=== PATIENT | female | born 1950 | race Caucasian/White ===

== ENCOUNTER 2021-11-30 11:19 | Outpatient (CLI) | payer MEDICARE, BC, SELFPAY ==
--- OUTSIDE RECORDS SUMMARY | 2021-11-30 11:22 | XMS_ITS | Encounter Summary ---
:1950 Author Organization [facility] Address [address] [place] [address] Care Team Providers Name Role Phone Unavailable Primary Care Provider Unavailable Reason for Visit Reason Comments Medication Problem ICD clarification Encounter Details Date Type Department Care Team Description 11/20/2021 Clinical Department of [place], Medication Communication Otorhinolaryngology in [place] ([place], [place] M.D. clarification) [address] [facility] [address] [place] [phone] [place] [phone] Social History Tobacco Use Types Packs/Day Years Used Date Smoking Tobacco: Never Smokeless Tobacco: Never Alcohol Habits Answer Date Recorded How often do you have a drink containing alcohol? Monthly or less 10/07/2021 How many drinks containing alcohol do you have on a 1 or 2 10/07/2021 typical day when you are drinking? How often do you have six or more drinks on one Never 10/07/2021 occasion? Comment: Not asked Social Isolation Answer Date Recorded In a typical week, how many times do you Twice a week 10/07/2021 talk on the phone with family, friends, or neighbors? How often do you get together with friends Three times a wee k 10/07/2021 or relatives? How often do you attend religion or protestant Never 10/07/2021 services? Do you belong to any clubs or organizations Yes 10/07/2021 such as religion groups, unions, fraternal or athletic groups, or school groups? How often do you attend meetings of the More than 4 times pe r year 10/07/2021 clubs or organizations you belong to? Are you now , , , 10/07/2021 , never or living with a partner? Physical Activity Answer Date Recorded On average, how many days per week do you engage in moderate to 7 days 10/07/2021 strenuous exercise (like walking fast, running, jogging, dancing, swimming, biking, or other activities that cause a light or heavy sweat)? On average, how many minutes do you engage in exercise at is 100 min 10/07/2021 level? Stress Answer Date Recorded Do you feel stress - tense, restless, nervous, or anxious, N ot at all 10/07/2021 or unable to sleep at night because your mind is troubled all the time - these days? Financial Resource Strain Answer Date Recorded How hard is it for you to pay for the very basics like Not v js hard 10/07/2021 food, housing, medical care, and heating? Intimate Partner Violence Answer Date Recorded Within the last year, have you been afraid of your partner o r No 10/07/2021 ex-partner? Within the last year, have you been humiliated or emotionall y No 10/07/2021 abused in other ways by your partner or ex-partner? Within the last year, have you been kicked, hit, slapped, or No 10/07/2021 otherwise physically hurt by your partner or ex-partner? Within the last year, have you been raped or forced to have any No 10/07/2021 kind of sexual activity by your partner or ex-partner? Food Insecurity Answer Date Recorded Within the past 12 months, you worried that your food would Never true 10/07/2021 run out before you got money to buy more. Within the past 12 months, the food you bought just didn't N ever true 10/07/2021 last and you didn't have money to get more. Transportation Needs Answer Date Recorded In the past 12 months, has lack of transportation kept you f rom No 10/07/2021 medical appointments or from getting medications? In the past 12 months, has lack of transportation kept you f rom No 10/07/2021 meetings, work, or getting things needed for daily living? Housing Stability Answer Date Recorded In the last 12 months, was there a time when you were not ab le No 10/07/2021 to pay the mortgage or rent on time? In the last 12 months, how many places have you lived? 1 10/07/2021 In the last 12 months, was there a time when you did not hav e a No 10/07/[address] sleep or slept in a [facility] (including now)? Education Answer Date Recorded What is the highest level of school Bachelor's degree (e.g., BA, AB, 10/07/2021 you have completed or the highest BS) degree you have received? Sex Assigned at Date Recorded Female 06/26/2021 11:13 AM CDT documented as of this encounter Miscellaneous Notes Telephone Encounter - Earline Mirza - 11/20/2021 8:33 AM CDT Images from the original note were not included. Fax came in on the prescription just sent. Please clarify. Thanks. documented in this encounter Plan of Treatment Upcoming Encounters Date Type Specialty Care Team Description 12/17/2021 Comprehensive Visit Neurology Jamal Oliva M.D. [address] [place] [phone] Makayla Neves M.S., CCC-CREW SUPERVISOR [address] [place] [phone] 12/17/2021 Appointment Radiology Jamal Olvia M .D. [address] [place] [phone] Makayla Neves M.S., CCC-CREW SUPERVISOR [address] [place] [phone] 12/17/2021 Clinical Support Neurology Jamal Oliva M.D. [address] [place] [phone] Makayla Neves M.S., CCC-CREW SUPERVISOR [address] [place] [address], [place] [phone] 12/17/2021 Appointment Radiology Jake Michel M.D. [address] [place] [phone] (Wo rk) 12/17/2021 Office Visit Otorhinolaryngology Tito Michel M.D. [address] [place] [phone] (Wo rk) 12/23/2021 Telemedicine Otorhinolaryngology Shira Soto, CCC-CREW SUPERVISOR [address] [place] [phone] (Wo rk) documented as of this encounter Visit Diagnoses Not on filedocumented in this encounter Additional Health Concerns Assessment Noted Time PHQ-9 Depression Total Score: 1 10/01/2016 3:24 PM CDT documented as of this encounter
--- OUTSIDE RECORDS SUMMARY | 2021-11-30 11:22 | XMS_ITS | Encounter Summary ---
:1950 Author Organization [facility] Address [address] [place] [address] Care Team Providers Name Role Phone Unavailable Primary Care Provider Unavailable Encounter Details Date Type Department Care Team Description 11/26/2021 Orders Only Department of Gerber Oswald, Otorhinolaryngology in [place], [place] [address] [facility] [address] [place] [phone] Social History Tobacco Use Types Packs/Day Years [...] or relatives? How often do you attend protestant or hoahaoism Never 10/07/2021 services? Do you belong to any clubs or organizations Yes 10/07/2021 such as protestant groups, unions, fraternal or athletic groups, or [...] minutes do you engage in exercise at th is 100 min 10/07/2021 level? Stress Answer [...] place to sleep or slept in a detention (including now)? Education Answer Date Recorded What is the highest level of school Bachelor's degree (e.g., BA, AB, 10/07/2021 you have completed or the highest BS) degree you have received? Sex Assigned at Date Recorded Female 06/26/2021 11:13 AM CDT documented as of this encounter Plan of Treatment Upcoming Encounters Date Type Specialty Care Team Description 12/17/2021 Comprehensive Visit Neurology Jamal Oliva M.D. [address] [place] [phone] Makayla Neves M.S., [facility]-[employer]UTIVE DIRECTOR [employer] [address] [place] [phone] 12/17/2021 Appointment Radiology Jamal Oliva M .D. [address] [place] [phone] Makayla Neves M.S., [facility]UTIVE DIRECTOR [employer] [address] [place] [phone] 12/17/2021 Clinical Support Neurology Jamal Oliva M.D. [address] [place] [phone] Makayla Neves M.S., [facility]UTIVE DIRECTOR [employer] [address] [place] [phone] 12/17/2021 Appointment Radiology Jake Michel M.D. [address] [place] [phone] (Wo rk) 12/17/2021 Office Visit Otorhinolaryngology Tito Michel M.D. [address] [place] [phone] (Wo rk) 12/23/2021 Telemedicine Otorhinolaryngology Shira Soto, [facility]IVE DIRECTOR [employer] [address] [place] [phone] (Wo rk) documented as of this encounter Visit Diagnoses Not on filedocumented in this encounter Additional Health Concerns Assessment Noted Time PHQ-9 Depression Total Score: 1 10/01/2016 3:24 PM CDT documented as of this encounter
--- OUTSIDE RECORDS SUMMARY | 2021-11-30 11:22 | XMS_ITS | Encounter Summary ---
:1950 Author Organization [facility] Address [address] [place] [address] Care Team Providers Name Role Phone Unavailable Primary Care Provider Unavailable Encounter Details Date Type Department Care Team Description 01/13/2017 Hospital Encounter HX NO MAPPING Social History Tobacco Use Types Packs/Day Years Used Date Smoking Tobacco: Never Assessed Alcohol Habits Answer Date Recorded How often [...] or relatives? How often do you attend yazdanism or mormonism Never 10/07/2021 services? Do you belong to any clubs or organizations Yes 10/07/2021 such as yazdanism groups, unions, fraternal or athletic groups, or [...] place to sleep or slept in a halfway (including now)? Sex Assigned at Date Recorded Female 06/26/2021 11:13 AM CDT documented as of this encounter Last Filed Vital Signs Vital Sign Reading Time Taken Comments Blood Pressure 136/72 01/13/2017 8:39 AM ASSEMBLY ROOM SUPERVISOR Pulse 71 01/13/2017 8:39 AM ASSEMBLY ROOM SUPERVISOR Temperature - - Respiratory Rate 16 01/13/2017 8:39 AM ASSEMBLY ROOM SUPERVISOR Oxygen Saturation - - Inhaled Oxygen Concentration - - Weight - - Height - - Body Mass Index - - documented in this encounter Medications at Time of Discharge Medication Sig Dispensed Refills Start Date End Date acetaminophen (TYLENOL) 325 Take 650 mg by 0 09/2013 mg tablet mouth. levothyroxine (SYNTHROID, Take 100 mcg by 0 11/12 LEVOTHROID) 100 mcg tablet mouth daily. melatonin 3 mg tablet Take 2 tablets by 0 016 mouth at bedtime. ondansetron (ZOFRAN) 4 mg as needed. 0 11/10/2016 tablet documented as of this encounter Plan of Treatment Upcoming Encounters Date Type Specialty Care Team Description 12/17/2021 Comprehensive Visit Neurology Jamal Oliva M.D. [address] [place] [phone] Makayla Neves M.S., [id number] ARMOR CREWMAN [address] [place] [phone] 12/17/2021 Appointment Radiology Jamal Oliva M .D. [address] [place] [phone] Makayla Neves M.S., [facility] ARMOR CREWMAN [address] [place] [phone] 12/17/2021 Clinical Support Neurology Jamal Oliva M.D. [address] [place] [phone] Makayla Neves M.S., [facility] ARMOR CREWMAN [address] [place] [phone] 12/17/2021 Appointment Radiology Jake Michel M.D. [address] [place] [phone] (Wo rk) 12/17/2021 Office Visit Otorhinolaryngology Tito Michel M.D. [address] [place] [phone] (Wo rk) 12/23/2021 Telemedicine Otorhinolaryngology Shira Soto [facility] ARMOR CREWMAN [address] [place] [phone] (Wo rk) documented as of this encounter Visit Diagnoses Not on filedocumented in this encounter Additional Health Concerns Assessment Noted Time PHQ-9 Depression Total Score: 1 10/01/2016 3:24 PM CDT documented as of this encounter
--- OUTSIDE RECORDS SUMMARY | 2021-11-30 11:22 | XMS_ITS | Encounter Summary ---
:1950 Author Organization [facility] Address [address] [place] [address] Care Team Providers Name Role Phone Unavailable Primary Care Provider Unavailable Reason for Visit Reason Comments Med Change Request Encounter Details Date Type Department Care Team Description 11/21/2021 Refill Department of Morgan Fleming, Med Change Request Otorhinolaryngology in [facility], [place] M.S.N. [address] [facility] [address] [place] [phone] [place], [place] [phone] Social History Tobacco Use Types Packs/Day Years [...] or relatives? How often do you attend taoist or latter-day Never 10/07/2021 services? Do you belong to any clubs or organizations Yes 10/07/2021 such as taoist groups, unions, fraternal or athletic groups, or [...] place to sleep or slept in a fpc (including now)? Education Answer Date Recorded What [...] Comprehensive Visit Neurology Jamal Oliva M.D. [address] [place] [phone] Makayla Neves M.S., [facility]MINISTER [address] [place] [phone] 12/17/2021 Appointment Radiology Jamal Oliva M .D. [address] [place] [phone] Makayla Neves M.S., [facility] [phone] 12/17/2021 Clinical Support Neurology Jamal Oliva M.D. [address] [place] [phone] Makayla Neves M.S., [facility] [phone] 12/17/2021 Appointment Radiology Jake Michel M.D. [address] [place] [phone] (Wo rk) 12/17/2021 Office Visit Otorhinolaryngology Tito Michel M.D. [address] [place] [phone] (Wo rk) 12/23/2021 Telemedicine Otorhinolaryngology Shira Soto, [facility] [address] [place] [phone] (Wo rk) documented as of this encounter Visit Diagnoses Not on filedocumented in this encounter Additional Health Concerns Assessment Noted Time PHQ-9 Depression Total Score: 1 10/01/2016 3:24 PM CDT documented as of this encounter
--- OUTSIDE RECORDS SUMMARY | 2021-11-30 11:22 | XMS_ITS | Encounter Summary ---
:1950 Author Organization [facility] Address [address] [place] [address] Care Team Providers Name Role Phone Unavailable Primary Care Provider Unavailable Reason for Referral Speech Pathology (Routine) - Authorized Specialty Diagnoses / Procedures Referred By Contact Refer red To Contact Diagnoses Paralysis Vocal Cord Unilateral Complete Jamal Oliva M.D. [facility] Procedures TECHNICAL INFORMATION SPECIALIST Voice evaluation 200 [place] [phone] Referral ID Status Reason Start Date Expiration Date Visits V isits Requested Authorized [id number] Authorized 10/09/2021 10/09/2022 99 99 Reason for Visit Appointment Request (Routine) - Closed Specialty Diagnoses / Procedures Referred By Contact Refer red To Contact Otorhinolaryngology Diagnoses Paralysis Vocal Cord Referral ID Status Reason Start Date Expiration Date Visits Requ ested Visits Authorized [id number] Closed 06/26/2021 06/26/2022 1 1 Encounter Details Date Type Department Care Team Description 10/09/2021 Office Visit Department of Jamal Oliva Voca l Cord Otorhinolaryngology kb Mcnally M.D. Unilateral Complete [place], [place] 200 [facility] (Primary Dx) 200 [place] [phone] Social History Tobacco Use Types Packs/Day Years [...] or relatives? How often do you attend anabaptism or zoroastrian Never 10/07/2021 services? Do you belong to any clubs or organizations Yes 10/07/2021 such as anabaptism groups, unions, fraternal or athletic groups, or [...] place to sleep or slept in a assisted (including now)? Education Answer Date Recorded What is the highest level of school Bachelor's degree (e.g., BA, AB, 10/07/2021 you have completed or the highest BS) degree you have received? Sex Assigned at Date Recorded Female 06/26/2021 11:13 AM CDT documented as of this encounter Progress Notes Salma Jones - 10/09/2021 9:00 AM CDT Referring provider: No ref. provider found .gshrefer CHIEF COMPLAINT Hoarseness HISTORY OF PRESENT ILLNESS Ms. Larry is a 71 y.o. year old female here for evaluation of hoarseness. She has a history of right true vocal fold immobility and underwent type [address] Oliva on November 10, 2016. This helped her greatly with her voice symptoms. Just in the past 6 months, she has started to notice increased hoarseness similar to what she experienced pre-operatively in 2017. Others are also starting to have difficulty hearing her. This has progressively worsened over time.She has increased dyspnea on exertion which she attributes to her history of asthma and organizing pneumonia, but otherwise no breathlessness or noisy breathing. She does also carry a diagnosis of esophageal dysmotility resulting in reflux. She was worked up forthis locally in [place] last fall with a swallow study and was found to also have a Zenker's diverticulum. I do not see the outside records for this today. She has mild dysphagia and has managed this with lifestyle changes including chewing slowly and thoroughly. Small pills are difficult to swallow. She is a pescetarian and tolerates soft foods the best. She does endorse occasional regurgitation,reflux, and choking. No previous hospitalizations for aspiration pneumonia for weight loss. She is taking Pepcid for the reflux, and does not find that this fully alleviating her heartburn symptoms. The voice changes are most concerning to her today as they are affecting socializing. Patient rates the voice today as 62 % of normal. Patient rates concern regarding voice as 5/7, where 7 equals extreme concern, and effort when speaking as 5/7, where 7 equals extreme effort. Patient has difficulty within 10-20 minutes of speaking. Total score on the Voice Handicap Index-10 (VHI-10) is 21/40. EAT-10 is 9. RSI is 27. The following portions of the patient's history were reviewed and updated as appropriate: allergies,current medications, family history, medical history, social history, surgical history, and problem list. Encounter review of systems was reviewed and pertinent responses are noted in the history. Social History Tobacco Use Smoking status: Never Smokeless tobacco: Never Vaping Use Vaping Use: never used PHYSICAL EXAMINATION Gen: Resting comfortably in no acute distress. Alert and oriented. No stridor or increased respiratory effort. Voice is slightly rough. Maximal phonation time is not limited by time. Ent: Oral cavity, oropharynx: Clear and free of masses or lesions. Neck: Supple without lymphadenopathy or thyromegaly. Cranial nerve 7 intact bilaterally. Skin: Scar present on left side of neck from previous cervical vertebral fusion. Flexible laryngoscopy: Verbal consent obtained and universal protocol followed. In order to evaluatethe chief complaint, a flexible laryngoscopy was performed as a separate identifiable procedure. Twopercent lidocaine with phenylephrine was instilled into the right and left nares. The flexible scopewas passed. The larynx was examined, specifically the supraglottis, true vocal folds, and subglottis. Vocal fold adduction and abduction were assessed. The true vocal folds, arytenoids, and interarytenoid spaces were closely visualized to confirm presence or absence of erythema, edema, or structural lesions. Videostroboscopy was also performed to evaluate the vibratory potential and closure patterns of the true vocal folds. Mucosal wave and amplitude were assessed for symmetry. Periodicity and glottic closure were evaluated. The scope was removed. Specific findings: True vocal folds were carefully examined. The right true vocal fold is immobile in a paramedian position with what seems to be adequate bulk. The left true vocal fold shows normal and full motion. Closure is nearly complete with the subtle glottal gap anteriorly at modal pitch. There is some chasing asymmetry seen with the right side leading the left. At higher frequency, the closure is complete with symmetric mucosal wave. 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 Larry has a history of right true vocal fold immobility s/p type [address] Oliva 11/10/2016 and is presenting today for new hoarseness after around 5 years of improved voice. We comparedher voice recordings from 3 months post-op in 2017 to today and she has good quality of sound intermi ttently. On scope exam today the closure is complete at slightly higher pitch. There is a subtle gapat modal and lower pitch. At this time, I would not recommend a revision thyroplasty and she is happy with this. I would recommend evaluation with our speech language pathology team and voice therapy. She also has a Zenker's diverticulum which was found on swallow study in [place] last fall duringwork-up of her esophageal dysmotility, though these records are not available in her chart today. I would like to see the swallow study and she will send that our way. We discussed possible surgery forthis and there is a risk for reflux especially with her history of esophageal dysmotility. She may need to see GI for their evaluation as well here. 20 minutes were spent with patient with greater than half of this in counseling and coordination of care not including the videostroboscopy. PATIENT EDUCATION Ready to learn, no apparent learning barriers were identified; learning preferences include listening. Explained diagnosis and treatment plan; patient expressed understanding of the content. Associated attestation - Jamal Oliva M.D. - 10/09/2021 10:45 AM CDT I saw the patient with the medical student. I was present for or re-performed the History of PresentIllness. I saw and evaluated the patient, participating in the fermin portions of the service and did medical decision making. I have reviewed the above documentation and agree or amended. documented in this encounter Plan of Treatment Upcoming Encounters Date Type Specialty Care Team Description 12/17/2021 Comprehensive Visit Neurology Jamal Oliva M.D. [address] [place] [phone] Makayla Neves M.S., [facility]-TECHNICAL INFORMATION SPECIALIST [address] [place] [phone] 12/17/2021 Appointment Radiology Jamal Oliva M .D. [address] [place] [phone] Makayla Neves M.S., [facility]-TECHNICAL INFORMATION SPECIALIST [address] [place] [phone] 12/17/2021 Clinical Support Neurology Jamal Oliva M.D. [address] [place] [phone] Makayla Neves M.S., [facility]-TECHNICAL INFORMATION SPECIALIST [address] [place] [phone] 12/17/2021 Appointment Radiology Jake Michel M.D. [address] [place] [phone] (Wo rk) 12/17/2021 Office Visit Otorhinolaryngology Tito Michel M.D. [address] [place] [phone] (Wo rk) 12/23/2021 Telemedicine Otorhinolaryngology Shira Soto, [facility]-TECHNICAL INFORMATION SPECIALIST [address] [place] [phone] (Wo rk) documented as of this encounter Visit Diagnoses Diagnosis Paralysis Vocal Cord Unilateral Complete - Primary documented in this encounter Additional Health Concerns Assessment Noted Time PHQ-9 Depression Total Score: 1 10/01/2016 3:24 PM CDT documented as of this encounter
--- OUTSIDE RECORDS SUMMARY | 2021-11-30 11:22 | XMS_ITS | Encounter Summary ---
:1950 Author Organization [facility] Address [address] [place] [address] Care Team Providers Name Role Phone Unavailable Primary Care Provider Unavailable Encounter Details Date Type Department Care Team Description 11/20/2021 Orders Only Department of Morgan Fleming, Otorhinolaryngology in [facility] [place], [place] M.S.N. [address] [facility] [address] [place] [address] [place], [place] [phone] Social History Tobacco Use Types Packs/Day Years [...] or relatives? How often do you attend rastafari or confucianism Never 10/07/2021 services? Do you belong to any clubs or organizations Yes 10/07/2021 such as rastafari groups, unions, fraternal or athletic groups, or [...] place to sleep or slept in a residential (including now)? Education Answer Date Recorded What [...] Comprehensive Visit Neurology Jamal Oliva M.D. [address] [place] [phone] Makayla Neves M.S., [facility]-HVAC INSTALLATION TECHNICIAN [address] [place] [phone] 12/17/2021 Appointment Radiology Jamal Oliva M .D. [address] [place] [phone] Makayla Neves M.S., [facility]-HVAC INSTALLATION TECHNICIAN [address] [place] [phone] 12/17/2021 Clinical Support Neurology Jamal Oliva M.D. [address] [place] [phone] Makayla Neves M.S., [facility]-HVAC INSTALLATION TECHNICIAN [address] [place] [phone] 12/17/2021 Appointment Radiology Jake Michel M.D. [address] [place] [phone] (Wo rk) 12/17/2021 Office Visit Otorhinolaryngology Tito Michel M.D. [address] [place] [phone] (Wo rk) 12/23/2021 Telemedicine Otorhinolaryngology Shira Soto, [facility]-HVAC INSTALLATION TECHNICIAN [address] [place] [phone] (Wo rk) documented as of this encounter Visit Diagnoses Not on filedocumented in this encounter Additional Health Concerns Assessment Noted Time PHQ-9 Depression Total Score: 1 10/01/2016 3:24 PM CDT documented as of this encounter
--- OUTSIDE RECORDS SUMMARY | 2021-11-30 11:22 | XMS_ITS | Encounter Summary ---
:1950 Author Organization [facility] Address [address] [place] [address] Care Team Providers Name Role Phone Unavailable Primary Care Provider Unavailable Encounter Details Date Type Department Care Team Description 11/27/2021 Orders Only Department of Otorhinolaryngology Azeb Bess, in [facility] L[facility] [address] [facility] [address] [place] [address] [place], [place] [phone] Social History Tobacco Use Types Packs/Day Years [...] or relatives? How often do you attend mosque or presybeterian Never 10/07/2021 services? Do you belong to any clubs or organizations Yes 10/07/2021 such as mosque groups, unions, fraternal or athletic groups, or [...] pay for the very basics like Not alex js hard 10/07/2021 food, housing, medical care, [...] place to sleep or slept in a care home (including now)? Education Answer Date Recorded What [...] Comprehensive Visit Neurology Jamal Oliva M.D. [address] [place] [phone] Makayla Neves M.S., [facility]-[address] [phone] 12/17/2021 Appointment Radiology Jamal Oliva M .D. [address] [place] [phone] Makayla Neves M.S., [facility]-[address] [phone] 12/17/2021 Clinical Support Neurology Jamal Oliva M.D. [address] [place] [phone] Makayla Neves M.S., [facility]-[address] [phone] 12/17/2021 Appointment Radiology Jake Michel M.D. [address] [place] [phone] (Janet garcia) 12/17/2021 Office Visit Otorhinolaryngology Tito Michel M.D. [address] [place] [phone] (Janet garcia) 12/23/2021 Telemedicine Otorhinolaryngology Shira Soto, [facility]-GEOPOLITICS TEACHER [address] [place] [phone] (Janet garcia) documented as of this encounter Visit Diagnoses Not on filedocumented in this encounter Additional Health Concerns Assessment Noted Time PHQ-9 Depression Total Score: 1 10/01/2016 3:24 PM CDT documented as of this encounter
--- OUTSIDE RECORDS SUMMARY | 2021-11-30 11:22 | XMS_ITS | Encounter Summary ---
:1950 Author Organization [facility] Address [address] [place] [address] Care Team Providers Name Role Phone Unavailable Primary Care Provider Unavailable Encounter Details Date Type Department Care Team Description 11/25/2021 Orders Only Department of Otorhinolaryngology Azeb Bess, in [facility] L[facility] [address] [facility] [address] [place] [address] [place], [place] [phone] Social History Tobacco Use Types Packs/Day Years [...] or relatives? How often do you attend taoism or scientology Never 10/07/2021 services? Do you belong to any clubs or organizations Yes 10/07/2021 such as taoism groups, unions, fraternal or athletic groups, or [...] Comprehensive Visit Neurology Jamal Oliva M.D. [address] [place] [phone] Makayla Neves M.S., [facility]-[address] [phone] 12/17/2021 Appointment Radiology Jamal Oliva M .D. [address] [place] [phone] Makayla Neves M.S., [facility]-[address] [phone] 12/17/2021 Clinical Support Neurology Jamal Oliva M.D. [address] [place] [phone] Makayla Neves M.S., [facility]-[address] [phone] 12/17/2021 Appointment Radiology Jake Michel M.D. [address] [place] [phone] (Janet garcia) 12/17/2021 Office Visit Otorhinolaryngology Tito Michel M.D. [address] [place] [phone] (Janet garcia) 12/23/2021 Telemedicine Otorhinolaryngology Shira Soto, [facility]-LASER TECHNICIAN [address] [place] [phone] (Janet garcia) documented as of this encounter Visit Diagnoses Not on filedocumented in this encounter Additional Health Concerns Assessment Noted Time PHQ-9 Depression Total Score: 1 10/01/2016 3:24 PM CDT documented as of this encounter
--- OUTSIDE RECORDS SUMMARY | 2021-11-30 11:22 | XMS_ITS | Encounter Summary ---
:1950 Author Organization [facility] Address [address] [place] [address] Care Team Providers Name Role Phone Unavailable Primary Care Provider Unavailable Encounter Details Date Type Department Care Team Description 02/14/2017 Telemedicine Department of Otorhinolaryngology Social History Tobacco Use Types Packs/Day Years [...] How often do you attend yazdanism or tenriism Never 10/07/2021 services? Do you belong to [...] place to sleep or slept in a intermediate (including now)? Sex Assigned at Date Recorded Female 06/26/2021 11:13 AM CDT documented as of this encounter Plan of Treatment Upcoming Encounters Date Type Specialty Care Team Description 12/17/2021 Comprehensive Visit Neurology Jamal Oliva M.D. [address] [place] [phone] Makayla Neves M.S., [facility]-REHAB DIRECTOR OCCUPATIONAL THERAPIST [address] [place] [phone] 12/17/2021 Appointment Radiology Jamal Oliva M .D. [address] [place] [phone] Makayla Neves M.S., [facility]-REHAB DIRECTOR OCCUPATIONAL THERAPIST [address] [place] [phone] 12/17/2021 Clinical Support Neurology Jamal Oliva M.D. [address] [place] [phone] Makayla Neves M.S., [facility]-REHAB DIRECTOR OCCUPATIONAL THERAPIST [address] [place] [phone] 12/17/2021 Appointment Radiology Jake Michel M.D. [address] [place] [phone] (Wo rk) 12/17/2021 Office Visit Otorhinolaryngology Tito Michel M.D. [address] [place] [phone] (Wo rk) 12/23/2021 Telemedicine Otorhinolaryngology Shira Soto, [facility]-REHAB DIRECTOR OCCUPATIONAL THERAPIST [address] [place] [phone] (Wo rk) documented as of this encounter Procedures Procedure Name Priority Date/Time Associated Comments Diagnosis OTORHINOLARYNGOLOGY IMAGE Routine 02/14/2017 10:55 Results for this EXAM AM TEST DESIGNER procedure are i n the results section. documented in this encounter Results OTORHINOLARYNGOLOGY IMAGE EXAM (02/14/2017 10:55 AM TEST DESIGNER) Specimen (Source) Anatomical Collection Method Collection Time Re ceived Time Location / / Volume Laterality 02/14/2017 10:51 AM TEST DESIGNER Narrative [facility] - 02/14/2017 10:59 AM TEST DESIGNER This order has been created and auto-finalized to support the import of images acquired without order. The clini karlie documentation to support these images can be found on the encounter willow t produced images. Provider Not In System IMG NON RAD IMAGING PROCEDUR ES Performing Organization Address City/State/ZIP Code Phon e Number [facility] NA documented in this encounter Visit Diagnoses Not on filedocumented in this encounter Additional Health Concerns Assessment Noted Time PHQ-9 Depression Total Score: 1 10/01/2016 3:24 PM CDT documented as of this encounter
--- OUTSIDE RECORDS SUMMARY | 2021-11-30 11:22 | XMS_ITS | Clinical Summary ---
:[address] [facility] Address [address] [place] [address] Care Team Providers Name Role Phone Unavailable Primary Care Provider Unavailable Source Comments Patient records contain information from all sites at [facility]. For routine questions regarding patient records, call [phone] during business hours, M-F 8:00 AM - 5:00 PM Central Time. Record requests for emergency care only can be directed to [phone] at any time.[facility] Allergies No known active allergies Medications Medication Sig Dispensed Refills Start Date End Date Status predniSONE 2 (two) times a 0 06/16/2021 Ac tive (DELTASONE) 10 mg day. tablet ondansetron (ZOFRAN) as needed. 0 11/10/2016 Active 4 mg tablet melatonin 3 mg Take 2 tablets 0 03/17/2015 Active tablet by mouth at bedtime. levothyroxine Take 100 mcg by 0 11/12/2016 Active (SYNTHROID, mouth daily. LEVOTHROID) 100 mcg tablet ibuprofen Take 800 mg by 0 10/03/2018 Acti ve (ADVIL,MOTRIN) 800 mouth 3 (three) mg tablet times a day. HYDROcodone-acetamin Take 1-2 0 10/03/2018 Active ophen (NORCO) 5-325 tablets by mg per tablet mouth as needed. glucosamine sulf Take by mouth 0 Active dipotassium daily. chloride-chondroitin 500-400 mg per capsule fluticasone daily. 0 06/11/2021 Active propionate (FLONASE) 50 mcg/actuation nasal spray fluticasone Inhale every 12 0 04/20/2017 A ctive propion-salmeteroL (twelve) hours. (AIRDUO RESPICLICK) 232-14 mcg/actuation inhaler diphenhydrAMINE Take 25 mg by 0 Active (BENADRYL) 25 mg mouth. capsule cyanocobalamin, Take 1,000 mcg 0 Active vitamin B-12, 1,000 by mouth. mcg tablet extended release cefdinir (OMNICEF) Take 300 mg by 0 06/11/2021 Active 300 mg capsule mouth. albuterol 90 Inhale 2 puffs. 0 A ctive mcg/actuation inhaler acetaminophen Take 650 mg by 0 04/13/2013 Active (TYLENOL) 325 mg mouth. tablet budesonide Mix 1 ampule in 120 mL 11 11/25/2021 Ac tive (Pulmicort) 0.5 mg/2 sinus mL nebulizer irrigation solution bottle and irrigate twice daily. budesonide Add 1 respule 360 mL 3 11/27/2021 Acti ve (PULMICORT) 0.5 mg/2 to 8 ounces mL nebulizer saline and solution irrigate each side of nose twice daily as directed. budesonide (RINOCORT Administer 2 0 Discontinued AQUA) 32 sprays into 2 mcg/actuation nasal nostril(s). spray budesonide Administer 2 mL 120 mL 11 11/17/2021 Di scontinued (Pulmicort) 0.5 mg/2 (0.5 mg total) 2 mL nebulizer into nostril(s) solution 2 (two) times a day. Mix 1 ampule in sinus irrigation bottle and irrigate twice daily. budesonide Mix 1 ampule in 120 mL 11 11/19/2021 Di scontinued (Pulmicort) 0.5 mg/2 sinus 2 mL nebulizer irrigation solution bottle and irrigate twice daily. budesonide Mix 1 ampule in 120 mL 11 11/20/2021 Di scontinued (Pulmicort) 0.5 mg/2 sinus 2 mL nebulizer irrigation solution bottle and irrigate twice daily. Active Problems Problem Noted Date Asthma NOS 04/14/2017 Pneumonia Bronchiolitis Obliterans Organizing 09/28/19 17 Encounters Date Type Specialty Care Team Description 11/27/2021 Orders Only Otorhinolaryngology Azeb Bess, L.P.N. 11/26/2021 Orders Only Otorhinolaryngology Gerber Oswald M.D. 11/25/2021 Orders Only Otorhinolaryngology Azeb Bess, Ewa.P.N. 11/21/2021 Refill Otorhinolaryngology Morgan Fleming Cha nge Marie Mcneil APRN, C.N.P., M.S.N. 11/20/2021 Orders Only Otorhinolaryngology Morgan Fleming APRN, C.N.P., M.S.N. 11/20/2021 Clinical Otorhinolaryngology Jake Michel Medicat ion Problem Communication Breanna Hyde (ICD clarifica tion) 11/19/2021 Orders Only Otorhinolaryngology Carli Guerrero, R.N. 11/17/2021 Clinical Support Otorhinolaryngology Charles, Para lysis Vocal Shira Ewa, Cord Unilateral CCC-ENTRY LEVEL SALES ASSOCIATE Complete 11/17/2021 Comprehensive Otorhinolaryngology Jake Michel Rhinos inusitis Chronic (Primary Dx); Visit Breanna Hyde Sinusitis; Asthma (HCC); Pneumonia Bronc hiolitis Obliterans Organizing (HCC); Drip Post Nasal 11/17/2021 Orders Only Otorhinolaryngology Kevin Ham (Primary Jaqui A, Dx) R.N. 11/12/2021 Telemedicine Otorhinolaryngology Jamal Oliva, Paraly sis Vocal M.DSydnie Cord Unilateral Charles Complete Shira Mcneil CCC-ENTRY LEVEL SALES ASSOCIATE 10/12/2021 Community Orders Daiana Whitley (Primary Dx) MMira 10/09/2021 Comprehensive Otorhinolaryngology Jamal Oliva, Sinus itis (Primary Dx); Visit M.DSydnie Paralysis Vocal Cord Unilateral Complete Shira Soto CCC-ENTRY LEVEL SALES ASSOCIATE 10/09/2021 Ancillary Procedure 10/09/2021 Office Visit Otorhinolaryngology Jamal Oliva, Paraly sis Vocal M.D. Cord Unilateral Complete (Prima ry Dx) 10/08/2021 Clinical Admitting/Central Communication Scheduling from Last 3 Months Immunizations Name Administration Dates Next Due PCV13 07/02/2016 PPSV23 07/08/2014 Tdap 04/10/2015, 02/04/2007 Social History Tobacco Use Types Packs/Day Years Used Date Smoking Tobacco: Never Smokeless Tobacco: Never Tobacco Cessation: Counseling Given: Not Answered Alcohol Habits Answer Date Recorded How often [...] or relatives? How often do you attend sikhism or taoist Never 10/07/2021 services? Do you belong to any clubs or organizations Yes 10/07/2021 such as sikhism groups, unions, fraternal or athletic groups, or [...] place to sleep or slept in a long-term (including now)? Education Answer Date Recorded What is the highest level of school Bachelor's degree (e.g., BA, AB, 10/07/2021 you have completed or the highest BS) degree you have received? Sex Assigned at Date Recorded Female 06/26/2021 11:13 AM CDT Last Filed Vital Signs Vital Sign Reading Time Taken Comments Blood Pressure 136/72 01/13/2017 8:39 AM ENGINEERING CLERK Pulse 71 01/13/2017 8:39 AM ENGINEERING CLERK Temperature - - Respiratory Rate 16 01/13/2017 8:39 AM ENGINEERING CLERK Oxygen Saturation - - Inhaled Oxygen Concentration - - Weight 61 kg (134 lb 7.7 oz) 04/14/2017 7:48 AM ENGINEERING CLERK Height 154 cm (5' 0.63) 04/14/2017 7:48 AM ENGINEERING CLERK Body Mass Index 25.72 04/14/2017 7:48 AM ENGINEERING CLERK Plan of Treatment Upcoming Encounters Date Type Specialty Care Team Description 12/17/2021 Comprehensive Visit Neurology Jamal Oliva M.D. [address] [place] [phone] Makayla Neves M.S., [facility] [address] [place] [phone] 12/17/2021 Appointment Radiology Jamal Oliva M .D. [address] [place] [phone] Makayla Neves M.S., [facility] [phone] 12/17/2021 Clinical Support Neurology Jamal Oliva M.D. [address] [place] [phone] Makayla Neves M.S., [facility] [phone] 12/17/2021 Appointment Radiology Jake Michel M.D. [address] [place] [phone] (Wo rk) 12/17/2021 Office Visit Otorhinolaryngology Tito Michel M.D. [address] [place] [phone] (Janet garcia) 12/23/2021 Telemedicine Otorhinolaryngology hSira Soto, [facility] [phone] (Janet garcia) Health Maintenance Due Date Last Done Comments CT Colonography 1950 Colonoscopy 1950 FIT 1950 Hepatitis C Screening 1950 Zoster Vaccines (2 of 3) 04/12/2011 02/15/2011 Mammogram 05/05/2017 05/05/2016 (Performed elsewhere), 10/05/2013 (Performed elsewhere), 01/05/2011 (Performed elsewhere) Thyroid Stimulating Hormone (TSH) 10/01/2017 10/01/2016 test for thyroid function Cologuard 11/02/2019 11/01/2016 Colorectal Cancer Screening 11/02/2019 Depression Screening (Annual 03/07/2021 PHQ-2) Fall Risk Screen (Annual) 03/07/2021 COVID-19 Vaccine (5 - Booster for 10/02/2021 08/07/2021, , Moderna series) 05/19/2020, Additional history exists Influenza Vaccine (#1) 2021 Fasting Glucose for Diabetes 01/14/2024 01/13/2021, 017, Screening 10/01/2016, Additional history exists DTaP,Tdap,and Td Vaccines (3 - Td 04/10/2025 04/10/2015, , or Tdap) 10/05/2005 Pneumococcal vaccine (65+ years) Completed 08/07/2021, , 06/18/2016, Additional history exists Medical Devices Implanted Type Area Dog License Officer Supervisor Device Shelf Model / Identifier Expiration Date Ser ial / Lot Trimed-Screw Volar Peg Thrded 14mm - Garza [id number] Hardware e.g. [employer] Implanted: Qty: 1 on 04/25/2009 pins/screws/r ods Description: Device Dog License Officer Supervisor - [employer] Device Status Text - [id number]. Conversions - Default Historical Implant Device Hardware e.g . pins/screws/rods Right: Leg Implanted: 06/24/2014 (Quantity not on file) Description: Body Location - LowExtrm R. LowExtrm R. LowExtrm R. Device Status Text - Hardware. Conversions - Default Historical Implant Device Hardware e.g . pins/screws/rods Neck Implanted: Qty: 5 on 10/01/2016 Description: Body Location - Neck Mid. C -6 and C-7. Device Status Text - Hardware. [facility] 4 .035 - Garza [id number] Hardware e.g. pins/screws/rods Thong Implanted: Qty: 1 on 11/30/2016 Description: Device Dog License Officer Supervisor - Stryk er Gordon.. Device Status Text - [id number]. Block Olga. Phonoform [facility] Rt - Garza [id number] [facility] Pros thesis Other/Legacy - See Implant Med[employer] Implanted: Qty: 1 on 11/10/2016 Description Description: Device Dog License Officer Supervisor - [employer] Body Location - Other. Right. Device Status Text - [facility] [place] [id number]. Procedures Procedure Name Priority Date/Time Associated Comments Diagnosis OTORHINOLARYNGOLOGY IMAGE Routine 10/09/2021 9:30 Results for this EXAM AM CDT procedure are i n the results section. from Last 3 Months Results Otorhinolaryngology Image Exam-Otorhinolaryngology Image Exam (10/09/2021 9:30 AM CDT) Specimen (Source) Anatomical Collection Method Collection Time Re ceived Time Location / / Volume Laterality 10/09/2021 9:27 AM CDT Narrative IIMS - 10/09/2021 10:02 AM CDT This order has been created and auto-finalized to support the import of images acquired without order. The clini karlie documentation to support these images can be found on the encounter willow t produced images. Provider Not In System IMG NON RAD IMAGING PROCEDUR ES Performing Organization Address City/State/ZIP Code Phon e Number IIMS IIMS NA from Last 3 Months Insurance Payer Benefit Plan Subscriber ID Effective Phone Address Typ e / Group Dates MEDICARE MEDICARE A [id number] 2015-Pres [address] [place] [address] BLUE CROSS BCBS [place]ON[place] [id number] 2016-Pres [phone] PO ANSELMO X Cost Share BLUE SHIELD BLUE COST ent [phone] [place] [address] (Home) [place], [place] [phone] (Work)
--- OUTSIDE RECORDS SUMMARY | 2021-11-30 11:22 | XMS_ITS | Encounter Summary ---
:1950 Author Organization [facility] Address [address] [place] [phone] Care Team Providers Name Role Phone Unavailable Primary Care Provider Unavailable Reason for Referral Outpatient (Routine) - Authorized Specialty Diagnoses / Procedures Referred By Contact Refer red To Contact Otorhinolaryngology Jake Michel M.D . [facility] [address] [place] [phone] Referral ID Status Reason Start Date Expiration Date Visits V isits Requested Authorized [id number] Authorized 11/17/2021 11/16/2024 1 1 MRI/CAT/PET Scan (Routine) - Authorized Specialty Diagnoses / Procedures Referred By Contact Refer red To Contact Radiology Diagnoses Rhinosinusitis Chronic Jake Michel M.D. [facility] Procedures CT Sinuses without IV Contrast [address] [place] [phone] Referral ID Status Reason Start Date Expiration Date Visits V isits Requested Authorized [id number] Authorized 11/17/2021 11/17/2022 1 1 Reason for Visit Outpatient (Routine) - Closed Specialty Diagnoses / Procedures Referred By Contact Refer red To Contact Otorhinolaryngology Diagnoses Sinusitis Jamal Oliva M.D. [facility] [address] [place] [phone] Referral ID Status Reason Start Date Expiration Date Visits Requ ested Visits Authorized [id number] Closed 10/09/2021 10/09/2022 1 1 Encounter Details Date Type Department Care Team Description 11/17/2021 Comprehensive Visit Department of [place], Rhinosi nusitis Chronic (Primary Dx); Otorhinolaryngology in Jake W, Sinus itis; [place], [place] MMira Asthma ([facility]); [address] Pneumonia Bronchiolitis Obli terans Organizing ([facility]); [place], [place] [phone] [address] Drip Post Nasal [phone] [place] [phone] Social History Tobacco Use Types Packs/Day Years [...] or relatives? How often do you attend islam or samaritan Never 10/07/2021 services? Do you belong to any clubs or organizations Yes 10/07/2021 such as islam groups, unions, fraternal or athletic groups, or [...] place to sleep or slept in a jail (including now)? Education Answer Date Recorded What is the highest level of school Bachelor's degree (e.g., BA, AB, 10/07/2021 you have completed or the highest BS) degree you have received? Sex Assigned at Date Recorded Female 06/26/2021 11:13 AM CDT documented as of this encounter Consult Notes Morgan Fleming APRN, C.N.P., M.S.N. - 11/17/2021 9:15 AM CDT SUBJECTIVE CHIEF COMPLAINT / REASON FOR VISIT Brittany Larry is a 71 y.o. female who presents for evaluation of CRS HISTORY OF PRESENT ILLNESS Brittany Larry presents for evaluation of sinusitis referred by Dr. Oliva. She has a history of right true vocal fold immobility and is currently undergoing voice therapy with Nena Soto. Of late, shehas been struggling a bit more with her voice and reported feeling as though her sinus symptoms wereplaying a significant role. She has also been seen locally for chronic rhinosinusitis having been onbudesonide irrigations. Today, she reports a previous history of endoscopic surgery in 2007 and 2012 having undergone a septoplasty and opening of her sinuses. She reports daily symptoms that include headaches, green to clear, thick, nasal drainage, bilateral nasal obstruction, right worse than left. She denies any pain or pr essure or using nasal sprays or rinses in her nose. 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 She does endorse a history of obstructive sleep apnea wearing nasal pillows although feels more constructed at night. She also has a history of asthma taking albuterol inhaler intermittently along withreflux. She does occasionally take Pepcid however has done dietary changes due to her dysmotility. She denies a history of seasonal allergies having been tested multiple times. She denies any aspirin sensitivity. History significant for dysphagia, Zenker's diverticulum, esophageal dysmotility resulting in reflux, and a right true vocal fold immobility. Reports a history of asthma, GERD taking Pepcid Social History Tobacco Use Smoking status: Never Smokeless tobacco: Never REVIEW OF SYSTEMS REVIEW OF SYSTEMS OBJECTIVE of PHYSICAL EXAM Constitutional: Appears alert and well Otoscopic: Hearing is grossly normal Right: External ear normal TM intact without effusion EAC without significant cerumen Left: External ear normal TM intact without effusion EAC without significant cerumen Nose: The external nose is without significant lesions or masses Oral Cavity/Oropharynx: Normal oral cavity Eyes: Pupils are equal, round, and reactive to light Cardiovascular: Upper extremities are well perfused Pulmonary/Chest: Respirations have grossly normal rate and effort Lymphadenopathy: No cervical lymphadenopathy Neurological: She is alert Skin: No facial rash noted Psychiatric: Affect appears appropriate PROCEDURE NOTE Procedure: Rigid nasal endoscopy Pre-procedure diagnosis/Indication for procedure: To evaluate areas not seen on anterior rhinoscopy Anesthesia: 0.5% phenylephrine & 2% lidocaine topical spray Description: A 30 degree 4mm rigid nasal endoscope was used to examine the left and right nasal cavities. The nasal valve areas were examined for abnormalities or collapse. The inferior and middle turbinates were evaluated. The middle and superior meati, and the sphenoethmoid recesses were examined and inspected for mucopurulence and polyps. Once the endoscope was withdrawn, the patient was noted to have tolerated the procedure well without complications and was returned to ambulatory status. Findings: Septum midline. Bilateral inferior turbinates are nonobstructive with view of middle meatus bilaterally. Middle turbinates are in good position. Able to view minimal maxillary antrostomies bilaterally.The left maxillary antrostomies noted to have thick, clear mucus. Unable to view into ethmoids bilaterally. Bilateral nasopharynx was noted to have thick, clear mucus as well. No evidence of infection or edema No pus/purulence/polyps bilaterally Sujey-Juancarlos Endoscopic Scoring System RIGHT LEFT POLYPS (0, 1, 2) 0 0 EDEMA (0, 1, 2) 0 0 DISCHARGE (0, 1, 2) 1 1 SCARRING (0, 1, 2) 0 0 CRUSTING (0, 1, 2) 0 0 TOTAL 1 1 Olfactory Cleft Score RIGHT LEFT POLYPS (0, 1, 2) 0 0 EDEMA (0, 1, 2) 0 0 DISCHARGE (0, 1, 2) 0 0 SCARRING (0, 1, 2) 0 0 CRUSTING (0, 1, 2) 0 0 TOTAL 0 0 ASSESSMENT / PLAN #1 Rhinosinusitis Chronic #2 Asthma (HCC) #3 Pneumonia Bronchiolitis Obliterans Organizing (HCC) #4 Drip Post Nasal It was a pleasure to meet Ms. Larry today. She has a longstanding history of chronic rhinosinusitis having been on budesonide irrigations. She is currently undergoing voice therapy due to dysphonia robson history of vocal fold immobility. As of late she feels as though her sinus symptoms have played a significant role in her dysphonia and has ongoing thick, clear postnasal drainage and rhinorrhea. On exam she was noted to have thick, clear drainage in her bilateral nasal cavities were prominentlyin her left maxillary sinus and nasopharynx. There is no evidence of infection or edema. There is evidence of a previous minimal surgery with bilateral maxillary antrostomies. We reviewed a head CT from June of 2021 that revealed disease and mucosal inflammation in all sinuses. We discussed starting twice daily budesonide irrigations again for the following month. We advised her to follow-up with us at that time after undergoing a sinus CT. At that time we will review the results and based on the findings if she has significant improvement in her mucosal thickening and symptoms we can medical therapy and twice daily budesonide irrigations. If she does have continued postnasal drainage and inflammation on her CT we could discuss revision sinus surgery in further detail. Allof her questions were answered she is agreeable to plan. I saw and evaluated the patient, participating in the fermin portions of the service. I reviewed the resident/PA/nurse practitioner's note. I agree with the examination, assessment and plan. Jake Michel MD [facility] Department of Otorhinolaryngology - Head & Neck Surgery documented in this encounter Plan of Treatment Upcoming Encounters Date Type Specialty Care Team Description 12/17/2021 Comprehensive Visit Neurology Jamal Oliva M.D. [address] [place] [phone] Makayla Neves M.S., CCC-CRUSHER OPERATOR [address] [place] [phone] 12/17/2021 Appointment Radiology Jamal Oliva M .D. [address] [place] [phone] Makayla Neves M.S., CCC-CRUSHER OPERATOR [address] [place] [phone] 12/17/2021 Clinical Support Neurology Jamal Oliva M.D. [address] [place] [phone] Makayla Neves M.S., [facility]CRUSHER OPERATOR [address] [place] [phone] 12/17/2021 Appointment Radiology Jake Michel M.D. [address] [place] [phone] (Wo rk) 12/17/2021 Office Visit Otorhinolaryngology Tito Michel M.D. [address] [place] [phone] (Wo rk) 12/23/2021 Telemedicine Otorhinolaryngology Shira Soto, [facility] [address] [place] [phone] (Wo rk) Scheduled Orders Name Type Priority Associated Diagnoses Order S chedule CT Sinuses without Imaging RAD - Routine (most Rhinosinusitis Chronic Expected: IV Contrast inpatients and all outpatients) (Approximate), Expires: 02/16/2023 Scheduled Referrals Name Type Priority Associated Order Schedule Diagnoses Otorhinolaryngology office Outpatient Routine E xpected: visit (clinic) Referral 12/17/2021 (Approximate), Expires: 02/16/2023 documented as of this encounter Visit Diagnoses Diagnosis Rhinosinusitis Chronic - Primary Sinusitis Asthma (HCC) Pneumonia Bronchiolitis Obliterans Organ izing (HCC) Drip Post Nasal documented in this encounter Additional Health Concerns Assessment Noted Time PHQ-9 Depression Total Score: 1 10/01/2016 3:24 PM CDT documented as of this encounter
--- OUTSIDE RECORDS SUMMARY | 2021-11-30 11:22 | XMS_ITS | Encounter Summary ---
:1950 Author Organization [facility] Address [address] [place] [address] Care Team Providers Name Role Phone Unavailable Primary Care Provider Unavailable Reason for Referral Outpatient (Routine) - Closed Specialty Diagnoses / Procedures Referred By Contact Refer red To Contact Diagnoses Paralysis Vocal Cord Unilateral Complete [facility] Procedures ENT Speech therapy [address] [place] [phone] Referral ID Status Reason Start Date Expiration Date Visits Requ ested Visits Authorized [id number] Closed 11/12/2021 11/12/2022 1 1 Reason for Visit Outpatient (Routine) - Closed Specialty Diagnoses / Procedures Referred By Contact Refer red To Contact Video Medicine Diagnoses Paralysis Vocal Cord Unilateral Complete Jamal Oliva M.D. [facility] [address] [place] [phone] Referral ID Status Reason Start Date Expiration Date Visits Requ ested Visits Authorized [id number] Closed 10/09/2021 10/09/2022 1 1 Encounter Details Date Type Department Care Team Description 11/12/2021 Telemedicine Department of Jamal Oliva M .D. [address] [place] [phone] Paralysis Vocal Otorhinolaryngology in Shira Soto CCC-NATURAL GAS ENGINEER [address] [place] [phone] [place], [place] Complete [address] [place] [phone] Social History Tobacco Use Types Packs/Day Years [...] or relatives? How often do you attend confucianism or mandaen Never 10/07/2021 services? Do you belong to any clubs or organizations Yes 10/07/2021 such as confucianism groups, unions, fraternal or athletic groups, or [...] place to sleep or slept in a custodial (including now)? Education Answer Date Recorded What is the highest level of school Bachelor's degree (e.g., BA, AB, 10/07/2021 you have completed or the highest BS) degree you have received? Sex Assigned at Date Recorded Female 06/26/2021 11:13 AM CDT documented as of this encounter Progress Notes Shira Soto, MARLI-NATURAL GAS ENGINEER - 11/12/2021 9:00 AM CDT Referring provider Plan of care: Patient will be seen for 3-5 sessions over 12 weeks with goals of improving phonatory quality for functional communication in activities of daily living. Chief complaint/purpose of visit: Voice therapy Impression/Report/Plan Ms. Larry returns today for ongoing skilled intervention. Goals of therapy are as follows: 1. Patient will demonstrate mastery of various voice therapy techniques as judged by the clinician. 2. Patient will improve phonatory quality to 80 percent of normal at the phrase level on 75% of trials as judged by the patient. 3. Patient will improve phonatory quality to 80 percent of normal at the sentence level on 75% of trials as judged by the patient. 4. Patient will improve phonatory quality to 80 percent of normal in conversation as judged by the patient. At this point in time, she is very busy with a variety of exercises including exercises for her kneeand her neck. We will simplify our voice therapy exercise regimen to include simply semi occluded vocal tract activities with straw phonation and water resistance. She does feel that her sinus symptomsare playing a significant role. She is scheduled to see Dr. Michel next week and we will await his thoughts. I will plan to see her after her appointment with Dr. Michel. PATIENT EDUCATION Ready to learn, no apparent learning barriers were identified; learning preferences include listening. Explained diagnosis and treatment plan; patient expressed understanding of the content. Referring provider documented in this encounter Plan of Treatment Upcoming Encounters Date Type Specialty Care Team Description 12/17/2021 Comprehensive Visit Neurology Jamal Oliva M.D. [address] [place] [phone] Makayla Neves M.S., CCC-NATURAL GAS ENGINEER [address] [place] [phone] 12/17/2021 Appointment Radiology Jamal Oliva M .D. [address] [place] [phone] Makayla Neves M.S., CCC-NATURAL GAS ENGINEER [address] [place] [phone] 12/17/2021 Clinical Support Neurology Jamal Oliva M.D. [address] [place] [phone] Makayla Neves M.S., CCC-NATURAL GAS ENGINEER [address] [place] [phone] 12/17/2021 Appointment Radiology Jake Michel M.D. [address] [place] [phone] (Wo rk) 12/17/2021 Office Visit Otorhinolaryngology Tito Michel M.D. [address] [place] [phone] (Wo rk) 12/23/2021 Telemedicine Otorhinolaryngology Shira Soto, CCC-NATURAL GAS ENGINEER [address] [place] [phone] (Wo rk) documented as of this encounter Visit Diagnoses Diagnosis Paralysis Vocal Cord Unilateral Complete documented in this encounter Additional Health Concerns Assessment Noted Time PHQ-9 Depression Total Score: 1 10/01/2016 3:24 PM CDT documented as of this encounter
--- OUTSIDE RECORDS SUMMARY | 2021-11-30 11:22 | XMS_ITS | Encounter Summary ---
:1950 Author Organization [facility] Address [address] [place] [address] Care Team Providers Name Role Phone Unavailable Primary Care Provider Unavailable Reason for Referral Speech Pathology (Routine) - Authorized Specialty Diagnoses / Procedures Referred By Contact Refer red To Contact Diagnoses Dysphagia Jamal Oliva M.D. [facility] Procedures FISHER POUND NET OR TRAP - Ongoing treatment 200 [place] [phone] Referral ID Status Reason Start Date Expiration Date Visits V isits Requested Authorized [id number] Authorized 11/17/2021 11/17/2022 99 99 utpatient (Routine) - Authorized Specialty Diagnoses / Procedures Referred By Contact Refer red To Contact Diagnoses Dysphagia Jamal Oliva M.D. [facility] Procedures FL Esophagram Single Contrast 200 [place], [place] [phone] Referral ID Status Reason Start Date Expiration Date Visits V isits Requested Authorized [id number] Authorized 11/17/2021 11/17/2022 1 1 utpatient (Routine) - Authorized Specialty Diagnoses / Procedures Referred By Contact Refer red To Contact Diagnoses Dysphagia Jamal Oliva M.D. [facility] Procedures FL Swallow Function with Video and Speech or OT 200 [place] [phone] Referral ID Status Reason Start Date Expiration Date Visits V isits Requested Authorized [id number] Authorized 11/17/2021 11/17/2022 1 1 peech Pathology (Routine) - Authorized Specialty Diagnoses / Procedures Referred By Contact Refer red To Contact Diagnoses Dysphagia Jamal Oliva M.D. [facility] Procedures FISHER POUND NET OR TRAP Dysphagia evaluate and treat [address] [place] [phone] Referral ID Status Reason Start Date Expiration Date Visits V isits Requested Authorized [id number] Authorized 11/17/2021 11/17/2022 99 99 Encounter Details Date Type Department Care Team Description 11/17/2021 Orders Only Department of Jitendra, Dysphagia ([facility] Otorhinolaryngology in Jaqui Lucas R.N. Dx) [place], [place] [address] [facility] [address] [place] [phone] Social History Tobacco Use Types Packs/Day Years [...] or relatives? How often do you attend holiness or catholic Never 10/07/2021 services? Do you belong to any clubs or organizations Yes 10/07/2021 such as holiness groups, unions, fraternal or athletic groups, or [...] place to sleep or slept in a senior living (including now)? Education Answer Date Recorded What [...] Comprehensive Visit Neurology Jamal Oliva M.D. [address] [place] [phone] Makayla Neves M.S., [facility]-FISHER POUND NET OR TRAP [address] [place] [phone] 12/17/2021 Appointment Radiology Jamal Oliva M .D. [address] [place] [phone] Makayla Neves M.S., CCC-FISHER POUND NET OR TRAP [address] [place] [phone] 12/17/2021 Clinical Support Neurology Jamal Oliva M.D. [address] [place] [phone] Makayla Neves M.S., [facility]-[address] [phone] 12/17/2021 Appointment Radiology Jake Michel M.D. [address] [place] [phone] (Wo rk) 12/17/2021 Office Visit Otorhinolaryngology Tito Michel M.D. [address] [place] [phone] (Wo rk) 12/23/2021 Telemedicine Otorhinolaryngology Shira Soto, CCC-FISHER POUND NET OR TRAP [address] [place] [phone] (Wo rk) Scheduled Orders Name Type Priority Associated Diagnoses Order S chedule FL Swallow Function Imaging RAD - Routine (most Dysphagia E xpected: with Video and inpatients and all 022 Speech or OT outpatients) (Approximate), Expires: 02/16/2023 FL Esophagram Single Imaging RAD - Routine (most Dysphagia Expected: Contrast inpatients and all 2 outpatients) (Approximate), Expires: 02/16/2023 documented as of this encounter Visit Diagnoses Diagnosis Dysphagia - Primary documented in this encounter Additional Health Concerns Assessment Noted Time PHQ-9 Depression Total Score: 1 10/01/2016 3:24 PM CDT documented as of this encounter
--- OUTSIDE RECORDS SUMMARY | 2021-11-30 11:22 | XMS_ITS | Encounter Summary ---
:1950 Author Organization [facility] Address [address] [place] [address] Care Team Providers Name Role Phone Unavailable Primary Care Provider Unavailable Encounter Details Date Type Department Care Team Description 10/08/2021 Clinical Communication Visit Review in [place], [place] [address] [place] [address] Social History Tobacco Use Types Packs/Day Years [...] How often do you attend anabaptism or denominational Never 10/07/2021 services? Do you belong to [...] place to sleep or slept in a fdc (including now)? Education Answer Date Recorded What [...] Comprehensive Visit Neurology Jamal Oliva M.D. [address] [place] [phone] Makayla Neves M.S., CCC-INDUSTRIAL PIPEFITTER JOURNEYMAN [address] [place] [phone] 12/17/2021 Appointment Radiology Jamal Oliva M .D. [address] [place] [phone] Makayla Neves M.S., CCC-INDUSTRIAL PIPEFITTER JOURNEYMAN [address] [place] [phone] 12/17/2021 Clinical Support Neurology Jamal Oliva M.D. [address] [place] [phone] Makayla Neves M.S., CCC-INDUSTRIAL PIPEFITTER JOURNEYMAN [address] [place] [phone] 12/17/2021 Appointment Radiology Jake Michel M.D. [address] [place] [phone] (Wo jose) 12/17/2021 Office Visit Otorhinolaryngology Tito Michel M.D. [address] [place] [phone] (Janet garcia) 12/23/2021 Telemedicine Otorhinolaryngology Shira Soto CCC-INDUSTRIAL PIPEFITTER JOURNEYMAN [address] [place] [phone] (Wo rk) documented as of this encounter Visit Diagnoses Not on filedocumented in this encounter Additional Health Concerns Assessment Noted Time PHQ-9 Depression Total Score: 1 10/01/2016 3:24 PM CDT documented as of this encounter
--- OUTSIDE RECORDS SUMMARY | 2021-11-30 11:22 | XMS_ITS | Encounter Summary ---
:1950 Author Organization [facility] Address [address] [place] [address] Care Team Providers Name Role Phone Unavailable Primary Care Provider Unavailable Encounter Details Date Type Department Care Team Description 06/24/2017 Orders Only Department of Rosa Moore, Encounter F or Examination Of Ears And Hearing Without Abnormal Findings; Otorhinolaryngology in M.D. Paralysis Vocal Cord [place], [place] [address] [facility] [address] [place] [phone] Social History Tobacco Use Types Packs/Day Years Used Date Smoking Tobacco: Never Alcohol Habits Answer Date Recorded [...] or relatives? How often do you attend latter day or mormonism Never 10/07/2021 services? Do you belong to any clubs or organizations Yes 10/07/2021 such as latter day groups, unions, fraternal or athletic groups, or [...] place to sleep or slept in a skilled nursing (including now)? Sex Assigned at Date Recorded Female 06/26/2021 11:13 AM CDT documented as of this encounter Plan of Treatment Upcoming Encounters Date Type Specialty Care Team Description 12/17/2021 Comprehensive Visit Neurology Jamal Oliva M.D. [address] [place] [phone] Makayla Neves M.S., CCC-VP BUSINESS DEVELOPMENT [address] [place] [phone] 12/17/2021 Appointment Radiology Jamal Oliva M .D. [address] [place] [phone] Makayla Neves M.S., CCC-VP BUSINESS DEVELOPMENT [address] [place] [phone] 12/17/2021 Clinical Support Neurology Jamal Oliva M.D. [address] [place] [phone] Makayla Neves M.S., CCC-VP BUSINESS DEVELOPMENT [address] [place] [phone] 12/17/2021 Appointment Radiology Jake Michel M.D. [address] [place] [phone] (Wo rk) 12/17/2021 Office Visit Otorhinolaryngology Tito Michel M.D. [address] [place] [phone] (Janet garcia) 12/23/2021 Telemedicine Otorhinolaryngology Shira Soto CCC-VP BUSINESS DEVELOPMENT [address] [place] [phone] (Wo rk) documented as of this encounter Visit Diagnoses Diagnosis Encounter For Examination Of Ears And He aring Without Abnormal Findings Paralysis Vocal Cord documented in this encounter Additional Health Concerns Assessment Noted Time PHQ-9 Depression Total Score: 1 10/01/2016 3:24 PM CDT documented as of this encounter
--- OUTSIDE RECORDS SUMMARY | 2021-11-30 11:22 | XMS_ITS | Clinical Summary ---
:1950 Author Organization [facility] [place] [address] Care Team Providers Name Role Phone Salma Whitley MD Primary Care Provider Allergies No known active allergies Medications Medication Sig Dispensed Refills Start End Status Date Date acetaminophen Take 2 tablets by 0 04/13/19 Active (TYLENOL) 325 mg mouth every 4 14 tablet hours if needed. Max acetaminophen dose: 4000mg in 24 hrs. melatonin 3 mg Take 2 tablets by 0 03/17/19 Active tablet mouth at bedtime. 16 cyanocobalamin Take 1,000 mcg by 0 Active 1,000 mcg tablet mouth once daily. LACTOBACILLUS Take by mouth 0 Ac tive ACIDOPHILUS once daily. (PROBIOTIC ORAL) levothyroxine Take 100 mcg by 0 03/06/20 Active (SYNTHROID) 100 mcg mouth once daily. 17 tablet ondansetron PRN 0 11/11/19 Active (ZOFRAN) 4 mg 17 tablet diphenhydrAMINE Take 25 mg by 0 Active (BENADRYL) 25 mg mouth at bedtime capsule if needed. albuterol (PROAIR Inhale by mouth 0 Active RESPICLICK) 90 every 4 hours. mcg/actuation INHALER albuterol HFA 90 Inhale 2 Puffs by 0 Active mcg/actuation mouth every 4 inhaler hours if needed. ibuprofen (ADVIL; Take 1 tablet by 40 tablet 1 10/04/19 Active MOTRIN) 800 mg mouth 3 times 19 tabletIndications: daily with meals. Hallux valgus, left HYDROcodone-acetami Take 1-2 tablets 30 tablet 0 10/04/19 Active nophen, 5-325 mg, by mouth every 4 19 (NORCO) per hours if needed tabletIndications: for Pain Max Hallux valgus, left acetaminophen dose: 4000 mg in 24 hrs. Surgical For home use. 1 unit 0 10/04/19 Active ShoeIndications: 19 Hallux valgus, left durable medical DonJoy Lateral J knee brace for patellar support, Right, Medium 0 08/22/19 Active equipment [id number] Length of Use: 99 months 21 (DME)Indications: Chronic pain of right knee, Patellar instability of right knee fluticasone (50 mcg once daily. 0 06/12/19 Active per actuation) 22 nasal solution (FLONASE) cyanocobalamin, Take by mouth. 0 Active vitamin B-12, 1,000 mcg/mL drop MAGNESIUM ORAL Take by mouth. 0 Active MELATONIN ORAL Take by mouth. 0 Active glucosamine-chondro Take by mouth. 0 Active itin 500-400 mg budesonide Inhale 0.5 mg 0 11/18/19 Activ e (PULMICORT into affected 22 RESPULES) 0.5 mg/2 nostril(s). mL neb suspension gabapentin Take 1 Capsule 30 Capsule 3 11/20/19 Act juliana (NEURONTIN) 300 mg (300 mg) by mouth 22 capsuleIndications: at bedtime. Cervical radiculopathy budesonide Inhale 2 Sprays 0 Dis continued (RHINOCORT AQUA) into both 022 (*P atient (32 mcg each nostrils once sta dulce no actuation) nasal daily. 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 05/02/2013 Cervical spine degeneration 04/13/2013 Cervical radicular pain 04/13/2013 DDD (degenerative disc disease), cervical 04/13/2013 Encounters Date Type Specialty Care Team Description 11/23/2021 Ancillary Procedure 11/23/2021 Travel 11/19/2021 Ancillary Procedure 11/19/2021 Office Visit Carlos Terrazas Musculoskelet al Jacob Carey MD (Follow up righ t knee, and neck pain) 11/19/2021 Travel 11/13/2021 Telephone Carlos Terrazas R faith (Knee MD Aurelio pain ) 09/15/2021 Ancillary Procedure 09/15/2021 Office Visit Isidro Frausto (Righ t hand) MD Eddie 09/15/2021 Travel from Last 3 Months Immunizations Name Administration Dates Next Due Pneumococcal conj 13-Valent (Prevnar 13) 06/18/2016 Social History Tobacco Use Types Packs/Day Years Used Date Never Smoker Smokeless Tobacco: Never Used Tobacco Cessation: Counseling Given: Yes Alcohol Use Standard Drinks/Week Comments Yes 0 (1 standard drink = 0.6 oz pure alcoho l) occas, wine Alcohol Habits Answer Date Recorded How often do you have a drink containing alcohol? Not asked How many drinks containing alcohol do you have on a typical Not asked day when you are drinking? How often do you have six or more drinks on one occasion? No t asked Comment: occas, wine 10/03/2018 Sex Assigned at Date Recorded Not on file COVID-19 Exposure Response Date Recorded In the last 10 days, have you been in contact with No / Unsu re 11/23/2021 10:16 AM CDT someone who was confirmed or suspected to have Coronavirus/COVID-19? Obstetrics History Last Filed Vital Signs Vital Sign Reading Time Taken Comments Blood Pressure 156/81 11/19/2021 8:35 AM CDT Pulse 63 11/19/2021 8:35 AM CDT Temperature 36.7 ??C (98 ??F) 11/19/2021 8:35 AM CDT Respiratory Rate 20 10/03/2018 9:25 AM CDT Oxygen Saturation 98% 11/19/2021 8:35 AM CDT Inhaled Oxygen Concentration - - Weight 51.7 kg (114 lb) 10/03/2018 6:16 AM CDT Height 154.9 cm (5' 0.98) 10/03/2018 6:16 AM CDT Body Mass Index 21.55 10/03/2018 6:16 AM CDT Plan of Treatment Upcoming Encounters Date Type Specialty Care Team Description 12/23/2021 Office Visit Carlos Terrazas MD [address] [phone] (Wo rk) 01/18/2022 Office Visit Carlos Terrazas MD [address] [phone] (Wo rk) Health Maintenance Due Date Last Done Comments Tdap 1961 Depression screening for age 12+ 1962 BMI (ht and wt on same day) for 1968 age 18+ Hepatitis C screening for age 0608/16/1968 18-79 Tetanus booster 1970 Colonoscopy through age 75 08/17/1995 Lipids for age 45-75 08/17/1995 Mammogram for age 45-75 08/17/1995 Zoster (shingles) series for age 0608/16/2000 50+ (1 of 2) DEXA/DXA scan for age 65+ 08/17/2015 Medicare Wellness for age 65+ 08/17/2015 Pneumococcal series for age 65+ (2 06/18/2017 06/18/2016 - PPSV23 or PCV20) Influenza for age 65+ 11/05/2021 COVID-19 vaccine series Completed 08/07/2021, 02/10/2021, 05/19/2020, Additional history exists Medical Devices Implanted Type [employer] Manager Device Shelf Model / Identifier Expiration Serial / Date Lot Screw 4.0x14mm Slf Drilling Vt - [id number] N/A: Dawson Spine [id number] / Implanted: Qty: 3 on 05/02/2013 at [facility] Spine / K-Wire 3.0mm Thong Non-Thrd - [id number] Left: Thong [id number] / Implanted: Qty: 1 on 10/03/2018 by Venkata Cameron DPM at [facility] Foot Orthopaedics / Explanted Type [employer] Manager Device Shelf Model / Identifier Expiration Date Ser ial / Lot K-Wire 2.5mm Dawson Non-Thrd - [id number] Left: Thong [id number] / Explanted: Qty: 2 on 10/03/2018 by Venkata Cameron DPM at [facility] [employer]opaedics / Procedures Procedure Name Priority Date/Time Associated Diagnosis Comme nts MR SPINE CERVICAL Routine 11/23/2021 11:01 AM Cervical Res ults for this WO CDT radiculopathy procedure are in S/P cervical spinal the resu lts fusion section. DDD (degenerative disc disease), cervical XR SPINE CERVICAL 3 Routine 11/19/2021 9:49 AM Cervical Re sults for this VIEWS CDT radiculopathy procedure are in S/P cervical spinal the resu lts fusion section. XR HAND 3 VIEWS Routine 09/15/2021 3:56 PM Pain of right hand Results for this RIGHT CDT procedure are i n the results section. from Last 3 Months Results MR SPINE CERVICAL WO (11/23/2021 11:01 AM CDT) Anatomical Region Laterality Modality Spine, CERVICAL SPINE Magnetic Resonance Specimen (Source) Anatomical Collection Method Collection Time Re ceived Time Location / / Volume Laterality 11/23/2021 12:15 PM CDT Impressions 11/23/2021 12:15 PM CDT 1. Normal alignment. No fractures. 2. Normal cord signal. 3. At C4-5, mild narrowing of spinal can al 4. At C5-6, disc degeneration. Broad-bas ed disc osteophyte complex. Mild to moderate narrowing of spinal canal. Moderate severe right and moderate left neural foraminal narrowing. Potential impingement of the C6 nerve roots, right greater than left. 5. At C7-T1, mild narrowing of the bilat eral neural foramina Dictated by Kalpesh Mustafa MD @ 11/23/2021 12: 15:45 PM (Electronically Signed) Narrative 11/23/2021 12:15 PM CDT For Patients: ??As a result of the Century Cures Act, medical imaging exams and procedure report s are released immediately into your [facility] record. ??You may view this report before your referring provider. ??If you have questions, please contact your health care provider. INDICATION: Right shoulder and arm pain. Tingling in the right hand. COMPARISON: 11/19/2021. TECHNIQUE: Sagittal T1, T2, and STIR sequences. Axi al T2/gradient sequences. FINDINGS: Normal vertebral body and facet alignmen t. No fractures. No vertebral body loss of height. No spondylolisthesis. No ligamentous injury. No suspicious osseous lesions. Normal cord signal. No intradural mass or lesion. Mature postop changes of anterior discec regina and fusion C6-7. C1-2: No spinal canal narrowing. C2-3: Mild disc degeneration. Posterior disc bulge. No spinal canal neural foraminal narrowing. C3-4: Disk degeneration posterior disc b ulging disc osteophyte complex. Effacement of the ventral thecal sac. No narrowing of spinal canal. No neural foraminal narrowing. C4-5: Disc degeneration posterior disc b ulge. Mild narrowing of spinal canal. No neural foraminal narrowing. C5-6: Disc degeneration and loss of loss of disc height. Broad-based disc osteophyte complex. Effacement of the ventral thecal sac. Mild to moderate narrowing of spinal canal. Moderate severe right and moderate left neural foraminal narrowing . Potential impingement of the C6 nerve roots, right greater left. C6-7: No spinal canal or neural foramina l narrowing. C7-T1: Disc degeneration. No narrowing o f spinal canal. Mild narrowing of the bilateral foramina. No spinal canal or neural foraminal narr owing in the visualized upper thoracic spine. Procedure Note Kalpesh Mustafa MD, PhD - 2 For Patients: As a result of the ntury Cures Act, medical imaging exams and procedure reports are released immediately into your electronic medical record. You may view this report before your referring provider. If you have questions, please contact [facility] health care provider. INDICATION: Right shoulder and arm pain. Tingling in the right hand. COMPARISON: 11/19/2021. TECHNIQUE: Sagittal T1, T2, and STIR sequences. Axi al T2/gradient sequences. FINDINGS: Normal vertebral body and facet alignmen t. No fractures. No vertebral body loss of height. No spondylolisthesis. No ligamentous injury. No suspicious osseous lesions. Normal cord signal. No intradural mass or lesion. Mature postop changes of anterior discec regina and fusion C6-7. C1-2: No spinal canal narrowing. C2-3: Mild disc degeneration. Posterior disc bulge. No spinal canal neural foraminal narrowing. C3-4: Disk degeneration posterior disc b ulging disc osteophyte complex. Effacement of the ventral thecal sac. No narrowing of spinal canal. No neural foraminal narrowing. C4-5: Disc degeneration posterior disc b ulge. Mild narrowing of spinal canal. No neural foraminal narrowing. C5-6: Disc degeneration and loss of loss of disc height. Broad-based disc osteophyte complex. Effacement of the ventral thecal sac. Mild to moderate narrowing of spinal canal. Moderate severe right and moderate left neural foraminal narrowing. Potential impingeme nt of the C6 nerve roots, right greater left. C6-7: No spinal canal or neural foramina l narrowing. C7-T1: Disc degeneration. No narrowing o f spinal canal. Mild narrowing of the bilateral foramina. No spinal canal or neural foraminal narr owing in the visualized upper thoracic spine. IMPRESSION: 1. Normal alignment. No fractures. 2. Normal cord signal. 3. At C4-5, mild narrowing of spinal can al 4. At C5-6, disc degeneration. Broad-bas ed disc osteophyte complex. Mild to moderate narrowing of spinal canal. Moderate severe right and moderate left neural foraminal narrowing. Potential impingement of the C6 nerve roots, right greater than left. 5. At C7-T1, mild narrowing of the bilat eral neural foramina Dictated by Kalpesh Mustafa MD @ 11/23/2021 12: 15:45 PM (Electronically Signed) Carlos Terrazas MD MR XR SPINE CERVICAL 3 VIEWS (11/19/2021 9:49 AM CDT) Anatomical Region Laterality Modality CERVICAL SPINE Computed Radiography Specimen (Source) Anatomical Collection Method Collection Time Re ceived Time Location / / Volume Laterality 11/19/2021 11:07 AM CDT Impressions 11/19/2021 11:07 AM CDT Moderate degenerative disc disease C5-6. Dictated by Maciej Lugo MD @ Nov 15 2 022 11:07AM (Electronically Signed) ?? Narrative 11/19/2021 11:07 AM CDT For Patients: ??As a result of the 21st Century Cures Act, medical imaging exams and procedure report s are released immediately into your [facility]. ??You may view this report before your referring provider. ??If you have questions, please contact your health care provider. INDICATION: Cervical radiculopathy TECHNIQUE: Cervical spine 3 view. COMPARISON: None FINDINGS: Bones: Alignment is normal. ??No fractur es or significant bone lesions. ?? Joints: Postop changes ACDF at C6-7. Dis c space narrowing and spurring at C5-6. Facet degeneration on the right at C5-6. Soft tissues: Unremarkable. Procedure Note Maciej Lugo MD - 11/19/2021For matting of this note might be different from the original. For Patients: As a result of the Cures Act, medical imaging exams and procedure reports are released immediately into your electronic medical record. You may view this report before your referring provider. If you have questions, please contact [facility] health care provider. INDICATION: Cervical radiculopathy TECHNIQUE: Cervical spine 3 view. COMPARISON: None FINDINGS: Bones: Alignment is normal. No fractures or significant bone lesions. Joints: Postop changes ACDF at C6-7. Dis c space narrowing and spurring at C5-6. Facet degeneration on the right at C5-6. Soft tissues: Unremarkable. IMPRESSION: Moderate degenerative disc disease C5-6. Dictated by Maciej Lugo MD @ Nov 15 2 022 11:07AM (Electronically Signed) Carlos Terrazas MD GENERAL IMAGING XR HAND 3 VIEWS RIGHT (09/15/2021 3:56 PM CDT) Anatomical Region Laterality Modality HANDS, HAND R Computed Radiography Specimen (Source) Anatomical Collection Method Collection Time Re ceived Time Location / / Volume Laterality 09/16/2021 6:57 AM CDT Narrative 09/16/2021 6:57 AM CDT For Patients: ??As a result of the Cures Act, medical imaging exams and procedure report s are released immediately into your [facility] medical record. ??You may view this report before your referring provider. ??If you have questions, please contact your health care provider. INDICATION: Right hand pain. TECHNIQUE: Three views right hand. 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 The MCP joints are relatively spared. No acute fracture or dislocation. Dictated by Radha High MD @ 09/16/2021 6:57: 39 AM (Electronically Signed) Procedure Note Pete High MD - 09/16/2021F ormatting of this note might be different from the original. For Patients: As a result of the ntury Cures Act, medical imaging exams and procedure reports are released immediately into your electronic medical record. You may view this report before your referring provider. If you have questions, please contact yo health care provider. INDICATION: Right hand pain. TECHNIQUE: Three views right hand. 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 The MCP joints are relatively spared. No acute fracture or dislocation. Dictated by Radha High MD @ 09/16/2021 6:57: 39 AM (Electronically Signed) Isidro rFausto MD GENERAL IMAGING from Last 3 Months Insurance Payer Benefit Plan / Subscriber ID Effective Dates Phone Addre ss Type Group MEDICARE PART A MEDICARE PART A [id number] 2015-Presen ATTN: CLAIMS - HB USE ONLY HB ONLY t [address] [place] [address] MEDICARE PART B MEDICARE PART B [id number] 2015-Presen ATTN: CLAIMS - HB USE ONLY HB ONLY t [address] [place] [address] BLUE CROSS BLUE CROSS [id number] 2016-[place] [address] [address] [address] [place], [place] ONLY [id number] BLUE CROSS MR BLUE CROSS [id number] 2016-Presen [address] [address] [address] [place], [place] ONLY [id number] Advance Directives Latest Code Status on File Code Status Date Activated Date Inactivated Comments Full Code 10/03/2018 5:45 AM 10/03/2018 6:35 AM Full Code 05/02/2013 11:57 AM 05/03/2013 1:29 PM Full Code 05/02/2013 11:51 AM 05/02/2013 11:57 AM Care Teams Paper Roll Machine Operator Relationship Specialty Start Date End Date Salma Whitley MD PCP - General Internal Medicine 04/30/131999 [place] [address]
--- OUTSIDE RECORDS SUMMARY | 2021-11-30 11:22 | XMS_ITS | Encounter Summary ---
:1950 Author Organization [facility] Address [address] [place] [address] Care Team Providers Name Role Phone Unavailable Primary Care Provider Unavailable Encounter Details Date Type Department Care Team Description 11/19/2021 Orders Only Department of Carli Guerrero Otorhinolaryngology in [place], [place] [address] [facility] [address] [place] [phone] Social History Tobacco Use Types Packs/Day Years [...] How often do you attend sikhism or buddhist Never 10/07/2021 services? Do you belong to [...] place to sleep or slept in a group home (including now)? Education Answer Date Recorded [...] 12/17/2021 Comprehensive Visit Neurology Jamal Oliva M.D. [address] [place] [phone] Makayla Neves M.S., [facility] [phone] 12/17/2021 Appointment Radiology Jamal Oliva M .D. [address] [place] [phone] Makayla Neves M.S., [facility] [phone] 12/17/2021 Clinical Support Neurology Jamal Oliva M.D. [address] [place] [phone] Makayla Neves M.S., [facility] [phone] 12/17/2021 Appointment Radiology Jake Michel M.D. [address] [place] [phone] (Janet garcia) 12/17/2021 Office Visit Otorhinolaryngology Tito Michel M.D. [address] [place] [phone] (Janet garcia) 12/23/2021 Telemedicine Otorhinolaryngology Shira Soto, [facility] [address] [place] [phone] (Wo rk) documented as of this encounter Visit Diagnoses Not on filedocumented in this encounter Additional Health Concerns Assessment Noted Time PHQ-9 Depression Total Score: 1 10/01/2016 3:24 PM CDT documented as of this encounter
--- OUTSIDE RECORDS SUMMARY | 2021-11-30 11:22 | XMS_ITS | Encounter Summary ---
:1950 Author Organization [facility] Address [address] [place] [address] Care Team Providers Name Role Phone Unavailable [...] How often do you attend sikhism or gnosticist Never 10/07/2021 services? Do you belong to [...] or slept in a fpc (including now)? Sex Assigned at Date Recorded Female 06/26/2021 11:13 AM CDT documented as of this encounter Medications at Time of Discharge [...] 12/17/2021 Comprehensive Visit Neurology Jamal Oliva M.D. [address] [place] [phone] Makayla Neves M.S., [facility] [phone] 12/17/2021 Appointment Radiology Jamal Oliva M .D. [address] [place] [phone] Makayla Neves M.S., [facility] [phone] 12/17/2021 Clinical Support Neurology Jamal Oliva M.D. [address] [place] [phone] Makayla Neves M.S., [facility] [phone] 12/17/2021 Appointment Radiology Jake Michel M.D. [address] [place] [phone] (Janet garcia) 12/17/2021 Office Visit Otorhinolaryngology Tito Michel M.D. [address] [place] [phone] (Janet garcia) 12/23/2021 Telemedicine Otorhinolaryngology Shira Soto, [facility] [address] [place] [phone] (Wo rk) documented as of this encounter Visit Diagnoses Not on filedocumented in this encounter Additional Health Concerns Assessment Noted Time PHQ-9 Depression Total Score: 1 10/01/2016 3:24 PM CDT documented as of this encounter
--- OUTSIDE RECORDS SUMMARY | 2021-11-30 11:22 | XMS_ITS | Encounter Summary ---
:1950 Author Organization [facility] Address [address] [place] [phone] Care Team Providers Name Role Phone Unavailable Primary Care Provider Unavailable Reason for Referral Outpatient (Routine) - Closed Specialty Diagnoses / Procedures Referred By Contact Refer red To Contact Video Medicine Diagnoses Paralysis Vocal Cord Unilateral Complete Jamal Oliva M.D. [facility] [address] [place] [phone] Referral ID Status Reason Start Date Expiration Date Visits Requ ested Visits Authorized [id number] Closed 10/09/2021 10/09/2022 1 1 utpatient (Routine) - Closed Specialty Diagnoses / Procedures Referred By Contact Refer red To Contact Otorhinolaryngology Diagnoses Sinusitis Jamal Oliva M.D. [facility] 200 [place] [phone] Referral ID Status Reason Start Date Expiration Date Visits Requ ested Visits Authorized [id number] Closed 10/09/2021 10/09/2022 1 1 Reason for Visit Speech Pathology (Routine) - Authorized Specialty Diagnoses / Procedures Referred By Contact Refer red To Contact Diagnoses Paralysis Vocal Cord Unilateral Complete Jamal Oliva M.D. [facility] Procedures [facility] Voice evaluation [address] [place] [phone] Referral ID Status Reason Start Date Expiration Date Visits V isits Requested Authorized [id number] Authorized 10/09/2021 10/09/2022 99 99 Encounter Details Date Type Department Care Team Description 10/09/2021 Comprehensive Visit Department of Jamal Oliva M.D. [address] [place] [phone] Sinusitis (Primary Dx); Otorhinolaryngology in [facility], Shira Mcneil [facility] [address] [place] [phone] Paralysis Vocal Cord Unilateral Complete [place], [place] [address] [place], [place] [phone] Social History Tobacco Use Types Packs/Day [...] or relatives? How often do you attend hoahaoism or mandaen Never 10/07/2021 services? Do you belong to any clubs or organizations Yes 10/07/2021 such as hoahaoism groups, unions, fraternal or athletic groups, or [...] place to sleep or slept in a prison (including now)? Education Answer Date Recorded What is the highest level of school Bachelor's degree (e.g., BA, AB, 10/07/2021 you have completed or the highest BS) degree you have received? Sex Assigned at Date Recorded Female 06/26/2021 11:13 AM CDT documented as of this encounter Consult Notes Shira Soto, [facility] - 10/09/2021 1:00 PM CDT CHIEF COMPLAINT/ PURPOSE OF VISIT No chief complaint on file. HISTORY OF PRESENT ILLNESS Brittany Larry is a pleasant 71 y.o. year old woman evaluated earlier today in Dr. Oliva clinic. Please refer to his excellent note for full details. She has history of right true vocal fold immobility in underwent type [address] Oliva on November 10, 2016. I have seen her in the past for voice therapy. Of late, she has been struggling a bit more with her voice. She notes variability. PHYSICAL EXAMINATION I. Phonation: Phonatory quality during connected speech is hoarse (+1,2). II. Patient Self-Assessment: Patient rates the voice today as60 percent of normal. The best voice gets is 80 percent of normal, and it will worsen to 50-60 percent of normal. Patient rates concern about voice as 5/7, andd effort when speaking as 5/7, both on a scale where 7 equals most extreme concernor extreme effort. Patient has difficulty within 10-20 minutes of speaking. Total score on the VoiceHandicap Index-10 (VHI-10) is 21/40. III. Diagnostic therapy: Introduced semi occluded vocal tract activities with straw phonation water resistance. She was stimulable for improved sound. 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 We worked on voice therapy techniques today. She was provided with a customized written home practice program. There was her also sent her over the patient portal. It was my pleasure to participate in her care. We will plan to follow-up via a video visit in approximately 3 to 4 weeks. PATIENT EDUCATION Ready to learn, no apparent learning barriers identified; learning preferences include listening. Diagnosis and treatment plan explained; opportunity to ask questions given; patient expressed understanding of content. DIAGNOSIS #1 Dysphonia documented in this encounter Plan of Treatment Upcoming Encounters Date Type Specialty Care Team Description 12/17/2021 Comprehensive Visit Neurology Jamal Oliva M.D. [address] [place] [phone] Makayla Neves M.S., CCC-[facility] [address] [place] [phone] 12/17/2021 Appointment Radiology Jamal Oliva M .D. [address] [place] [phone] Makayla Neves M.S., CCC-[facility] [address] [place] [phone] 12/17/2021 Clinical Support Neurology Jamal Oliva M.D. [address] [place] [phone] Makayla Neves M.S., CCC-[facility] [address] [place] [phone] 12/17/2021 Appointment Radiology Jake Michel M.D. [address] [place] [phone] (Janet garcia) 12/17/2021 Office Visit Otorhinolaryngology Tito Michel M.D. [address] [place] [phone] (Janet garcia) 12/23/2021 Telemedicine Otorhinolaryngology Shira Soto CCC-[facility] [address] [place] [phone] (Janet garcia) Scheduled Referrals Name Type Priority Associated Order Schedule Diagnoses Otorhinolaryngology - Outpatient Routine Sinusitis Expect ed: Rhinologic and sinus Referral 022 surgery consult (clinic) (Ap proximate), Expires: 01/09/[address] visit Outpatient Routine Paralysis Vocal Expe cted: Referral Cord Unilateral 11/05/2021, Complete Expires: 01/09/2023 documented as of this encounter Visit Diagnoses Diagnosis Sinusitis - Primary Paralysis Vocal Cord Unilateral Complete documented in this encounter Additional Health Concerns Assessment Noted Time PHQ-9 Depression Total Score: 1 10/01/2016 3:24 PM CDT documented as of this encounter
--- OUTSIDE RECORDS SUMMARY | 2021-11-30 11:22 | XMS_ITS | Encounter Summary ---
:[address] [facility] Address [address] [place] [address] Care Team Providers Name Role Phone Unavailable Primary Care Provider Unavailable Encounter Details Date Type Department Care Team Description 10/09/2021 Ancillary Procedure Department of Otorhinolaryngology Social History Tobacco Use [...] or relatives? How often do you attend anabaptist or buddhism Never 10/07/2021 services? Do you belong to any clubs or organizations Yes 10/07/2021 such as anabaptist groups, unions, fraternal or athletic groups, or [...] Comprehensive Visit Neurology Jamal Oliva M.D. [address] [place] [phone] Makayla Neves M.S., [facility]-INSTRUCTIONAL SERVICES SPECIALIST [address] [place] [phone] 12/17/2021 Appointment Radiology Jamal Oliva M .D. [address] [place] [phone] Makayla Neves M.S., CCC-INSTRUCTIONAL SERVICES SPECIALIST [address] [place] [phone] 12/17/2021 Clinical Support Neurology Jamal Oliva M.D. [address] [place] [phone] Makayla Neves M.S., CCC-INSTRUCTIONAL SERVICES SPECIALIST [address] [place] [phone] 12/17/2021 Appointment Radiology Jake Michel M.D. [address] [place] [phone] (Wo rk) 12/17/2021 Office Visit Otorhinolaryngology Tito Michel M.D. [address] [place] [phone] (Janet garcia) 12/23/2021 Telemedicine Otorhinolaryngology Shira Soto [facility]-INSTRUCTIONAL SERVICES SPECIALIST [address] [place] [phone] (Wo rk) documented as of this encounter Procedures Procedure Name Priority Date/Time Associated Comments Diagnosis OTORHINOLARYNGOLOGY IMAGE Routine 10/09/2021 9:30 Results for this EXAM AM CDT procedure are i n the results section. documented in this encounter Results Otorhinolaryngology Image Exam-Otorhinolaryngology Image Exam (10/09/2021 [...]
--- OUTSIDE RECORDS SUMMARY | 2021-11-30 11:22 | XMS_ITS | Encounter Summary ---
:1950 Author Organization [facility] Address [address] [place] [address] Care Team Providers Name Role Phone Unavailable Primary Care Provider Unavailable Encounter Details Date Type Department Care Team Description 10/03/2018 Hospital Encounter Department of Radiology James Cameron, Gracy Left in [facility] [address] [place] [phone] [place] [phone] (Wo rk) Social History Tobacco Use Types Packs/Day Years [...] or relatives? How often do you attend christianity or yarsanism Never 10/07/2021 services? Do you belong to any clubs or organizations Yes 10/07/2021 such as christianity groups, unions, fraternal or athletic groups, or [...] or slept in a [facility] (including now)? Sex Assigned at Date Recorded Female 06/26/2021 11:13 AM CDT documented as of this encounter Medications at Time of Discharge Medication Sig Dispensed Refills Start Date End Date acetaminophen (TYLENOL) 325 Take 650 mg by 0 /09/2013 mg tablet mouth. fluticasone Inhale every 12 0 04/20/2017 propion-salmeteroL (AIRDUO (twelve) hours. RESPICLICK) 232-14 mcg/actuation inhaler HYDROcodone-acetaminophen Take 1-2 tablets by 0 0 10/03/2018 (NORCO) 5-325 mg per tablet mouth as needed. ibuprofen (ADVIL,MOTRIN) Take 800 mg by mouth 0 0 10/03/2018 800 mg tablet 3 (three) times a day. levothyroxine (SYNTHROID, Take 100 mcg by 0 11/12 LEVOTHROID) 100 mcg tablet mouth daily. melatonin 3 mg tablet Take 2 tablets by 0 016 mouth at bedtime. ondansetron (ZOFRAN) 4 mg as needed. 0 11/10/2016 tablet documented as of this encounter Plan of Treatment Upcoming Encounters Date Type Specialty Care Team Description 12/17/2021 Comprehensive Visit Neurology Jamal Oliva M.D. [address] [place] [phone] Makayla Neves M.S., CCC-GASTROENTEROLOGIST [address] [place] [phone] 12/17/2021 Appointment Radiology Jamal Oliva M .D. [address] [place] [phone] Makayla Neves M.S., CCC-GASTROENTEROLOGIST [address] [place] [phone] 12/17/2021 Clinical Support Neurology Jamal Oliva M.D. [address] [place] [phone] Makayla Neves M.S., CCC-GASTROENTEROLOGIST [address] [place] [phone] 12/17/2021 Appointment Radiology Jake Michel M.D. [address] [place] [phone] (Wo rk) 12/17/2021 Office Visit Otorhinolaryngology Tito Michel M.D. [address] [place] [phone] (Wo rk) 12/23/2021 Telemedicine Otorhinolaryngology Shira Soto, [facility]-GASTROENTEROLOGIST [address] [place] [phone] (Wo rk) documented as of this encounter Visit Diagnoses Diagnosis Bunion Left documented in this encounter Additional Health Concerns Assessment Noted Time PHQ-9 Depression Total Score: 1 10/01/2016 3:24 PM CDT documented as of this encounter
--- OUTSIDE RECORDS SUMMARY | 2021-11-30 11:22 | XMS_ITS | Encounter Summary ---
:1950 Author Organization [facility] Address [address] [place] [address] Care Team Providers Name Role Phone Unavailable Primary Care Provider Unavailable Reason for Referral Outpatient (Routine) - Authorized Specialty Diagnoses / Procedures Referred By Contact Refer red To Contact Diagnoses Paralysis Vocal Cord Unilateral Complete [facility] Procedures ENT Speech therapy [address] [place], [place] [phone] Referral ID Status Reason Start Date Expiration Date Visits V isits Requested Authorized [id number] Authorized 11/17/2021 11/17/2022 1 1 Reason for Visit Outpatient (Routine) - Closed Specialty Diagnoses / Procedures Referred By Contact Refer red To Contact Diagnoses Paralysis Vocal Cord Unilateral Complete [facility] Procedures ENT Speech therapy [address] [place] [phone] Referral ID Status Reason Start Date Expiration Date Visits Requ ested Visits Authorized [id number] Closed 11/12/2021 11/12/2022 1 1 Encounter Details Date Type Department Care Team Description 11/17/2021 Clinical Support Department of Irvin Soto Vocal Otorhinolaryngology in [place] Unilateral [place], [place] CCC-PRINCIPAL SOFTWARE ENGINEER Complete [address] [facility] [address] [place] [address] [place], [place] [phone] Social History Tobacco Use Types Packs/Day Years [...] or relatives? How often do you attend voodoo or methodist Never 10/07/2021 services? Do you belong to any clubs or organizations Yes 10/07/2021 such as voodoo groups, unions, fraternal or athletic groups, or [...] of this encounter Progress Notes Shira Soto, [facility]-PRINCIPAL SOFTWARE ENGINEER - 11/17/2021 3:30 PM CDT Referring provider Plan of care: Patient [...] in conversation as judged by the patient. She met earlier today with Dr. Michel. Please refer to his excellent note for full details. She continues to struggle with the voice. We will plan on having her practice voice therapy exercises. She hasquestions regarding possible Zenker's repair. At this point in time, she does not have any regurgitation of undigested food. She is not limiting her textures. She takes pills with yogurt or a grape. I will review with Dr. Oliva on his return. We will continue with established home program. It was my pleasure to participate in her care. PATIENT EDUCATION Ready to learn, no apparent learning barriers were identified; learning preferences include listening. Explained diagnosis and treatment plan; patient expressed understanding of the content. Referring provider documented in this encounter Plan of Treatment Upcoming Encounters Date Type Specialty Care Team Description 12/17/2021 Comprehensive Visit Neurology Jamal Oliva M.D. [address] [place] [phone] Makayla Neves M.S., CCC-PRINCIPAL SOFTWARE ENGINEER [address] [place] [phone] 12/17/2021 Appointment Radiology Jamal Oliva M .D. [address] [place] [phone] Makayla Neves M.S., CCC-PRINCIPAL SOFTWARE ENGINEER [address] [place] [phone] 12/17/2021 Clinical Support Neurology Jamal Oliva M.D. [address] [place] [phone] Makayla Neves M.S., CCC-PRINCIPAL SOFTWARE ENGINEER [address] [place] [phone] 12/17/2021 Appointment Radiology Jake Michel M.D. [address] [place] [phone] (Wo rk) 12/17/2021 Office Visit Otorhinolaryngology Tito Michel M.D. [address] [place] [address] [phone] (Wo rk) 12/23/2021 Telemedicine Otorhinolaryngology Shira Soto, [facility]-PRINCIPAL SOFTWARE ENGINEER [address] [place] [phone] (Wo rk) documented as of this encounter Visit Diagnoses Diagnosis Paralysis Vocal Cord Unilateral Complete documented in this encounter Additional Health Concerns Assessment Noted Time PHQ-9 Depression Total Score: 1 10/01/2016 3:24 PM CDT documented as of this encounter
--- OUTSIDE RECORDS SUMMARY | 2021-11-30 11:22 | XMS_ITS | Encounter Summary ---
:1950 Author Organization [facility] Address [address] [place] [address] Care Team Providers Name Role Phone Unavailable Primary Care Provider Unavailable Reason for Referral Outpatient (Routine) - Authorized Specialty Diagnoses / Procedures Referred By Contact Refer red To Contact Neurology Diagnoses Polyneuropathy Salma Whitley M.D. [facility] [address] [place] [address] Referral ID Status Reason Start Date Expiration Date Visits V isits Requested Authorized [id number] Authorized 10/12/2021 10/12/2022 1 1 Encounter Details Date Type Department Care Team Description 10/12/2021 [facility]ma Whitley [facility] Bre[facility] Castillo (Primary Dx) [facility] [address] [place], [place] [address] [facility] [address] [place] [address] [phone] Social History Tobacco Use Types Packs/Day Years [...] How often do you attend yazdanism or church Never 10/07/2021 services? Do you belong to [...] Comprehensive Visit Neurology Jamal Oliva M.D. [address] [place] [phone] Makayla Neves M.S., [facility]-IT APPLICATION ARCHITECT [address] [place] [phone] 12/17/2021 Appointment Radiology Jamal Oliva M .D. [address] [place] [phone] Makayla Neves M.S., CCC-IT APPLICATION ARCHITECT [address] [place] [phone] 12/17/2021 Clinical Support Neurology Jamal Oliva M.D. [address] [place] [address] [phone] Makayla Neves M.S., CCC-IT APPLICATION ARCHITECT [address] [place] [phone] 12/17/2021 Appointment Radiology Jake Michel M.D. [address] [place] [phone] (Wo rk) 12/17/2021 Office Visit Otorhinolaryngology Tito Michel M.D. [address] [place] [phone] (Wo rk) 12/23/2021 Telemedicine Otorhinolaryngology Shira Soto, CCC-IT APPLICATION ARCHITECT [address] [place] [phone] (Wo rk) Scheduled Referrals Name Type Priority Associated Diagnoses Order S [facility] Neurology Referral Outpatient Referral Routine Polyneuropathy Expected: 10/12/2021 (Approximate), Expires: 01/12/2023 documented as of this encounter Visit Diagnoses Diagnosis Polyneuropathy - Primary documented in this encounter Additional Health Concerns Assessment Noted Time PHQ-9 Depression Total Score: 1 10/01/2016 3:24 PM CDT documented as of this encounter
--- OUTSIDE RECORDS SUMMARY | 2021-11-30 11:23 | XMS_ITS | Encounter Summary ---
:1950 Author Organization [facility] Address [address] [place] [address] Care Team Providers Name Role Phone Unavailable Primary Care Provider Unavailable Encounter Details Date Type Department Care Team Description 03/12/2014 Hospital Encounter HX RST PULM FLOOR Cris Salinas , PRACTICE GENETIC PHYSICIAN, C.N.P., D.N.P., M.S. [address] [place] [address] (Wo rk) Social History Tobacco Use Types [...] or relatives? How often do you attend sabianist or taoism Never 10/07/2021 services? Do you belong to any clubs or organizations Yes 10/07/2021 such as sabianist groups, unions, fraternal or athletic groups, or [...] to sleep or slept in a senior care (including now)? Sex Assigned at Date Recorded Female 06/26/2021 11:13 AM CDT documented as of this encounter Last Filed Vital Signs Vital Sign Reading Time Taken Comments Blood Pressure - - Pulse - - Temperature - - Respiratory Rate - - Oxygen Saturation - - Inhaled Oxygen Concentration - - Weight 58.6 kg (129 lb 3 oz) 03/12/2014 10:31 AM ROLLER ENGRAVER Height 154.4 cm (5' 0.79) 03/12/2014 10:31 AM ROLLER ENGRAVER Body Mass Index 24.58 03/12/2014 10:31 AM ROLLER ENGRAVER documented in this encounter Medications at Time of Discharge Medication Sig Dispensed Refills Start Date End Date acetaminophen (TYLENOL) 325 Take 650 mg by 0 09/2013 mg tablet mouth. documented as of this encounter Plan of Treatment Upcoming Encounters Date Type Specialty Care Team Description 12/17/2021 Comprehensive Visit Neurology Jamal Oliva M.D. [address] [place] [phone] Makayla Neves M.S., [facility]-BLEACH PACKER [address] [place] [phone] 12/17/2021 Appointment Radiology Jamal Oliva M .D. [address] [place] [phone] Makayla Neves M.S., CCC-BLEACH PACKER [address] [place] [phone] 12/17/2021 Clinical Support Neurology Jamal Oliva M.D. [address] [place] [phone] Makayla Neves M.S., CCC-BLEACH PACKER [address] [place] [phone] 12/17/2021 Appointment Radiology Jake Michel M.D. [address] [place] [phone] (Wo rk) 12/17/2021 Office Visit Otorhinolaryngology Tito Michel M.D. [address] [place] [phone] (Wo rk) 12/23/2021 Telemedicine Otorhinolaryngology Shira Soto CCC-BLEACH PACKER [address] [place] [phone] (Wo rk) documented as of this encounter Procedures Procedure Name Priority Date/Time Associated Comments Diagnosis CT CHEST WITHOUT IV Routine 03/12/2014 12:17 Resu lts for this CONTRAST WITH 3D PM ROLLER ENGRAVER procedure a re in DEPENDENT WORKSTATION the re sults section. PULMONARY FUNCTION Routine 03/12/2014 10:31 TESTS AM ROLLER ENGRAVER documented in this encounter Results CT Chest without IV Contrast with 3D Dependent Workstation (03/12/2014 12:17 PM ROLLER ENGRAVER) Anatomical Region Laterality Modality Abdomen, Pelvis Computed Tomography Specimen (Source) Anatomical Collection Method Collection Time Re ceived Time Location / / Volume Laterality 03/12/2014 12:17 PM ROLLER ENGRAVER Impressions 03/12/2014 12:22 PM ROLLER ENGRAVER 1. Patchy bilateral areas of groundglass attenuation and consolidation are likely infectious/inflammatory. Followup to resolution would be helpful as several of the groundglass opacities have a nodular configuration and are technically indete rminate. 2. Tiny indeterminate nodule right middl e lobe. FINDINGS: Patchy bilateral areas of groundglass at tenuation most marked in the lower lobes. The areas of groundglass attenuation more superiorly in the lungs have a more nodular configuration. Patchy areas of con solidation bilaterally, most marked in t he right middle lobe. There are air bronchograms within the areas of consolidation, but no definite bronchiectasis. Borderline enlarged pretracheal nodes ma y be reactive. 3 mm solid nodule right middle lobe ante riorly (series 3, image 195) is indeterminate. Calcified granuloma right upper lobe wit h calcified right hilar and mediastinal nodes. Probable simple cyst right kidney. Calci fied splenic granulomas. Calcified node LUQ. Postoperative changes cervical spine. GUIDELINES FOR FOLLOW-UP of solid nodule s detected incidentally at CT (newly- detected indeterminate nodule in persons 35 years of age or older).~ These apply to solitary pulmonary nodules or multiple pu lmonary nodules. If multiple nodules are present, then the size of the largest nodule determines follow-up. NODULE SIZE (mm)* ??LOW-RISK PATIENT@ 4 or less ?No further follow up >4-6 ?CT at 12 months; If u nchanged, no further follow-up >6-8 ?CT at 6-12 months; th en at 18-24 months, if no change >8 ? Consider immediate workup with PET, or biopsy or follow-up with CT imaging at 3, 9, and 24 months NODULE SIZE (mm)* ?? HIGH-RISK PATIENT+ 4 or less ?CT at 12 months; If uncha nged, no further follow-up >4-6 ?CT at 6-12 months; th en at 18-24 months, if no change >6-8 ?CT at 3-6 months; the n at 9-12 and 24 months, if no change >8 ? Consider immediate workup with PET, or biopsy or follow-up with CT imaging at 3, 6, 12, and 24 months *Average of length and width @Minimal or absent history of smoking an d of other known risk factors +History of smoking or of other known ri sk factors ~Nonsolid (ground-glass) or partly solid nodules may require longer follow-up to exclude indolent adenocarci noma Electronically signed by: ?? Casper Cooper M.D. ?? [id number] 12-Mar-2014 12:22 Narrative 03/12/2014 12:22 PM ROLLER ENGRAVER 12-Mar-2014 12:17:00 ??Exam: CT CHEST wo + 3D Depend WS Indications: Cough NOS;Dyspnea NOS ORIGINAL REPORT - 12-Mar-2014 12:22:00 EXAM: CT scan of the Chest without IV co ntrast including 3D maximum intensity projections/volume renderings on a non-independent workstation Procedure Note Isidro Cooper M.D. - 06/02/2017Form atting of this note might be different from the original. 12-Mar-2014 12:17:00 Exam: CT CHEST wo + 3D Depend WS Indications: Cough NOS;Dyspnea NOS ORIGINAL REPORT - 12-Mar-2014 12:22:00 EXAM: CT scan of the Chest without IV co ntrast including 3D maximum intensity projections/volume renderings on a non-independent workstation IMPRESSION: 1. Patchy bilateral areas of groundglass attenuation and consolidation are likely infectious/inflammatory. Followup to resolution would be helpful as several of the groundglass opacities have a nodular configuration and are technically indeterminate. 2. Tiny indeterminate nodule right middl e lobe. FINDINGS: Patchy bilateral areas of groundglass at tenuation most marked in the lower lobes. The areas of groundglass attenuation more superiorly in the lungs have a more nodular configuration. Patchy areas of consolidation bilaterally, most marked in the right mi ddle lobe. There are air bronchograms within the areas of consolidation, but no definite bronchiectasis. Borderline enlarged pretracheal nodes ma y be reactive. 3 mm solid nodule right middle lobe ante riorly (series 3, image 195) is indeterminate. Calcified granuloma right upper lobe wit h calcified right hilar and mediastinal nodes. Probable simple cyst right kidney. Calci fied splenic granulomas. Calcified node LUQ. Postoperative changes cervical spine. GUIDELINES FOR FOLLOW-UP of solid nodule s detected incidentally at CT (newly- detected indeterminate nodule in persons 35 years of age or older).~ These apply to solitary pulmonary nodules or multiple pulmonary nodules. If multiple nodules are present , then the size of the largest nodule determines follow-up. NODULE SIZE (mm)* LOW-RISK PATIENT@ 4 or less No further follow up >4-6 CT at 12 months; If unchanged, no f urther follow-up >6-8 CT at 6-12 months; then at 18-24 mo nths, if no change >8 Consider immediate workup with PET, o r biopsy or follow-up with CT imaging at 3, 9, and 24 months NODULE SIZE (mm)* HIGH-RISK PATIENT+ [address] at 12 months; If unchanged, no further follow-up >4-6 CT at 6-12 months; then at 18-24 mo nths, if no change >6-8 CT at 3-6 months; then at 9-12 and 24 months, if no change >8 Consider immediate workup with PET, o r biopsy or follow-up with CT imaging at 3, 6, 12, and 24 months *Average of length and width @Minimal or absent history of smoking an d of other known risk factors +History of smoking or of other known ri sk factors ~Nonsolid (ground-glass) or partly solid nodules may require longer follow-up to exclude indolent adenocarci noma Electronically signed by: Casper Cooper M.D. [id number] 12-Mar-2014 12 :22 Hieu Felix Jr., M.D. IMG CT PROCEDURES Pulmonary Function Tests (03/12/2014 10:31 AM ROLLER ENGRAVER) Specimen (Source) Anatomical Collection Method Collection Time Re ceived Time Location / / Volume Laterality 03/12/2014 10:31 AM ROLLER ENGRAVER Historical Provider PFT ORDERABLES Performing Organization Address City/State/ZIP Code Phon e Number [facility] - [address] [place], [place] [address] [facility] documented in this encounter Visit Diagnoses Not on filedocumented in this encounter
--- OUTSIDE RECORDS SUMMARY | 2021-11-30 11:23 | XMS_ITS | Encounter Summary ---
:1950 Author Organization [facility] Address [address] [place] [address] Care Team Providers Name Role Phone Unavailable Primary Care Provider Unavailable Encounter Details Date Type Department Care Team Description 10/05/2016 Telemedicine Department of Otorhinolaryngology Social History Tobacco [...] or relatives? How often do you attend restoration or islam Never 10/07/2021 services? Do you belong to any clubs or organizations Yes 10/07/2021 such as restoration groups, unions, fraternal or athletic groups, or [...] place to sleep or slept in a snf (including now)? Sex Assigned at Date Recorded Female 06/26/2021 11:13 AM CDT documented as of this encounter Plan of Treatment Upcoming Encounters Date Type Specialty Care Team Description 12/17/2021 Comprehensive Visit Neurology Jamal Oliva M.D. [address] [place] [phone] Makayla Neves M.S., CCC-GLAZE GRINDER [address] [place] [phone] 12/17/2021 Appointment Radiology Jamal Oliva M .D. [address] [place] [phone] Makayla Neves M.S., CCC-GLAZE GRINDER [address] [place] [phone] 12/17/2021 Clinical Support Neurology Jamal Oliva M.D. [address] [place] [phone] Makayla Neves M.S., CCC-GLAZE GRINDER [address] [place] [phone] 12/17/2021 Appointment Radiology Jake Michel M.D. [address] [place] [phone] (Wo rk) 12/17/2021 Office Visit Otorhinolaryngology Tito Michel M.D. [address] [place] [phone] (Wo rk) 12/23/2021 Telemedicine Otorhinolaryngology Shira Soto, [facility]-GLAZE GRINDER [address] [place] [phone] (Wo rk) documented as of this encounter Procedures Procedure Name Priority Date/Time Associated Comments Diagnosis OTORHINOLARYNGOLOGY IMAGE Routine 10/05/2016 8:50 Results for this EXAM AM CDT procedure are i n the results section. documented in this encounter Results OTORHINOLARYNGOLOGY IMAGE EXAM (10/05/2016 8:50 AM CDT) Specimen (Source) Anatomical Collection Method Collection Time Re ceived Time Location / / Volume Laterality 10/05/2016 8:48 AM CDT Narrative IIMS - 10/05/2016 8:51 AM CDT This order has been created and auto-finalized to support the import of images acquired without order. The clini karlie documentation to support these images can be found on the encounter willow t produced images. Provider Not In System IMG NON RAD IMAGING PROCEDUR ES Performing Organization Address City/State/ZIP Code Phon e Number IIOR IIOR NA documented in this encounter Visit Diagnoses Not on filedocumented in this encounter Additional Health Concerns Assessment Noted Time PHQ-9 Depression Total Score: 1 10/01/2016 3:24 PM CDT documented as of this encounter
--- OUTSIDE RECORDS SUMMARY | 2021-11-30 11:23 | XMS_ITS | Encounter Summary ---
:1950 Author Organization [facility] Address [address] [place] [address] Care Team Providers Name Role Phone Unavailable Primary Care Provider Unavailable Encounter Details Date Type Department Care Team Description 11/10/2016 Hospital Encounter HX NO MAPPING Social History [...] or relatives? How often do you attend episcopalian or taoism Never 10/07/2021 services? Do you belong to any clubs or organizations Yes 10/07/2021 such as episcopalian groups, unions, fraternal or athletic groups, or [...] mg by 0 09/2013 mg tablet mouth. melatonin 3 mg tablet Take 2 tablets by 0 016 mouth at bedtime. ondansetron (ZOFRAN) 4 mg as needed. 0 11/10/2016 tablet documented as of this encounter Plan of Treatment Upcoming Encounters Date Type Specialty Care Team Description 12/17/2021 Comprehensive Visit Neurology Jamal Oliva M.D. [address] [place] [phone] Makayla Neves M.S., [facility]-FLAME [facility]URNER [address] [place] [phone] 12/17/2021 Appointment Radiology Jamal Oliva M .D. [address] [place] [phone] Makayla Neves M.S., CCC-FLAME BURNER [address] [place] [phone] 12/17/2021 Clinical Support Neurology Jamal Oliva M.D. [address] [place] [phone] Makayla Neves M.S., [facility] [address] [place] [phone] 12/17/2021 Appointment Radiology Jake Michel M.D. [address] [place] [phone] (Janet garcia) 12/17/2021 Office Visit Otorhinolaryngology Tito Michel M.D. [address] [place] [phone] (Janet garcia) 12/23/2021 Telemedicine Otorhinolaryngology Shira Soto [facility] [address] [place] [address] [place] [phone] (Wo rk) documented as of this encounter Visit Diagnoses Not on filedocumented in this encounter Additional Health Concerns Assessment Noted Time PHQ-9 Depression Total Score: 1 10/01/2016 3:24 PM CDT documented as of this encounter
--- OUTSIDE RECORDS SUMMARY | 2021-11-30 11:23 | XMS_ITS | Encounter Summary ---
:1950 Author Organization [facility] Address [address] [place] [address] Care Team Providers Name Role Phone Unavailable Primary Care Provider Unavailable Encounter Details Date Type Department Care Team Description 09/09/2010 Hospital Encounter HX NO MAPPING Social History [...] or relatives? How often do you attend advent or mosque Never 10/07/2021 services? Do you belong to any clubs or organizations Yes 10/07/2021 such as advent groups, unions, fraternal or athletic groups, or [...] 12/17/2021 Comprehensive Visit Neurology Jamal Oliva M.D. [address] [place] [phone] Makayla Neves M.S., CCC-SERVICES COORDINATOR [address] [place] [phone] 12/17/2021 Appointment Radiology Jamal Oliva M .D. [address] [place] [phone] Makayla Neves M.S., CCC-SERVICES COORDINATOR [address] [place] [phone] 12/17/2021 Clinical Support Neurology Jamal Oliva M.D. [address] [place] [phone] Makayla Neves M.S., CCC-SERVICES COORDINATOR [address] [place] [phone] 12/17/2021 Appointment Radiology Jake Michel M.D. [address] [place] [phone] (Wo rk) 12/17/2021 Office Visit Otorhinolaryngology Tito Michel M.D. [address] [place] [phone] (Wo rk) 12/23/2021 Telemedicine Otorhinolaryngology Shira Soto [facility]-SERVICES COORDINATOR [address] [place] [phone] (Wo rk) documented as of this encounter Visit Diagnoses Not on filedocumented in this encounter
--- OUTSIDE RECORDS SUMMARY | 2021-11-30 11:23 | XMS_ITS | Encounter Summary ---
:1950 Author Organization [facility] Address [address] [place] [address] Care Team Providers Name Role Phone Unavailable Primary Care Provider Unavailable Encounter Details Date Type Department Care Team Description 10/11/2016 Telemedicine Department of Otorhinolaryngology Social History Tobacco [...] or relatives? How often do you attend tenriism or latter-day Never 10/07/2021 services? Do you belong to any clubs or organizations Yes 10/07/2021 such as tenriism groups, unions, fraternal or athletic groups, or [...] place to sleep or slept in a alf (including now)? Sex Assigned at Date Recorded Female 06/26/2021 11:13 AM CDT documented as of this encounter Plan of Treatment Upcoming Encounters Date Type Specialty Care Team Description 12/17/2021 Comprehensive Visit Neurology Jamal Oliva M.D. [address] [place] [phone] Makayla Neves M.S., [facility] [address] [place] [phone] 12/17/2021 Appointment Radiology Jamal Oliva M .D. [address] [place] [phone] Makayla Neves M.S., CCC-BENCH GRINDER [address] [place] [phone] 12/17/2021 Clinical Support Neurology Jamal Oliva M.D. [address] [place] [phone] Makayla Neves M.S., CCC-BENCH GRINDER [address] [place] [phone] 12/17/2021 Appointment Radiology Jake Michel M.D. [address] [place] [phone] (Wo rk) 12/17/2021 Office Visit Otorhinolaryngology Tito Michel M.D. [address] [place] [phone] (Wo rk) 12/23/2021 Telemedicine Otorhinolaryngology Shira Soto, [facility] [address] [place] [phone] (Wo rk) documented as of this encounter Procedures Procedure Name Priority Date/Time Associated Comments Diagnosis OTORHINOLARYNGOLOGY IMAGE Routine 10/11/2016 1:55 Results for this EXAM PM CDT procedure are i n the results section. documented in this encounter Results OTORHINOLARYNGOLOGY IMAGE EXAM (10/11/2016 1:55 PM CDT) Specimen (Source) Anatomical Collection Method Collection Time Re ceived Time Location / / Volume Laterality 10/11/2016 1:53 PM CDT Narrative IIMS - 10/11/2016 1:56 PM CDT This order has been created and auto-finalized to support the import of images acquired without order. The clini karlie documentation to support these images can be found on the encounter willow t produced images. Provider Not In System IMG NON RAD IMAGING PROCEDUR ES Performing Organization Address City/State/ZIP Code Phon e Number [id number] NA documented in this encounter Visit Diagnoses Not on filedocumented in this encounter Additional Health Concerns Assessment Noted Time PHQ-9 Depression Total Score: 1 10/01/2016 3:24 PM CDT documented as of this encounter
--- OUTSIDE RECORDS SUMMARY | 2021-11-30 11:23 | XMS_ITS | Encounter Summary ---
:1950 Author Organization [facility] Address [address] [place] [address] Care Team Providers Name Role Phone Unavailable [...] or relatives? How often do you attend gnosticist or temple Never 10/07/2021 services? Do you belong to any clubs or organizations Yes 10/07/2021 such as gnosticist groups, unions, fraternal or athletic groups, or [...] place to sleep or slept in a usp (including now)? Sex Assigned at Date Recorded Female 06/26/2021 11:13 AM CDT documented as of this encounter Last Filed Vital Signs Vital Sign Reading Time Taken Comments Blood Pressure 160/78 11/10/2016 6:14 AM CDT Pulse - - Temperature - - Respiratory Rate 16 11/10/2016 6:14 AM CDT Oxygen Saturation - - Inhaled Oxygen Concentration - - Weight 61.3 kg (135 lb 2.3 oz) 11/10/2016 6:14 AM CDT Height 153 cm (5' 0.24) 11/10/2016 6:14 AM CDT Body Mass Index 26.19 11/10/2016 6:14 AM CDT documented in this encounter Medications at Time [...] Comprehensive Visit Neurology Jamal Oliva M.D. 200 [place] [phone] Makayla Neves M.S., [facility]-SENIOR INTERACTION DESIGNER [address] [place] [phone] 12/17/2021 Appointment Radiology Jamal Oliva M .D. 200 [place] [phone] Makayla Neves M.S., [facility]-SENIOR INTERACTION DESIGNER [address] [place] [phone] 12/17/2021 Clinical Support Neurology Jamal Oliva M.D. [address] [place] [phone] Makayla Neves M.S., [facility]-SENIOR INTERACTION DESIGNER [address] [place] [phone] 12/17/2021 Appointment Radiology Jake Michel M.D. [address] [place] [phone] (Wo rk) 12/17/2021 Office Visit Otorhinolaryngology Tito Michel M.D. [address] [place] [phone] (Wo rk) 12/23/2021 Telemedicine Otorhinolaryngology Shira Soto, [facility]-SENIOR INTERACTION DESIGNER [address] [place] [phone] (Wo rk) documented as of this encounter Visit Diagnoses Not on filedocumented in this encounter Additional Health Concerns Assessment Noted Time PHQ-9 Depression Total Score: 1 10/01/2016 3:24 PM CDT documented as of this encounter
--- OUTSIDE RECORDS SUMMARY | 2021-11-30 11:23 | XMS_ITS | Encounter Summary ---
:1950 Author Organization [facility] Address [address] [place] [address] Care Team Providers Name Role Phone Unavailable Primary Care Provider Unavailable Encounter Details Date Type Department Care Team Description 12/28/2016 Hospital Encounter HX NO MAPPING Social History [...] or relatives? How often do you attend roman catholic or bahai Never 10/07/2021 services? Do you belong to any clubs or organizations Yes 10/07/2021 such as roman catholic groups, unions, fraternal or athletic groups, or [...] place to sleep or slept in a correction (including now)? Sex Assigned at Date Recorded [...] 12/17/2021 Comprehensive Visit Neurology Jamal Oliva M.D. [address] [place] [phone] Makayla Neves M.S., [facility]-[address] [phone] 12/17/2021 Appointment Radiology Jamal Oliva M .D. [address] [place] [phone] Makayla Neves M.S., [facility]-[address] [phone] 12/17/2021 Clinical Support Neurology Jamal Oliva M.D. [address] [place] [phone] Maakyla Neves M.S., [facility]-[address] [phone] 12/17/2021 Appointment Radiology Jake Michel M.D. [address] [place] [phone] (Janet garcia) 12/17/2021 Office Visit Otorhinolaryngology Tito Michel M.D. [address] [place] [phone] (Janet garcia) 12/23/2021 Telemedicine Otorhinolaryngology Shira Soto, [facility]-NITROGLYCERIN SEPARATOR OPERATOR [address] [place] [phone] (Wo rk) documented as of this encounter Visit Diagnoses Not on filedocumented in this encounter Additional Health Concerns Assessment Noted Time PHQ-9 Depression Total Score: 1 10/01/2016 3:24 PM CDT documented as of this encounter
--- OUTSIDE RECORDS SUMMARY | 2021-11-30 11:23 | XMS_ITS | Encounter Summary ---
:1950 Author Organization [facility] Address [address] [place] [address] Care Team Providers Name Role Phone Unavailable Primary Care Provider Unavailable Encounter Details Date Type Department Care Team Description 04/22/2009 Hospital Encounter HX NO MAPPING Social History [...] or relatives? How often do you attend scientology or islam Never 10/07/2021 services? Do you belong to any clubs or organizations Yes 10/07/2021 such as scientology groups, unions, fraternal or athletic groups, or [...] 12/17/2021 Comprehensive Visit Neurology Jamal Oliva M.D. [address] [place] [phone] Makayla Neves M.S., CCC-FEDERAL MEDIATOR [address] [place] [phone] 12/17/2021 Appointment Radiology Jamal Oliva M .D. [address] [place] [phone] Makayla Neves M.S., CCC-FEDERAL MEDIATOR [address] [place] [phone] 12/17/2021 Clinical Support Neurology Jamal Oliva M.D. [address] [place] [phone] Makayla Neves M.S., CCC-FEDERAL MEDIATOR [address] [place] [phone] 12/17/2021 Appointment Radiology Jake Michel M.D. [address] [place] [phone] (Wo rk) 12/17/2021 Office Visit Otorhinolaryngology Tito Michel M.D. [address] [place] [phone] (Wo rk) 12/23/2021 Telemedicine Otorhinolaryngology Shira Soto [facility]-FEDERAL MEDIATOR [address] [place] [phone] (Wo rk) documented as of this encounter Visit Diagnoses Not on filedocumented in this encounter
--- OUTSIDE RECORDS SUMMARY | 2021-11-30 11:23 | XMS_ITS | Encounter Summary ---
:1950 Author Organization [facility] Address [address] [place] [address] Care Team Providers Name Role Phone Unavailable Primary Care Provider Unavailable Encounter Details Date Type Department Care Team Description 05/22/2009 Hospital Encounter HX NO MAPPING Social History [...] How often do you attend taoism or hoahaoism Never 10/07/2021 services? Do you [...] slept in a senior living (including now)? Sex Assigned at Date Recorded Female 06/26/2021 11:13 AM CDT documented as of this encounter Plan of Treatment Upcoming Encounters Date Type Specialty Care Team Description 12/17/2021 Comprehensive Visit Neurology Jamal Oliva M.D. [address] [place] [phone] Makayla Neves M.S., CCC-PAPER MACHINE TENDER [address] [place] [phone] 12/17/2021 Appointment Radiology Jamal Oliva M .D. [address] [place] [phone] Makayla Neves M.S., CCC-PAPER MACHINE TENDER [address] [place] [phone] 12/17/2021 Clinical Support Neurology Jamal Oliva M.D. [address] [place] [phone] Makayla Neves M.S., CCC-PAPER MACHINE TENDER [address] [place] [phone] 12/17/2021 Appointment Radiology Jake Michel M.D. [address] [place] [phone] (Wo rk) 12/17/2021 Office Visit Otorhinolaryngology Tito Michel M.D. [address] [place] [phone] (Wo rk) 12/23/2021 Telemedicine Otorhinolaryngology Shira Soto [facility]-PAPER MACHINE TENDER [address] [place] [phone] (Wo rk) documented as of this encounter Visit Diagnoses Not on filedocumented in this encounter
--- OUTSIDE RECORDS SUMMARY | 2021-11-30 11:23 | XMS_ITS | Encounter Summary ---
:1950 Author Organization [facility] Address [address] [place] [address] Care Team Providers Name Role Phone Unavailable Primary Care Provider Unavailable Encounter Details Date Type Department Care Team Description 04/10/2009 Hospital Encounter HX NO MAPPING Social History [...] How often do you attend voodoo or uatsdin Never 10/07/2021 services? Do you belong to [...] place to sleep or slept in a [facility] (including now)? Sex Assigned at Date Recorded Female 06/26/2021 11:13 AM CDT documented as of this encounter Plan of Treatment Upcoming Encounters Date Type Specialty Care Team Description 12/17/2021 Comprehensive Visit Neurology Jamal Oliva M.D. [address] [place] [phone] Makayla Neves M.S., CCC-CARD TENDER [address] [place] [phone] 12/17/2021 Appointment Radiology Jamal Oliva M .D. [address] [place] [phone] Makayla Neves M.S., CCC-CARD TENDER [address] [place] [phone] 12/17/2021 Clinical Support Neurology Jamal Oliva M.D. [address] [place] [phone] Makayla Neves M.S., CCC-CARD TENDER [address] [place] [phone] 12/17/2021 Appointment Radiology Jake Michel M.D. [address] [place] [phone] (Wo rk) 12/17/2021 Office Visit Otorhinolaryngology Tito Michel M.D. [address] [place] [phone] (Wo rk) 12/23/2021 Telemedicine Otorhinolaryngology Shira Soto [facility]-CARD TENDER [address] [place] [phone] (Wo rk) documented as of this encounter Visit Diagnoses Not on filedocumented in this encounter
--- OUTSIDE RECORDS SUMMARY | 2021-11-30 11:23 | XMS_ITS | Encounter Summary ---
:1950 Author Organization [facility] Address [address] [place] [address] Care Team Providers Name Role Phone Unavailable Primary Care Provider Unavailable Encounter Details Date Type Department Care Team Description 04/25/2009 - 04/26/2009 Hospital Encounter HX RST LEILA HO 8B Social History Tobacco Use Types Packs/Day Years [...] or relatives? How often do you attend confucianist or sikh Never 10/07/2021 services? Do you belong to any clubs or organizations Yes 10/07/2021 such as confucianist groups, unions, fraternal or athletic groups, or [...] place to sleep or slept in a longterm (including now)? Sex Assigned at Date Recorded Female 06/26/2021 11:13 AM CDT documented as of this encounter Plan of Treatment Upcoming Encounters Date Type Specialty Care Team Description 12/17/2021 Comprehensive Visit Neurology Jamal Oliva M.D. [address] [place] [phone] Makayla Neves M.S., [facility]-FUN HOUSE ATTENDANT [address] [place] [phone] 12/17/2021 Appointment Radiology Jamal Oliva M .D. [address] [place] [phone] Makayla Neves M.S., CCC-FUN HOUSE ATTENDANT [address] [place] [phone] 12/17/2021 Clinical Support Neurology Jamal Oliva M.D. [address] [place] [phone] Makayla Neves M.S., [facility]-FUN HOUSE ATTENDANT [address] [place] [phone] 12/17/2021 Appointment Radiology Jake Michel M.D. [address] [place] [phone] (Wo rk) 12/17/2021 Office Visit Otorhinolaryngology Tito Michel M.D. [address] [place] [phone] (Wo rk) 12/23/2021 Telemedicine Otorhinolaryngology Shira Soto [facility]-FUN HOUSE ATTENDANT [address] [place] [phone] (Wo rk) documented as of this encounter Visit Diagnoses Not on filedocumented in this encounter
--- OUTSIDE RECORDS SUMMARY | 2021-11-30 11:23 | XMS_ITS | Encounter Summary ---
:1950 Author Organization [facility] Address [address] [place] [address] Care Team Providers Name Role Phone Unavailable Primary Care Provider Unavailable Encounter Details Date Type Department Care Team Description 04/25/2009 Hospital Encounter HX NO MAPPING Social History [...] or relatives? How often do you attend zoroastrian or denominational Never 10/07/2021 services? Do you belong to any clubs or organizations Yes 10/07/2021 such as zoroastrian groups, unions, fraternal or athletic groups, or [...] 12/17/2021 Comprehensive Visit Neurology Jamal Oliva M.D. [address] [place] [phone] Makayla Neves M.S., CCC-ENVIRONMENTAL ADVISER [address] [place] [phone] 12/17/2021 Appointment Radiology Jamal Oliva M .D. [address] [place] [phone] Makayla Neves M.S., CCC-ENVIRONMENTAL ADVISER [address] [place] [phone] 12/17/2021 Clinical Support Neurology Jamal Oliva M.D. [address] [place] [phone] Makayla Neves M.S., CCC-ENVIRONMENTAL ADVISER [address] [place] [phone] 12/17/2021 Appointment Radiology Jake Michel M.D. [address] [place] [phone] (Wo rk) 12/17/2021 Office Visit Otorhinolaryngology Tito Michel M.D. [address] [place] [phone] (Wo rk) 12/23/2021 Telemedicine Otorhinolaryngology Shira Soto [facility]-ENVIRONMENTAL ADVISER [address] [place] [phone] (Wo rk) documented as of this encounter Visit Diagnoses Not on filedocumented in this encounter
--- OUTSIDE RECORDS SUMMARY | 2021-11-30 11:23 | XMS_ITS | Encounter Summary ---
:1950 Author Organization [facility] Address [address] [place] [address] Care Team Providers Name Role Phone Unavailable Primary Care Provider Unavailable Encounter Details Date Type Department Care Team Description 06/24/2014 Hospital Encounter HX NO MAPPING Social History [...] or relatives? How often do you attend presybeterian or congregation Never 10/07/2021 services? Do you belong to any clubs or organizations Yes 10/07/2021 such as presybeterian groups, unions, fraternal or athletic groups, or [...] Sign Reading Time Taken Comments Blood Pressure 104/53 06/24/2014 11:46 AM CDT Pulse - - Temperature - - Respiratory Rate 16 06/24/2014 11:46 AM CDT Oxygen Saturation - - Inhaled Oxygen Concentration - - Weight 58.2 kg (128 lb 4.9 oz) 06/24/2014 7:09 AM CDT Height 152.5 cm (5' 0.04) 06/24/2014 7:09 AM CDT Body Mass Index 25.03 06/24/2014 7:09 AM CDT documented in this encounter Medications at Time of Discharge Medication Sig Dispensed Refills Start Date End Date acetaminophen (TYLENOL) 325 Take 650 mg by 0 09/2013 mg tablet mouth. documented as of this encounter Plan of Treatment Upcoming Encounters Date Type Specialty Care Team Description 12/17/2021 Comprehensive Visit Neurology Jamal Oliva M.D. [address] [place] [phone] Makayla Neves M.S., [facility] [address] [place] [phone] 12/17/2021 Appointment Radiology Jamal Oliva M .D. [address] [place] [phone] Makayla Neves M.S., [facility] [address] [place] [phone] 12/17/2021 Clinical Support Neurology Jamal Oliva M.D. [address] [place] [phone] Makayla Neves M.S., [facility] [address] [place] [phone] 12/17/2021 Appointment Radiology Jake Michel M.D. [address] [place] [phone] (Wo rk) 12/17/2021 Office Visit Otorhinolaryngology Tito Michel M.D. [address] [place] [phone] (Wo rk) 12/23/2021 Telemedicine Otorhinolaryngology Shira Soto, [facility] [address] [place] [phone] (Wo rk) documented as of this encounter Visit Diagnoses Not on filedocumented in this encounter
--- OUTSIDE RECORDS SUMMARY | 2021-11-30 11:23 | XMS_ITS | Encounter Summary ---
:[address] [facility] Address [address] [place] [address] Care Team Providers Name Role Phone Unavailable Primary Care Provider Unavailable Encounter Details Date Type Department Care Team Description 11/30/2016 Hospital Encounter HX RST PMR PT OT Evelyn Espana, [facility] [address] [place] [phone] Social History Tobacco Use Types Packs/Day Years [...] How often do you attend christianity or buddhism Never 10/07/2021 services? Do you [...] Comprehensive Visit Neurology Jamal Oliva M.D. [address] [place] [phone] Makayla Neves M.S., [facility] [address] [place] [phone] 12/17/2021 Appointment Radiology Jamal Oliva M .D. [address] [place] [phone] Makayla Neves M.S., [facility] [address] [place] [phone] 12/17/2021 Clinical Support Neurology Jamal Oliva M.D. [address] [place] [phone] Makayla Neves M.S., [facility] [address] [place] [phone] 12/17/2021 Appointment Radiology Jake Michel M.D. [address] [place] [phone] (Wo rk) 12/17/2021 Office Visit Otorhinolaryngology Tito Michel M.D. [address] [place] [phone] (Wo rk) 12/23/2021 Telemedicine Otorhinolaryngology Shira Soto [facility] [address] [place] [phone] (Janet rk) documented as of this encounter Visit Diagnoses Not on filedocumented in this encounter Additional Health Concerns Assessment Noted Time PHQ-9 Depression Total Score: 1 10/01/2016 3:24 PM CDT documented as of this encounter
--- OUTSIDE RECORDS SUMMARY | 2021-11-30 11:23 | XMS_ITS | Encounter Summary ---
:1950 Author Organization [facility] Address [address] [place] [address] Care Team Providers Name Role Phone Unavailable Primary Care Provider Unavailable Encounter Details Date Type Department Care Team Description 05/06/2009 Hospital Encounter HX NO MAPPING Social History [...] How often do you attend taoist or judaism Never 10/07/2021 services? Do you belong to [...] place to sleep or slept in a [place] [facility] [place] (including now)? Sex Assigned at Date Recorded Female 06/26/2021 11:13 AM CDT documented as of this encounter Plan of Treatment Upcoming Encounters Date Type Specialty Care Team Description 12/17/2021 Comprehensive Visit Neurology Jamal Oliva M.D. [address] [place] [phone] Makayla Neves M.S., CCC-SOCIAL MEDIA MARKETER [address] [place] [phone] 12/17/2021 Appointment Radiology Jamal Oliva M .D. [address] [place] [phone] Makayla Neves M.S., CCC-SOCIAL MEDIA MARKETER [address] [place] [phone] 12/17/2021 Clinical Support Neurology Jamal Oliva M.D. [address] [place] [phone] Makayla Neves M.S., CCC-SOCIAL MEDIA MARKETER [address] [place] [phone] 12/17/2021 Appointment Radiology Jake Michel M.D. [address] [place] [phone] (Wo rk) 12/17/2021 Office Visit Otorhinolaryngology Tito Michel M.D. [address] [place] [phone] (Wo rk) 12/23/2021 Telemedicine Otorhinolaryngology Shira Soto [facility]-SOCIAL MEDIA MARKETER [address] [place] [phone] (Wo rk) documented as of this encounter Visit Diagnoses Not on filedocumented in this encounter
--- OUTSIDE RECORDS SUMMARY | 2021-11-30 11:23 | XMS_ITS | Encounter Summary ---
:1950 Author Organization [facility] Address [address] [place] [address] Care Team Providers Name Role Phone Unavailable [...] or relatives? How often do you attend spiritism or holiness Never 10/07/2021 services? Do you belong to any clubs or organizations Yes 10/07/2021 such as spiritism groups, unions, fraternal or athletic groups, or [...] Comprehensive Visit Neurology Jamal Oliva M.D. [address] [place] [phone] Makayla Neves M.S., [facility]-MAKE UP EDITOR [address] [place] [phone] 12/17/2021 Appointment Radiology Jamal Oliva M .D. [address] [place] [phone] Makayla Neves M.S., CCC-MAKE UP EDITOR [address] [place] [phone] 12/17/2021 Clinical Support Neurology Jamal Oliva M.D. [address] [place] [phone] Makayla Neves M.S., [facility]-MAKE UP EDITOR [address] [place] [phone] 12/17/2021 Appointment Radiology Jake Michel M.D. [address] [place] [phone] (Janet garcia) 12/17/2021 Office Visit Otorhinolaryngology Tito Michel M.D. [address] [place] [phone] (Janet garcia) 12/23/2021 Telemedicine Otorhinolaryngology Shira Soto [facility]-MAKE UP EDITOR [address] [place] [address] [place] [phone] (Wo rk) documented as of this encounter Visit Diagnoses Not on filedocumented in this encounter Additional Health Concerns Assessment Noted Time PHQ-9 Depression Total Score: 1 10/01/2016 3:24 PM CDT documented as of this encounter
[2021-11-30 16:17] LABS: TSH With Reflex to FT4* 0.854 uIU/mL (0.270-4.200)
== END 2021-11-30 11:20 | disposition home or self-care (01) ==
LOC: NFLDREF 11:20
PROVIDERS: PCP Internal Medicine; Visit Provider Internal Medicine
DX: E03.9 Hypothyroidism, unspecified (principal)
CPT/HCPCS: 84443

== ENCOUNTER 2021-12-10 09:05 | Outpatient (CLI) | payer MEDICARE, BC, SELFPAY ==
--- OUTSIDE RECORDS SUMMARY | 2021-12-10 09:13 | XMS_ITS | Encounter Summary ---
:1950 Author Organization [facility] Address [address] [place] [address] Care Team Providers Name Role Phone Unavailable Primary Care Provider Unavailable Encounter Details Date Type Department Care Team Description 10/03/2018 Hospital Encounter Department of Radiology James Cameron, Gracy Left in [facility] [address] [place] [phone] [place] [phone] (Wo rk) Social History Tobacco Use Types [...] or relatives? How often do you attend orthodoxy or latter day Never 10/07/2021 services? Do you belong to any clubs or organizations Yes 10/07/2021 such as orthodoxy groups, unions, fraternal or athletic groups, or [...] Comprehensive Visit Neurology Jamal Oliva M.D. [address] [place] [phone] Makayla Neves M.S., CCC-COMPUTER CONSULTANT [address] [place] [phone] 12/17/2021 Appointment Radiology Jamal Oliva M .D. [address] [place] [phone] Makayla Neves M.S., CCC-COMPUTER CONSULTANT [address] [place] [phone] 12/17/2021 Clinical Support Neurology Jamal Oliva M.D. [address] [place] [phone] Makayla Neves M.S., CCC-COMPUTER CONSULTANT [address] [place] [phone] 12/17/2021 Appointment Radiology Jake Michel M.D. [address] [place] [phone] (Wo rk) 12/17/2021 Office Visit Otorhinolaryngology Tito Michel M.D. [address] [place] [phone] (Wo rk) 12/23/2021 Telemedicine Otorhinolaryngology Shira Soto, [facility]-COMPUTER CONSULTANT [address] [place] [phone] (Wo rk) documented as of this encounter Visit Diagnoses Diagnosis Bunion Left documented in this encounter Additional Health Concerns Assessment Noted Time PHQ-9 Depression Total Score: 1 10/01/2016 3:24 PM CDT documented as of this encounter
--- OUTSIDE RECORDS SUMMARY | 2021-12-10 09:13 | XMS_ITS | Clinical Summary ---
:1950 Author Organization [id number] [place] [address] Care Team Providers Name Role Phone Salma [...] (2 06/18/2017 06/18/2016 - PPSV23 or PCV20) COVID-19 vaccine series (5 - 10/02/2021 08/07/2021, 021, Booster for Moderna series) 05/19/2020, Addition al history exists Influenza for age 65+ 11/05/2021 Medical Devices Implanted Type Area Drainage Engineer Device Shelf Model / Identifier Expiration Serial / Date Lot Screw 4.0x14mm Slf Drilling Me - [id number] N/A: [place] [employer] [id number] / Implanted: Qty: 3 on 05/02/2013 at [facility] Spine / K-Wire 3.0mm [place] Non-Thrd - [id number] Left: [place] [id number] / Implanted: Qty: 1 on 10/03/2018 by Venkata Cameron DPM at [facility] Foot Orthopaedics / Explanted Type Area Drainage Engineer Device Shelf Model / Identifier Expiration Date Ser ial / Lot K-Wire 2.5mm [place] Non-Thrd - [id number] Left: [place] [id number] / Explanted: Qty: 2 on 10/03/2018 by Venkata Cameron DPM at [facility] Foot Orthopaedics / Procedures Procedure Name Priority [...] provider. If you have questions, please contact [facility] health care provider. INDICATION: Right shoulder and [...] provider. If you have questions, please contact [facility] health care provider. INDICATION: Cervical radiculopathy TECHNIQUE: [...] report s are released immediately into your [employer] medical record. ??You may view this report [...] 09/16/2021 6:57: 39 AM (Electronically Signed) Isidro Frausto MD GENERAL IMAGING from Last 3 Months Insurance Payer Benefit Plan / Subscriber ID Effective Dates Phone Addre ss Type Group MEDICARE PART A MEDICARE PART A [id number] 2015-Presen ATTN: CLAIMS - HB USE ONLY HB ONLY t [address] [place] [address] MEDICARE PART B MEDICARE PART B [id number] 2015-Presen ATTN: CLAIMS - HB USE ONLY HB ONLY t [address] [place] [address] BLUE CROSS BLUE CROSS [id number] 2016-[place]en [address] [address] [place] ONLY [id number] BLUE CROSS MR BLUE CROSS [id number] 2016-Presen [address] [address] [place] ONLY [id number] Advance Directives Latest Code Status on File Code Status Date Activated Date Inactivated Comments Full Code 10/03/2018 5:45 AM 10/03/2018 6:35 AM Full Code 05/02/2013 11:57 AM 05/03/2013 1:29 PM Full Code 05/02/2013 11:51 AM 05/02/2013 11:57 AM Care Teams Chemistry Faculty Member Relationship Specialty Start Date End Date Salma Whitley MD PCP - General Internal Medicine 04/30/131999 [place] [id number]
--- OUTSIDE RECORDS SUMMARY | 2021-12-10 09:13 | XMS_ITS | Encounter Summary ---
:1950 Author Organization [facility] Address [address] [place] [address] Care Team Providers Name Role Phone Unavailable Primary Care Provider Unavailable Reason for Referral Outpatient (Routine) - Authorized Specialty Diagnoses / Procedures Referred By Contact Refer red To Contact Otorhinolaryngology Jake Michel M.D . [facility] [address] [place] [phone] Referral ID Status Reason Start Date Expiration Date Visits V isits Requested Authorized [id number] Authorized 11/17/2021 11/16/2024 1 1 MRI/CAT/PET Scan (Routine) - Authorized Specialty Diagnoses / Procedures Referred By Contact Refer red To Contact Radiology Diagnoses Rhinosinusitis Chronic Jake Michel M.D. [facility] Procedures CT Sinuses without IV Contrast [address] [place] [phone] Referral ID Status Reason Start Date Expiration Date Visits V isits Requested Authorized [id number] Authorized 11/17/2021 11/17/2022 1 1 Reason for Visit Outpatient (Routine) - Closed Specialty Diagnoses / Procedures Referred By Contact Refer red To Contact Otorhinolaryngology Diagnoses Sinusitis Jamal Oliva M.D. [facility] [address] [place] [phone] Referral ID Status Reason Start Date Expiration Date Visits Requ ested Visits Authorized [id number] Closed 10/09/2021 10/09/2022 1 1 Encounter Details Date Type Department Care Team Description 11/17/2021 Comprehensive Visit Department of Choby, Rhinosi nusitis Chronic (Primary Dx); Otorhinolaryngology in Jake W, Sinus itis; [place], [place] [facility] Ast[facility] ([facility] [address] Pneumonia Bronchiolitis Obli terans Organizing ([facility]); [place], [place] [phone] [phone] SW Drip Post Nasal [phone] [place] [phone] Social History Tobacco Use Types [...] or relatives? How often do you attend catholic or baptist Never 10/07/2021 services? Do you belong to any clubs or organizations Yes 10/07/2021 such as catholic groups, unions, fraternal or athletic groups, [...] place to sleep or slept in a penitentiary (including now)? Education Answer Date Recorded What [...] assessment and plan. Jake Michel MD [facility] Department of Otorhinolaryngology - Head & Neck Surgery documented in this encounter Plan of Treatment Upcoming Encounters Date Type Specialty Care Team Description 12/17/2021 Comprehensive Visit Neurology Jamal Oliva M.D. [address] [place] [phone] Makayla Neves M.S., CCC-MANAGER MEDICAL AFFAIRS [address] [place] [phone] 12/17/2021 Appointment Radiology Jamal Oliva M .D. [address] [place] [phone] Makayla Neves M.S., CCC-MANAGER MEDICAL AFFAIRS [address] [place] [phone] 12/17/2021 Clinical Support Neurology Jamal Oliva M.D. [address] [place] [phone] Makayla Neves M.S., [facility]-MANAGER MEDICAL AFFAIRS [address] [place] [phone] 12/17/2021 Appointment Radiology Jake Michel M.D. [address] [place] [phone] (Wo rk) 12/17/2021 Office Visit Otorhinolaryngology Tito Michel M.D. [address] [place] [phone] (Wo rk) 12/23/2021 Telemedicine Otorhinolaryngology Shira Soto, [facility] [address] [place] [phone] (Wo rk) Scheduled Orders Name Type Priority [...]
--- OUTSIDE RECORDS SUMMARY | 2021-12-10 09:13 | XMS_ITS | Encounter Summary ---
:1950 Author Organization [facility] Address [address] [place] [address] Care Team Providers Name Role Phone Unavailable [...] or relatives? How often do you attend mormon or jehovah's witness Never 10/07/2021 services? Do you belong to any clubs or organizations Yes 10/07/2021 such as mormon groups, unions, fraternal or athletic groups, or [...] place to sleep or slept in a chcf (including now)? Sex Assigned at Date Recorded Female 06/26/2021 11:13 AM CDT documented as of this encounter Plan of Treatment Upcoming Encounters Date Type Specialty Care Team Description 12/17/2021 Comprehensive Visit Neurology Jamal Oliva M.D. [address] [place] [phone] Makayla Neves M.S., [facility]-COMBINED RAIL OPERATOR [address] [place] [phone] 12/17/2021 Appointment Radiology Jamal Oliva M .D. [address] [place] [phone] Makayla Neves M.S., CCC-COMBINED RAIL OPERATOR [address] [place] [phone] 12/17/2021 Clinical Support Neurology Jamal Oliva M.D. [address] [place] [phone] Makayla Neves M.S., CCC-COMBINED RAIL OPERATOR [address] [place] [phone] 12/17/2021 Appointment Radiology Jake Michel M.D. [address] [place] [phone] (Wo rk) 12/17/2021 Office Visit Otorhinolaryngology Tito Michel M.D. [address] [place] [phone] (Wo rk) 12/23/2021 Telemedicine Otorhinolaryngology Shira Soto, [facility]-COMBINED RAIL OPERATOR [address] [place] [phone] (Wo rk) documented as of this encounter Procedures Procedure Name Priority Date/Time Associated Comments Diagnosis OTORHINOLARYNGOLOGY IMAGE Routine 02/14/2017 10:55 Results for this EXAM AM PEN AND PENCIL REPAIRER procedure are i n the results section. documented in this encounter Results OTORHINOLARYNGOLOGY IMAGE EXAM (02/14/2017 10:55 AM PEN AND PENCIL REPAIRER) Specimen (Source) Anatomical Collection Method Collection Time Re ceived Time Location / / Volume Laterality 02/14/2017 10:51 AM PEN AND PENCIL REPAIRER Narrative [facility] - 02/14/2017 10:59 AM PEN AND PENCIL REPAIRER This order has been created and auto-finalized [...]
--- OUTSIDE RECORDS SUMMARY | 2021-12-10 09:13 | XMS_ITS | Clinical Summary ---
:1950 Author Organization [facility] Address [address] [place] [address] Care Team Providers Name Role Phone Unavailable Primary Care Provider Unavailable Source Comments Patient records contain information from all sites at [facility]. For routine questions regarding patient records, call [phone] during business hours, M-F 8:00 AM - 5:00 PM Central Time. Record requests for emergency care only can be directed to [phone] at any time.[facility] Allergies No known active allergies Medications Medication [...] Oswald M.D. 11/25/2021 Orders Only Otorhinolaryngology Azeb eBss, Ewa.P.N. 11/21/2021 Refill Otorhinolaryngology Morgan Fleming Cha nge Marie Mcneil APRN, C.N.P., M.S.N. 11/20/2021 Orders Only Otorhinolaryngology Morgan Fleming APRN, C.N.P., M.S.N. 11/20/2021 Clinical Otorhinolaryngology Jake Michel Medicat ion Problem Communication Breanna Hyde (ICD clarifica tion) 11/19/2021 Orders Only Otorhinolaryngology Carli Guerrero, R.N. 11/17/2021 Clinical Support Otorhinolaryngology Charles, Para lysis Vocal Shira Ewa, Cord Unilateral CCC-WAITANGI TRIBUNAL MEMBER Complete 11/17/2021 Comprehensive Otorhinolaryngology Jake Michel Rhinos inusitis Chronic (Primary Dx); Visit Breanna Hyde Sinusitis; Asthma (HCC); Pneumonia Bronc hiolitis Obliterans Organizing (HCC); Drip Post Nasal 11/17/2021 Orders Only Otorhinolaryngology Kevin Ham (Primary Jaqui A, Dx) R.N. 11/12/2021 Telemedicine Otorhinolaryngology Jamal Oliva, Paraly sis Vocal M.DSydnie Cord Unilateral Charles Complete Shira Mcneil CCC-WAITANGI TRIBUNAL MEMBER 10/12/2021 Community Orders Daiana Whitley (Primary Dx) MMira 10/09/2021 Comprehensive Otorhinolaryngology Jamal Oliva, Sinus itis (Primary Dx); Visit M.DSydnie Paralysis Vocal Cord Unilateral Complete Shira Soto CCC-WAITANGI TRIBUNAL MEMBER 10/09/2021 Ancillary Procedure 10/09/2021 Office Visit Otorhinolaryngology [...] or relatives? How often do you attend religious or yazidi Never 10/07/2021 services? Do you belong to any clubs or organizations Yes 10/07/2021 such as religious groups, unions, fraternal or athletic groups, or [...] or slept in a chcf (including now)? Education Answer Date Recorded What is the highest level of school Bachelor's degree (e.g., BA, AB, 10/07/2021 you have completed or the highest BS) degree you have received? Sex Assigned at Date Recorded Female 06/26/2021 11:13 AM CDT Last Filed Vital Signs Vital Sign Reading Time Taken Comments Blood Pressure 136/72 01/13/2017 8:39 AM BUS WASHER Pulse 71 01/13/2017 8:39 AM BUS WASHER Temperature - - Respiratory Rate 16 01/13/2017 8:39 AM BUS WASHER Oxygen Saturation - - Inhaled Oxygen Concentration - - Weight 61 kg (134 lb 7.7 oz) 04/14/2017 7:48 AM BUS WASHER Height 154 cm (5' 0.63) 04/14/2017 7:48 AM BUS WASHER Body Mass Index 25.72 04/14/2017 7:48 AM BUS WASHER Plan of Treatment Upcoming Encounters Date Type Specialty Care Team Description 12/17/2021 Comprehensive Visit Neurology Jamal Oliva M.D. [address] [place] [phone] Makayla Neves M.S., [facility] [address] [place] [phone] 12/17/2021 Appointment Radiology Jamal Oliva M .D. [address] [place] [phone] Makayla Neves M.S., [facility]-[address] [phone] 12/17/2021 Clinical Support Neurology Jamal Oliva M.D. [address] [place] [phone] Makayla Neves M.S., [facility]-[address] [phone] 12/17/2021 Appointment Radiology Jake Michel M.D. [address] [place] [phone] (Wo rk) 12/17/2021 Office Visit Otorhinolaryngology Tito Michel M.D. [address] [place] [phone] (Janet garcia) 12/23/2021 Telemedicine Otorhinolaryngology Shira Soto, [facility]-[address] [phone] (Janet garcia) Health Maintenance Due Date Last [...] history exists Medical Devices Implanted Type Area Redrawer Device Shelf Model / Identifier Expiration Date Ser ial / Lot Trimed-Screw Volar Peg Thrded 14mm - Garza [id number] Hardware e.g. [employer] Implanted: Qty: 1 on 04/25/2009 pins/screws/r ods Description: Device Redrawer - Trime d [employer].. Device Status Text - [id number]. Conversions - Default Historical Implant Device Hardware [...] and C-7. Device Status Text - Hardware. [facility] 4 .035 - Garza [id number] Hardware e.g. pins/screws/rods Thong Implanted: Qty: 1 on 11/30/2016 Description: Device Redrawer - Stryk er Gordon.. Device Status Text - [id number]. Block Olga. Phonoform [facility] Rt - Garza [id number] [facility] Pros thesis Other/Legacy - See Implant Medtronic Implanted: Qty: 1 on 11/10/2016 Description Description: Device Redrawer - [employer] Body Location - Other. Right. Device Status Text - [facility] [place] [place] [id number]. Procedures Procedure Name Priority Date/Time Associated Comments [...] e / Group Dates MEDICARE MEDICARE A [id number] 2015-Pres [address] [place] [address] BLUE CROSS BCBS [place] [id number] 2016-Pres [phone] PO ANSELMO X Cost Share BLUE SHIELD BLUE COST ent [phone] [place] [address] (Home) [place], [place] [phone] (Work)
--- OUTSIDE RECORDS SUMMARY | 2021-12-10 09:13 | XMS_ITS | Encounter Summary ---
:1950 Author Organization [facility] Address [address] [place] [address] Care Team Providers Name Role Phone Unavailable Primary Care Provider Unavailable Encounter Details Date Type Department Care Team Description 06/24/2017 Orders Only Department of Rosa Moore, Encounter F or Examination Of Ears And Hearing Without Abnormal Findings; Otorhinolaryngology in M.D. Paralysis Vocal Cord [place], [place] [address] [facility] [address] [place] [phone] Social History Tobacco Use Types Packs/Day Years [...] or relatives? How often do you attend adventism or religion Never 10/07/2021 services? Do you belong to any clubs or organizations Yes 10/07/2021 such as adventism groups, unions, fraternal or athletic groups, or [...] Visit Neurology Jamal Oliva M.D. [address] [place] [phone] Makayla Neves M.S., CCC-PHYTOPATHOLOGIST [address] [place] [phone] 12/17/2021 Appointment Radiology Jamal Oliva M .D. [address] [place] [phone] Makayla Neves M.S., CCC-PHYTOPATHOLOGIST [address] [place] [phone] 12/17/2021 Clinical Support Neurology Jamal Oliva M.D. [address] [place] [phone] Makayla Neves M.S., CCC-PHYTOPATHOLOGIST [address] [place] [phone] 12/17/2021 Appointment Radiology Jake Michel M.D. [address] [place] [phone] (Wo rk) 12/17/2021 Office Visit Otorhinolaryngology Tito Michel M.D. [address] [place] [phone] (Janet garcia) 12/23/2021 Telemedicine Otorhinolaryngology Shira Soto CCC-PHYTOPATHOLOGIST [address] [place] [phone] (Wo rk) documented as of this encounter Visit Diagnoses Diagnosis Encounter For Examination Of Ears And He aring Without Abnormal Findings Paralysis Vocal Cord documented in this encounter Additional Health Concerns Assessment Noted Time PHQ-9 Depression Total Score: 1 10/01/2016 3:24 PM CDT documented as of this encounter
--- OUTSIDE RECORDS SUMMARY | 2021-12-10 09:13 | XMS_ITS | Encounter Summary ---
:1950 Author Organization [facility] Address [address] [place] [address] Care Team Providers Name Role Phone Unavailable Primary Care Provider Unavailable Reason for Referral Speech Pathology (Routine) - Authorized Specialty Diagnoses / Procedures Referred By Contact Refer red To Contact Diagnoses Paralysis Vocal Cord Unilateral Complete Jamal Oliva M.D. [facility] Procedures NEWSPAPER JOURNALIST Voice evaluation 200 [place] [phone] Referral ID Status Reason Start Date Expiration Date Visits V isits Requested Authorized [id number] Authorized 10/09/2021 10/09/2022 99 99 Reason for Visit Appointment Request (Routine) - Closed Specialty Diagnoses / Procedures Referred By Contact Refer red To Contact Otorhinolaryngology Diagnoses Paralysis Vocal Cord Referral ID Status Reason Start Date Expiration Date Visits Requ ested Visits Authorized [id number] Closed 06/26/2021 06/26/2022 1 1 Encounter Details Date Type Department Care Team Description 10/09/2021 Office Visit Department of Jamal Oliva Voca l Cord Otorhinolaryngology kb Mcnally M.D. Unilateral Complete [place], [place] 200 [facility] (Primary Dx) 200 [place] [phone] Social History Tobacco Use Types Packs/Day Years [...] How often do you attend mosque or jewish Never 10/07/2021 services? Do you belong to [...] She was worked up forthis locally in [place] last fall with a swallow study and [...] which was found on swallow study in [place] last fall duringwork-up of her esophageal dysmotility, [...] Visit Neurology Jamal Oliva M.D. [address] [place] [phone] Makayla Neves M.S., [facility]-NEWSPAPER JOURNALIST [address] [place] [phone] 12/17/2021 Appointment Radiology Jamal Oliva M .D. [address] [place] [phone] Makayla Neves M.S., CCC-NEWSPAPER JOURNALIST [address] [place] [phone] 12/17/2021 Clinical Support Neurology Jamal Oliva M.D. [address] [place] [phone] Makayla Neves M.S., [facility]-NEWSPAPER JOURNALIST [address] [place] [phone] 12/17/2021 Appointment Radiology Jake Michel M.D. [address] [place] [phone] (Wo rk) 12/17/2021 Office Visit Otorhinolaryngology Tito Michel M.D. 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
--- OUTSIDE RECORDS SUMMARY | 2021-12-10 09:13 | XMS_ITS | Encounter Summary ---
:1950 Author Organization [facility] Address [address] [place] [address] Care Team Providers Name Role Phone Unavailable Primary Care Provider Unavailable Reason for Visit Reason Comments Medication Problem ICD clarification Encounter Details Date Type Department Care Team Description 11/20/2021 Clinical Department of Tianby, Medication Communication Otorhinolaryngology in [place] ([place], [place] M.D. clarification) [address] [facility] [address] [place] [phone] [place] [phone] Social History Tobacco Use Types Packs/Day Years [...] or relatives? How often do you attend judaism or rastafari Never 10/07/2021 services? Do you belong to any clubs or organizations Yes 10/07/2021 such as judaism groups, unions, fraternal or athletic groups, or [...] place to sleep or slept in a half-way (including now)? Education Answer Date Recorded What [...] Comprehensive Visit Neurology Jamal Oliva M.D. [address] [place] [phone] Makayla Neves M.S., CCC-BAR HOST/HOSTESS [address] [place] [phone] 12/17/2021 Appointment Radiology Jamal Oliva M .D. [address] [place] [phone] Makayla Neves M.S., CCC-BAR HOST/HOSTESS [address] [place] [phone] 12/17/2021 Clinical Support Neurology Jamal Oliva M.D. [address] [place] [phone] Makayla Neves M.S., CCC-BAR HOST/HOSTESS [address] [place] [address], [place] [phone] 12/17/2021 Appointment Radiology Jake Michel M.D. [address] [place] [phone] (Wo rk) 12/17/2021 Office Visit Otorhinolaryngology Tito Michel M.D. [address] [place] [phone] (Wo rk) 12/23/2021 Telemedicine Otorhinolaryngology Shira Soto, CCC-BAR HOST/HOSTESS [address] [place] [phone] (Wo rk) documented as of this encounter Visit Diagnoses Not on filedocumented in this encounter Additional Health Concerns Assessment Noted Time PHQ-9 Depression Total Score: 1 10/01/2016 3:24 PM CDT documented as of this encounter
--- OUTSIDE RECORDS SUMMARY | 2021-12-10 09:13 | XMS_ITS | Encounter Summary ---
:1950 Author Organization [facility] Address [address] [place] [address] Care Team Providers Name Role Phone Unavailable Primary Care Provider Unavailable Reason for Referral Outpatient (Routine) - Closed Specialty Diagnoses / Procedures Referred By Contact Refer red To Contact Video Medicine Diagnoses Paralysis Vocal Cord Unilateral Complete Jamal Oliva M.D. [facility] [address] [place] [phone] Referral ID Status Reason Start Date Expiration Date Visits Requ ested Visits Authorized [id number] Closed 10/09/2021 10/09/2022 1 1 utpatient (Routine) - Closed Specialty Diagnoses / Procedures Referred By Contact Refer red To Contact Otorhinolaryngology Diagnoses Sinusitis Jamal Oliva M.D. [facility] 200 [place] [phone] Referral ID Status Reason Start Date Expiration Date Visits Requ ested Visits Authorized [id number] Closed 10/09/2021 10/09/2022 1 1 Reason for Visit Speech Pathology (Routine) - Authorized Specialty Diagnoses / Procedures Referred By Contact Refer red To Contact Diagnoses Paralysis Vocal Cord Unilateral Complete Jamal Oliva M.D. [facility] Procedures GAS METER REPAIRER Voice evaluation [address] [place] [phone] Referral ID Status Reason Start Date Expiration Date Visits V isits Requested Authorized [id number] Authorized 10/09/2021 10/09/2022 99 99 Encounter Details Date Type Department Care Team Description 10/09/2021 Comprehensive Visit Department of Jamal Oliva M.D. [address] [place] [phone] Sinusitis (Primary Dx); Otorhinolaryngology in [facility], Shira [facility]il [facility]-GAS METER REPAIRER [address] [place] [phone] Paralysis Vocal Cord Unilateral Complete [place], [place] [address] [place], [place] [phone] Social History Tobacco Use Types Packs/Day [...] How often do you attend advent or confucianist Never 10/07/2021 services? Do you belong to [...] or slept in a mcc (including now)? Education Answer Date Recorded What is the highest level of school Bachelor's degree (e.g., BA, AB, 10/07/2021 you have completed or the highest BS) degree you have received? Sex Assigned at Date Recorded Female 06/26/2021 11:13 AM CDT documented as of this encounter Consult Notes Shira Soto, MARLI-GAS METER REPAIRER - 10/09/2021 1:00 PM CDT CHIEF COMPLAINT/ [...] Visit Neurology Jamal Oliva M.D. [address] [place] [phone] Makayla Neves M.S., CCC-GAS METER REPAIRER [address] [place] [phone] 12/17/2021 Appointment Radiology Jamal Oliva M .D. [address] [place] [phone] Makayla Neves M.S., CCC-GAS METER REPAIRER [address] [place] [phone] 12/17/2021 Clinical Support Neurology Jamal Oliva M.D. [address] [place] [phone] Makayla Neves M.S., CCC-GAS METER REPAIRER [address] [place] [phone] 12/17/2021 Appointment Radiology Jake Michel M.D. [address] [place] [phone] (Janet garcia) 12/17/2021 Office Visit Otorhinolaryngology Tito Michel M.D. [address] [place] [phone] (Janet garcia) 12/23/2021 Telemedicine Otorhinolaryngology Shira Soto CCC-GAS METER REPAIRER [address] [place] [phone] (Janet garcia) Scheduled Referrals Name Type Priority [...]
--- OUTSIDE RECORDS SUMMARY | 2021-12-10 09:13 | XMS_ITS | Encounter Summary ---
:1950 Author Organization [facility] Address [address] [place] [address] Care Team Providers Name Role Phone Unavailable Primary Care Provider Unavailable Encounter Details Date Type Department Care Team Description 11/26/2021 Orders Only Department of Gerber Oswald, Otorhinolaryngology in M.Sydnie [place], [place] [address] [facility] [address] [place] [phone] Social History Tobacco Use Types Packs/Day Years [...] or relatives? How often do you attend scientologist or cheondoism Never 10/07/2021 services? Do you belong to any clubs or organizations Yes 10/07/2021 such as scientologist groups, unions, fraternal or athletic groups, or [...] Visit Neurology Jamal Oliva M.D. [address] [place] [phone] Makayla Neves M.S., [facility]-TABLE TENDER [address] [place] [phone] 12/17/2021 Appointment Radiology Jamal Oliva M .D. [address] [place] [phone] Makayla Neves M.S., [facility]-TABLE TENDER [address] [place] [phone] 12/17/2021 Clinical Support Neurology Jamal Oliva M.D. [address] [place] [phone] Makayla Neves M.S., [facility]-TABLE TENDER [address] [place] [phone] 12/17/2021 Appointment Radiology Jake Michel M.D. [address] [place] [phone] (Wo rk) 12/17/2021 Office Visit Otorhinolaryngology Tito Michel M.D. [address] [place] [phone] (Wo rk) 12/23/2021 Telemedicine Otorhinolaryngology Shira Soto, [facility]-TABLE TENDER [address] [place] [phone] (Wo rk) documented as of this encounter Visit Diagnoses Not on filedocumented in this encounter Additional Health Concerns Assessment Noted Time PHQ-9 Depression Total Score: 1 10/01/2016 3:24 PM CDT documented as of this encounter
--- OUTSIDE RECORDS SUMMARY | 2021-12-10 09:13 | XMS_ITS | Encounter Summary ---
:1950 Author Organization [facility] Address [address] [place] [address] Care Team Providers Name Role Phone Unavailable Primary Care Provider Unavailable Reason for Referral Speech Pathology (Routine) - Authorized Specialty Diagnoses / Procedures Referred By Contact Refer red To Contact Diagnoses Dysphagia Jamal Oliva M.D. [facility] Procedures BAT CARRIER - Ongoing treatment 200 [place] [address] Referral ID Status Reason Start Date Expiration Date Visits V isits Requested Authorized [id number] Authorized 11/17/2021 11/17/2022 99 99 utpatient (Routine) - Authorized Specialty Diagnoses / Procedures Referred By Contact Refer red To Contact Diagnoses Dysphagia Jamal Oliva M.D. [facility] Procedures FL Esophagram Single Contrast 200 [place], [place] [phone] Referral ID Status Reason Start Date Expiration Date Visits V isits Requested Authorized [id number] Authorized 11/17/2021 11/17/2022 1 1 utpatient (Routine) - Authorized Specialty Diagnoses / Procedures Referred By Contact Refer red To Contact Diagnoses Dysphagia Jamal Oliva M.D. [facility] Procedures FL Swallow Function with Video and Speech or OT [address] [place] [address] Referral ID Status Reason Start Date Expiration Date Visits V isits Requested Authorized [id number] Authorized 11/17/2021 11/17/2022 1 1 peech Pathology (Routine) - Authorized Specialty Diagnoses / Procedures Referred By Contact Refer red To Contact Diagnoses Dysphagia Jamal Oliva M.D. [facility] Procedures BAT CARRIER Dysphagia evaluate and treat [address] [place] [phone] Referral ID Status Reason Start Date Expiration Date Visits V isits Requested Authorized [id number] Authorized 11/17/2021 11/17/2022 99 99 Encounter Details Date Type Department Care Team Description 11/17/2021 Orders Only Department of Jitendra, Dysphagia ([facility] Otorhinolaryngology in Jaqui Lucas R.N. Dx) [place], [place] [address] [facility] [address] [place] [phone] Social History Tobacco Use Types Packs/Day Years [...] How often do you attend anabaptism or latter day Never 10/07/2021 services? Do [...] Comprehensive Visit Neurology Jamal Oliva M.D. [address] [place] [phone] Makayla Neves M.S., [facility]-BAT CARRIER [address] [place] [phone] 12/17/2021 Appointment Radiology Jamal Oliva M .D. [address] [place] [phone] Makayla Neves M.S., CCC-BAT CARRIER [address] [place] [phone] 12/17/2021 Clinical Support Neurology Jamal Oliva M.D. [address] [place] [phone] Makayla Neves M.S., [facility]-[address] [phone] 12/17/2021 Appointment Radiology Jake Michel M.D. [address] [place] [phone] (Wo rk) 12/17/2021 Office Visit Otorhinolaryngology Tito Michel M.D. [address] [place] [phone] (Wo rk) 12/23/2021 Telemedicine Otorhinolaryngology Shira Soto, CCC-BAT CARRIER [address] [place] [phone] (Wo rk) Scheduled Orders Name Type Priority [...]
--- OUTSIDE RECORDS SUMMARY | 2021-12-10 09:13 | XMS_ITS | Encounter Summary ---
:1950 Author Organization [facility] Address [address] [place] [address] Care Team Providers Name Role Phone Unavailable Primary Care Provider Unavailable Encounter Details Date Type Department Care Team Description 10/08/2021 Clinical Communication Visit Review in [place], [place] [address] [place] [address] Social History Tobacco Use Types Packs/Day Years [...] How often do you attend yazdanism or episcopal Never 10/07/2021 services? Do you belong to [...] Comprehensive Visit Neurology Jamal Oliva M.D. [address] [place] [phone] Makayla Neves M.S., CCC-DIRECTOR OF EVENT MANAGEMENT [address] [place] [phone] 12/17/2021 Appointment Radiology Jamal Oliva M .D. [address] [place] [phone] Makayla Neves M.S., CCC-DIRECTOR OF EVENT MANAGEMENT [address] [place] [phone] 12/17/2021 Clinical Support Neurology Jamal Oliva M.D. [address] [place] [phone] Makayla Neves M.S., CCC-DIRECTOR OF EVENT MANAGEMENT [address] [place] [phone] 12/17/2021 Appointment Radiology Jake Michel M.D. [address] [place] [phone] (Wo jose) 12/17/2021 Office Visit Otorhinolaryngology Tito Michel M.D. [address] [place] [phone] (Janet garcia) 12/23/2021 Telemedicine Otorhinolaryngology Shira Soto CCC-DIRECTOR OF EVENT MANAGEMENT [address] [place] [phone] (Wo rk) documented as of this encounter Visit Diagnoses Not on filedocumented in this encounter Additional Health Concerns Assessment Noted Time PHQ-9 Depression Total Score: 1 10/01/2016 3:24 PM CDT documented as of this encounter
--- OUTSIDE RECORDS SUMMARY | 2021-12-10 09:13 | XMS_ITS | Encounter Summary ---
:1950 Author Organization [facility] Address [address] [place] [address] Care Team Providers Name Role Phone Unavailable Primary Care Provider Unavailable Reason for Visit Reason Comments Med Change Request Encounter Details Date Type Department Care Team Description 11/21/2021 Refill Department of Morgan Fleming, Med Change Request Otorhinol[facility]ology in [facility], [place] M.S.N. [address] [facility] [address] [place] [address] [place], [place] [phone] Social History Tobacco Use Types Packs/Day Years [...] or relatives? How often do you attend caodaism or mandaen Never 10/07/2021 services? Do you belong to any clubs or organizations Yes 10/07/2021 such as caodaism groups, unions, fraternal or athletic groups, or [...] slept in a senior care (including now)? Education Answer Date Recorded What [...] Comprehensive Visit Neurology Jamal Oliva M.D. [address] [place] [phone] Makayla Neves M.S., [facility]-PRINTED FORMS PROOFREADER [address] [place] [phone] 12/17/2021 Appointment Radiology Jamal Oliva M .D. [address] [place] [phone] Makayla Neves M.S., [facility]-[address] [phone] 12/17/2021 Clinical Support Neurology Jamal Oliva M.D. [address] [place] [phone] Makayla Neves M.S., [facility]-[address] [phone] 12/17/2021 Appointment Radiology Jake Michel M.D. [address] [place] [phone] (Wo rk) 12/17/2021 Office Visit Otorhinolaryngology Tito Michel M.D. [address] [place] [phone] (Wo rk) 12/23/2021 Telemedicine Otorhinolaryngology Shira Soto, [facility]-PRINTED FORMS PROOFREADER [address] [place] [phone] (Wo rk) documented as of this encounter Visit Diagnoses Not on filedocumented in this encounter Additional Health Concerns Assessment Noted Time PHQ-9 Depression Total Score: 1 10/01/2016 3:24 PM CDT documented as of this encounter
--- OUTSIDE RECORDS SUMMARY | 2021-12-10 09:13 | XMS_ITS | Encounter Summary ---
:1950 Author Organization [facility] Address [address] [place] [address] Care Team Providers Name Role Phone Unavailable Primary Care Provider Unavailable Encounter Details Date Type Department Care Team Description 11/20/2021 Orders Only Department of Morgan Fleming, Otorhinolaryngology in [facility] C.N.[place], [place] M.S.N. [address] [facility] [address] [place] [address] [place], [place] [phone] Social History Tobacco Use Types Packs/Day Years [...] or relatives? How often do you attend yarsanism or latter day Never 10/07/2021 services? Do you belong to any clubs or organizations Yes 10/07/2021 such as yarsanism groups, unions, fraternal or athletic groups, or [...] Comprehensive Visit Neurology Jamal Oliva M.D. [address] [place] [phone] Makayla Neves M.S., [facility]-SHEARING MACHINE FEEDER [address] [place] [phone] 12/17/2021 Appointment Radiology Jamal Oliva M .D. [address] [place] [phone] Makayla Neves M.S., [facility]-SHEARING MACHINE FEEDER [address] [place] [phone] 12/17/2021 Clinical Support Neurology Jamal Oliva M.D. [address] [place] [phone] Makayla Neves M.S., [facility]-SHEARING MACHINE FEEDER [address] [place] [phone] 12/17/2021 Appointment Radiology Jake Michel M.D. [address] [place] [phone] (Wo rk) 12/17/2021 Office Visit Otorhinolaryngology Tito Michel M.D. [address] [place] [phone] (Wo rk) 12/23/2021 Telemedicine Otorhinolaryngology Shira Soto, [facility]-SHEARING MACHINE FEEDER [address] [place] [address] (Wo rk) documented as of this encounter Visit Diagnoses Not on filedocumented in this encounter Additional Health Concerns Assessment Noted Time PHQ-9 Depression Total Score: 1 10/01/2016 3:24 PM CDT documented as of this encounter
--- OUTSIDE RECORDS SUMMARY | 2021-12-10 09:13 | XMS_ITS | Encounter Summary ---
:1950 Author Organization [facility] Address [address] [place] [address] Care Team Providers Name Role Phone Unavailable Primary Care Provider Unavailable Encounter Details Date Type Department Care Team Description 11/25/2021 Orders Only Department of Otorhinolaryngology Azeb Bess, in [facility] L.P.N. [address] [facility] [address] [place] [address] [place], [place] [phone] Social History Tobacco Use Types Packs/Day Years [...] How often do you attend gnosticist or shinto Never 10/07/2021 services? Do you belong to [...] slept in a skilled nursing (including now)? Education Answer Date Recorded What [...] Visit Neurology Jamal Oliva M.D. [address] [place] [phone] Makayla Neves M.S., [facility]-[address] [phone] 12/17/2021 Appointment Radiology Jamal Oliva M .D. [address] [place] [phone] Makayla Neves M.S., [facility]-[address] [phone] 12/17/2021 Clinical Support Neurology Jamal Oliva M.D. [address] [place] [phone] Makayla Neves M.S., [facility]-[address] [phone] 12/17/2021 Appointment Radiology Jake Michel M.D. [address] [place] [phone] (Janet garcia) 12/17/2021 Office Visit Otorhinolaryngology Tito Michel M.D. [address] [place] [phone] (Janet garcia) 12/23/2021 Telemedicine Otorhinolaryngology Shira Soto, [facility]-ELECTROSTATIC PAINT OPERATOR [address] [place] [phone] (Janet garcia) documented as of this encounter Visit Diagnoses Not on filedocumented in this encounter Additional Health Concerns Assessment Noted Time PHQ-9 Depression Total Score: 1 10/01/2016 3:24 PM CDT documented as of this encounter
--- OUTSIDE RECORDS SUMMARY | 2021-12-10 09:13 | XMS_ITS | Encounter Summary ---
:1950 Author Organization [facility] Address [address] [place] [address] Care Team Providers Name Role Phone Unavailable Primary Care Provider Unavailable Encounter Details Date Type Department Care Team Description 11/27/2021 Orders Only Department of Otorhinolaryngology Azeb Bess, in [facility] L.P.N. [address] [facility] [address] [place] [address] [place], [place] [phone] Social History Tobacco Use Types Packs/Day Years [...] How often do you attend catholic or adventist Never 10/07/2021 services? Do you belong to [...] Comprehensive Visit Neurology Jamal Oliva M.D. [address] [place] [phone] Makayla Neves M.S., [facility]-[address] [phone] 12/17/2021 Appointment Radiology Jamal Oliva M .D. [address] [place] [phone] Makayla Neves M.S., [facility]-[address] [phone] 12/17/2021 Clinical Support Neurology Jamal Oliva M.D. [address] [place] [phone] Makayla Neves M.S., [facility]-[address] [phone] 12/17/2021 Appointment Radiology Jake Michel M.D. [address] [place] [phone] (Janet garcia) 12/17/2021 Office Visit Otorhinolaryngology Tito Michel M.D. [address] [place] [phone] (Janet garcia) 12/23/2021 Telemedicine Otorhinolaryngology Shira Soto, [facility]-TRACK PRODUCTION ENGINEER [address] [place] [phone] (Janet garcia) documented as of this encounter Visit Diagnoses Not on filedocumented in this encounter Additional Health Concerns Assessment Noted Time PHQ-9 Depression Total Score: 1 10/01/2016 3:24 PM CDT documented as of this encounter
--- OUTSIDE RECORDS SUMMARY | 2021-12-10 09:13 | XMS_ITS | Encounter Summary ---
:1950 Author Organization [facility] Address [address] [place] [address] Care Team Providers Name Role Phone Unavailable Primary Care Provider Unavailable Reason for Referral Outpatient (Routine) - Authorized Specialty Diagnoses / Procedures Referred By Contact Refer red To Contact Neurology Diagnoses Polyneuropathy Salma Whitley M.D. [facility] [address] [place] [address] Referral ID Status Reason Start Date Expiration Date Visits V isits Requested Authorized [id number] Authorized 10/12/2021 10/12/2022 1 1 Encounter Details Date Type Department Care Team Description 10/12/2021 [facility] Breanna Castillo (Primary Dx) [facility] [address] [place], [place] [address] [facility] [address] [place] [address] [phone] Social History Tobacco Use Types Packs/Day Years [...] or relatives? How often do you attend baptist or nondenominational Never 10/07/2021 services? Do you belong to any clubs or organizations Yes 10/07/2021 such as baptist groups, unions, fraternal or athletic groups, or [...] or slept in a correction (including now)? Education Answer Date Recorded What [...] Comprehensive Visit Neurology Jamal Oliva M.D. [address] [place] [phone] Makayla Neves M.S., [facility]-CONTINUOUS IMPROVEMENT SPECIALIST [address] [place] [phone] 12/17/2021 Appointment Radiology Jamal Oliva M .D. [address] [place] [phone] Makayla Neves M.S., CCC-CONTINUOUS IMPROVEMENT SPECIALIST [address] [place] [phone] 12/17/2021 Clinical Support Neurology Jamal Oliva M.D. [address] [place] [address] [phone] Makayla Neves M.S., CCC-CONTINUOUS IMPROVEMENT SPECIALIST [address] [place] [phone] 12/17/2021 Appointment Radiology Jake Michel M.D. [address] [place] [phone] (Wo rk) 12/17/2021 Office Visit Otorhinolaryngology Tito Michel M.D. [address] [place] [phone] (Wo rk) 12/23/2021 Telemedicine Otorhinolaryngology Shira Soto, CCC-CONTINUOUS IMPROVEMENT SPECIALIST [address] [place] [phone] (Wo rk) Scheduled Referrals Name Type Priority Associated Diagnoses Order [facility] Neurology Referral Outpatient Referral Routine Polyneuropathy Expected: 10/12/2021 (Approximate), Expires: 01/12/2023 documented as of this encounter Visit Diagnoses Diagnosis Polyneuropathy - Primary documented in this encounter Additional Health Concerns Assessment Noted Time PHQ-9 Depression Total Score: 1 10/01/2016 3:24 PM CDT documented as of this encounter
--- OUTSIDE RECORDS SUMMARY | 2021-12-10 09:13 | XMS_ITS | Encounter Summary ---
:1950 Author Organization [facility] Address [address] [place] [address] Care Team Providers Name Role Phone Unavailable Primary Care Provider Unavailable Reason for Referral Outpatient (Routine) - Closed Specialty Diagnoses / Procedures Referred By Contact Refer red To Contact Diagnoses Paralysis Vocal Cord Unilateral Complete Rst Ent [facility] Procedures ENT Speech therapy [address] [place] [phone] Referral ID Status Reason Start Date Expiration Date Visits Requ ested Visits Authorized [id number] Closed 11/12/2021 11/12/2022 1 1 Reason for Visit Outpatient (Routine) - Closed Specialty Diagnoses / Procedures Referred By Contact Refer red To Contact Video Medicine Diagnoses Paralysis Vocal Cord Unilateral Complete Jamal Oliva M.D. [facility] [address] [place] [phone] Referral ID Status Reason Start Date Expiration Date Visits Requ ested Visits Authorized [id number] Closed 10/09/2021 10/09/2022 1 1 Encounter Details Date Type Department Care Team Description 11/12/2021 Telemedicine Department of Jamal Oliva M .D. [address] [place] [phone] Paralysis Vocal Otorhinolaryngology in Shira Soto CCC-LOUNGE CAR ATTENDANT [address] [place] [phone] [place], [place] Complete [address] [place] [phone] Social History Tobacco Use Types Packs/Day [...] or relatives? How often do you attend jainism or presybeterian Never 10/07/2021 services? Do you belong to any clubs or organizations Yes 10/07/2021 such as jainism groups, unions, fraternal or athletic groups, or [...] of this encounter Progress Notes Shira Soto, MARLI-LOUNGE CAR ATTENDANT - 11/12/2021 9:00 AM CDT Referring provider [...] Comprehensive Visit Neurology Jamal Oliva M.D. [address] [place] [phone] Makayla Neves M.S., CCC-LOUNGE CAR ATTENDANT [address] [place] [phone] 12/17/2021 Appointment Radiology Jamal Oliva M .D. [address] [place] [phone] Makayla Neves M.S., CCC-LOUNGE CAR ATTENDANT [address] [place] [phone] 12/17/2021 Clinical Support Neurology Jamal Oliva M.D. [address] [place] [phone] Makayla Neves M.S., CCC-LOUNGE CAR ATTENDANT [address] [place] [phone] 12/17/2021 Appointment Radiology Jake Michel M.D. [address] [place] [phone] (Wo rk) 12/17/2021 Office Visit Otorhinolaryngology Tito Michel M.D. [address] [place] [phone] (Wo rk) 12/23/2021 Telemedicine Otorhinolaryngology Shira Soto, CCC-LOUNGE CAR ATTENDANT [address] [place] [phone] (Wo rk) documented as of this encounter Visit Diagnoses Diagnosis Paralysis Vocal Cord Unilateral Complete documented in this encounter Additional Health Concerns Assessment Noted Time PHQ-9 Depression Total Score: 1 10/01/2016 3:24 PM CDT documented as of this encounter
--- OUTSIDE RECORDS SUMMARY | 2021-12-10 09:13 | XMS_ITS | Encounter Summary ---
:1950 Author Organization [facility] Address [address] [place] [address] Care Team Providers Name Role Phone Unavailable [...] How often do you attend hoahaoism or denominational Never 10/07/2021 services? Do you [...] or slept in a snf (including now)? Education Answer Date Recorded What [...] Comprehensive Visit Neurology Jamal Oliva M.D. [address] [place] [phone] Makayla Neves M.S., [facility]-DIRECTOR SHIP [address] [place] [phone] 12/17/2021 Appointment Radiology Jamal Oliva M .D. [address] [place] [phone] Makayla Neves M.S., CCC-DIRECTOR SHIP [address] [place] [phone] 12/17/2021 Clinical Support Neurology Jamal Oliva M.D. [address] [place] [phone] Makayla Neves M.S., CCC-DIRECTOR SHIP [address] [place] [phone] 12/17/2021 Appointment Radiology Jake Michel M.D. [address] [place] [phone] (Wo rk) 12/17/2021 Office Visit Otorhinolaryngology Tito Michel M.D. [address] [place] [phone] (Janet garcia) 12/23/2021 Telemedicine Otorhinolaryngology Shira Soto [facility]-DIRECTOR SHIP [address] [place] [phone] (Wo rk) documented as of this encounter [...]
--- OUTSIDE RECORDS SUMMARY | 2021-12-10 09:13 | XMS_ITS | Encounter Summary ---
:1950 Author Organization [facility] Address [address] [place] [address] Care Team Providers Name Role Phone Unavailable [...] or relatives? How often do you attend yazidi or jainism Never 10/07/2021 services? Do you belong to any clubs or organizations Yes 10/07/2021 such as yazidi groups, unions, fraternal or athletic groups, or [...] Comprehensive Visit Neurology Jamal Oliva M.D. [address] [place] [phone] Makayla Neves M.S., [facility]-[address] [phone] 12/17/2021 Appointment Radiology Jamal Oliva M .D. [address] [place] [phone] Makayla Neves M.S., [facility]-[address] [phone] 12/17/2021 Clinical Support Neurology Jamal Oliva M.D. [address] [place] [phone] Makayla Neves M.S., [facility]-[address] [phone] 12/17/2021 Appointment Radiology Jake Michel M.D. [address] [place] [phone] (Janet garcia) 12/17/2021 Office Visit Otorhinolaryngology Tito Michel M.D. [address] [place] [phone] (Janet garcia) 12/23/2021 Telemedicine Otorhinolaryngology Shira Soto, [facility]-SHOWROOM SALESPERSON [address] [place] [phone] (Wo rk) documented as of this encounter Visit Diagnoses Not on filedocumented in this encounter Additional Health Concerns Assessment Noted Time PHQ-9 Depression Total Score: 1 10/01/2016 3:24 PM CDT documented as of this encounter
--- OUTSIDE RECORDS SUMMARY | 2021-12-10 09:13 | XMS_ITS | Encounter Summary ---
:1950 Author Organization [facility] Address [address] [place] [address] Care Team Providers Name Role Phone Unavailable Primary Care Provider Unavailable Encounter Details Date Type Department Care Team Description 11/19/2021 Orders Only Department of Carli Guerrero Otorhinolaryngology in [place], R.N. [place], [place] [address] [facility] [[email or web address]] [address] [place] [phone] Social History Tobacco Use Types Packs/Day Years [...] or relatives? How often do you attend moravian or pentecostal Never 10/07/2021 services? Do you belong to any clubs or organizations Yes 10/07/2021 such as moravian groups, unions, fraternal or athletic groups, or [...] 12/17/2021 Comprehensive Visit Neurology Jamal Oliva M.D. [address] [place] [phone] Makayla Neves M.S., [facility]-[address] [phone] 12/17/2021 Appointment Radiology Jamal Oliva M .D. [address] [place] [phone] Makayla Neves M.S., [facility]-[address] [phone] 12/17/2021 Clinical Support Neurology Jamal Oliva M.D. [address] [place] [phone] Makayla Neves M.S., [facility]-[address] [phone] 12/17/2021 Appointment Radiology Jake Michel M.D. [address] [place] [phone] (Janet garcia) 12/17/2021 Office Visit Otorhinolaryngology Tito Michel M.D. [address] [place] [phone] (Janet garcia) 12/23/2021 Telemedicine Otorhinolaryngology Shira Soto, [facility]-MANAGER HOME [address] [place] [phone] (Wo rk) documented as of this encounter Visit Diagnoses Not on filedocumented in this encounter Additional Health Concerns Assessment Noted Time PHQ-9 Depression Total Score: 1 10/01/2016 3:24 PM CDT documented as of this encounter
--- OUTSIDE RECORDS SUMMARY | 2021-12-10 09:13 | XMS_ITS | Encounter Summary ---
:1950 Author Organization [facility] Address [address] [place] [address] Care Team Providers Name Role Phone Unavailable Primary Care Provider Unavailable Reason for Referral Outpatient (Routine) - Authorized Specialty Diagnoses / Procedures Referred By Contact Refer red To Contact Diagnoses Paralysis Vocal Cord Unilateral Complete [facility] Procedures ENT Speech therapy [address] [place], [place] [phone] Referral ID Status Reason Start Date Expiration Date Visits V isits Requested Authorized [id number] Authorized 11/17/2021 11/17/2022 1 1 Reason for Visit Outpatient (Routine) - Closed Specialty Diagnoses / Procedures Referred By Contact Refer red To Contact Diagnoses Paralysis Vocal Cord Unilateral Complete [facility] Procedures ENT Speech therapy [address] [place] [phone] Referral ID Status Reason Start Date Expiration Date Visits Requ ested Visits Authorized [id number] Closed 11/12/2021 11/12/2022 1 1 Encounter Details Date Type Department Care Team Description 11/17/2021 Clinical Support Department of Irvin Soto Vocal Otorhinolaryngology in [place] Unilateral [place], [place] CCC-BAIL ATTACHER Complete [address] [facility] [address] [place] [address] [place], [place] [phone] Social History Tobacco Use Types Packs/Day Years [...] or relatives? How often do you attend lutheran or worship Never 10/07/2021 services? Do you belong to any clubs or organizations Yes 10/07/2021 such as lutheran groups, unions, fraternal or athletic groups, or [...] of this encounter Progress Notes Shira Soto, [facility]-BAIL ATTACHER - 11/17/2021 3:30 PM CDT Referring provider [...] Visit Neurology Jamal Oliva M.D. [address] [place] [phone] Makayla Neves M.S., CCC-BAIL ATTACHER [address] [place] [phone] 12/17/2021 Appointment Radiology Jamal Oliva M .D. [address] [place] [phone] Makayla Neves M.S., CCC-BAIL ATTACHER [address] [place] [phone] 12/17/2021 Clinical Support Neurology Jamal Oliva M.D. [address] [place] [phone] Makayla Neves M.S., CCC-BAIL ATTACHER [address] [place] [phone] 12/17/2021 Appointment Radiology Jake Michel M.D. [address] [place] [phone] (Wo rk) 12/17/2021 Office Visit Otorhinolaryngology Tito Michel M.D. [address] [place] [address] [phone] (Wo rk) 12/23/2021 Telemedicine Otorhinolaryngology Shira Soto, [facility]-BAIL ATTACHER [address] [place] [phone] (Wo rk) documented as of this encounter Visit Diagnoses Diagnosis Paralysis Vocal Cord Unilateral Complete documented in this encounter Additional Health Concerns Assessment Noted Time PHQ-9 Depression Total Score: 1 10/01/2016 3:24 PM CDT documented as of this encounter
--- OUTSIDE RECORDS SUMMARY | 2021-12-10 09:14 | XMS_ITS | Encounter Summary ---
:1950 Author Organization [facility] Address [address] [place] [address] Care Team Providers Name Role Phone Unavailable [...] or relatives? How often do you attend muslim or rastafarian Never 10/07/2021 services? Do you belong to any clubs or organizations Yes 10/07/2021 such as muslim groups, unions, fraternal or athletic groups, or [...] or slept in a long-term (including now)? Sex Assigned at Date Recorded [...] Visit Neurology Jamal Oliva M.D. [address] [place] [phone] Makayla Neves M.S., [facility]-JUNK DEALER [address] [place] [phone] 12/17/2021 Appointment Radiology Jamal Oliva M .D. [address] [place] [phone] Makayla Neves M.S., CCC-JUNK DEALER [address] [place] [phone] 12/17/2021 Clinical Support Neurology Jamal Oliva M.D. [address] [place] [phone] Makayla Neves M.S., [facility]-JUNK DEALER [address] [place] [phone] 12/17/2021 Appointment Radiology Jake Michel M.D. [address] [place] [phone] (Janet garcia) 12/17/2021 Office Visit Otorhinolaryngology Tito Michel M.D. [address] [place] [phone] (Janet garcia) 12/23/2021 Telemedicine Otorhinolaryngology Shira Soto [facility]-JUNK DEALER [address] [place] [address] [place] [phone] (Wo rk) documented as of this encounter Visit Diagnoses Not on filedocumented in this encounter Additional Health Concerns Assessment Noted Time PHQ-9 Depression Total Score: 1 10/01/2016 3:24 PM CDT documented as of this encounter
--- OUTSIDE RECORDS SUMMARY | 2021-12-10 09:14 | XMS_ITS | Encounter Summary ---
:1950 Author Organization [facility] Address [address] [place] [address] Care Team Providers Name Role Phone Unavailable [...] How often do you attend adventism or pentecostal Never 10/07/2021 services? Do you [...] or slept in a assisted (including now)? Sex Assigned at Date Recorded Female 06/26/2021 11:13 AM CDT documented as of this encounter Plan of Treatment Upcoming Encounters Date Type Specialty Care Team Description 12/17/2021 Comprehensive Visit Neurology Jamal Oliva M.D. [address] [place] [phone] Makayla Neves M.S., [facility]-PAINT ROLLER ASSEMBLER [address] [place] [phone] 12/17/2021 Appointment Radiology Jamal Oliva M .D. [address] [place] [phone] Makayla Neves M.S., CCC-PAINT ROLLER ASSEMBLER [address] [place] [phone] 12/17/2021 Clinical Support Neurology Jamal Oliva M.D. [address] [place] [phone] Makayla Neves M.S., [facility]-PAINT ROLLER ASSEMBLER [address] [place] [phone] 12/17/2021 Appointment Radiology Jake Michel M.D. [address] [place] [phone] (Wo rk) 12/17/2021 Office Visit Otorhinolaryngology Tito Michel M.D. [address] [place] [phone] (Wo rk) 12/23/2021 Telemedicine Otorhinolaryngology Shira Soto [facility]-PAINT ROLLER ASSEMBLER [address] [place] [phone] (Wo rk) documented as of this encounter Visit Diagnoses Not on filedocumented in this encounter
--- OUTSIDE RECORDS SUMMARY | 2021-12-10 09:14 | XMS_ITS | Encounter Summary ---
:1950 Author Organization [facility] Address [address] [place] [address] Care Team Providers Name Role Phone Unavailable [...] or relatives? How often do you attend orthodox or jainism Never 10/07/2021 services? Do you belong to any clubs or organizations Yes 10/07/2021 such as orthodox groups, unions, fraternal or athletic groups, or [...] slept in a group home (including now)? Sex Assigned at Date Recorded [...] Visit Neurology Jamal Oliva M.D. [address] [place] [phone] Makayla Neves M.S., [facility]-TERMINOLOGIST [address] [place] [phone] 12/17/2021 Appointment Radiology Jamal Oliva M .D. [address] [place] [phone] Makayla Neves M.S., CCC-TERMINOLOGIST [address] [place] [phone] 12/17/2021 Clinical Support Neurology Jamal Oliva M.D. [address] [place] [phone] Makayla Neves M.S., [facility]-TERMINOLOGIST [address] [place] [phone] 12/17/2021 Appointment Radiology Jake Michel M.D. [address] [place] [phone] (Janet garcia) 12/17/2021 Office Visit Otorhinolaryngology Tito Michel M.D. [address] [place] [phone] (Janet garcia) 12/23/2021 Telemedicine Otorhinolaryngology Shira Soto [facility]-TERMINOLOGIST [address] [place] [address] [place] [phone] (Wo rk) documented as of this encounter Visit Diagnoses Not on filedocumented in this encounter Additional Health Concerns Assessment Noted Time PHQ-9 Depression Total Score: 1 10/01/2016 3:24 PM CDT documented as of this encounter
--- OUTSIDE RECORDS SUMMARY | 2021-12-10 09:14 | XMS_ITS | Encounter Summary ---
:1950 Author Organization [facility] Address [address] [place] [address] Care Team Providers Name Role Phone Unavailable [...] How often do you attend voodoo or moravian Never 10/07/2021 services? Do you belong to [...] or slept in a prison (including now)? Sex Assigned at Date Recorded Female 06/26/2021 11:13 AM CDT documented as of this encounter Plan of Treatment Upcoming Encounters Date Type Specialty Care Team Description 12/17/2021 Comprehensive Visit Neurology Jamal Oliva M.D. [address] [place] [phone] Makayla Neves M.S., CCC-CUSTOM HARVESTER [address] [place] [phone] 12/17/2021 Appointment Radiology Jamal Oliva M .D. [address] [place] [phone] Makayla Neves M.S., CCC-CUSTOM HARVESTER [address] [place] [phone] 12/17/2021 Clinical Support Neurology Jamal Oliva M.D. [address] [place] [phone] Makayla Neves M.S., CCC-CUSTOM HARVESTER [address] [place] [phone] 12/17/2021 Appointment Radiology Jake Michel M.D. [address] [place] [phone] (Wo rk) 12/17/2021 Office Visit Otorhinolaryngology Tito Michel M.D. [address] [place] [phone] (Wo rk) 12/23/2021 Telemedicine Otorhinolaryngology Shira Soto [facility]-CUSTOM HARVESTER [address] [place] [phone] (Wo rk) documented as of this encounter Visit Diagnoses Not on filedocumented in this encounter
--- OUTSIDE RECORDS SUMMARY | 2021-12-10 09:14 | XMS_ITS | Encounter Summary ---
:1950 Author Organization [facility] Address [address] [place] [address] Care Team Providers Name Role Phone Unavailable [...] How often do you attend confucianism or confucianism Never 10/07/2021 services? Do you [...] 12/17/2021 Comprehensive Visit Neurology Jamal Oliva M.D. [address] [place] [phone] Makayla Neves M.S., [facility]-SECONDARY SCHOOL TEACHER LIBRARIAN [address] [place] [phone] 12/17/2021 Appointment Radiology Jamal Oliva M .D. [address] [place] [phone] Makayla Neves M.S., CCC-SECONDARY SCHOOL TEACHER LIBRARIAN [address] [place] [phone] 12/17/2021 Clinical Support Neurology Jamal Oliva M.D. [address] [place] [phone] Makayla Neves M.S., CCC-SECONDARY SCHOOL TEACHER LIBRARIAN [address] [place] [phone] 12/17/2021 Appointment Radiology Jake Michel M.D. [address] [place] [phone] (Wo rk) 12/17/2021 Office Visit Otorhinolaryngology Tito Michel M.D. [address] [place] [phone] (Wo rk) 12/23/2021 Telemedicine Otorhinolaryngology Shira Soto, [facility]-SECONDARY SCHOOL TEACHER LIBRARIAN [address] [place] [phone] (Wo rk) documented as of this encounter [...] Organization Address City/State/ZIP Code Phon e Number IITN IITN NA documented in this encounter Visit Diagnoses Not on filedocumented in this encounter Additional Health Concerns Assessment Noted Time PHQ-9 Depression Total Score: 1 10/01/2016 3:24 PM CDT documented as of this encounter
--- OUTSIDE RECORDS SUMMARY | 2021-12-10 09:14 | XMS_ITS | Encounter Summary ---
:1950 Author Organization [facility] Address [address] [place] [address] Care Team Providers Name Role Phone Unavailable [...] How often do you attend mormon or alevism Never 10/07/2021 services? Do you belong to [...] Comprehensive Visit Neurology Jamal Oliva M.D. [address] [place] [phone] Makayla Neves M.S., CCC-RADIOISOTOPE TECHNICIAN [address] [place] [phone] 12/17/2021 Appointment Radiology Jamal Oliva M .D. [address] [place] [phone] Makayla Neves M.S., CCC-RADIOISOTOPE TECHNICIAN [address] [place] [phone] 12/17/2021 Clinical Support Neurology Jamal Oliva M.D. [address] [place] [phone] Makayla Neves M.S., CCC-RADIOISOTOPE TECHNICIAN [address] [place] [phone] 12/17/2021 Appointment Radiology Jake Michel M.D. [address] [place] [phone] (Wo rk) 12/17/2021 Office Visit Otorhinolaryngology Tito Michel M.D. [address] [place] [phone] (Wo rk) 12/23/2021 Telemedicine Otorhinolaryngology Shira Soto [facility]-RADIOISOTOPE TECHNICIAN [address] [place] [phone] (Wo rk) documented as of this encounter Visit Diagnoses Not on filedocumented in this encounter
--- OUTSIDE RECORDS SUMMARY | 2021-12-10 09:14 | XMS_ITS | Encounter Summary ---
:1950 Author Organization [facility] Address [address] [place] [address] Care Team Providers Name Role Phone Unavailable Primary Care Provider Unavailable Encounter Details Date Type Department Care Team Description 11/30/2016 Hospital Encounter HX RST PMR PT OT Evelyn Espana, [facility] O.T. [address] [place] [address] Social History Tobacco Use Types Packs/Day Years [...] or relatives? How often do you attend jew or sabianist Never 10/07/2021 services? Do you belong to any clubs or organizations Yes 10/07/2021 such as jew groups, unions, fraternal or athletic groups, or [...] or slept in a jail (including now)? Sex Assigned at Date Recorded [...] Visit Neurology Jamal Oliva M.D. [address] [place] [phone] Makayla Neves M.S., [facility]3]-WELDING PROCESS ENGINEER [address] [place] [phone] 12/17/2021 Appointment Radiology Jamal Oliva M .D. [address] [place] [phone] Makayla Neves M.S., [facility]3]-WELDING PROCESS ENGINEER [address] [place] [phone] 12/17/2021 Clinical Support Neurology Jamal Oliva M.D. [address] [place] [phone] Makayla Neves M.S., [facility]3]-WELDING PROCESS ENGINEER [address] [place] [phone] 12/17/2021 Appointment Radiology Jake Michel M.D. [address] [place] [phone] (Wo rk) 12/17/2021 Office Visit Otorhinolaryngology Tito Michel M.D. [address] [place] [phone] (Wo rk) 12/23/2021 Telemedicine Otorhinolaryngology Shira Soto [facility]3]-WELDING PROCESS ENGINEER [address] [place] [phone] (Janet rk) documented as of this encounter Visit Diagnoses Not on filedocumented in this encounter Additional Health Concerns Assessment Noted Time PHQ-9 Depression Total Score: 1 10/01/2016 3:24 PM CDT documented as of this encounter
--- OUTSIDE RECORDS SUMMARY | 2021-12-10 09:14 | XMS_ITS | Encounter Summary ---
:1950 Author Organization [facility] Address [address] [place] [address] Care Team Providers Name Role Phone Unavailable [...] or relatives? How often do you attend bahai or anabaptist Never 10/07/2021 services? Do you belong to any clubs or organizations Yes 10/07/2021 such as bahai groups, unions, fraternal or athletic groups, or [...] or slept in a residential (including now)? Sex Assigned at Date Recorded [...] Comprehensive Visit Neurology Jamal Oliva M.D. 200 [place] [phone] Makayla Neves M.S., [facility]-INSTRUCTIONAL SUPPORT TECHNICIAN [address] [place] [phone] 12/17/2021 Appointment Radiology Jamal Oliva M .D. 200 [place] [phone] Makayla Neves M.S., [facility]-INSTRUCTIONAL SUPPORT TECHNICIAN [address] [place] [phone] 12/17/2021 Clinical Support Neurology Jamal Oliva M.D. [address] [place] [phone] Makayla Neves M.S., [facility]-INSTRUCTIONAL SUPPORT TECHNICIAN [address] [place] [phone] 12/17/2021 Appointment Radiology Jake Michel M.D. [address] [place] [phone] (Wo rk) 12/17/2021 Office Visit Otorhinolaryngology Tito Michel M.D. [address] [place] [phone] (Wo rk) 12/23/2021 Telemedicine Otorhinolaryngology Shira Soto, [facility]-INSTRUCTIONAL SUPPORT TECHNICIAN [address] [place] [phone] (Wo rk) documented as of this encounter Visit Diagnoses Not on filedocumented in this encounter Additional Health Concerns Assessment Noted Time PHQ-9 Depression Total Score: 1 10/01/2016 3:24 PM CDT documented as of this encounter
--- OUTSIDE RECORDS SUMMARY | 2021-12-10 09:14 | XMS_ITS | Encounter Summary ---
:1950 Author Organization [facility] Address [address] [place] [address] Care Team Providers Name Role Phone Unavailable Primary Care Provider Unavailable Encounter Details Date Type Department Care Team Description 03/12/2014 Hospital Encounter HX RST PULM FLOOR Cris Salinas , PRACTICE COFFEE SAMPLER, C.N.P., D.N.P., M.S. [address] [place] [address] (Wo rk) Social History Tobacco Use Types [...] or relatives? How often do you attend mu-ism or episcopal Never 10/07/2021 services? Do you belong to any clubs or organizations Yes 10/07/2021 such as mu-ism groups, unions, fraternal or athletic groups, or [...] (129 lb 3 oz) 03/12/2014 10:31 AM HEALTH SERVICES INFORMATION SPECIALIST Height 154.4 cm (5' 0.79) 03/12/2014 10:31 AM HEALTH SERVICES INFORMATION SPECIALIST Body Mass Index 24.58 03/12/2014 10:31 AM HEALTH SERVICES INFORMATION SPECIALIST documented in this encounter Medications at Time of Discharge Medication Sig Dispensed Refills Start Date End Date acetaminophen (TYLENOL) 325 Take 650 mg by 0 09/2013 mg tablet mouth. documented as of this encounter Plan of Treatment Upcoming Encounters Date Type Specialty Care Team Description 12/17/2021 Comprehensive Visit Neurology Jamal Oliva M.D. [address] [place] [phone] Makayla Neves M.S., [facility]-FINANCIAL CENTER MANAGER [address] [place] [phone] 12/17/2021 Appointment Radiology Jamal Oliva M .D. [address] [place] [phone] Makayla Neves M.S., CCC-FINANCIAL CENTER MANAGER [address] [place] [phone] 12/17/2021 Clinical Support Neurology Jamal Oliva M.D. [address] [place] [phone] Makayla Neves M.S., CCC-FINANCIAL CENTER MANAGER [address] [place] [phone] 12/17/2021 Appointment Radiology Jake Michel M.D. [address] [place] [phone] (Wo rk) 12/17/2021 Office Visit Otorhinolaryngology Tito Michel M.D. [address] [place] [phone] (Wo rk) 12/23/2021 Telemedicine Otorhinolaryngology Shira Soto CCC-FINANCIAL CENTER MANAGER [address] [place] [phone] (Wo rk) documented as of this encounter Procedures Procedure Name Priority Date/Time Associated Comments Diagnosis CT CHEST WITHOUT IV Routine 03/12/2014 12:17 Resu lts for this CONTRAST WITH 3D PM HEALTH SERVICES INFORMATION SPECIALIST procedure a re in DEPENDENT WORKSTATION the re sults section. PULMONARY FUNCTION Routine 03/12/2014 10:31 TESTS AM HEALTH SERVICES INFORMATION SPECIALIST documented in this encounter Results CT Chest without IV Contrast with 3D Dependent Workstation (03/12/2014 12:17 PM HEALTH SERVICES INFORMATION SPECIALIST) Anatomical Region Laterality Modality Abdomen, Pelvis Computed Tomography Specimen (Source) Anatomical Collection Method Collection Time Re ceived Time Location / / Volume Laterality 03/12/2014 12:17 PM HEALTH SERVICES INFORMATION SPECIALIST Impressions 03/12/2014 12:22 PM HEALTH SERVICES INFORMATION SPECIALIST 1. Patchy bilateral areas of groundglass attenuation [...] [id number] 12-Mar-2014 12:22 Narrative 03/12/2014 12:22 PM HEALTH SERVICES INFORMATION SPECIALIST 12-Mar-2014 12:17:00 ??Exam: CT CHEST wo + [...] PROCEDURES Pulmonary Function Tests (03/12/2014 10:31 AM HEALTH SERVICES INFORMATION SPECIALIST) Specimen (Source) Anatomical Collection Method Collection Time Re ceived Time Location / / Volume Laterality 03/12/2014 10:31 AM HEALTH SERVICES INFORMATION SPECIALIST Historical Provider PFT ORDERABLES Performing Organization Address City/State/ZIP Code Phon e Number [facility] - [address] [place], [place] [address] [facility] documented in this encounter Visit Diagnoses Not on filedocumented in this encounter
--- OUTSIDE RECORDS SUMMARY | 2021-12-10 09:14 | XMS_ITS | Encounter Summary ---
:1950 Author Organization [facility] Address [address] [place] [address] Care Team Providers Name Role Phone Unavailable [...] or relatives? How often do you attend samaritan or episcopalian Never 10/07/2021 services? Do you belong to any clubs or organizations Yes 10/07/2021 such as samaritan groups, unions, fraternal or athletic groups, or [...] 12/17/2021 Comprehensive Visit Neurology Jamal Oliva M.D. [address] [place] [phone] Makayla Neves M.S., CCC-CONCRETE INSPECTOR [address] [place] [phone] 12/17/2021 Appointment Radiology Jamal Oliva M .D. [address] [place] [phone] Makayla Neves M.S., CCC-CONCRETE INSPECTOR [address] [place] [phone] 12/17/2021 Clinical Support Neurology Jamal Oliva M.D. [address] [place] [phone] Makayla Neves M.S., CCC-CONCRETE INSPECTOR [address] [place] [phone] 12/17/2021 Appointment Radiology Jake Michel M.D. [address] [place] [phone] (Wo rk) 12/17/2021 Office Visit Otorhinolaryngology Tito Michel M.D. [address] [place] [phone] (Wo rk) 12/23/2021 Telemedicine Otorhinolaryngology Shira Soto [facility]-CONCRETE INSPECTOR [address] [place] [phone] (Wo rk) documented as of this encounter Visit Diagnoses Not on filedocumented in this encounter
--- OUTSIDE RECORDS SUMMARY | 2021-12-10 09:14 | XMS_ITS | Encounter Summary ---
:1950 Author Organization [facility] Address [address] [place] [address] Care Team Providers Name Role Phone Unavailable [...] How often do you attend jainism or anabaptist Never 10/07/2021 services? Do you [...] or slept in a half-way (including now)? Sex Assigned at Date Recorded Female 06/26/2021 11:13 AM CDT documented as of this encounter Plan of Treatment Upcoming Encounters Date Type Specialty Care Team Description 12/17/2021 Comprehensive Visit Neurology Jamal Oliva M.D. [address] [place] [phone] Makayla Neves M.S., CCC-VP CARE MANAGEMENT [address] [place] [phone] 12/17/2021 Appointment Radiology Jamal Oliva M .D. [address] [place] [phone] Makayla Neves M.S., CCC-VP CARE MANAGEMENT [address] [place] [phone] 12/17/2021 Clinical Support Neurology Jamal Oliva M.D. [address] [place] [phone] Makayla Neves M.S., CCC-VP CARE MANAGEMENT [address] [place] [phone] 12/17/2021 Appointment Radiology Jake Michel M.D. [address] [place] [phone] (Wo rk) 12/17/2021 Office Visit Otorhinolaryngology Tito Michel M.D. [address] [place] [phone] (Wo rk) 12/23/2021 Telemedicine Otorhinolaryngology Shira Soto [facility]-VP CARE MANAGEMENT [address] [place] [phone] (Wo rk) documented as of this encounter Visit Diagnoses Not on filedocumented in this encounter
--- OUTSIDE RECORDS SUMMARY | 2021-12-10 09:14 | XMS_ITS | Encounter Summary ---
:1950 Author Organization [facility] Address [address] [place] [address] Care Team Providers Name Role Phone Unavailable [...] How often do you attend islam or moravian Never 10/07/2021 services? Do you [...] or slept in a fdc (including now)? Sex Assigned at Date Recorded Female 06/26/2021 11:13 AM CDT documented as of this encounter Plan of Treatment Upcoming Encounters Date Type Specialty Care Team Description 12/17/2021 Comprehensive Visit Neurology Jamal Oliva M.D. [address] [place] [phone] Makayla Neves M.S., CCC-MENTALLY IMPAIRED TEACHER [address] [place] [phone] 12/17/2021 Appointment Radiology Jamal Oliva M .D. [address] [place] [phone] Makayla Neves M.S., CCC-MENTALLY IMPAIRED TEACHER [address] [place] [phone] 12/17/2021 Clinical Support Neurology Jamal Oliva M.D. [address] [place] [phone] Makayla Neves M.S., CCC-MENTALLY IMPAIRED TEACHER [address] [place] [phone] 12/17/2021 Appointment Radiology Jake Michel M.D. [address] [place] [phone] (Wo rk) 12/17/2021 Office Visit Otorhinolaryngology Tito Michel M.D. [address] [place] [phone] (Wo rk) 12/23/2021 Telemedicine Otorhinolaryngology Shira Soto, [facility]-MENTALLY IMPAIRED TEACHER [address] [place] [phone] (Wo rk) documented as of this encounter [...] Organization Address City/State/ZIP Code Phon e Number [id number] [id number] NA documented in this encounter Visit Diagnoses Not on filedocumented in this encounter Additional Health Concerns Assessment Noted Time PHQ-9 Depression Total Score: 1 10/01/2016 3:24 PM CDT documented as of this encounter
--- OUTSIDE RECORDS SUMMARY | 2021-12-10 09:14 | XMS_ITS | Encounter Summary ---
:1950 Author Organization [facility] Address [address] [place] [address] Care Team Providers Name Role Phone Unavailable [...] How often do you attend yarsanism or hoahaoism Never 10/07/2021 services? Do you [...] Comprehensive Visit Neurology Jamal Oliva M.D. [address] [place] [phone] Makayla Neves M.S., [facility] [address] [place] [phone] 12/17/2021 Appointment Radiology Jamal Oliva M .D. [address] [place] [phone] Makayla Neves M.S., [facility] [address] [place] [phone] 12/17/2021 Clinical Support Neurology Jamal Oliva M.D. [address] [place] [phone] Makayla Neves M.S., [facility] [address] [place] [phone] 12/17/2021 Appointment Radiology Jake Michel M.D. [address] [place] [phone] (Wo rk) 12/17/2021 Office Visit Otorhinolaryngology Tito Michel M.D. [address] [place] [phone] (Wo rk) 12/23/2021 Telemedicine Otorhinolaryngology Shira Soto, [facility]-HAND SPINNER [address] [place] [phone] (Wo rk) documented as of this encounter Visit Diagnoses Not on filedocumented in this encounter
--- OUTSIDE RECORDS SUMMARY | 2021-12-10 09:14 | XMS_ITS | Encounter Summary ---
:1950 Author Organization [facility] Address [address] [place] [address] Care Team Providers Name Role Phone Unavailable [...] Comments Blood Pressure 136/72 01/13/2017 8:39 AM FUNDING COORDINATOR Pulse 71 01/13/2017 8:39 AM FUNDING COORDINATOR Temperature - - Respiratory Rate 16 01/13/2017 8:39 AM FUNDING COORDINATOR Oxygen Saturation - - Inhaled Oxygen Concentration [...] Visit Neurology Jamal Oliva M.D. [address] [place] [phone] Makayla Neves M.S., [facility]-AUTOMOBILE MECHANIC RADIATOR [address] [place] [phone] 12/17/2021 Appointment Radiology Jamal Oliva M .D. [address] [place] [phone] Makayla Neves M.S., [facility]-AUTOMOBILE MECHANIC RADIATOR [address] [place] [phone] 12/17/2021 Clinical Support Neurology Jamal Oliva M.D. [address] [place] [phone] Makayla Neves M.S., [facility]-AUTOMOBILE MECHANIC RADIATOR [address] [place] [phone] 12/17/2021 Appointment Radiology Jake Michel M.D. [address] [place] [phone] (Wo rk) 12/17/2021 Office Visit Otorhinolaryngology Tito Michel M.D. [address] [place] [phone] (Wo rk) 12/23/2021 Telemedicine Otorhinolaryngology Shira Soto [facility]-AUTOMOBILE MECHANIC RADIATOR [address] [place] [phone] (Wo rk) documented as of this encounter Visit Diagnoses Not on filedocumented in this encounter Additional Health Concerns Assessment Noted Time PHQ-9 Depression Total Score: 1 10/01/2016 3:24 PM CDT documented as of this encounter
--- OUTSIDE RECORDS SUMMARY | 2021-12-10 09:14 | XMS_ITS | Encounter Summary ---
:1950 Author Organization [facility] Address [address] [place] [address] Care Team Providers Name Role Phone Unavailable [...] How often do you attend judaism or methodist Never 10/07/2021 services? Do you [...] slept in a care home (including now)? Sex Assigned at Date Recorded Female 06/26/2021 11:13 AM CDT documented as of this encounter Plan of Treatment Upcoming Encounters Date Type Specialty Care Team Description 12/17/2021 Comprehensive Visit Neurology Jamal Oliva M.D. [address] [place] [phone] Makayla Neves M.S., CCC-FIBRE CEMENT MOULDER [address] [place] [phone] 12/17/2021 Appointment Radiology Jamal Oliva M .D. [address] [place] [phone] Makayla Neves M.S., CCC-FIBRE CEMENT MOULDER [address] [place] [phone] 12/17/2021 Clinical Support Neurology Jamal Oliva M.D. [address] [place] [phone] Makayla Neves M.S., CCC-FIBRE CEMENT MOULDER [address] [place] [phone] 12/17/2021 Appointment Radiology Jake Michel M.D. [address] [place] [phone] (Wo rk) 12/17/2021 Office Visit Otorhinolaryngology Tito Michel M.D. [address] [place] [phone] (Wo rk) 12/23/2021 Telemedicine Otorhinolaryngology Shira Soto [facility]-FIBRE CEMENT MOULDER [address] [place] [phone] (Wo rk) documented as of this encounter Visit Diagnoses Not on filedocumented in this encounter
--- OUTSIDE RECORDS SUMMARY | 2021-12-10 09:14 | XMS_ITS | Encounter Summary ---
:1950 Author Organization [facility] Address [address] [place] [address] Care Team Providers Name Role Phone Unavailable [...] or relatives? How often do you attend jain or restorationism Never 10/07/2021 services? Do you belong to any clubs or organizations Yes 10/07/2021 such as jain groups, unions, fraternal or athletic groups, or [...] Comprehensive Visit Neurology Jamal Oliva M.D. [address] [place] [phone] Makayla Neves M.S., [facility]-[address] [phone] 12/17/2021 Appointment Radiology Jamal Oliva M .D. [address] [place] [phone] Makayla Neves M.S., [facility]-[address] [phone] 12/17/2021 Clinical Support Neurology Jamal Oliva M.D. [address] [place] [phone] Makayla Neves M.S., [facility]-[address] [phone] 12/17/2021 Appointment Radiology Jake Michel M.D. [address] [place] [phone] (Janet garcia) 12/17/2021 Office Visit Otorhinolaryngology Tito Michel M.D. [address] [place] [phone] (Janet garcia) 12/23/2021 Telemedicine Otorhinolaryngology Shira Soto, [facility]-SALES REPRESENTATIVE [employer] [address] [place] [phone] (Wo rk) documented as of this encounter Visit Diagnoses Not on filedocumented in this encounter Additional Health Concerns Assessment Noted Time PHQ-9 Depression Total Score: 1 10/01/2016 3:24 PM CDT documented as of this encounter
--- OUTSIDE RECORDS SUMMARY | 2021-12-10 09:14 | XMS_ITS | Encounter Summary ---
:1950 Author Organization [facility] Address [address] [place] [address] Care Team Providers Name Role Phone Unavailable [...] or relatives? How often do you attend methodist or jew Never 10/07/2021 services? Do you belong to any clubs or organizations Yes 10/07/2021 such as methodist groups, unions, fraternal or athletic groups, or [...] 12/17/2021 Comprehensive Visit Neurology Jamal Oliva M.D. [address] [place] [phone] Makayla Neves M.S., CCC-NATURALIZATION EXAMINER [address] [place] [phone] 12/17/2021 Appointment Radiology Jamal Oliva M .D. [address] [place] [phone] Makayla Neves M.S., CCC-NATURALIZATION EXAMINER [address] [place] [phone] 12/17/2021 Clinical Support Neurology Jamal Oliva M.D. [address] [place] [phone] Makayla Neves M.S., CCC-NATURALIZATION EXAMINER [address] [place] [phone] 12/17/2021 Appointment Radiology Jake Michel M.D. [address] [place] [phone] (Wo rk) 12/17/2021 Office Visit Otorhinolaryngology Tito Michel M.D. [address] [place] [phone] (Wo rk) 12/23/2021 Telemedicine Otorhinolaryngology Shira Soto [facility]-NATURALIZATION EXAMINER [address] [place] [phone] (Wo rk) documented as of this encounter Visit Diagnoses Not on filedocumented in this encounter
--- NOTE | 2021-12-10 09:15 | CRLHL7_ITS ---
For Patients: As a result of the Century Cures Act, medical imaging exams and procedure reports are released immediately into your electronic medical record. You may view this report before your referring provider. If you have questions, please contact your health care provider. BILATERAL SCREENING MAMMOGRAM WITH COMPUTER-AIDED DETECTION AND TOMOSYNTHESIS CLINICAL HISTORY: Screening mammogram. TECHNIQUE: CC and MLO views were obtained. These mammographic images have been obtained using full-field digital technique. These mammographic images were interpreted with the benefit of computer-aided detection. Breast Tomosynthesis was used in this interpretation. COMPARISON FILM: 05/15/2021, 10/14/2020. BREAST COMPOSITION: There are scattered areas of fibroglandular density FINDINGS: There is a possible 1.2 cm mass in the RIGHT breast at the 10 o`clock position 6 cm from the nipple. Negative findings of the LEFT breast. IMPRESSION: Possible RIGHT breast mass. ASSESSMENT: BI-RADS Category 0: Incomplete: Need Additional Imaging Evaluation and/or Prior Mammograms for Comparison RECOMMENDATION: Recommend CC and MLO spot compression view and a 90-degree lateral view. Additionally, ultrasound may be needed during the diagnostic evaluation. The [facility] will contact the patient for follow-up. A lay language report of this examination will be provided to the patient. Rosa Mendoza M.D. Diagnostic/Breast Radiologist [email or web address] BREN/[email or web address] [email or web address]/Dictated by: Rosa Mendoza MD @ 12/10/2021 11:36:00 AM (Electronically Signed)
== END 2021-12-10 09:06 | disposition home or self-care (01) ==
PROVIDERS: PCP Internal Medicine; Visit Provider Internal Medicine
DX: Z12.31 Encounter for screening mammogram for malignant neoplasm of breast (principal); N63.10 Unspecified lump in the right breast, unspecified quadrant
CPT/HCPCS: 77063; 77067

== ENCOUNTER 2021-12-18 08:24 | Outpatient (CLI) | payer MEDICARE, BC, SELFPAY ==
--- OUTSIDE RECORDS SUMMARY | 2021-12-18 08:29 | XMS_ITS | Encounter Summary ---
:1950 Author Organization [facility] Address [address] [place] [address] Care Team Providers Name Role Phone Unavailable Primary Care Provider Unavailable Reason for Visit Speech Pathology (Routine) - Authorized Specialty Diagnoses / Procedures Referred By Contact Refer red To Contact Diagnoses Dysphagia Jamal Oliva M.D. [facility] Procedures PERSONAL FINANCIAL COUNSELOR Dysphagia evaluate and treat [address] [place] [phone] Referral ID Status Reason Start Date Expiration Date Visits V isits Requested Authorized [id number] Authorized 11/17/2021 11/17/2022 99 99 Encounter Details Date Type Department Care Team Description 12/17/2021 Comprehensive Visit Department of Neurology Jamal Garay M.D. [address] [place] [phone] Dysphagia in [facility] Callie Paredes M.S., CCC-PERSONAL FINANCIAL COUNSELOR [address] [place] [address] [phone] [address] [place] [phone] Social History Tobacco Use Types Packs/Day [...] or relatives? How often do you attend jehovah's witness or muslim Never 10/07/2021 services? Do you belong to any clubs or organizations Yes 10/07/2021 such as jehovah's witness groups, unions, fraternal or athletic groups, or [...] or slept in a intermediate (including now)? Education Answer Date Recorded What is the highest level of school Bachelor's degree (e.g., BA, AB, 10/07/2021 you have completed or the highest BS) degree you have received? Sex Assigned at Date Recorded Female 06/26/2021 11:13 AM CDT documented as of this encounter Consult Notes Callie Castellano M.S., [facility]-PERSONAL FINANCIAL COUNSELOR - 12/17/2021 7:30 AM CDT Images from the original note were not included. Speech Pathology Dysphagia Videofluoroscopic Swallow Study (VFSS) Outpatient Session Type: Evaluation Length of session: 90 minutes SUBJECTIVE Referred By: Jamal Oliva M.D. Reason for Consult: Dysphagia History: Ms. Brittany Larry is a very pleasant 71-year-old woman referred for dysphagia consult and videofluoroscopy. 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 Please see the EMR for full details. Ms. Larry reports that she was told following outside esophagram that she may have a small Zenker's diverticulum. She reports feeling pills stick in her throat which can sometimes make her feel like she is choking. She also sometimes feels food stick in her throat. She avoids raw carrots for this reason. She uses plenty of liquid washes and finds that carbonated beverages are most helpful for washingpills down. She denies coughing during meals and difficulty chewing. She has been hospitalized 2 times due to her organizing pneumonia and it looks like her last pneumonia was in July of 2017. She endorses changes to her voice for which she undergoes voice therapy here. She takes [id number] medication as needed for reflux/heartburn symptoms. She denies any unintentional weight loss. Referral to Speech Pathology included an order for a clinical swallow evaluation and videofluoroscopic swallow study, allowing for comprehensive evaluation of the oral and pharyngeal stages of the swallow. Pain Patient does not report pain during this appointment. OBJECTIVE Oral Motor Dentition: Adequate Facial Symmetry: (0) Within Normal Limits Labial Structure and Function Labial Structure and Function: Within Normal Limits (WNL) Lingual Structure and Function Lingual Structure and Function: Within Normal Limits (WNL) Laryngeal Function Laryngeal Function: Within Normal Limits (WNL) Motor Speech Voice: Impaired Reduced Loudness: (-1) Mild Hoarseness: (1) Mild Articulation: Within Normal Limits (WNL) Rate and Prosody: Within Normal Limits (WNL) Vowel Prolongation: Within Normal Limits (WNL) Intelligibility: Intelligible Flowsheet Row Most Recent Value Description of Procedure Previous MBS/VFSS No [previous esophagram] Planes Tested Lateral, AP Type Assessment MBS IMP Statement of Consent Yes, Discussed goals, risks, alternatives, and the necessity of other members of the procedureal team participating in the procedure with the patient., The patient understands and wishes to proceed Consistencies Assessed (MBS) Consistencies Assessed Yes Level 0 Thin Lip Closure 0: No labial escape Tongue Control 0: Cohesive bolus between tongue to palatal seal Bolus Transport/Lingual Motion 0: Brisk tongue motion Oral Residue 1: Trace residue lining oral structures Onset of Pharyngeal Swallow 0: Bolus head at posterior angle of ramus (first hyoid excursion) Soft Palate Elevation 0: No bolus between soft palate (SP)/pharyngeal wall (PW) Laryngeal Elevation 0: Complete superior movement of thyroid cartilage with complete approximation of arytenoids to epiglottic petiole Anterior Hyoid Excursion 0: Complete anterior movement Epiglottic Movement 0: Complete inversion Laryngeal Vestibular Closure 0: Complete, no air/contrast in laryngeal vestibule Pharyngeal Stripping Wave 0: Present - complete Pharyngeal Contraction AP View only 0: Complete Pharyngoesophageal Segment Opening 1: Partial distension/partial duration, partial obstruction of flow Tongue Base Retraction 0: No contrast between TB and posterior pharyngeal wall (PW) Pharyngeal Residue 1: Trace residue within or on pharyngeal structures Esophageal Clearance 0: Complete clearance, esophageal coating Penetration/Aspiration Scale 1: Material does not enter airway Penetration No Aspiration No Level 4 Puree Lip Closure 0: No labial escape Bolus Transport/Lingual Motion 0: Brisk tongue motion Oral Residue 1: Trace residue lining oral structures Onset of Pharyngeal Swallow 0: Bolus head at posterior angle of ramus (first hyoid excursion) Soft Palate Elevation 0: No bolus between soft palate (SP)/pharyngeal wall (PW) Laryngeal Elevation 0: Complete superior movement of thyroid cartilage with complete approximation of arytenoids to epiglottic petiole Anterior Hyoid Excursion 0: Complete anterior movement Epiglottic Movement 0: Complete inversion Laryngeal Vestibular Closure 0: Complete, no air/contrast in laryngeal vestibule Pharyngeal Stripping Wave 0: Present - complete Pharyngoesophageal Segment Opening 1: Partial distension/partial duration, partial obstruction of flow Tongue Base Retraction 0: No contrast between TB and posterior pharyngeal wall (PW) Pharyngeal Residue 1: Trace residue within or on pharyngeal structures Penetration/Aspiration Scale 1: Material does not enter airway Penetration No Aspiration No Level 7 Regular Lip Closure 0: No labial escape Bolus Prep/Mastication 0: Timely and efficient chewing and mashing Bolus Transport/Lingual Motion 1: Delayed initiation of tongue motion Oral Residue 1: Trace residue lining oral structures Onset of Pharyngeal Swallow 0: Bolus head at posterior angle of ramus (first hyoid excursion) Soft Palate Elevation 0: No bolus between soft palate (SP)/pharyngeal wall (PW) Laryngeal Elevation 0: Complete superior movement of thyroid cartilage with complete approximation of arytenoids to epiglottic petiole Anterior Hyoid Excursion 0: Complete anterior movement Epiglottic Movement 0: Complete inversion Laryngeal Vestibular Closure 0: Complete, no air/contrast in laryngeal vestibule Pharyngeal Stripping Wave 0: Present - complete Pharyngoesophageal Segment Opening 1: Partial distension/partial duration, partial obstruction of flow Tongue Base Retraction 0: No contrast between TB and posterior pharyngeal wall (PW) Pharyngeal Residue 1: Trace residue within or on pharyngeal structures Penetration/Aspiration Scale 1: Material does not enter airway Penetration No Aspiration No MBSImP Scores Oral Impairment Score 1 Pharyngeal Impairment Score 1 Esophageal Impairment Score 0 Assessment Clinical swallowing evaluation and videofluoroscopic swallow study (VFSS) were completed during today's visit. Please refer to Objective section for details of the CSE. During the videofluoroscopic swallow study, lateral and AP views were recorded as the patient swallowed thin liquid barium, mildly-thick liquid barium (AP view only), applesauce mixed with barium, and cookie tagged with barium. Oral control of all consistencies was good. The pharyngeal swallow response was timely. Range of tongue base retraction, hyolaryngeal excursion, and epiglottic inversion were within normal limits and offered adequate airway protection. There was no evidence of laryngeal penetration or aspiration with any test consistencies during today's evaluation. Each bolus efficiently cleared the pharynx with a single swallow. AP view revealed a symmetric bolus column through the level of the cervical esophagus. The cricopharyngeal segment was minimally prominent, but nonobstructive for today's test consistencies. Overall, the patient is demonstrating an oropharyngeal swallow that is within normal limits. No Zenker's diverticulum was appreciated today. Her cricopharyngeus is minimally prominent which could account for her symptom of pills sticking though no sticking was seen with any consistencies on today's dulce t. The images of today's swallow study were reviewed in detail with the patient. She was encouraged to contact primary physician should symptoms of dysphagia worsen. Select images and clips from today's study are available in QREADS. Contact Monitoring: Clinician was wearing the following PPE for the duration of today's session(s): surgical mask Functional Oral Intake Scale: Level 7 - Total oral diet with no restrictions Diagnosis: Within Normal Limits (WNL) Plan DYSPHAGIA RECOMMENDATIONS: Continue oral intake of regular textures and thin liquids at the patient's discretion. Follow general precautions: Sit fully upright for all oral intake, take small bites and sips 1 at a time, chew thoroughly, and alternate bites food with sips of liquid as needed. If there is ongoing difficulty swallowing pills, try taking them with a thicker liquid (e.g., fruit nectars, smoothies, etc.) or in a spoonful of puree texture food (e.g., applesauce, pudding, yogurt, etc.). Follow-up with speech pathology should oropharyngeal dysphagia symptoms worsen or as deemed appropriate by the referring provider. Disclaimer: This project estimator was done using voice recognition software. Although this information has been reviewed, there may still be occasional errors. documented in this encounter Plan of Treatment Upcoming Encounters Date Type Specialty Care Team Description 12/23/2021 Telemedicine Otorhinolaryngology Latoya Soto, CCC-PERSONAL FINANCIAL COUNSELOR [address] [place], [place] [phone] (Wo rk) documented as of this encounter Visit Diagnoses Diagnosis Dysphagia documented in this encounter Additional Health Concerns Assessment Noted Time PHQ-9 Depression Total Score: 1 10/01/2016 3:24 PM CDT documented as of this encounter
--- OUTSIDE RECORDS SUMMARY | 2021-12-18 08:29 | XMS_ITS | Encounter Summary ---
:1950 Author Organization [facility] Address [address] [place] [address] Care Team Providers Name Role Phone Unavailable Primary Care Provider Unavailable Encounter Details Date Type Department Care Team Description 12/17/2021 Ancillary Procedure Department of Arrived Otorhinolaryngology Social History Tobacco Use Types Packs/Day [...] or relatives? How often do you attend temple or congregation Never 10/07/2021 services? Do you belong to any clubs or organizations Yes 10/07/2021 such as temple groups, unions, fraternal or athletic groups, or [...] Team Description 12/23/2021 Telemedicine Otorhinolaryngology Latoya Soto, CCC-FINANCIAL SALES ASSISTANT [address] [place], [place] [phone] (Wo rk) documented as of this encounter Procedures Procedure Name Priority Date/Time Associated Comments Diagnosis OTORHINOLARYNGOLOGY IMAGE Routine 12/17/2021 12:33 Results for this EXAM PM CDT procedure are i n the results section. documented in this encounter Results NOSE AND AIRWAY-Otorhinolaryngology Image Exam (12/17/2021 12:33 PM CDT) Specimen (Source) Anatomical Collection Method Collection Time Re ceived Time Location / / Volume Laterality 12/17/2021 1:12 PM CDT Narrative [facility] - 12/17/2021 12:33 PM CDT This order has been created [...]
--- OUTSIDE RECORDS SUMMARY | 2021-12-18 08:29 | XMS_ITS | Encounter Summary ---
:1950 Author Organization [facility] Address [address] [place] [phone] Care Team Providers Name Role Phone Unavailable Primary Care Provider Unavailable Reason for Referral Speech Pathology (Routine) - Authorized Specialty Diagnoses / Procedures Referred By Contact Refer red To Contact Diagnoses Dysphagia Jamal Oliva M.D. [facility] Procedures PROTOTYPE ENGINEER - Ongoing treatment 200 [place], [place] [phone] Referral ID Status Reason Start Date Expiration Date Visits V isits Requested Authorized [id number] Authorized 11/17/2021 11/17/2022 99 99 utpatient (Routine) - Closed Specialty Diagnoses / Procedures Referred By Contact Refer red To Contact Diagnoses Dysphagia Jamal Oliva M.D. [facility] Procedures FL Swallow Function with Video and Speech or OT 200 [place], [place] [phone] Referral ID Status Reason Start Date Expiration Date Visits Requ ested Visits Authorized [id number] Closed 11/17/2021 11/17/2022 1 1 peech Pathology (Routine) - Authorized Specialty Diagnoses / Procedures Referred By Contact Refer red To Contact Diagnoses Dysphagia Jamal Oliva M.D. [facility] Procedures PROTOTYPE ENGINEER Dysphagia evaluate and treat 200 [place], [place] [phone] Referral ID Status Reason Start Date Expiration Date Visits V isits Requested Authorized [id number] Authorized 11/17/2021 11/17/2022 99 99 Encounter Details Date Type Department Care Team Description 11/17/2021 Orders Only Department of Jitendra, Dysphagia ([facility] Otorhinolaryngology in Jaqui Lucas R.N. Dx) [place], [place] [address] [facility] [address] [place] [phone] Social History Tobacco Use Types Packs/Day Years [...] How often do you attend catholic or yarsanism Never 10/07/2021 services? Do you [...] Team Description 12/23/2021 Telemedicine Otorhinolaryngology Latoya Soto, CCC-PROTOTYPE ENGINEER [address] [place], [place] [phone] (Wo rk) documented as of this encounter Results FL Swallow Function with Video and Speech or OT (12/17/2021 8:46 AM CDT) Anatomical Region Laterality Modality Gastro Intestinal, Abdominal RST LOS, Abdominal ARZ N/A Digital Radiography LOS, Abdominal FLA LOS Specimen (Source) Anatomical Collection Method Collection Time Re ceived Time Location / / Volume Laterality 12/17/2021 9:03 AM CDT Impressions 12/17/2021 9:06 AM CDT 1. Normal video swallow study. Please see speech pathology report for additional details and recommendations. 2. Small-volume spontaneous gastroesopha geal reflux. Otherwise, normal esophagram. Narrative 12/17/2021 9:06 AM CDT EXAM: ??FL SWALLOW FUNCTION WITH VIDEO AND SPEECH OR OT FOR RST, FL ESOPHAGRAM DOUBLE CONTRAST COMPARISON: ??Outside esophagram 021 FINDINGS: ?? Video swallow study: A video swallow angela dy was performed in conjunction with speech pathology using thin liquid, mildly thick liquid, apples auce, and cookie consistencies. No penetration or aspiration with any tested consistency. No evidence of Zenker's diverticulum. Carotid artery calcification. Postoperative change cervical spine. Esophagram: The esophagus is normal in c aliber. Esophageal peristalsis is intact. No hiatal hernia. Small-volume spontaneous gastroesophagea l reflux into the distal esophagus. A 13-mm barium tablet passed through the esophagus and into th e stomach. Procedure Note Wilber Lovett M.D. - 12/17/2021Forma tting of this note might be different from the original. EXAM: FL SWALLOW FUNCTION WITH VIDEO AND SPEECH OR OT FOR RST, FL ESOPHAGRAM DOUBLE CONTRAST COMPARISON: Outside esophagram FINDINGS: Video swallow study: A video swallow angela dy was performed in conjunction with speech pathology using thin liquid, mildly thick liquid, apples auce, and cookie consistencies. No penetration or aspiration with any tested consistency. No evidence of Zenker's diverticulum. Carotid artery calcification. Postoperative change cervical spine. Esophagram: The esophagus is normal in c aliber. Esophageal peristalsis is intact. No hiatal hernia. Small-volume spontaneous gastroesophagea l reflux into the distal esophagus. A 13-mm barium tablet passed through the esophagus and into th e stomach. IMPRESSION: 1. Normal video swallow study. Please se e speech pathology report for additional details and recommendations. 2. Small-volume spontaneous gastroesopha geal reflux. Otherwise, normal esophagram. Jamal Oliva M.D. [facility] FLUOROSCOPY PROCEDURES documented in this encounter Visit Diagnoses Diagnosis Dysphagia - Primary Dysphagia documented in this encounter Additional Health Concerns Assessment Noted Time PHQ-9 Depression Total Score: 1 10/01/2016 3:24 PM CDT documented as of this encounter
--- OUTSIDE RECORDS SUMMARY | 2021-12-18 08:29 | XMS_ITS | Encounter Summary ---
:1950 Author Organization [facility] Address [address] [place] [address] Care Team Providers Name Role Phone Unavailable Primary Care Provider Unavailable Reason for Visit Outpatient (Routine) - Closed Specialty Diagnoses / Procedures Referred By Contact Refer red To Contact Otorhinolaryngology Jake Michel M.D . [facility] [address] [place] [phone] Referral ID Status Reason Start Date Expiration Date Visits Requ ested Visits Authorized [id number] Closed 11/17/2021 11/16/2024 1 1 Encounter Details Date Type Department Care Team Description 12/17/2021 Office Visit Department of Jake Michel Asthma ([facility]) (Primary Dx); Otorhinolaryngology kb Hyde M.D. Rhinosinusitis Chronic [place], [place] [address] [facility] [address] [place] [phone] Social History Tobacco Use Types Packs/Day Years [...] How often do you attend orthodoxy or muslim Never 10/07/2021 services? Do you [...] documented as of this encounter Progress Notes Miles Slaughter H - 12/17/2021 11:15 AM CDT Images from the original note were not included. History of Present Illness: Ms. Larry is a 72 year old woman with a history of chronic rhinosinusitis s/p endoscopic sinus surgery in 2007 and 2012. She was last seen for initial consultation on 11/17/2021. Recommendations at that time were to start BID budesonide irrigation again for the next month and then to follow-up with us after undergoing a sinus CT. She has had improvement in her symptoms since her last visit. She inquired about cheaper alternatives to budesonide, which is not well covered by her insurance. ? ROS: Patient has no active stridor. Other pertinent ROS are positive as per the HPI PHYSICAL EXAM: General: Patient doing well overall and is in no apparent distress. Psych: Pleasant affect, and answers questions appropriately. Eyes: Pupils equal, round, reactive. Extraoccular movements intact without gaze restrictions or nystagmus. No epiphora. Ears: External auditory canals are normal. Tympanic membranes are clear. No middle ear effusion is seen. All middle ear landmarks are normal. Nose: Anterior rhinoscopy revealed midline septum. More posterior areas of the nasal cavity could not be completely examined. Oral Cavity/Oropharynx: Without lesions or masses to visual exam. Lungs: Non-labored, and without evidence of stridor. Extremities: Without gross evidence of clubbing, cyanosis, or edema. Neuro: Intact facial movements. IMAGING Sinus CT (12/17/2021) COMPARISON: Head CT 06/11/21 FINDINGS: Left maxillary sinus demonstrates frothy fluid attenuation in the posterolateral aspect, mild mucosal thickening, and polyps vs retention cysts. Right maxillary sinus mild mucosal thickening and polyp vs retention cyst. Moderate left and mild right sphenoid mucosal thickening with suggestion of mild associated frothy fluid. Significant left frontal sinus opacification. 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 Opacification and mucosal thickening involving multiple bilateral ethmoid air cells. Postop changes. IMPRESSION: Paranasal sinus inflammatory changes, as described. CT Head (06/11/2021): Assessment: #Chronic rhinosinusitis Plan: It was a pleasure to see Ms. Larry in clinic today. She has been doing well since her last visit in November and has reported some improvement in her symptoms. Despite her CT scan showing ongoing disease, her symptoms are much improved and she wishes to continue medical therapy. We discussed that we will switch to a capsular version of budesonide, which is cheaper than the form that she is currentlyon. Imaging shows some improvement in her chronic rhinosinusitis since June, though she does still have notable disease in her sinuses. The patient is not interested in surgery at this time. Miles Slaughter, MS4 Dr. Michel Service I saw and evaluated the patient, participating in the fermin portions of the service. I reviewed the resident/PA/nurse practitioner's note. I agree with the examination, assessment and plan. Jake Michel MD [facility] Department of Otorhinolaryngology - Head & Neck Surgery documented in this encounter Plan of Treatment Upcoming Encounters Date Type Specialty Care Team Description 12/23/2021 Telemedicine Otorhinolaryngology Latoya Soto, [facility] [address] [place], [place] [phone] (Wo rk) documented as of this encounter Visit Diagnoses Diagnosis Asthma (HCC) - Primary Rhinosinusitis Chronic documented in this encounter Additional Health Concerns Assessment Noted Time PHQ-9 Depression Total Score: 1 10/01/2016 3:24 PM CDT documented as of this encounter
--- OUTSIDE RECORDS SUMMARY | 2021-12-18 08:29 | XMS_ITS | Encounter Summary ---
:1950 Author Organization [facility] Address [address] [place] [address] Care Team Providers Name Role Phone Unavailable Primary Care Provider Unavailable Reason for Referral Outpatient (Routine) - Closed Specialty Diagnoses / Procedures Referred By Contact Refer red To Contact Diagnoses Dysphagia Jamal Oliva M.D. [facility] Procedures [place] Swallow Function with Video and Speech or OT [address] [place] [phone] Referral ID Status Reason Start Date Expiration Date Visits Requ ested Visits Authorized [id number] Closed 11/17/2021 11/17/2022 1 1 Reason for Visit Outpatient (Routine) - Closed Specialty Diagnoses / Procedures Referred By Contact Refer red To Contact Diagnoses Dysphagia Jamal Oliva M.D. [facility] Procedures [place] Esophagram Double Contrast FL Esophagram Single Contrast [address] [place] [phone] Referral ID Status Reason Start Date Expiration Date Visits Requ ested Visits Authorized [id number] Closed 11/17/2021 11/17/2022 1 1 Encounter Details Date Type Department Care Team Description 12/17/2021 Hospital Encounter Department of Radiology, Jamal Garay M.D. [address] [place] [phone] Dysphagia [facility], in Callie Castellano M.S., CCC-RESIDENTIAL COORDINATOR 200 [place] [phone] [place], [place] 200 [place], [place] [phone] Social History Tobacco Use Types Packs/Day [...] How often do you attend catholic or anglican Never 10/07/2021 services? Do you belong to [...] Refills Start Date End Date acetaminophen (TYLENOL) Take 650 mg by mouth. 0 0 04/13/2013 325 mg tablet albuterol 90 mcg/actuation Inhale 2 puffs. 0 inhaler budesonide (Pulmicort) 0.5 Mix 1 ampule in sinus 120 mL 11 11/25/2021 mg/2 mL nebulizer solution irrigation bottle and irrigate twice daily. budesonide (PULMICORT) 0.5 Add 1 respule to 8 360 mL 3 0 11/27/2021 mg/2 mL nebulizer solution ounces saline and irrigate each side of nose twice daily as directed. cefdinir (OMNICEF) 300 mg Take 300 mg by mouth. 0 06/11/2021 capsule cyanocobalamin, vitamin Take 1,000 mcg by 0 B-12, 1,000 mcg tablet mouth. extended release diphenhydrAMINE (BENADRYL) Take 25 mg by mouth. 0 25 mg capsule fluticasone Inhale every 12 0 04/20/2017 propion-salmeteroL (AIRDUO (twelve) hours. RESPICLICK) 232-14 mcg/actuation inhaler fluticasone propionate daily. 0 06/11/2021 (FLONASE) 50 mcg/actuation nasal spray glucosamine sulf Take by mouth daily. 0 dipotassium chloride-chondroitin 500-400 mg per capsule HYDROcodone-acetaminophen Take 1-2 tablets by 0 0 10/03/2018 (NORCO) 5-325 mg per mouth as needed. tablet ibuprofen (ADVIL,MOTRIN) Take 800 mg by mouth 0 0 10/03/2018 800 mg tablet 3 (three) times a day. levothyroxine (SYNTHROID, Take 100 mcg by mouth 0 11/12/2016 LEVOTHROID) 100 mcg tablet daily. melatonin 3 mg tablet Take 2 tablets by 0 016 mouth at bedtime. ondansetron (ZOFRAN) 4 mg as needed. 0 11/10/2016 tablet predniSONE (DELTASONE) 10 2 (two) times a day. 0 06/16/2021 mg tablet documented as of this encounter Miscellaneous Notes Result Encounter Note - Makayla Recio M.D. - 12/17/2021 2:44 PM CDT Patient sent message regarding these results. documented in this encounter Plan of Treatment Upcoming Encounters Date Type Specialty Care Team Description 12/23/2021 Telemedicine Otorhinolaryngology Charles Latoya Mcneil, CCC-RESIDENTIAL COORDINATOR [address] [place] [phone] (Wo rk) documented as of this encounter Procedures Procedure Name Priority Date/Time Associated Comments Diagnosis FL ESOPHAGRAM RAD - Routine 12/17/2021 8:46 Dysphagia Results fo r this DOUBLE CONTRAST (most inpatients AM CDT procedur e are in and all the results outpatients) section. FL SWALLOW RAD - Routine 12/17/2021 8:46 Dysphagia Results for this FUNCTION WITH (most inpatients AM CDT procedure are in VIDEO AND SPEECH and all the results OR OT FOR RST outpatients) section. documented in this encounter Results FL Esophagram Double Contrast (12/17/2021 8:46 AM CDT) Anatomical Region Laterality Modality Gastro Intestinal, Abdominal RST LOS, Abdominal ARZ Digital Radiography LOS, Abdominal FLA LOS Specimen [...] FL ESOPHAGRAM DOUBLE CONTRAST COMPARISON: Outside esophagram 1 FINDINGS: Video swallow study: A video swallow [...] esophagram. Jamal Oliva M.D. [facility] FLUOROSCOPY PROCEDURES [place] Swallow Function with Video and Speech [...] FL ESOPHAGRAM DOUBLE CONTRAST COMPARISON: Outside esophagram 1 FINDINGS: Video swallow study: A video swallow [...] gastroesopha geal reflux. Otherwise, normal esophagram. Jamal LUDWIG FLUOROSCOPY PROCEDURES documented in this encounter Visit Diagnoses Diagnosis Dysphagia documented in this encounter Administered Medications Inactive Administered Medications - up to 3 most recent administrations Medication Order MAR Action Action Date Dose Rate Site barium 40 % (w/v) suspension Given 12/17/2021 8:47 AM CDT 20 mL Code/trauma/sedation medication, Starting on Racquel 12/17/21 at 0847 barium 60 % (w/v) suspension (LIQUID Given 12/17/2021 8:47 AM CD T 175 mL E-Z-PAQUE) Code/trauma/sedation medication, Starting on Racquel 12/17/21 at 0847 barium 700 mg tablet (E-Z-DISK) Given 12/17/2021 8:50 AM CDT 700 mg oral, Code/trauma/sedation medication, Starting on Racquel 12/17/21 at 0850 barium 81 % (w/w) oral powder for suspension Given 8:47 AM CDT 50 mL (VARIBAR THIN LIQUID) oral, Code/trauma/sedation medication, Starting on Racquel 12/17/21 at 0847 barium 98 % oral powder for suspension Given 12/17/2021 8:47 AM CDT 135 mL (E-Z-HD) Code/trauma/sedation medication, Starting on Racquel 12/17/21 at 0847 sodium bicarbonate-citric acid-simethicone Given 12/17 8:47 AM CDT 1 packet effervescent packet (E-Z -GAS) oral, Code/trauma/sedation medication, Starting on Racquel 12/17/21 at 0847 documented in this encounter Additional Health Concerns Assessment Noted Time PHQ-9 Depression Total Score: 1 10/01/2016 3:24 PM CDT documented as of this encounter
--- OUTSIDE RECORDS SUMMARY | 2021-12-18 08:29 | XMS_ITS | Encounter Summary ---
:1950 Author Organization [facility] Address [address] [place] [address] Care Team Providers Name Role Phone Unavailable Primary Care Provider Unavailable Encounter Details Date Type Department Care Team Description 11/19/2021 Orders Only Department of Carli Guerrero Otorhinolaryngology in K, R.N. [place], [place] [address] [facility] [address] [place] [phone] Social History Tobacco Use Types Packs/Day Years [...] often do you attend jehovah's witness or yarsani Never 10/07/2021 services? Do you belong to [...] Team Description 12/23/2021 Telemedicine Otorhinolaryngology Latoya Soto, [facility]-SELF PAY SPECIALIST [address] [place], [place] [phone] (Wo rk) documented as of this encounter Visit Diagnoses Not on filedocumented in this encounter Additional Health Concerns Assessment Noted Time PHQ-9 Depression Total Score: 1 10/01/2016 3:24 PM CDT documented as of this encounter
--- OUTSIDE RECORDS SUMMARY | 2021-12-18 08:29 | XMS_ITS | Encounter Summary ---
:1950 Author Organization [facility] Address [address] [place] [address] Care Team Providers Name Role Phone Unavailable Primary Care Provider Unavailable Reason for Referral Outpatient (Routine) - Authorized Specialty Diagnoses / Procedures Referred By Contact Refer red To Contact Diagnoses Paralysis Vocal Cord Unilateral Complete [address] [facility] Procedures ENT Speech therapy [address] [place], [place] [phone] Referral ID Status Reason Start Date Expiration Date Visits V isits Requested Authorized [id number] Authorized 11/17/2021 11/17/2022 1 1 Reason for Visit Outpatient (Routine) - Closed Specialty Diagnoses / Procedures Referred By Contact Refer red To Contact Diagnoses Paralysis Vocal Cord Unilateral Complete [address] [facility] Procedures ENT Speech therapy [address] [place] [phone] Referral ID Status Reason Start Date Expiration Date Visits Requ ested Visits Authorized [id number] Closed 11/12/2021 11/12/2022 1 1 Encounter Details Date Type Department Care Team Description 11/17/2021 Clinical Support Department of Irvin Soto Vocal Otorhinolaryngology in [place] Unilateral [place], [place] CCC-PALLET ASSEMBLER Complete [address] [facility] [address] [place] [address] [place], [place] [phone] Social History Tobacco Use Types Packs/Day Years [...] or relatives? How often do you attend mandaeism or samaritan Never 10/07/2021 services? Do you belong to any clubs or organizations Yes 10/07/2021 such as mandaeism groups, unions, fraternal or athletic groups, or [...] of this encounter Progress Notes Shira Soto, [facility]-PALLET ASSEMBLER - 11/17/2021 3:30 PM CDT Referring provider [...] Care Team Description 12/23/2021 Telemedicine Otorhinolaryngology Latoya Soto CCC-PALLET ASSEMBLER [address] [place] [phone] (Wo rk) documented as of this encounter Visit Diagnoses Diagnosis Paralysis Vocal Cord Unilateral Complete documented in this encounter Additional Health Concerns Assessment Noted Time PHQ-9 Depression Total Score: 1 10/01/2016 3:24 PM CDT documented as of this encounter
--- OUTSIDE RECORDS SUMMARY | 2021-12-18 08:29 | XMS_ITS | Encounter Summary ---
:1950 Author Organization [facility] Address [address] [place] [address] Care Team Providers Name Role Phone Unavailable Primary Care Provider Unavailable Encounter Details Date Type Department Care Team Description 11/26/2021 Orders Only Department of Gerber Oswald, Otorhinolaryngology in [place], [place] [address] [facility] [address] [place] [phone] Social History Tobacco Use Types Packs/Day Years [...] or relatives? How often do you attend evangelical or orthodox Never 10/07/2021 services? Do you belong to any clubs or organizations Yes 10/07/2021 such as evangelical groups, unions, fraternal or athletic groups, or [...] or slept in a halfway (including now)? Education Answer Date Recorded What is the highest level of school Bachelor's degree (e.g., BA, AB, 10/07/2021 you have completed or the highest BS) degree you have received? Sex Assigned at Date Recorded Female 06/26/2021 11:13 AM CDT documented as of this encounter Plan of Treatment Upcoming Encounters Date Type Specialty Care Team Description 12/23/2021 Telemedicine Otorhinolaryngology Latoya Soto, CCC-HUNTER TRAPPER [address] [place], [place] [phone] (Wo rk) documented as of this encounter Visit Diagnoses Not on filedocumented in this encounter Additional Health Concerns Assessment Noted Time PHQ-9 Depression Total Score: 1 10/01/2016 3:24 PM CDT documented as of this encounter
--- OUTSIDE RECORDS SUMMARY | 2021-12-18 08:29 | XMS_ITS | Clinical Summary ---
:1950 Author Organization [facility] [place] [address] Care Team Providers Name Role Phone Salma [...] Encounters Date Type Specialty Care Team Description 12/11/2021 Telephone Salma Whitley Questions (Prior to next MD Anna appointment) 11/23/2021 Ancillary Procedure 11/23/2021 Travel 11/19/2021 Ancillary Procedure 11/19/2021 Office Visit Carlos Terrazas Musculoskelet al Jacob Carey MD (Follow up righ t knee, and neck pain) 11/19/2021 Travel 11/13/2021 Telephone Carlos Terrazas (Knee MD Aurelio pain ) from Last 3 Months Immunizations Name Administration [...] 12/23/2021 Office Visit Carlos Terrazas MD [address] [place], [place] [address] (Wo rk) 01/18/2022 Office Visit Carlos Terrazas MD [address] [place], [place] [address] (Wo rk) Health Maintenance Due [...] 65+ 11/05/2021 Medical Devices Implanted Type Area Public Transit Trolley Driver Device Shelf Model / Identifier Expiration Serial / Date Lot Screw 4.0x14mm Slf Drilling Va - [id number] N/A: Thong Spine [id number] / Implanted: Qty: 3 on 05/02/2013 at [facility] Spine / K-Wire 3.0mm Bowie Non-Thrd - [id number] Left: Thong [id number] / Implanted: Qty: 1 on 10/03/2018 by Venkata Cameron DPM at [facility] [employer] / Explanted Type Area Public Transit Trolley Driver Device Shelf Model / Identifier Expiration Date Ser ial / Lot K-Wire 2.5mm Thong Non-Thrd - [id number] Left: Bowie [id number] / Explanted: Qty: 2 on 10/03/2018 by Venkata Cameron DPM at [facility] [employer]opa[employer] / Procedures Procedure Name Priority [...] cervical spinal the resu lts fusion section. from Last 3 Months Results MR [...] report s are released immediately into your [facility] medical record. ??You may view this report [...] provider. If you have questions, please contact [facility] care provider. INDICATION: Right shoulder and arm [...] are [facility]. ??You may view [...] provider. If you have questions, please contact [facility] care provider. INDICATION: Cervical radiculopathy TECHNIQUE: Cervical spine 3 view. COMPARISON: None FINDINGS: Bones: Alignment is normal. No fractures or significant bone lesions. Joints: Postop changes ACDF at C6-7. Dis c space narrowing and spurring at C5-6. Facet degeneration on the right at C5-6. Soft tissues: Unremarkable. IMPRESSION: Moderate degenerative disc disease C5-6. Dictated by Maciej Lugo MD @ Sep 15 2 022 11:07AM (Electronically Signed) Carlos Terrazas MD GENERAL IMAGING from Last 3 Months Insurance Payer Benefit Plan / Subscriber ID Effective Dates Phone Addre ss Type Group MEDICARE PART A MEDICARE PART A [id number] 2015-Presen ATTN: CLAIMS - HB USE ONLY HB ONLY t [address] [place] [address] MEDICARE PART B MEDICARE PART B [id number] 2015-Presen ATTN: CLAIMS - HB USE ONLY HB ONLY t [address] [place] [address] BLUE CROSS BLUE CROSS [id number] 2016-Presen [address] [address] [place] [address] [place], [place] ONLY [id number] BLUE CROSS MR BLUE CROSS [id number] 2016-Presen [address] [address] [place] BL[place] t [facility] [id number] Advance Directives Latest Code Status on File Code Status Date Activated Date Inactivated Comments Full Code 10/03/2018 5:45 AM 10/03/2018 6:35 AM Full Code 05/02/2013 11:57 AM 05/03/2013 1:29 PM Full Code 05/02/2013 11:51 AM 05/02/2013 11:57 AM Care Teams Metal Leaf Layer Relationship Specialty Start Date End Date Salma Whitley MD PCP - General Internal Medicine 04/30/131999 [place] [address]
--- OUTSIDE RECORDS SUMMARY | 2021-12-18 08:29 | XMS_ITS | Encounter Summary ---
:1950 Author Organization [facility] Address [address] [place] [address] Care Team Providers Name Role Phone Unavailable Primary Care Provider Unavailable Reason for Visit Reason Comments Medication Problem ICD clarification Encounter Details Date Type Department Care Team Description 11/20/2021 Clinical Department of Tianby, Medication Communication Otorhinolaryngology in [place] ([place], [place] M.D. clarification) [address] [facility] [address] [place] [phone] [place] [address] Social History Tobacco Use Types Packs/Day Years [...] or relatives? How often do you attend hinduism or adventism Never 10/07/2021 services? Do you belong to any clubs or organizations Yes 10/07/2021 such as hinduism groups, unions, fraternal or athletic groups, or [...] Team Description 12/23/2021 Telemedicine Otorhinolaryngology Latoya Soto, [facility]-MACHINE SHORTHAND REPORTER [address] [place], [place] [phone] (Wo rk) documented as of this encounter Visit Diagnoses Not on filedocumented in this encounter Additional Health Concerns Assessment Noted Time PHQ-9 Depression Total Score: 1 10/01/2016 3:24 PM CDT documented as of this encounter
--- OUTSIDE RECORDS SUMMARY | 2021-12-18 08:29 | XMS_ITS | Encounter Summary ---
:1950 Author Organization [facility] Address [address] [place] [address] Care Team Providers Name Role Phone Unavailable Primary Care Provider Unavailable Encounter Details Date Type Department Care Team Description 11/25/2021 Orders Only Department of Otorhinolaryngology Azeb Bess, in [facility] [address] [facility] [address] [place] [phone] [place], [place] [phone] Social History Tobacco Use Types Packs/Day Years [...] How often do you attend zoroastrian or taoist Never 10/07/2021 services? Do you [...] Team Description 12/23/2021 Telemedicine Otorhinolaryngology Latoya Soto, CCC-ASSEMBLER [employer] [address] [place], [place] [phone] (Wo rk) documented as of this encounter Visit Diagnoses Not on filedocumented in this encounter Additional Health Concerns Assessment Noted Time PHQ-9 Depression Total Score: 1 10/01/2016 3:24 PM CDT documented as of this encounter
--- OUTSIDE RECORDS SUMMARY | 2021-12-18 08:29 | XMS_ITS | Encounter Summary ---
:1950 Author Organization [facility] Address [address] [place] [address] Care Team Providers Name Role Phone Unavailable Primary Care Provider Unavailable Encounter Details Date Type Department Care Team Description 11/20/2021 Orders Only Department of Morgan Fleming, Otorhinolaryngology in [facility] C[place], [place] M.S.N. [address] [facility] [address] [place] [address] [place], [place] [phone] Social History Tobacco Use Types Packs/Day Years [...] or relatives? How often do you attend yarsani or mormon Never 10/07/2021 services? Do you belong to any clubs or organizations Yes 10/07/2021 such as yarsani groups, unions, fraternal or athletic groups, or [...] Team Description 12/23/2021 Telemedicine Otorhinolaryngology Latoya Soto, CCC-PACKAGING MACHINE OPERATOR [address] [place], [place] [phone] (Wo rk) documented as of this encounter Visit Diagnoses Not on filedocumented in this encounter Additional Health Concerns Assessment Noted Time PHQ-9 Depression Total Score: 1 10/01/2016 3:24 PM CDT documented as of this encounter
--- OUTSIDE RECORDS SUMMARY | 2021-12-18 08:29 | XMS_ITS | Encounter Summary ---
:1950 Author Organization [facility] Address [address] [place] [address] Care Team Providers Name Role Phone Unavailable Primary Care Provider Unavailable Encounter Details Date Type Department Care Team Description 11/27/2021 Orders Only Department of Otorhinolaryngology Azeb Bess, in [facility] [address] [facility] [address] [place] [address] [place], [place] [phone] Social History Tobacco Use Types Packs/Day Years [...] How often do you attend orthodoxy or christian Never 10/07/2021 services? Do you belong to [...] Team Description 12/23/2021 Telemedicine Otorhinolaryngology Latoya Soto, CCC-CRISIS INTERVENTION COUNSELOR [address] [place], [place] [phone] (Wo rk) documented as of this encounter Visit Diagnoses Not on filedocumented in this encounter Additional Health Concerns Assessment Noted Time PHQ-9 Depression Total Score: 1 10/01/2016 3:24 PM CDT documented as of this encounter
--- OUTSIDE RECORDS SUMMARY | 2021-12-18 08:29 | XMS_ITS | Clinical Summary ---
:1950 Author Organization [facility] Address [address] [place] [address] Care Team Providers Name Role Phone Unavailable Primary Care Provider Unavailable Source Comments Patient records contain information from all sites at [facility]. For routine questions regarding patient records, call [phone] during business hours, M-F 8:00 AM - 5:00 PM Central Time. Record requests for emergency care only can be directed to [phone] at any time.[facility] Allergies No known active allergies Medications Medication Sig Dispensed Refills Start End Date Status Date predniSONE 2 (two) times a 0 Act juliana (DELTASONE) 10 mg day. 2 tablet ondansetron (ZOFRAN) as needed. 0 Active 4 mg tablet 7 melatonin 3 mg Take 2 tablets 0 Active tablet by mouth at 6 bedtime. levothyroxine Take 100 mcg by 0 Active (SYNTHROID, mouth daily. 7 LEVOTHROID) 100 mcg tablet ibuprofen Take 800 mg by 0 Activ e (ADVIL,MOTRIN) 800 mouth 3 (three) 9 mg tablet times a day. HYDROcodone-acetamin Take 1-2 0 Active ophen (NORCO) 5-325 tablets by 9 mg per tablet mouth as needed. glucosamine sulf Take by mouth 0 Active dipotassium daily. chloride-chondroitin 500-400 mg per capsule fluticasone daily. 0 Active propionate (FLONASE) 2 50 mcg/actuation nasal spray fluticasone Inhale every 12 0 Ac tive propion-salmeteroL (twelve) hours. 8 (AIRDUO RESPICLICK) 232-14 mcg/actuation inhaler diphenhydrAMINE Take 25 mg by 0 Active (BENADRYL) 25 mg mouth. capsule cyanocobalamin, Take 1,000 mcg 0 Active vitamin B-12, 1,000 by mouth. mcg tablet extended release cefdinir (OMNICEF) Take 300 mg by 0 Active 300 mg capsule mouth. 2 albuterol 90 Inhale 2 puffs. 0 A ctive mcg/actuation inhaler acetaminophen Take 650 mg by 0 A ctive (TYLENOL) 325 mg mouth. 4 tablet budesonide Mix 1 ampule in 120 mL 11 Act juliana (Pulmicort) 0.5 mg/2 sinus 2 mL nebulizer irrigation solution bottle and irrigate twice daily. budesonide Add 1 respule 360 mL 3 Activ e (PULMICORT) 0.5 mg/2 to 8 ounces 2 mL nebulizer saline and solution irrigate each side of nose twice daily as directed. budesonide 0.6 mg Empty the 180 capsule 4 Active capsule for nasal contents of 1 2 rinse capsule in 8 oz of saline using a clean sinus rinse bottle. Irrigate each nostril two times daily.Do not swallow capsules budesonide (RINOCORT Administer 2 0 Discontinued AQUA) 32 sprays into 22 mcg/actuation nasal nostril(s). spray budesonide Administer 2 mL 120 mL 11/21/19 Dis continued (Pulmicort) 0.5 mg/2 (0.5 mg total) 2 22 mL nebulizer into nostril(s) solution 2 (two) times a day. Mix 1 ampule in sinus irrigation bottle and irrigate twice daily. budesonide Mix 1 ampule in 120 mL 11 11/21/19 Dis continued (Pulmicort) 0.5 mg/2 sinus 2 22 mL nebulizer irrigation solution bottle and irrigate twice daily. budesonide Mix 1 ampule in 120 mL 11 11/28/19 Dis continued (Pulmicort) 0.5 mg/2 sinus 2 22 mL nebulizer irrigation solution bottle and irrigate twice daily. 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 11/26/2021 Orders Only Otorhinolaryngology Gerber Oswald M.D. 11/25/2021 Orders Only Otorhinolaryngology Azeb Bess, L.P.N. 11/21/2021 Refill Otorhinolaryngology Morgan Fleming Shereen daniel Mcneil APRN, C.N.P., M.S.N. 11/20/2021 Orders Only Otorhinolaryngology Morgan Fleming APRN, C.N.P., M.S.N. 11/20/2021 Clinical Otorhinolaryngology Jake Michel Medicat ion Problem Communication Breanna Hyde (ICD clarifica tion) 11/19/2021 Orders Only Otorhinolaryngology Carli Guerrero K, R.N. 11/17/2021 Clinical Support Otorhinolaryngology Pittelko, Para lysis Vocal Shira L, Cord Unilateral CCC-COLLECTOR OF PORT Complete 11/17/2021 Comprehensive Otorhinolaryngology TianGeorge cohenret Rhinos inusitis Chronic (Primary Dx); Visit Breanna Hyde Sinusitis; Asthma (HCC); Pneumonia Bronc hiolitis Obliterans Organizing (HCC); Drip Post Nasal 11/17/2021 Orders Only Otorhinolaryngology Kevin Ham a (Primary Jaqui A, Dx) R.N. 11/12/2021 Telemedicine Otorhinolaryngology Jamal Oliva, Paraly sis Vocal M.D. Cord Unilateral Pittelko, Complete Shira Mcneil CCC-COLLECTOR OF PORT 10/12/2021 Community Orders Daiana Whitley thy Salma Castillo, (Primary Dx) MSydnieDSydnie 10/09/2021 Comprehensive Otorhinolaryngology Jamal Oliva, Sinus itis (Primary Dx); Visit M.D. Paralysis Vocal Cord Unilateral Complete Paramjittelko, Shira Mcneil CCC-COLLECTOR OF PORT 10/09/2021 Ancillary Procedure 10/09/2021 Office Visit Otorhinolaryngology [...] How often do you attend presybeterian or episcopalian Never 10/07/2021 services? Do you [...] a [place] [facility] (including now)? Education Answer Date Recorded What is the highest level of school Bachelor's degree (e.g., BA, AB, 10/07/2021 you have completed or the highest BS) degree you have received? Sex Assigned at Date Recorded Female 06/26/2021 11:13 AM CDT Last Filed Vital Signs Vital Sign Reading Time Taken Comments Blood Pressure 136/72 01/13/2017 8:39 AM ORNAMENTAL RAIL INSTALLER Pulse 71 01/13/2017 8:39 AM ORNAMENTAL RAIL INSTALLER Temperature - - Respiratory Rate 16 01/13/2017 8:39 AM ORNAMENTAL RAIL INSTALLER Oxygen Saturation - - Inhaled Oxygen Concentration - - Weight 61 kg (134 lb 7.7 oz) 04/14/2017 7:48 AM ORNAMENTAL RAIL INSTALLER Height 154 cm (5' 0.63) 04/14/2017 7:48 AM ORNAMENTAL RAIL INSTALLER Body Mass Index 25.72 04/14/2017 7:48 AM ORNAMENTAL RAIL INSTALLER Plan of Treatment Upcoming Encounters Date Type Specialty Care Team Description 12/23/2021 Telemedicine Otorhinolaryngology Latoya Soto, [facility]-COLLECTOR OF PORT [address] [place], [place] [phone] (Wo rk) Health Maintenance Due Date Last [...] history exists Medical Devices Implanted Type Area Public Policy Mediator Device Shelf Model / Identifier Expiration Date Ser ial / Lot Trimed-Screw Volar Peg Thrded 14mm - Garza [id number] Hardware e.g. [employer] Implanted: Qty: 1 on 04/25/2009 pins/screws/r ods Description: Device Public Policy Mediator - Tr[employer] d [employer].. Device Status Text - [id number]. Conversions - Default Historical Implant Device Hardware [...] and C-7. Device Status Text - Hardware. Kwire Ss 4 .035 - Garza [id number] Hardware e.g. pins/screws/rods [place] Implanted: Qty: 1 on 11/30/2016 Description: Device Public Policy Mediator - Stryk er Gordon.. Device Status Text - [id number]. Block Olga. Phonoform [facility] Rt - Garza [id number] Misc Pros thesis Other/Legacy - See Implant Medtronic Implanted: Qty: 1 on 11/10/2016 Description Description: Device Public Policy Mediator - [employer]. Body Location - Other. Right. Device Status Text - [facility] [id number]. Procedures Procedure Name Priority Date/Time Associated Comments Diagnosis OTORHINOLARYNGOLOGY Routine 12/17/2021 Results for IMAGE EXAM 12:33 PM CDT this procedure are in the results section. CT SINUSES WITHOUT IV RAD - Routine 12/17/2021 Rhinosinusitis Res ults for CONTRAST (most 10:14 AM CDT Chronic this inpatients and procedure are all in the outpatients) results section. FL ESOPHAGRAM DOUBLE RAD - Routine 12/17/2021 Dysphagia Result s for CONTRAST (most 8:46 AM CDT this inpatients and procedure are all in the outpatients) results section. FL SWALLOW FUNCTION WITH RAD - Routine 12/17/2021 Dysphagia Re sults for VIDEO AND SPEECH OR OT (most 8:46 AM CDT this FOR RST inpatients and procedure are all in the outpatients) results section. OTORHINOLARYNGOLOGY Routine 10/09/2021 Results for IMAGE EXAM 9:30 AM CDT this procedure are in the results section. from Last 3 Months Results NOSE AND AIRWAY-Otorhinolaryngology Image Exam (12/17/2021 12:33 PM CDT)Only the most recent of2 resultswithin the time period is included. Specimen (Source) Anatomical Collection Method Collection Time [...] Code Phon e Number IIMS IIMS NA CT Sinuses without IV Contrast (12/17/2021 10:14 AM CDT) Anatomical Region Laterality Modality Head, Neuroradiology RST LOS, N/A Computed T omography, Computed Neuroradiology ARZ LOS, Neuroradiology T omography FLA LOS Specimen (Source) Anatomical Collection Method Collection Time Re ceived Time Location / / Volume Laterality 12/17/2021 10:18 AM CDT Impressions 12/17/2021 10:26 AM CDT Paranasal sinus inflammatory changes, as described. Narrative 12/17/2021 10:26 AM CDT EXAM: CT SINUSES WITHOUT IV CONTRAST COMPARISON: Head CT ?? 06/11/21 FINDINGS: Left maxillary sinus demonstra dulce frothy fluid attenuation in the posterolateral aspect, mild mucosal thickening, and polyps vs r etention cysts. Right maxillary sinus mild mucosal thickening and polyp vs retention cyst. Moderate left and mild right sphenoid mucosal thickening with suggestion of mild associated froth y fluid. Significant left frontal sinus opacification. 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 O pacification and mucosal thickening involving multiple bilateral ethmoid air cells. Postop gong ges. Procedure Note Kalpesh Monsalve M.D., M.B.A. - 12/17/2021 EXAM: CT SINUSES WITHOUT IV CONTRAST COMPARISON: Head CT 06/11/21 FINDINGS: Left maxillary sinus demonstra dulce frothy fluid attenuation in the posterolateral aspect, mild mucosal thickening, and polyps vs r etention cysts. Right maxillary sinus mild mucosal thickening and polyp vs retention cyst. Moderate left and mild right sphenoid mucosal thickening with suggestion of mild associated froth y fluid. Significant left frontal sinus opacification. 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 O pacification and mucosal thickening involving multiple bilateral ethmoid air cells. Postop gong ges. IMPRESSION: Paranasal sinus inflammatory changes, as described. Jake Michel M.D. IMG CT PROCEDURES FL Esophagram Double Contrast (12/17/2021 8:46 AM [...] reflux. Otherwise, normal esophagram. Jamal Oliva M.D. IMG FLUOROSCOPY PROCEDURES from Last 3 Months Insurance Payer Benefit Plan Subscriber ID Effective Phone Address Typ e / Group Dates MEDICARE MEDICARE A [id number] 2015-Pres [address] [place] [address] BLUE CROSS BCBS [place] [id number] 2016-Pres [phone] PO ANSELMO X Cost Share BLUE SHIELD BLUE COST ent [phone] [place] [address] [phone] (Work)
--- OUTSIDE RECORDS SUMMARY | 2021-12-18 08:29 | XMS_ITS | Encounter Summary ---
:1950 Author Organization [facility] Address [address] [place] [address] Care Team Providers Name Role Phone Unavailable Primary Care Provider Unavailable Reason for Visit Reason Comments Med Change Request Encounter Details Date Type Department Care Team Description 11/21/2021 Refill Department of Morgan Fleming, Med Change Request Otorhinolaryngology in [facility], C.N.P.[place], [place] M.S.N. [address] [facility] [address] [place] [phone] [place], [place] [phone] Social History Tobacco Use Types Packs/Day Years [...] How often do you attend yarsanism or samaritan Never 10/07/2021 services? Do you [...] Team Description 12/23/2021 Telemedicine Otorhinolaryngology Latoya Soto, CCC-LINER ASSEMBLER [address] [place] [phone] (Wo rk) documented as of this encounter Visit Diagnoses Not on filedocumented in this encounter Additional Health Concerns Assessment Noted Time PHQ-9 Depression Total Score: 1 10/01/2016 3:24 PM CDT documented as of this encounter
--- OUTSIDE RECORDS SUMMARY | 2021-12-18 08:29 | XMS_ITS | Encounter Summary ---
:1950 Author Organization [facility] Address [address] [place] [address] Care Team Providers Name Role Phone Unavailable Primary Care Provider Unavailable Reason for Referral MRI/CAT/PET Scan (Routine) - Closed Specialty Diagnoses / Procedures Referred By Contact Refer red To Contact Radiology Diagnoses Rhinosinusitis Chronic Jake Michel M.D. [facility] Procedures CT Sinuses without IV Contrast [address] [place] [address] Referral ID Status Reason Start Date Expiration Date Visits Requ ested Visits Authorized [id number] Closed 11/17/2021 11/17/2022 1 1 Reason for Visit MRI/CAT/PET Scan (Routine) - Closed Specialty Diagnoses / Procedures Referred By Contact Refer red To Contact Radiology Diagnoses Rhinosinusitis Chronic Jake Michel M.D. [facility] Procedures CT Sinuses without IV Contrast [address] [place] [address] Referral ID Status Reason Start Date Expiration Date Visits Requ ested Visits Authorized [id number] Closed 11/17/2021 11/17/2022 1 1 Encounter Details Date Type Department Care Team Description 12/17/2021 Hospital Encounter Department of Jake Michelosi nusitis Chronic Radiology, Vipin Hyde M.D. [facility], in [address] [facility] [phone] [place] [address] [place], [place] (Work) [phone] Social History Tobacco Use Types Packs/Day Years [...] or relatives? How often do you attend buddhist or uatsdin Never 10/07/2021 services? Do you belong to any clubs or organizations Yes 10/07/2021 such as buddhist groups, unions, fraternal or athletic groups, or [...] Date acetaminophen (TYLENOL) Take 650 mg by 0 04/13/19 14 325 mg tablet mouth. albuterol 90 Inhale 2 puffs. 0 mcg/actuation inhaler budesonide (Pulmicort) Mix 1 ampule in 120 mL 11 11/26/19 22 0.5 mg/2 mL nebulizer sinus irrigation solution bottle and irrigate twice daily. budesonide (PULMICORT) Add 1 respule to 8 360 mL 3 11/27 0.5 mg/2 mL nebulizer ounces saline and solution irrigate each side of nose twice daily as directed. budesonide 0.6 mg capsule Empty the contents 180 capsule 4 1 for nasal rinse of 1 capsule in 8 oz of saline using a clean sinus rinse bottle. Irrigate each nostril two times daily.Do not swallow capsules cefdinir (OMNICEF) 300 mg Take 300 mg by 0 2021 capsule mouth. cyanocobalamin, vitamin Take 1,000 mcg by 0 B-12, 1,000 mcg tablet mouth. extended release diphenhydrAMINE Take 25 mg by mouth. 0 (BENADRYL) 25 mg capsule fluticasone Inhale every 12 0 04/20/2017 propion-salmeteroL (twelve) hours. (AIRDUO RESPICLICK) 232-14 mcg/actuation inhaler fluticasone propionate daily. [...] mcg by 0 11/12 LEVOTHROID) 100 mcg mouth daily. tablet melatonin 3 mg tablet Take 2 tablets by 0 016 mouth at bedtime. ondansetron (ZOFRAN) 4 mg as needed. 0 11/10/2016 tablet predniSONE (DELTASONE) 10 2 (two) times a day. 0 06/16/2021 mg tablet documented as of this encounter Plan of Treatment Upcoming Encounters Date Type Specialty Care Team Description 12/23/2021 Telemedicine Otorhinolaryngology Latoya Soto, CCC-HANDLE MAKER [address] [place], [place] [phone] (Wo rk) documented as of this encounter Procedures Procedure Name Priority Date/Time Associated Diagnosis Comme nts CT SINUSES RAD - Routine 12/17/2021 10:14 Rhinosinusitis Results for WITHOUT IV (most inpatients AM CDT Chronic this proced ure CONTRAST and all are in the outpatients) results section. documented in this encounter Results CT Sinuses without IV Contrast (12/17/2021 10:14 [...] Paranasal sinus inflammatory changes, as described. Jake LUDWIG CT PROCEDURES documented in this encounter Visit Diagnoses Diagnosis Rhinosinusitis Chronic documented in this encounter Additional Health Concerns Assessment Noted Time PHQ-9 Depression Total Score: 1 10/01/2016 3:24 PM CDT documented as of this encounter
--- OUTSIDE RECORDS SUMMARY | 2021-12-18 08:30 | XMS_ITS | Encounter Summary ---
:1950 Author Organization [facility] Address [address] [place] [address] Care Team Providers Name Role Phone Unavailable [...] or relatives? How often do you attend buddhism or shinto Never 10/07/2021 services? Do you belong to any clubs or organizations Yes 10/07/2021 such as buddhism groups, unions, fraternal or athletic groups, or [...] Team Description 12/23/2021 Telemedicine Otorhinolaryngology Latoya Soto, [facility] CONSULTANT [address] [place], [place] [phone] (Wo rk) documented as of this encounter Visit Diagnoses Not on filedocumented in this encounter
--- OUTSIDE RECORDS SUMMARY | 2021-12-18 08:30 | XMS_ITS | Encounter Summary ---
:1950 Author Organization [facility] Address [address] [place] [address] Care Team Providers Name Role Phone Unavailable [...] Team Description 12/23/2021 Telemedicine Otorhinolaryngology Latoya Soto, CCC-WIRE PREPARATION WORKER [address] [place] [phone] (Wo rk) documented as of this encounter Visit Diagnoses Not on filedocumented in this encounter Additional Health Concerns Assessment Noted Time PHQ-9 Depression Total Score: 1 10/01/2016 3:24 PM CDT documented as of this encounter
--- OUTSIDE RECORDS SUMMARY | 2021-12-18 08:30 | XMS_ITS | Encounter Summary ---
:1950 Author Organization [facility] Address [address] [place] [address] Care Team Providers Name Role Phone Unavailable [...] or relatives? How often do you attend episcopal or faith Never 10/07/2021 services? Do you belong to any clubs or organizations Yes 10/07/2021 such as episcopal groups, unions, fraternal or athletic groups, or [...] place to sleep or slept in a fci (including now)? Sex Assigned at Date Recorded Female 06/26/2021 11:13 AM CDT documented as of this encounter Plan of Treatment Upcoming Encounters Date Type Specialty Care Team Description 12/23/2021 Telemedicine Otorhinolaryngology Latoya Soto, CCC-ASSEMBLER MUSICAL INSTRUMENTS [address] [place], [place] [phone] (Wo rk) documented as of this encounter Visit Diagnoses Not on filedocumented in this encounter
--- OUTSIDE RECORDS SUMMARY | 2021-12-18 08:30 | XMS_ITS | Encounter Summary ---
:1950 Author Organization [facility] Address [address] [place] [address] Care Team Providers Name Role Phone Unavailable Primary Care Provider Unavailable Encounter Details Date Type Department Care Team Description 10/08/2021 Clinical Communication Visit Review in [place], [place] [address] [place] [address] Social History Tobacco Use Types Packs/Day Years [...] or relatives? How often do you attend congregation or jew Never 10/07/2021 services? Do you belong to any clubs or organizations Yes 10/07/2021 such as congregation groups, unions, fraternal or athletic groups, or [...] or slept in a longterm (including now)? Education Answer Date Recorded What is the highest level of school Bachelor's degree (e.g., BA, AB, 10/07/2021 you have completed or the highest BS) degree you have received? Sex Assigned at Date Recorded Female 06/26/2021 11:13 AM CDT documented as of this encounter Plan of Treatment Upcoming Encounters Date Type Specialty Care Team Description 12/23/2021 Telemedicine Otorhinolaryngology Latoya Soto, CCC-WINDING RACK OPERATOR [address] [place], [place] [phone] (Wo rk) documented as of this encounter Visit Diagnoses Not on filedocumented in this encounter Additional Health Concerns Assessment Noted Time PHQ-9 Depression Total Score: 1 10/01/2016 3:24 PM CDT documented as of this encounter
--- OUTSIDE RECORDS SUMMARY | 2021-12-18 08:30 | XMS_ITS | Encounter Summary ---
:1950 Author Organization [facility] Address [address] [place] [address] Care Team Providers Name Role Phone Unavailable Primary Care Provider Unavailable Encounter Details Date Type Department Care Team Description 11/30/2016 Hospital Encounter HX RST PMR PT OT Evelyn Espana, [facility] [address] [place] [address] Social History Tobacco Use Types Packs/Day Years [...] How often do you attend mormon or anabaptist Never 10/07/2021 services? Do you [...] or slept in a detention (including now)? Sex Assigned at Date Recorded [...] Team Description 12/23/2021 Telemedicine Otorhinolaryngology Latoya Soto, [facility]ANIC [address] [place], [place] [phone] (Wo rk) documented as of this encounter Visit Diagnoses Not on filedocumented in this encounter Additional Health Concerns Assessment Noted Time PHQ-9 Depression Total Score: 1 10/01/2016 3:24 PM CDT documented as of this encounter
--- OUTSIDE RECORDS SUMMARY | 2021-12-18 08:30 | XMS_ITS | Encounter Summary ---
:1950 Author Organization [facility] Address [address] [place] [address] Care Team Providers Name Role Phone Unavailable [...] or relatives? How often do you attend sabianism or taoist Never 10/07/2021 services? Do you belong to any clubs or organizations Yes 10/07/2021 such as sabianism groups, unions, fraternal or athletic groups, or [...] Team Description 12/23/2021 Telemedicine Otorhinolaryngology Latoya Soto, CCC-INTERNET PROGRAMMER [address] [place], [place] [phone] (Wo rk) documented as [...]
--- OUTSIDE RECORDS SUMMARY | 2021-12-18 08:30 | XMS_ITS | Encounter Summary ---
:1950 Author Organization [facility] Address [address] [place] [address] Care Team Providers Name Role Phone Unavailable [...] or relatives? How often do you attend anglican or christianity Never 10/07/2021 services? Do you belong to any clubs or organizations Yes 10/07/2021 such as anglican groups, unions, fraternal or athletic groups, or [...] Team Description 12/23/2021 Telemedicine Otorhinolaryngology Latoya Soto, [facility] [address] [place], [place] [phone] (Wo rk) documented as of this encounter Visit Diagnoses Not on filedocumented in this encounter
--- OUTSIDE RECORDS SUMMARY | 2021-12-18 08:30 | XMS_ITS | Encounter Summary ---
:1950 Author Organization [facility] Address [address] [place] [address] Care Team Providers Name Role Phone Unavailable Primary Care Provider Unavailable Reason for Referral Outpatient (Routine) - Closed Specialty Diagnoses / Procedures Referred By Contact Refer red To Contact Diagnoses Paralysis Vocal Cord Unilateral Complete [facility] Procedures ENT Speech therapy [address] [place] [phone] Referral ID Status Reason Start Date Expiration Date Visits Requ ested Visits Authorized [id number] Closed 11/12/2021 11/12/2022 1 1 Reason for Visit Outpatient (Routine) - Closed Specialty Diagnoses / Procedures Referred By Contact Refer red To Contact Video Medicine Diagnoses Paralysis Vocal Cord Unilateral Complete Jamal Oliva M.D. [facility] [address] [place] [phone] Referral ID Status Reason Start Date Expiration Date Visits Requ ested Visits Authorized [id number] Closed 10/09/2021 10/09/2022 1 1 Encounter Details Date Type Department Care Team Description 11/12/2021 Telemedicine Department of Jamal Oliva M .D. [address] [place] [phone] Paralysis Vocal Otorhinolaryngology in Shira Soto CCC-AIRCRAFT STRUCTURAL DESIGN ENGINEER [address] [place] [phone] [place], [place] Complete [address] [place] [phone] Social History Tobacco Use Types Packs/Day [...] How often do you attend episcopal or church Never 10/07/2021 services? Do you [...] of this encounter Progress Notes Shira Soto, MARLI-AIRCRAFT STRUCTURAL DESIGN ENGINEER - 11/12/2021 9:00 AM CDT Referring [...] Team Description 12/23/2021 Telemedicine Otorhinolaryngology Latoya Soto CCC-AIRCRAFT STRUCTURAL DESIGN ENGINEER [address] [place] [phone] (Wo rk) documented as of this encounter Visit Diagnoses Diagnosis Paralysis Vocal Cord Unilateral Complete documented in this encounter Additional Health Concerns Assessment Noted Time PHQ-9 Depression Total Score: 1 10/01/2016 3:24 PM CDT documented as of this encounter
--- OUTSIDE RECORDS SUMMARY | 2021-12-18 08:30 | XMS_ITS | Encounter Summary ---
:1950 Author Organization [facility] Address [address] [place] [address] Care Team Providers Name Role Phone Unavailable [...] often do you attend latter day or sabianist Never 10/07/2021 services? Do you [...] Team Description 12/23/2021 Telemedicine Otorhinolaryngology Latoya Soto, CCC-EDUCATION TECHNICIAN [address] [place], [place] [phone] (Wo rk) documented as [...]
--- OUTSIDE RECORDS SUMMARY | 2021-12-18 08:30 | XMS_ITS | Encounter Summary ---
:1950 Author Organization [facility] Address [address] [place] [address] Care Team Providers Name Role Phone Unavailable Primary Care Provider Unavailable Reason for Referral Outpatient (Routine) - Closed Specialty Diagnoses / Procedures Referred By Contact Refer red To Contact Otorhinolaryngology Jake Michel M.D . [facility] [address] [place] [phone] Referral ID Status Reason Start Date Expiration Date Visits Requ ested Visits Authorized [id number] Closed 11/17/2021 11/16/2024 1 1 MRI/CAT/PET Scan (Routine) - Closed Specialty Diagnoses / Procedures Referred By Contact Refer red To Contact Radiology Diagnoses Rhinosinusitis Chronic Jake Michel M.D. [facility] Procedures CT Sinuses without IV Contrast [address] [place] [phone] Referral ID Status Reason Start Date Expiration Date Visits Requ ested Visits Authorized [id number] Closed 11/17/2021 11/17/2022 1 1 Reason for Visit Outpatient (Routine) - Closed Specialty Diagnoses / Procedures Referred By Contact Refer red To Contact Otorhinolaryngology Diagnoses Sinusitis Jamal Oliva M.D. [facility] [address] [place] [phone] Referral ID Status Reason Start Date Expiration Date Visits Requ ested Visits Authorized [id number] Closed 10/09/2021 10/09/2022 1 1 Encounter Details Date Type Department Care Team Description 11/17/2021 Comprehensive Visit Department of Choby, Rhinosi nusitis Chronic (Primary Dx); Otorhinolaryngology in Jake W, Sinus itis; [place], [place] MMira Asthma ([facility]); [address] Pneumonia Bronchiolitis Obli terans Organizing ([facility]); [place], [place] [phone] [address] Drip Post Nasal [phone] [place] [phone] Social History Tobacco Use Types [...] How often do you attend restoration or holiness Never 10/07/2021 services? Do you [...] examination, assessment and plan. Jake Michel MD [facility] Department of Otorhinolaryngology - Head & Neck Surgery documented in this encounter Plan of Treatment Upcoming Encounters Date Type Specialty Care Team Description 12/23/2021 Telemedicine Otorhinolaryngology Latoya Soto, [facility]-IMPORT DISPATCHER [address] [place], [place] [phone] (Wo rk) Scheduled Referrals Name Type Priority Associated Order Schedule Diagnoses Otorhinolaryngology office Outpatient Routine E xpected: visit (clinic) Referral 12/17/2021 (Approximate), Expires: 02/16/2023 documented as of this encounter Results CT Sinuses without IV Contrast (12/17/2021 10:14 AM CDT) Anatomical Region Laterality Modality Head, Neuroradiology RST LOS, N/A Computed T omography, Computed Neuroradiology ARZ LOS, Neuroradiology T omography [facility] Specimen (Source) Anatomical Collection Method Collection Time [...] Obliterans Organ izing (HCC) Drip Post Nasal Rhinosinusitis Chronic documented in this encounter Additional Health Concerns Assessment Noted Time PHQ-9 Depression Total Score: 1 10/01/2016 3:24 PM CDT documented as of this encounter
--- OUTSIDE RECORDS SUMMARY | 2021-12-18 08:30 | XMS_ITS | Encounter Summary ---
:1950 Author Organization [facility] Address [address] [place] [address] Care Team Providers Name Role Phone Unavailable [...] How often do you attend gnosticist or adventism Never 10/07/2021 services? Do you [...] place to sleep or slept in a retirement (including now)? Sex Assigned at Date Recorded [...] Team Description 12/23/2021 Telemedicine Otorhinolaryngology Latoya Soto, CCC-BEREAVEMENT COUNSELOR [address] [place], [place] [phone] (Wo rk) documented as of this encounter Visit Diagnoses Not on filedocumented in this encounter Additional Health Concerns Assessment Noted Time PHQ-9 Depression Total Score: 1 10/01/2016 3:24 PM CDT documented as of this encounter
--- OUTSIDE RECORDS SUMMARY | 2021-12-18 08:30 | XMS_ITS | Encounter Summary ---
:1950 Author Organization [facility] Address [address] [place] [address] Care Team Providers Name Role Phone Unavailable [...] How often do you attend yarsanism or worship Never 10/07/2021 services? Do you [...] Team Description 12/23/2021 Telemedicine Otorhinolaryngology Latoya Soto, CCC-NETWORK TECHNICAL ANALYST [address] [place], [place] [phone] (Wo rk) documented as of this encounter Visit Diagnoses Not on filedocumented in this encounter Additional Health Concerns Assessment Noted Time PHQ-9 Depression Total Score: 1 10/01/2016 3:24 PM CDT documented as of this encounter
--- OUTSIDE RECORDS SUMMARY | 2021-12-18 08:30 | XMS_ITS | Encounter Summary ---
:1950 Author Organization [facility] Address [address] [place] [address] Care Team Providers Name Role Phone Unavailable [...] often do you attend jehovah's witness or zoroastrianism Never 10/07/2021 services? Do you belong to [...] Team Description 12/23/2021 Telemedicine Otorhinolaryngology Latoya Soto, CCC-AIRLINE STEWARDESS [address] [place], [place] [phone] (Wo rk) documented as of this encounter Procedures Procedure Name Priority Date/Time Associated Comments Diagnosis OTORHINOLARYNGOLOGY IMAGE Routine 02/14/2017 10:55 Results for this EXAM AM DAIRY CATTLE FARM WORKER procedure are i n the results section. documented in this encounter Results OTORHINOLARYNGOLOGY IMAGE EXAM (02/14/2017 10:55 AM DAIRY CATTLE FARM WORKER) Specimen (Source) Anatomical Collection Method Collection Time Re ceived Time Location / / Volume Laterality 02/14/2017 10:51 AM DAIRY CATTLE FARM WORKER Narrative [facility] - 02/14/2017 10:59 AM DAIRY CATTLE FARM WORKER This order has been created and auto-finalized [...]
--- OUTSIDE RECORDS SUMMARY | 2021-12-18 08:30 | XMS_ITS | Encounter Summary ---
:1950 Author Organization [facility] Address [address] [place] [address] Care Team Providers Name Role Phone Unavailable Primary Care Provider Unavailable Encounter Details Date Type Department Care Team Description 06/24/2017 Orders Only Department of Rosa Moore, Encounter F or Examination Of Ears And Hearing Without Abnormal Findings; Otorhinolaryngology in M.D. Paralysis Vocal Cord [place], [place] [address] [facility] [address] [place] [phone] Social History Tobacco Use Types Packs/Day Years [...] How often do you attend scientologist or muslim Never 10/07/2021 services? Do you [...] Team Description 12/23/2021 Telemedicine Otorhinolaryngology Latoya Soto, CCC-DRUM CARRIER [address] [place] [phone] (Wo rk) documented as of this encounter Visit Diagnoses Diagnosis Encounter For Examination Of Ears And He aring Without Abnormal Findings Paralysis Vocal Cord documented in this encounter Additional Health Concerns Assessment Noted Time PHQ-9 Depression Total Score: 1 10/01/2016 3:24 PM CDT documented as of this encounter
--- OUTSIDE RECORDS SUMMARY | 2021-12-18 08:30 | XMS_ITS | Encounter Summary ---
:1950 Author Organization [facility] Address [address] [place] [address] Care Team Providers Name Role Phone Unavailable [...] or relatives? How often do you attend adventist or buddhism Never 10/07/2021 services? Do you belong to any clubs or organizations Yes 10/07/2021 such as adventist groups, unions, fraternal or athletic groups, or [...] Team Description 12/23/2021 Telemedicine Otorhinolaryngology Latoya Soto, CCC-LOCOMOTIVE LUBRICATING SYSTEMS CLERK [address] [place], [place] [phone] (Wo rk) documented as of this encounter Visit Diagnoses Not on filedocumented in this encounter Additional Health Concerns Assessment Noted Time PHQ-9 Depression Total Score: 1 10/01/2016 3:24 PM CDT documented as of this encounter
--- OUTSIDE RECORDS SUMMARY | 2021-12-18 08:30 | XMS_ITS | Encounter Summary ---
:1950 Author Organization [facility] Address [address] [place] [address] Care Team Providers Name Role Phone Unavailable Primary Care Provider Unavailable Encounter Details Date Type Department Care Team Description 10/12/2021 [facility] Breanna Castillo (Primary Dx) [facility] [address] [place], [place] [address] [facility] [address] [place] [address] [phone] Social History Tobacco Use Types Packs/Day Years [...] or relatives? How often do you attend druze or taoist Never 10/07/2021 services? Do you belong to any clubs or organizations Yes 10/07/2021 such as druze groups, unions, fraternal or athletic groups, or [...] Team Description 12/23/2021 Telemedicine Otorhinolaryngology Latoya Soto, CCC-PRIVATE HOUSEHOLD WORKER [address] [place], [place] [phone] (Wo rk) documented as of this encounter Visit Diagnoses Diagnosis Polyneuropathy - Primary documented in this encounter Additional Health Concerns Assessment Noted Time PHQ-9 Depression Total Score: 1 10/01/2016 3:24 PM CDT documented as of this encounter
--- OUTSIDE RECORDS SUMMARY | 2021-12-18 08:30 | XMS_ITS | Encounter Summary ---
:1950 Author Organization [facility] Address [address] [place] [address] Care Team Providers Name Role Phone Unavailable Primary Care Provider Unavailable Encounter Details Date Type Department Care Team Description 10/03/2018 Hospital Encounter Department of Radiology James Cameron, Gracy Left in [facility] [address] [place] [phone] [place] [phone] (Wo rk) Social History Tobacco Use Types [...] How often do you attend tenriism or spiritism Never 10/07/2021 services? Do you belong to [...] Team Description 12/23/2021 Telemedicine Otorhinolaryngology Latoya Soto, MARLI-PHARMACY MESSENGER [address] [place], [place] [phone] (Wo rk) documented as of this encounter Visit Diagnoses Diagnosis Bunion Left documented in this encounter Additional Health Concerns Assessment Noted Time PHQ-9 Depression Total Score: 1 10/01/2016 3:24 PM CDT documented as of this encounter
--- OUTSIDE RECORDS SUMMARY | 2021-12-18 08:30 | XMS_ITS | Encounter Summary ---
:1950 Author Organization [facility] Address [address] [place] [address] Care Team Providers Name Role Phone Unavailable Primary Care Provider Unavailable Encounter Details Date Type Department Care Team Description 03/12/2014 Hospital Encounter HX RST PULM FLOOR Cris Salinas , PRACTICE LABORER SHAFT SINKING, C.N.P., D.N.P., M.S. [address] [place] [phone] (Wo rk) Social History Tobacco Use Types [...] How often do you attend evangelical or muslim Never 10/07/2021 services? Do you [...] (129 lb 3 oz) 03/12/2014 10:31 AM METAL EXPEDITER Height 154.4 cm (5' 0.79) 03/12/2014 10:31 AM METAL EXPEDITER Body Mass Index 24.58 03/12/2014 10:31 AM METAL EXPEDITER documented in this encounter Medications at Time of Discharge Medication Sig Dispensed Refills Start Date End Date acetaminophen (TYLENOL) 325 Take 650 mg by 0 09/2013 mg tablet mouth. documented as of this encounter Plan of Treatment Upcoming Encounters Date Type Specialty Care Team Description 12/23/2021 Telemedicine Otorhinolaryngology Humberto Soto [facility]-TANK CHARGER [address] [place], [place] [phone] (Wo rk) documented as of this encounter Procedures Procedure Name Priority Date/Time Associated Comments Diagnosis CT CHEST WITHOUT IV Routine 03/12/2014 12:17 Resu lts for this CONTRAST WITH 3D PM METAL EXPEDITER procedure a re in DEPENDENT WORKSTATION the humberto briseno section. PULMONARY FUNCTION Routine 03/12/2014 10:31 TESTS AM METAL EXPEDITER documented in this encounter Results CT Chest without IV Contrast with 3D Dependent Workstation (03/12/2014 12:17 PM METAL EXPEDITER) Anatomical Region Laterality Modality Abdomen, Pelvis Computed Tomography Specimen (Source) Anatomical Collection Method Collection Time Re ceived Time Location / / Volume Laterality 03/12/2014 12:17 PM METAL EXPEDITER Impressions 03/12/2014 12:22 PM METAL EXPEDITER 1. Patchy bilateral areas of groundglass attenuation [...] further follow-up >6-8 ?CT at 6-12 months; en at 18-24 months, if no change >8 ? Consider immediate workup with PET, or biopsy or follow-up with CT imaging at 3, 9, and 24 months NODULE SIZE (mm)* ?? HIGH-RISK PATIENT+ 4 or less ?CT at 12 months; If uncha nged, no further follow-up >4-6 ?CT at 6-12 months; en at 18-24 months, if no change [...] [id number] 12-Mar-2014 12:22 Narrative 03/12/2014 12:22 PM METAL EXPEDITER 12-Mar-2014 12:17:00 ??Exam: CT CHEST wo + [...] PROCEDURES Pulmonary Function Tests (03/12/2014 10:31 AM METAL EXPEDITER) Specimen (Source) Anatomical Collection Method Collection Time Re ceived Time Location / / Volume Laterality 03/12/2014 10:31 AM METAL EXPEDITER Historical Provider PFT ORDERABLES Performing Organization Address City/State/ZIP Code Phon e Number [facility] - [address] [place] [address] [address] documented in this encounter Visit Diagnoses Not on filedocumented in this encounter
--- OUTSIDE RECORDS SUMMARY | 2021-12-18 08:30 | XMS_ITS | Encounter Summary ---
:1950 Author Organization [facility] Address [address] [place] [address] Care Team Providers Name Role Phone Unavailable [...] or relatives? How often do you attend congregational or denominational Never 10/07/2021 services? Do you belong to any clubs or organizations Yes 10/07/2021 such as congregational groups, unions, fraternal or athletic groups, or [...] place to sleep or slept in a nursing home (including now)? Sex Assigned at Date Recorded Female 06/26/2021 11:13 AM CDT documented as of this encounter Plan of Treatment Upcoming Encounters Date Type Specialty Care Team Description 12/23/2021 Telemedicine Otorhinolaryngology Latoya Soto, [facility]-DRYING SUPERVISOR [address] [place], [place] [phone] (Wo rk) documented as of this encounter Visit Diagnoses Not on filedocumented in this encounter
--- OUTSIDE RECORDS SUMMARY | 2021-12-18 08:30 | XMS_ITS | Encounter Summary ---
:1950 Author Organization [facility] Address [address] [place] [address] Care Team Providers Name Role Phone Unavailable [...] How often do you attend orthodoxy or faith Never 10/07/2021 services? Do you [...] Comments Blood Pressure 136/72 01/13/2017 8:39 AM DATA MANAGEMENT MANAGER Pulse 71 01/13/2017 8:39 AM DATA MANAGEMENT MANAGER Temperature - - Respiratory Rate 16 01/13/2017 8:39 AM DATA MANAGEMENT MANAGER Oxygen Saturation - - Inhaled Oxygen Concentration [...] Team Description 12/23/2021 Telemedicine Otorhinolaryngology Latoya Soto, CCC-HOT SEALING MACHINE OPERATOR [address] [place], [place] [phone] (Wo rk) documented as of this encounter Visit Diagnoses Not on filedocumented in this encounter Additional Health Concerns Assessment Noted Time PHQ-9 Depression Total Score: 1 10/01/2016 3:24 PM CDT documented as of this encounter
--- OUTSIDE RECORDS SUMMARY | 2021-12-18 08:30 | XMS_ITS | Encounter Summary ---
:1950 Author Organization [facility] Address [address] [place] [address] Care Team Providers Name Role Phone Unavailable [...] How often do you attend orthodox or voodoo Never 10/07/2021 services? Do you belong to [...] or slept in a penitentiary (including now)? Sex Assigned at Date Recorded Female 06/26/2021 11:13 AM CDT documented as of this encounter Plan of Treatment Upcoming Encounters Date Type Specialty Care Team Description 12/23/2021 Telemedicine Otorhinolaryngology Latoya Soto, [facility]-LINOLEUM LAYER APPRENTICE [address] [place], [place] [phone] (Wo rk) documented as of this encounter Visit Diagnoses Not on filedocumented in this encounter
--- OUTSIDE RECORDS SUMMARY | 2021-12-18 08:30 | XMS_ITS | Encounter Summary ---
:1950 Author Organization [facility] Address [address] [place] [address] Care Team Providers Name Role Phone Unavailable [...] How often do you attend yazdanism or judaism Never 10/07/2021 services? Do you [...] Team Description 12/23/2021 Telemedicine Otorhinolaryngology Latoya Soto, [facility]-CLIENT SERVER DEVELOPER [address] [place], [place] [phone] (Wo rk) documented as of this encounter Visit Diagnoses Not on filedocumented in this encounter
--- OUTSIDE RECORDS SUMMARY | 2021-12-18 08:30 | XMS_ITS | Encounter Summary ---
:1950 Author Organization [facility] Address [address] [place] [address] Care Team Providers Name Role Phone Unavailable Primary Care Provider Unavailable Reason for Referral Speech Pathology (Routine) - Authorized Specialty Diagnoses / Procedures Referred By Contact Refer red To Contact Diagnoses Paralysis Vocal Cord Unilateral Complete Jamal Oliva M.D. [facility] Procedures MEDICAL ASSISTANT INTERNAL MEDICINE Voice evaluation 200 [place] [phone] Referral ID Status Reason Start Date Expiration Date Visits V isits Requested Authorized [id number] Authorized 10/09/2021 10/09/2022 99 99 Reason for Visit Appointment Request (Routine) - Closed Specialty Diagnoses / Procedures Referred By Contact Refer red To Contact Otorhinolaryngology Diagnoses Paralysis Vocal Cord Referral ID Status Reason Start Date Expiration Date Visits Requ ested Visits Authorized [id number] Closed 06/26/2021 06/26/2022 1 1 Encounter Details Date Type Department Care Team Description 10/09/2021 Office Visit Department of Jamal Oliva Voca l Cord Otorhinolaryngology kb Mcnally M.D. Unilateral Complete [place], [place] 200 [facility] (Primary Dx) 200 [place] [phone] Social History Tobacco Use Types Packs/Day Years [...] or relatives? How often do you attend amish or episcopalian Never 10/07/2021 services? 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
--- OUTSIDE RECORDS SUMMARY | 2021-12-18 08:30 | XMS_ITS | Encounter Summary ---
:1950 Author Organization [facility] Address [address] [place] [address] Care Team Providers Name Role Phone Unavailable [...] How often do you attend adventism or presybeterian Never 10/07/2021 services? Do you [...] place to sleep or slept in a long term (including now)? Sex Assigned at Date Recorded [...] Team Description 12/23/2021 Telemedicine Otorhinolaryngology Latoya Soto, CCC-SAFETY BELT INSTALLER [address] [place] [phone] (Wo rk) documented as of this encounter Visit Diagnoses Not on filedocumented in this encounter Additional Health Concerns Assessment Noted Time PHQ-9 Depression Total Score: 1 10/01/2016 3:24 PM CDT documented as of this encounter
--- OUTSIDE RECORDS SUMMARY | 2021-12-18 08:30 | XMS_ITS | Encounter Summary ---
:1950 Author Organization [facility] Address [address] [place] [address] Care Team Providers Name Role Phone Unavailable Primary Care Provider Unavailable Reason for Referral Outpatient (Routine) - Closed Specialty Diagnoses / Procedures Referred By Contact Refer red To Contact Video Medicine Diagnoses Paralysis Vocal Cord Unilateral Complete Jamal Oliva M.D. [facility] [address] [place] [phone] Referral ID Status Reason Start Date Expiration Date Visits Requ ested Visits Authorized [id number] Closed 10/09/2021 10/09/2022 1 1 utpatient (Routine) - Closed Specialty Diagnoses / Procedures Referred By Contact Refer red To Contact Otorhinolaryngology Diagnoses Sinusitis Jamal Oliva M.D. [facility] 200 [place] [address] Referral ID Status Reason Start Date Expiration Date Visits Requ ested Visits Authorized [id number] Closed 10/09/2021 10/09/2022 1 1 Reason for Visit Speech Pathology (Routine) - Authorized Specialty Diagnoses / Procedures Referred By Contact Refer red To Contact Diagnoses Paralysis Vocal Cord Unilateral Complete Jamal Oliva M.D. [facility] Procedures GROUP MARKETING VP Voice evaluation [address] [place] [phone] Referral ID Status Reason Start Date Expiration Date Visits V isits Requested Authorized [id number] Authorized 10/09/2021 10/09/2022 99 99 Encounter Details Date Type Department Care Team Description 10/09/2021 Comprehensive Visit Department of Jamal Oliva M.D. [address] [place] [phone] Sinusitis (Primary Dx); Otorhinolaryngology in [facility], Shira Mcneil [facility]-GROUP MARKETING VP [address] [place] [phone] Paralysis Vocal Cord Unilateral Complete [place], [place] [address] [place], [place] [phone] Social History Tobacco Use Types Packs/Day [...] or relatives? How often do you attend pentecostalism or hinduism Never 10/07/2021 services? Do you belong to any clubs or organizations Yes 10/07/2021 such as pentecostalism groups, unions, fraternal or athletic groups, or [...] of this encounter Consult Notes Shira Soto, [facility]-GROUP MARKETING VP - 10/09/2021 1:00 PM CDT CHIEF COMPLAINT/ [...] Team Description 12/23/2021 Telemedicine Otorhinolaryngology Latoya Soto CCC-GROUP MARKETING VP [address] [place], [place] [phone] (Wo rk) Scheduled Referrals [...]
--- OUTSIDE RECORDS SUMMARY | 2021-12-18 08:30 | XMS_ITS | Encounter Summary ---
:1950 Author Organization [facility] Address [address] [place] [address] Care Team Providers Name Role Phone Unavailable [...] How often do you attend sabianist or gnosticist Never 10/07/2021 services? Do you [...] Team Description 12/23/2021 Telemedicine Otorhinolaryngology Latoya Soto, [facility]-HYDRAULIC LIFT DRIVER [address] [place], [place] [phone] (Wo rk) documented as of this encounter Visit Diagnoses Not on filedocumented in this encounter
--- OUTSIDE RECORDS SUMMARY | 2021-12-18 08:30 | XMS_ITS | Encounter Summary ---
:1950 Author Organization [facility] Address [address] [place] [address] Care Team Providers Name Role Phone Unavailable [...] How often do you attend yazidi or alevism Never 10/07/2021 services? Do you [...] Team Description 12/23/2021 Telemedicine Otorhinolaryngology Latoya Soto, CCC-OIL REFINER [address] [place], [place] [phone] (Wo rk) documented as [...]
--- OUTSIDE RECORDS SUMMARY | 2021-12-18 08:30 | XMS_ITS | Encounter Summary ---
:1950 Author Organization [facility] Address [address] [place] [address] Care Team Providers Name Role Phone Unavailable [...] How often do you attend mu-ism or jehovah's witness Never 10/07/2021 services? Do [...] Description 12/23/2021 Telemedicine Otorhinolaryngology Latoya Soto, [facility]-MARKETING AMBASSADOR [address] [place] [phone] (Wo rk) documented as of this encounter Visit Diagnoses Not on filedocumented in this encounter
--- NOTE | 2021-12-18 08:45 | CRLHL7_ITS ---
For Patients: As a result of the Cures Act, medical imaging exams and procedure reports are released immediately into your electronic medical record. You may view this report before your referring provider. If you have questions, please contact your health care provider. DIGITAL DIAGNOSTIC RIGHT MAMMOGRAM USING TOMOSYNTHESIS AND COMPUTER-AIDED DETECTION RIGHT BREAST ULTRASOUND CLINICAL HISTORY: RIGHT breast mass/asymmetry. COMPARISON: 12/10/2021. TECHNIQUE: Digital RIGHT mammogram in three projections. Tomosynthesis and CAD utilized. Real-time ultrasound imaging of RIGHT breast with imaging documentation. BREAST COMPOSITION: There are areas of scattered fibroglandular density. FINDINGS: 3D true lateral, 3D spot compression CC/MLO RIGHT breast mammogram submitted. Decreased conspicuity of previously noted asymmetric density. No architectural distortion or suspicious mass. No adenopathy or suspicious calcifications. Targeted RIGHT breast ultrasound performed laterally at 9 o`clock 5 cm from the nipple performed. Normal fibroglandular tissue. No fibrocystic change or solid mass. IMPRESSION: Normal additional views RIGHT breast and normal targeted RIGHT breast ultrasound. No evidence of malignancy. RECOMMENDATIONS: Annual BILATERAL screening mammography. Results and recommendations discussed with the patient. BI-RADS Category 2: Benign A lay language report of this examination will be provided to the patient. Dictated by Maciej Lugo MD @ 12/18/2021 9:49:56 AM jj/Dictated by: Maciej Lugo MD @ 12/18/2021 9:49:00 AM (Electronically Signed)
--- NOTE | 2021-12-18 09:15 | CRLHL7_ITS ---
For Patients: As a result of the Cures Act, medical imaging exams and procedure reports are released immediately into your electronic medical record. You may view this report before your referring provider. If you have questions, please contact your health care provider. PLEASE SEE DIGITAL DIAGNOSTIC RIGHT MAMMOGRAM PERFORMED SAME DAY CRL:[email or web address] cobos/Dictated by: Maciej Lugo MD @ 12/18/2021 9:50:00 AM (Electronically Signed)
== END 2021-12-18 08:25 | disposition home or self-care (01) ==
LOC: MAMMO 08:28
PROVIDERS: PCP Internal Medicine; Visit Provider Internal Medicine
DX: N63.10 Unspecified lump in the right breast, unspecified quadrant (principal); R92.8 Other abnormal and inconclusive findings on diagnostic imaging of breast
CPT/HCPCS: 76642; 77065; G0279

== ENCOUNTER 2021-12-18 09:30 | Outpatient (RCR) | payer MEDICARE, BC, SELFPAY ==
--- NOTE | 2021-10-14 15:16 | PT.OPEX ---
PT [place] [facility] PT [facility] Outpatient Eval Start: 10/14/21 12:56 Freq: Status: Active Protocol: Document 10/14/21 13:51 ENM (Rec: 10/14/21 15:07 ENM [id number]) E-signed By Linda Herndon, DPT Physical Therapy Outpatient Evaluation Insurance Information Recert Due Date 01/06/22 Insurance Name Medicare B Medical Diagnosis cervicalgia Treating Diagnosis shoulder pain, decreased cervical ROM, decreased cervical strength, decreased shoulder strength, impaired posture Referring MD Whitley Subjective Subjective Patient states that in the beginning of the summer she was having neuropathy in the legs and now it is in her arms . She has a history for neck surgeries and the pain she has now is similar to that pain. The last surgery she had was in 2012 where she had a laminectomy and fusion of C6 or C7, she is not sure. She states that she has pains in the right shoulder and down into the fingers. Mainly the right hand is numb but also the left one at times. In the left hand it is the 3rd and 4th digit. The left hand the first 3 digits are tingling. She describes the pain as a grinding pain especially at night. Has had some relief when using a cervical collar. Patient denies any significant change in strength. Patient denies any changes in bowel or bladder. 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 She walks many miles a day. PMHx: depression, respiratory problems, arthritis, thyroplasty Pain Comments at its worse: 3-5/10 at its best: tolerable with neck brace 0.5-1/10 easing: neck collar aggravating: laying down, sleep Current Work Status Rn Birthing Precautions Treatment Precautions/Contraindications cervical fusion Therapy Limitations/Systems Review Vision Objective Other/Pertinent Objective ROM: AROM cervical flexion 40 deg with pulling in back of neck extension 30 deg + for right upper back pain Rot L 51 R 50 + for pain down the arm SB L 17 R 18 + for pain in the shoulder Shoulder flexion WNL no pains abduction WNL no pains Strength: shoulder flexion 4/5 B shoulder abduction 4/5 B shoulder IR L 4/5 R 4-/5 shoulder ER 4/5 B elbow ext 4/5 B elbow flexion 4/5 B wrist flexion and extension 4/ 5 B DNF able to activate in supine , painful in sitting posture: protracted shoulders and increased thoracic kyphosis, increased cervical lordosis reflexes: normal biceps and brachioradialis, unable to ellicit tricep reflex B palpation/joint mobility CPA + for pain and stiffness at C2-C5, tender at C6 and C7. + for pain with CPA of T3-5 tightness at B UT and SCM, at right paraspinals and rhomboid special tests spurlings gapping + for relief of tissue stretch spurling compression - for reproduction of symptoms Functional Test Performed & Score NDI: 14% mild disability Assessment Assessment/Impression Patient is a 71 year old female presenting with complaints of right upper back and shoulder pain that started this summer. Their primary complaint is of significant pains with laying and sleeping at night. She is able to do everything she needs to functionally but with discomfort present. Patient has a history for cervical laminectomy and fusion 9 years ago. She reports tingling in both hands but more so in the right hand. Upon assessment patients concordant pains brought on with cervical extension, right rotation, right sidebending, CPA of cervical spine and T3-5 . Patient with stiffness and associated pains throughout upper to mid cervical spine and upper thoracic spine. Special testing - for spurling gapping and compression. Normal brachioradialis and biceps reflex, unable to elicit tricep reflex. No significant upper extremity weakness noted with MMT. Symptoms seem to be consistent with cervical spine stenosis. Patient would greatly benefit from skilled PT to address impairments stated above in order to be able to perform all recreational activities without significant discomfort or difficulty. As well as be able to comfortably sleep at night. Primary Functional Limitations sleeping, laying down Plan of Care Rehabilitation Potential Good Physical Therapy Goals In 6-8 visits 1. Patient will be IND with HEP and self management of symptoms 2. Patient will be able to lay at night with less than 2/10 pain for improved sleep hygiene 3. Patient will be demonstrate and implement proper body mechanics at cervical and thoracic spine with daily activities to decrease risk of reoccurrence of symptoms 4. Patient will be able to complete daily activities without need for neck brace demonstrating improvements in activity tolerance 5. Patient will improve NDI from 14% to 4% (MDC 10%) to demonstrate improvements in QOL Coordination/Communication With Referral Source Treatment Plan/Direct Interventions Electrical Stimulation,Joint Mobilization,Manual Therapy, Neuromuscular Re-ed,Self-Care/ Home Management,Therapeutic Activities,Therapeutic Exercises Frequency/Duration 1x a week for 6-7 visits, as needed for 3-4 visits Patient Will Be Discharged From Therapy Completion of LTG(s), Independent w/HEP Evaluation Billing Untimed Code Treatment Minutes 32 Complexity Moderate Certification Information Initial Certification Date 10/14/21 Ending Certification Date 01/06/22
== END 2022-03-10 13:08 | disposition home or self-care (01) ==
PROVIDERS: PCP Internal Medicine; Visit Provider Internal Medicine
DX: M54.2 Cervicalgia (principal); M25.569 Pain in unspecified knee; Z51.89 Encounter for other specified aftercare
CPT/HCPCS: 97110; 97140; 97162

== ENCOUNTER 2022-12-21 12:52 | Outpatient (CLI) | payer MEDICARE, BC, SELFPAY ==
--- NOTE | 2022-12-21 13:00 | CRLHL7_ITS ---
For Patients: As a result of the Cures Act, medical imaging exams and procedure reports are released immediately into your electronic medical record. You may view this report before your referring provider. If you have questions, please contact your health care provider. BILATERAL SCREENING MAMMOGRAM WITH COMPUTER-AIDED DETECTION AND TOMOSYNTHESIS TECHNIQUE: CC and MLO views were obtained. These mammographic images have been obtained using full-field digital technique. These mammographic images were interpreted with the benefit of computer-aided detection. Breast tomosynthesis was used in this interpretation. COMPARISON FILM: 12/18/21, 12/10/21, 05/15/21. FINDINGS: There are scattered areas of fibroglandular density. IMPRESSION: There is no radiographic evidence for malignancy. ASSESSMENT: BI-RADS Category 1: Negative RECOMMENDATION: Routine screening mammogram in 1 year. A lay language report of this examination will be provided to the patient. GUILLERMINA ARRIOLA M.D. Diagnostic/Nuclear Medicine Radiologist [email or web address] Transcribed: 1:[address]/Dictated by: Guillermina Arriola MD @ 12/22/2022 9:39:00 AM (Electronically Signed)
== END 2022-12-21 12:53 | disposition home or self-care (01) ==
LOC: MAMMO 12:53
PROVIDERS: PCP Internal Medicine; Visit Provider Internal Medicine
DX: Z12.31 Encounter for screening mammogram for malignant neoplasm of breast (principal)
CPT/HCPCS: 77063; 77067

== ENCOUNTER 2023-05-17 20:23 | Emergency (ER) | payer MEDICARE, BC, SELFPAY ==
[2023-05-17 20:28] VITALS: BP 159/67; PULSE 95; RESP 18; TEMP 37.2; O2SAT 91; BMI 22.7
--- NOTE | 2023-05-17 21:28 | ED_ITS ---
HPI - General Adult General Time Seen by Provider: 21:29 Date Seen: 05/17/23 Chief complaint: Unspecified Complaint, Adult Stated complaint: Chest tight, shortness of breath, nausea Time Seen by Provider: 05/17/23 21:03 Source: patient and RN notes reviewed Mode of arrival: ambulatory Limitations: no limitations History of Present Illness HPI narrative: This 72-year-old female is coming into the ER with fever of 101 tonight, sudden onset of chills, headache, body aches. She stated her chest hurt with this too. She did not take any Tylenol at home. She does not take any NSAIDs due to history of a GI bleed. She was having some nausea and stomach discomfort as well and took Compazine prior to coming in. The symptoms feel better now. Her symptoms started at about 530 tonight, she is being seen just after 9:30 p.m. tonight. She does play piano at the high school, has had exposures likely but not necessarily known to anyone specific. With her problem list does show history of hypertension, asthma, history of pneumonia, obstructive sleep apnea using CPAP, hypothyroidism, esophageal dysmotility and GERD per her report. Related Data Home Medications Medication Instructions Recorded Confirmed magnesium 1 tab PO DAILY 07/13/22 10/21/22 Previous Rx's Medication Instructions Recorded albuterol sulfate 90 mcg/actuation 2 puff inhalation Q6H PRN 04/20/22 aerosol inhaler shortness of breath or wheezing #8.5 grams gabapentin 300 mg capsule 300 mg PO QHS #90 caps 05/17/22 azithromycin 250 mg tablet See Rx Instructions PO .COMPLEX #6 08/26/22 tabs fluticasone propionate 50 2 spray intranasal QDAY #10 mL 08/26/22 mcg/actuation nasal spray,suspension (Flonase Allergy Relief) levothyroxine 100 mcg tablet 100 mcg PO DAILY #90 tabs 01/25/23 celecoxib 200 mg capsule (Celebrex) 200 mg PO QDAY PRN arthritic 02/15/23 flares #90 caps amlodipine 5 mg tablet 5 mg PO QDAY #90 tabs 04/25/23 azithromycin 250 mg tablet 250 mg PO DAILY 4 days #4 tabs 05/18/23 cefdinir 300 mg capsule 300 mg PO BID #20 caps 05/18/23 Allergies Allergy/AdvReac Type Severity Reaction Status Date / Time No Known Drug Allergies Allergy Verified 10/21/22 13:57 Review of Systems Status of ROS: Reports: 6 or more systems reviewed and unremarkable except as noted in History and below [facility] Medical History History of peptic ulcer (2016) ?Z87.11 - Personal history of peptic ulcer disease (ICD-10) History of fracture of ankle (04/06/07) ?Z87.81 - Personal history of (healed) traumatic fracture (ICD-10) Surgical History S/P hardware removal (09/28/07) ?Z98.890 - Other specified postprocedural states (ICD-10) S/P ORIF (open reduction internal fixation) fracture (04/06/07) ?Z98.890 - Other specified postprocedural states (ICD-10) ?Z87.81 - Personal history of (healed) traumatic fracture (ICD-10) History of thyroplasty (2016) ?Z98.890 - Other specified postprocedural states (ICD-10) History of tubal ligation (04/13/06) ?Z98.51 - Tubal ligation status (ICD-10) History of sinus surgery (2007) ?Z98.890 - Other specified postprocedural states (ICD-10) History of appendectomy (04/13/06) ?Z90.49 - Acquired absence of other specified parts of digestive tract (ICD- 10) Hx of cervical spine surgery (2013) ?Z98.890 - Other specified postprocedural states (ICD-10) Social History Smoking Status: Never smoker Non-prescribed substance use: denies use Little interest or pleasure in doing things: several days Feeling down, depressed, or hopeless: not at all service: No Exam Const: Vital Signs, click to edit/add: Vital Signs - 24 hr 05/17/23 20:28 05/17/23 21:39 05/17/23 21:46 Temperature 98.9 F 98.7 F Pulse Rate [Left P ulse Oximeter] 95 Respiratory Rate 18 Blood Pressure [Ri ght Upper Arm] 159/67 H Pulse Oximetry 91 96 Oxygen Delivery Me thod Room Air 72-year-old female is seen in exam room 1. She has a hooded sweatshirt on, a park with a [place] on it is all bundled up. Cheeks are flushed, she still feels chilled. Did have nursing staff redo an oral temperature and it is normal. She has no rash. Sclera clear. Able to speak in complete sentences, no hoarseness. Lungs action are clear, good air entry, no wheezing or crackles. CV regular rate and rhythm, no murmur, normal S1-S2, no S3-S4. Abdomen is soft, nontender, no organomegaly or masses noted. Documenting provider has reviewed patient's vital signs: yes Course Course ED Course: This patient is very likely presenting with an acute infectious viral entity such as influenza or COVID that we have seen prevalent we recently. Will give her a dose of Tylenol, await the viral triple swab that nursing staff collected on arrival. Reevaluation(s) Time of Reevaluation #1: 21:49 Reevaluation #1: Reviewed with patient her negative triple viral swab. She states she was most concerned about her blood pressure prior to coming in but it is better here. We discussed doing a chest x-ray and blood work to help us further delineate whether this might be bacterial or viral. I certainly would consider treating with Tamiflu if the clinical picture looks consistent with that. She would like to proceed with this workup. Time of Reevaluation #2: 23:31 Reevaluation #2: Reviewed with patient that her white blood count is elevated, am awaiting other labs. Her chest x-ray is where read by the radiologist as possible fluid/edema. She states the last time she felt this way, she had pneumonia. She is not as bad now as she felt back then. She does admit when she was walking today before all the other symptoms came on, she did feel more short of breath. The Tylenol has helped the body aches, she has no more chest achiness, is not feeling chilled anymore. We will get an EKG updated, await the other labs. We discussed chest CT imaging to help us further delineate whether this might be pulmonary edema verses underlying pneumonia. I do think these are too widely different diagnoses and we need to differentiate. Thus, we will proceed with est CT noncontrast. Oxygen saturations 93-94% with good wave form while in with her. Time of Reevaluation #3: 00:42 Reevaluation #3: Have reviewed CT findings of left lower lobe pneumonia. Her CT is not showing any evidence of any pulmonary edema or congestive heart failure. Likewise her labs do not support any cardiac etiology either. We discussed that the chest x- ray really is not as sensitive as a CT. She is reassured that there is no evidence of any congestive heart failure on further workup. We discussed treatm ent of her pneumonia. She does have underlying asthma. Have discussed initial injection of Rocephin here and 1st oral dose of a is a through mycin. She does agree to proceed this route. Vital Signs Vital signs: Initial Vital Signs Temperature 98.9 F 05/17/23 20:28 Temperature Source Oral 05/17/23 20:28 Pulse Rate 95 05/17/23 20:28 Pulse Rhythm Regular 05/17/23 20:28 Respiratory Rate 18 05/17/23 20:28 Blood Pressure 159/67 H 05/17/23 20:28 Blood Pressure Mean 97 05/17/23 20:28 Blood Pressure Position Sitting 05/17/23 20:28 Pulse Oximetry 91 05/17/23 20:28 Oxygen Delivery Method Room Air 05/17/23 20:28 Vital Signs Temperature 98.9 F 05/17/23 20:28 Pulse Rate 95 05/17/23 20:28 Respiratory Rate 18 05/17/23 20:28 Blood Pressure 159/67 H 05/17/23 20:28 Pulse Oximetry 91 05/17/23 20:28 Oxygen Delivery Method Room Air 05/17/23 20:28 Temperature 98.7 F 05/17/23 21:39 Pulse Rate 95 05/17/23 20:28 Respiratory Rate 18 05/17/23 20:28 Blood Pressure 159/67 H 05/17/23 20:28 Pulse Oximetry 96 05/17/23 21:46 Oxygen Delivery Method Room Air 05/17/23 20:28 Medications Administered Medications: Discontinued Medications Generic Name Dose Route Start Last Admin Trade Name Freq PRN Reason Stop Dose Admin Acetaminophen 650 mg 05/17/23 21:43 05/17/23 22:05 Acetaminophen 325 Mg Tablet PO 05/17/23 21:44 650 mg ONCE ONE Administration Medical Decision Making Lab Data Lab results reviewed: Yes I reviewed the patient's lab results Labs: Lab Results 05/17/23 05/17/23 05/17/23 Range/Units 20:55 22:09 22:09 WBC 15.53 H (4.50-11.00) K/uL RBC 4.00 (4.00-5.20) m/uL Hgb 12.1 (12.0-16.0) gm/dL Hct 36.6 (33.0-51.0) % MCV 92 (80-100) fL MCH 30 (26-34) pg MCHC 33 (32-36) gm/dL RDW Coeff of Letty 12.7 (11.5-15.5) % Plt Count 274 (140-440) K/uL Neut % (Auto) 90.3 H (42.0-72.0) % Lymph % (Auto) 4.4 L (20-44) % [place] % (Auto) 4.8 (0.0-11.0) % Eos % (Auto) 0.2 (0.0-7.0) % Baso % (Auto) 0.2 (0.0-3.0) % Neut # (Auto) 14.00 H (1.7-7.0) K/uL Lymph # (Auto) 0.70 L (0.90-2.90) K/uL [place] # (Auto) 0.70 (0.00-0.90) K/UL Eos # (Auto) 0.00 (0.00-0.50) K/uL Baso # (Auto) 0.00 (0.00-0.30) K/uL Abs Immat Gran (auto) 0.00 (0.00-0.30) K/uL Imm/Tot Granulo (auto) 0.1 % Sodium 133 L (135-149) mmol/L Potassium 4.0 (3.6-5.1) mmol/L Chloride 99 (96-114) mmol/L Carbon Dioxide 27 (20-32) mmol/L Anion Gap 7 (7-15) mEq/L BUN 15 (7-30) mg/dL Creatinine 0.6 (0.5-1.5) mg/dL Estimated Creat Clear 38.37 Estimated GFR 95 ml/min Glucose 120 H (60-115) mg/dL Calcium 9.7 (8.4-10.6) mg/dL Troponin I < 0.01 L (0.01-0.04) ng/mL NT-Pro-B Natriuret Pep 216 pg/mL Procalcitonin 0.19 Cancelled (<0.50) ng/mL SARS-CoV-2 (PCR) Negative SARS-CoV-2 (Negative) Influenza Type A (PCR) Negative PCR FLU A (Negative) Influenza Type B (PCR) Negative PCR FLU B (Negative) RSV (PCR) Negative PCR RSV (Negative) Lab Acknowledgement 05/17/23 Range/Units 22:45 WBC (4.50-11.00) K/uL RBC (4.00-5.20) m/uL Hgb (12.0-16.0) gm/dL Hct (33.0-51.0) % MCV (80-100) fL MCH (26-34) pg MCHC (32-36) gm/dL RDW Coeff of Letty (11.5-15.5) % Plt Count (140-440) K/uL Neut % (Auto) (42.0-72.0) % Lymph % (Auto) (20-44) % [place] % (Auto) (0.0-11.0) % Eos % (Auto) (0.0-7.0) % Baso % (Auto) (0.0-3.0) % Neut # (Auto) (1.7-7.0) K/uL Lymph # (Auto) (0.90-2.90) K/uL [place] # (Auto) (0.00-0.90) K/UL Eos # (Auto) (0.00-0.50) K/uL Baso # (Auto) (0.00-0.30) K/uL Abs Immat Gran (auto) (0.00-0.30) K/uL Imm/Tot Granulo (auto) % Sodium (135-149) mmol/L Potassium (3.6-5.1) mmol/L Chloride (96-114) mmol/L Carbon Dioxide (20-32) mmol/L Anion Gap (7-15) mEq/L BUN (7-30) mg/dL Creatinine (0.5-1.5) mg/dL Estimated Creat Clear Estimated GFR ml/min Glucose (60-115) mg/dL Calcium (8.4-10.6) mg/dL Troponin I (0.01-0.04) ng/mL NT-Pro-B Natriuret Pep pg/mL Procalcitonin (<0.50) ng/mL SARS-CoV-2 (PCR) (Negative) Influenza Type A (PCR) (Negative) Influenza Type B (PCR) (Negative) RSV (PCR) (Negative) Lab Acknowledgement Test Added Imaging Data Chest x-ray: Attestation: I have reviewed the pertinent imaging results. Radiologist's impression: Patient: LEILA VALERA Facility:?[facility] Patient ID:?[id number] Site Patient ID:?[id number]. Site :?1950 Study:?XRay Chest 1V PORTABLE-05/17/2023 10:19:25 PM Ordering Physician:SHELLIE Final Report: Indication: Chest tightness, shortness of breath, nausea Technique: Single view of the chest Comparison: None Findings/Impression: Findings suspicious for heart failure/volume overload with mild pulmonary edema. Dictated by Marky Brizuela MD @ 05/17/2023 11:04:19 PM (Electronic Signature) CT scan - chest: Attestation: I have reviewed the pertinent imaging results. My impression: Can definitely appreciate consolidation on her left lower lobe on the chest CT, await Radiology over-read. Radiologist's impression: Patient: LEILA VALERA Facility:?[facility] Patient ID:?[id number] Site Patient ID:?[id number]. Site :?1950 Study:?CT Chest W/O-05/17/2023 11:56:52 PM Ordering Physician:SILVIA Final Report: INDICATION: Shortness of breath, fever, asthma, history of pneumonia, elevated WBC. TECHNIQUE: CT chest without contrast. COMPARISON: Chest CT 12/07/2016. FINDINGS: Lungs and pleura: Patchy consolidation and tree-in-bud nodules within the left lower lobe. The remainder of lungs are clear. No pleural effusion or pneumothorax. Heart and vasculature: Heart size is normal. Thoracic aorta and pulmonary artery are normal in caliber. Lymph nodes/mediastinum: Mildly enlarged pretracheal lymph nodes. Chest wall: No masses. Upper abdomen: No significant findings. Small right renal cysts Bones: Partially imaged anterior cervical fusion hardware. Otherwise, unremarkable for age IMPRESSION: 1. Left lower lobe pneumonia. Recommend follow-up imaging after treatment to ensure resolution. 2. Mildly enlarged pretracheal lymph nodes, likely reactive. Please note that all CT scans at this facility use dose modulation, iterative reconstruction, and/or weight-based dosing when appropriate to reduce radiation dose to as low as reasonably achievable. Dictated by Wilber Edmondson MD @ 05/18/2023 12:19:28 AM (Electronic Signature) ECG Data Attestation: I personally reviewed and interpreted this ECG as follows: (Sinus rhythm, 76 beats per minute. No acute ischemic change. No infarct. QT corrected 443 milliseconds.) Discharge Plan Discharge Clinical Impression: Left lower lobe pneumonia Qualifiers: Pneumonia type: due to unspecified organism Qualified Code(s): J18.9 - Pneumonia, unspecified organism Patient Disposition: Home, Self-Care Condition: Stable Instructions: Community Acquired Pneumonia (ED) Additional Instructions: You need to start the cefdinir tonight/evening. Ill be taken twice a day but you of had Rocephin here in the ER in the cefdinir will not need to be started until later today in the evening. The azithromycin next dose will be May 18, will be taken daily. You can use your albuterol inhaler per prescription if needed for coughing or wheezing. Recheck in clinic within the next 1-2 weeks or sooner if you have concerns or feel you are worsening. Seek re-evaluation at any point that you are having any difficulty breathing, feel your asthma is being exacerbated or the pneumonia is progressively worsening. Activity Level: Activity as Tolerated Prescriptions: New azithromycin 250 mg tablet 250 mg PO DAILY 4 Days Qty: 4 0RF Rx Instructions: next dose due 05/19/2023 cefdinir 300 mg capsule 300 mg PO BID Qty: 20 0RF No Action magnesium 1 tab PO DAILY albuterol sulfate 90 mcg/actuation HFA aerosol inhaler 2 puff inhalation Q6H PRN (Reason: shortness of breath or wheezing) Qty: 8.5 5RF fluticasone propionate [Flonase Allergy Relief] 50 mcg/actuation spray,suspension 2 spray intranasal QDAY Qty: 10 0RF Rx Instructions: administer into each nostril azithromycin 250 mg tablet See Rx Instructions PO .COMPLEX Qty: 6 0RF Rx Instructions: For 250 mg dose pack: take 500 mg today (day 1), then 250 mg for 4 days (days 2-5) PO gabapentin 300 mg capsule 300 mg PO QHS Qty: 90 3RF levothyroxine 100 mcg tablet 100 mcg PO DAILY Qty: 90 3RF celecoxib [Celebrex] 200 mg capsule 200 mg PO QDAY PRN (Reason: arthritic flares) Qty: 90 1RF amlodipine 5 mg tablet 5 mg PO QDAY Qty: 90 0RF Follow Up/Referrals: Salma Whitley MD [Primary Care Provider] - Stand Alone Forms: MyHealth Info Instructions
[2023-05-17 21:39] VITALS: TEMP 37.1
[2023-05-17 21:41] LABS: PCR FLU A Negative PCR FLU A (Negative); PCR FLU B Negative PCR FLU B (Negative); PCR RSV Negative PCR RSV (Negative); SARS PCR* Negative SARS-CoV-2 (Negative)
--- NOTE | 2023-05-17 21:45 | XR_ITS ---
Patient: LEILA VALERA Facility:?[facility] Patient ID:?[id number] Site Patient ID:?[id number]. Site :?1950 Study:?XRay-Chest 1V PORTABLE-05/17/2023 10:19:25 PM Ordering Physician:SHELLIE Final Report: Indication: Chest tightness, shortness of breath, nausea Technique: Single view of the chest Comparison: None Findings/Impression: Findings suspicious for heart failure/volume overload with mild pulmonary edema. Dictated by Marky Brizuela MD @ 05/17/2023 11:04:19 PM Signed by:?Marky Brizuela MD @05/17/2023 11:04:19 PM (Electronic Signature)
[2023-05-17 21:46] VITALS: O2SAT 96
[2023-05-17] MEDS: ACETAMINOPHEN 325 MG TABLET 650 MG PO (22:05)
[2023-05-17 22:19] LABS: Basophils Percent Auto 0.2 % (0.0-3.0); Eosinophils Percent Auto 0.2 % (0.0-7.0); Hematocrit 36.6 % (33.0-51.0); Hemoglobin* 12.1 gm/dL (12.0-16.0); Immature Granulocytes Pct Auto 0.1 %; Lymphocytes Percent Auto 4.4 % (20-44); Mean Corpuscular HGB Conc 33 gm/dL (32-36); Mean Corpuscular Hemoglobin 30 pg (26-34); Mean Corpuscular Volume 92 fL (80-100); Monocytes Percent Auto 4.8 % (0.0-11.0); Neutrophils Percent Auto 90.3 % (42.0-72.0); Platelet Count* 274 K/uL (140-440); RDW Coefficient of Variation % 12.7 % (11.5-15.5); White Blood Count* 15.53 K/uL (4.50-11.00)
[2023-05-17 22:23] LABS: Slide Review Reflex No
[2023-05-17 22:32] LABS: Chloride* 99 mmol/L (96-114); Sodium* 133 mmol/L (135-149)
[2023-05-17 22:35] LABS: Anion Gap 7 mEq/L (7-15); Blood Urea Nitrogen* 15 mg/dL (7-30); Calcium* 9.7 mg/dL (8.4-10.6); Carbon Dioxide* 27 mmol/L (20-32); Creatinine* 0.6 mg/dL (0.5-1.5); Est. Creatinine Clearance* 38.37; Estimated Glomerular Filt Rate 95 ml/min; Glucose* 120 mg/dL (60-115)
[2023-05-17 22:51] LABS: Procalcitonin* 0.19 ng/mL (<0.50)
--- NOTE | 2023-05-17 23:31 | CT_ITS ---
Patient: LEILA VALERA Facility:?[facility] Patient ID:?[id number] Site Patient ID:?[id number]. Site :?1950 Study:?CT-Chest W/O-05/17/2023 11:56:52 PM Ordering Physician:SILVIA Final Report: INDICATION: Shortness of breath, fever, asthma, history of pneumonia, elevated WBC. TECHNIQUE: CT chest without contrast. COMPARISON: Chest CT 12/07/2016. FINDINGS: Lungs and pleura: Patchy consolidation and tree-in-bud nodules within the left lower lobe. The remainder of lungs are clear. No pleural effusion or pneumothorax. Heart and vasculature: Heart size is normal. Thoracic aorta and pulmonary artery are normal in caliber. Lymph nodes/mediastinum: Mildly enlarged pretracheal lymph nodes. Chest wall: No masses. Upper abdomen: No significant findings. Small right renal cysts Bones: Partially imaged anterior cervical fusion hardware. Otherwise, unremarkable for age IMPRESSION: 1. Left lower lobe pneumonia. Recommend follow-up imaging after treatment to ensure resolution. 2. Mildly enlarged pretracheal lymph nodes, likely reactive. Please note that all CT scans at this facility use dose modulation, iterative reconstruction, and/or weight-based dosing when appropriate to reduce radiation dose to as low as reasonably achievable. Dictated by Wilber Edmondson MD @ 05/18/2023 12:19:28 AM Signed by:?Wilber Edmondson MD @05/18/2023 12:19:28 AM (Electronic Signature)
[2023-05-18 00:02] LABS: NT Pro B Type NatriureticPept* 216 pg/mL; Troponin I* < 0.01 ng/mL (0.01-0.04)
[2023-05-18] MEDS: AZITHROMYCIN 250 MG TABLET 500 MG PO (01:04)
[2023-05-18] MEDS: LIDOCAINE 1% 5 ml (pf) 5 ML VIAL 2.1 ML IM (01:05)
[2023-05-18] MEDS: cefTRIAXone 1 GM VIAL IM (01:05)
== END 2023-05-18 01:12 | disposition home or self-care (01) ==
PROVIDERS: Emergency Provider Family Medicine; PCP Internal Medicine
DX: J18.9 Pneumonia, unspecified organism (principal)
CPT/HCPCS: 36415; 71045; 71250; 80048; 83880; 84145; 84484; 85025; 87631; 93005; 94761; 96372; 99284; 99285; A9270; J0696

== ENCOUNTER 2023-06-06 16:45 | Outpatient (RCR) | payer MEDICARE, BC, SELFPAY | END 2023-08-22 10:26 | disposition home or self-care (01) | PROVIDERS: PCP Internal Medicine; Visit Provider Family Medicine | DX: M17.11 Unilateral primary osteoarthritis, right knee (principal); M76.01 Gluteal tendinitis, right hip; Z51.89 Encounter for other specified aftercare | CPT/HCPCS: 97110; 97161 ==

== ENCOUNTER 2023-09-26 10:45 | Outpatient (CLI) | payer MEDICARE, BC, SELFPAY ==
--- OUTSIDE RECORDS SUMMARY | 2023-09-26 10:49 | XMS_ITS | Referral Summary ---
Author Organization [facility] Address [address] [place] [address] Care Team Providers Care Shuttle Driver Name Role Phone Unavailable Primary Care Provider Unavailabl e Source Comments Patient records contain information from all sites at [facility]. For routine questions regarding patient records, call [phone] during business hours, M-F 8:00 AM - 5:00 PM Central Time. Record requests for emergency care only can be directed to [phone] at any time.[facility] Allergies Active Allergy Reactions Criticality Noted Date Comments Pollen Extracts Other (see comments) Medium 12/17/2016 Chronic Rhinitis Medications Medication Sig Dispensed Refills Start Date End Date Status melatonin 3 mg tablet Take 2 tablets by mouth at bedtime. 03/17/2015 Active levothyroxine (SYNTHROID, LEVOTHROID) 100 mcg tablet Take 100 mcg by mouth daily. 11/12/2016 Active glucosamine sulf dipotassium chloride-chondroiti n 500-400 mg per capsule Take 1 capsule by mouth daily. Active fluticasone propionate (FLONASE) 50 mcg/actuation nasal spray daily. 06/11/2021 Active fluticasone propion-salmeteroL (AIRDUO RESPICLICK) 232-14 mcg/actuation inhaler Inhale every 12 (twelve) hours. 04/20/2017 Active diphenhydrAMINE (BENADRYL) 25 mg capsule Take 25 mg by mouth as needed. Active cyanocobalamin, vitamin B-12, 1,000 mcg tablet extended release Take 1,000 mcg by mouth daily. Active albuterol 90 mcg/actuation inhaler Inhale 2 puffs as needed. Active acetaminophen (TYLENOL) 325 mg tablet Take 650 mg by mouth as needed. 04/13/2013 Active gabapentin (NEURONTIN) 300 mg capsule Take 300 mg by mouth at bedtime. Active cholecalciferol (D3-5000) 125 mcg (5,000 Unit) capsule Take 125 mcg by mouth daily. 12/12/2017 Active FLUTICASONE PROPIONATE NASAL Administer 2 sprays into nostril(s) as needed (Rhinintis). 08/26/2022 Active UNABLE TO FIND Take 675 each by mouth daily. Jujube Fruit 12/12/2017 Active MAGNESIUM MALATE, BULK, MISC Take 675 each by mouth daily. 12/12/2017 Active [id number] SH OIL ORAL Take 1 capsule by mouth daily. Active TURMERIC ORAL Take 720 mg by mouth daily. 12/12/2017 Active albuterol 2.5 mg /3 mL nebulizer solution Inhale 3 mL (2.5 mg total) by nebulization 4 (four) times a day as needed for wheezing or shortness of breath. 75 mL 5 01/19/2023 Active amLODIPine (NORVASC) 5 mg tabletIndications:H ypertension Essential Primary Take 1 tablet (5 mg total) by mouth daily. 30 tablet 01/19/2023 Active pantoprazole (PROTONIX) 40 mg EC tabletIndications:G astroesophageal Reflux Disease Without Esophagitis Take 1 tablet (40 mg total) by mouth every morning before breakfast. 30 tablet 2 01/19/2023 Active Active Problems Problem Noted Date Diagnosed Date Asthma NOS 04/14/2017 Pneumonia Bronchiolitis O[employer]iter[employer] Organizing Immunizations Name Administration Dates Next Due HZV (ZOSTAVAX) 02/15/2011 HepA Adult 01/13/2023(Deferred: Patient Refused - Pt. will receive later locally.),09/12/2006 HepB Adult 01/13/2023(Deferred: Patient Refused - Pt. reports up to date.),01/09/2007,09/12/2006 HepB, Unspecified 09/12/2006 Influenza high dose QV(65 ye ars or older) (PF) 01/13/2023(Deferred: Patient Refused - Refused.) PCV13 07/02/2016,06/18/2016 PPSV23 08/07/2021,07/08/2014 RSV: respiratory syncytial v irus (AREXVY) recombinant vaccine 12/11/2022 RZV (SHINGRIX) 01/13/2023(Deferred: Patient Refused - Pt. will receive later locally-Pt. unsure if done.),03/23/2022 SARS-COV-2 (COVID-19) - PFIZ ER (Discontinued)(12 years or older) 08/07/2021 Td (Adult), adsorbed 10/05/2005 Tdap 04/10/2015,02/04/2007 Social History Tobacco Use Types Packs/Day Years Used Date Smoking Tobacco: Never Passive Smoke Exposure: Past Smokeless Tobacco: Never Comments:Family smoked Alcohol Use Standard Drinks/Week Comments Yes 0 (1 standard drink = 0.6 oz pur e alcohol) Humiliation, Afraid, Rape, and Kick questionnair e Answer Date Recorded Within the last year, have y ou been afraid of your partner or ex-partner? No 10/07/2021 Within the last year, have y ou been humiliated or emotionally abused in other ways by your partner or ex-partner? No Within the last year, have y ou been kicked, hit, slapped, or otherwise physically hurt by your partner or ex-partner? No 10/07/2021 Within the last year, have y ou been raped or forced to have any kind of sexual activity by your partner or ex-partner? No 10/07/2021 Social Connection and Isolat ion Panel [NHANES] Answer Date Recorded In a typical week, how many times do you talk on the phone with family, friends, or neighbors? Twice a week 10/07/2021 How often do you get togethe r with friends or relatives? Three times a week 10/07/2021 How often do you attend chur ch or spiritism services? Never 10/07/2021 Do you belong to any clubs o r organizations such as rastafari groups, unions, fraternal or athletic groups, or school groups? Yes 10/07/2021 How often do you attend meet ings of the clubs or organizations you belong to? More than 4 times per year 10/07/2021 Are you , , di vorced, , never , or living with a partner? 10/07/2021 AUDIT-C Answer Date Recorded Q1: How often do you have a drink containing alc ohol? Monthly or less 10/07/2021 Q2: How many drinks containi ng alcohol do you have on a typical day when you are drinking? 1 or 2 10/07/2021 Q3: How often do you have si x or more drinks on one occasion? Never 10/07/2021 Overall Financial Resource Strain (CARDIA) Answe r Date Recorded How hard is it for you to pa y for the very basics like food, housing, medical care, and heating? Not very hard 01/11/2023 PHQ-2 Answer Date Recorded PHQ-2 Score 0 01/13/2023 [facility] - Occupational Stress Questionnaire Answer Date Recorded Do you feel stress - tense, restless, nervous, or anxious, or unable to sleep at night because your mind is troubled all the time - these days? Not at all 10/07/2021 Exercise Vital Sign Answer Date Recorde d On average, how many days pe r week do you engage in moderate to strenuous exercise (like a brisk walk)? 7 days 01/11/2023 On average, how many minutes do you engage in exercise at this level? 60 min 01/11/2023 Hunger Vital Sign Answer Date Recorded Within the past 12 months, y ou worried that your food would run out before you got the money to buy more. Never true 01/12/20 23 Within the past 12 months, t he food you bought just didn't last and you didn't have money to get more. Never true 01/11/2023 PRAPARE - Transportation Answer Date Re corded In the past 12 months, has l ack of transportation kept you from medical appointments or from getting medications? No 09/2022 In the past 12 months, has l ack of transportation kept you from meetings, work, or from getting things needed for daily living? No 01/11/2023 Nutrition Answer Date Recorded Nutrition: EVOO Fat Source No 01/11 On average, how many serving s of fruits and vegetables do you eat per day (serving size is equal to 1 cup or approximately the size of a tennis ball)? 3-5 01/11/2023 Dental Answer Date Recorded Dental: Regular Dentist No 10/08/19 Employment Answer Date Recorded Employment status Employed and actively working without restrictions 01/11/2023 Housing Stability Answer Date Recorded What is your living situation today? I have a [facility] place to live 01/11/2023 Education Answer Date Recorded What is the highest level of school you have completed or the highest degree you have received? Bachelor's degree (e.g., BA, AB, BS) 10/07/2021 Sex and Gender Information Value Date Recorded Sex Assigned at Female 06/26/2021 11:13 AM CDT Gender Identity Female 06/26/2021 11:13 AM CDT Sexual Orientation Straight 06/26/2021 11 :13 AM CDT Last Filed Vital Signs Vital Sign Reading Time Taken Comments Blood Pressure 158/86 01/19/2023 3:28 PM SMALL ANIMAL CARETAKER Average of 5 Pulse 64 01/19/2023 3:28 PM SMALL ANIMAL CARETAKER Temperature - - Respiratory Rate 16 01/13/2017 8:39 AM SMALL ANIMAL CARETAKER Oxygen Saturation 95% 01/19/2023 1:1 8 PM SMALL ANIMAL CARETAKER Inhaled Oxygen Concentration - - Weight 59.1 kg (130 lb 4.7 oz) 01/14/20 9:13 AM SMALL ANIMAL CARETAKER Height 153.6 cm (5' 0.47) 01/13/2023 9 :13 AM SMALL ANIMAL CARETAKER Body Mass Index 25.05 01/13/2023 9:13 AM SMALL ANIMAL CARETAKER Plan of Treatment Not on file Medical Devices Implanted Type Area Hack Driver Device Identifier Shelf Expiration Date Model / Serial / Lot Trimed-Plate Ulnar Dorsal 5 Hole - Garza [id number] Implanted:Qty: 1 on 04/25/2009 Hardware e.g. pins/screws/ rods [employer] Description:Device Manufactu rer - [employer].. Device Status Text - [id number]. Trimed-Screw Juliano 3.2 X 14mm - Garza [id number] Implanted:Qty: 1 on 04/25/2009 Hardware e.g. pins/screws/ rods [employer] Description:Device Manufactu rer - [employer].. Device Status Text - [id number]. Trimed-Screw Cortical Lp 2.3 X 12 - Garza [id number] Implanted:Qty: 2 on 04/25/2009 Hardware e.g. pins/screws/ rods [employer] Description:Device Manufactu rer - [employer].. Device Status Text - [id number]. Trimed K-Wire .045 - Garza [id number] Implanted:Qty: 6 on 04/25/2009 Hardware e.g. pins/screws/ rods [employer] Description:Device Manufactu rer - [employer].. Device Status Text - HARDWARE-33189. Trimed-Screw Volar Peg Unthread 14mm - Garza [id number] Implanted:Qty: 1 on 04/25/2009 Hardware e.g. pins/screws/ rods [employer] Description:Device Manufactu rer - [employer].. Device Status Text - HARDWARE-608991. Trimed-Screw Volar Peg Thrded 14mm - Garza [id number] Implanted:Qty: 1 on 04/25/2009 Hardware e.g. pins/screws/ rods [employer] Description:Device Manufactu rer - [employer].. Device Status Text - [id number]. Trimed-Screw Volar Peg Unthread 18mm - Garza [id number] Implanted:Qty: 2 on 04/25/2009 Hardware e.g. pins/screws/ rods [employer] Description:Device Manufactu rer - [employer].. Device Status Text - [id number]. Trimed-Plate Volar Peg Rt 3ho 6peg - Garza [id number] Implanted:Qty: 1 on 04/25/2009 Hardware e.g. pins/screws/ rods [employer] Description:Device Manufactu rer - [employer].. Device Status Text - HARDWARE-22670. Trimed-Screw Volar Peg Unthread 20mm - Garza [id number] Implanted:Qty: 1 on 04/25/2009 Hardware e.g. pins/screws/ rods [employer] Description:Device Manufactu rer - [employer].. Device Status Text - HARDWARE-[id number]. Trimed-Screw Juliano 3.2 X 12mm - Garza [id number] Implanted:Qty: 1 on 04/25/2009 Hardware e.g. pins/screws/ rods [employer] Description:Device Manufactu rer - [employer].. Device Status Text - [id number]. K-Wire-Ss 4 Smooth .062 - Garza [id number] Implanted:Qty: 1 on 04/25/2009 Hardware e.g. pins/screws/ rods Thong Description:Device Manufactu rer - Thong Gordon.. Device Status Text - HARDWARE-871. Conversions - Default Historical Implant Device Implanted:06/06 (Quantity not on file) Hardware e.g. pins/screws/ rods Right: Leg Description:Body Location - LowExtrm R. LowExtrm R. LowExtrm R. Device Status Text - Hardware. Conversions - Default Historical Implant Device Implanted:Qty: 5 on 10/01/2016 Hardware e.g. pins/screws/ rods Neck Description:Body Location - Neck Mid. C-6 and C-7. Device Status Text - Hardware. K-Wire 1.25mm X 150mm - Garza [id number] Implanted:Qty: 1 on 11/30/2016 Hardware e.g. pins/screws/ rods [employer]ynthes Description:Device Manufactu rer - Synthe[employer]. Device Status Text - [id number]. Kwire Ss 4 .035 - Garza [id number] Implanted:Qty: 1 on 11/30/2016 Hardware e.g. pins/screws/ rods [place] Description:Device Manufactu rer - Thong Gordon.. Device Status Text - [id number]. Block Olga. Phonoform [facility] Rt - Garza [id number] Implanted:Qty: 1 on 11/10/2016 Misc Prosthesis Other/Legacy - See Implant Description Medtronic Description:Device Manufactu rer - [employer]. Body Location - Other. Right. Device Status Text - [facility] [id number]. Procedures Procedure Name Priority Date/Time Associated Diagnosis Comments HEMOGLOBIN A1C, B Routine 01/13/2023 12: 00 PM SMALL ANIMAL CARETAKER Peripheral Nerve Disorder THYROID FUNCTION CASCADE, S Routine 01/13/2023 12:00 PM SMALL ANIMAL CARETAKER Peripheral Nerve Disorder OUTSIDE MG MAMMOGRAM Routine 12/21/2022 1:00 PM CDT COLOGUARD Routine 11/01/2016 5:43 AM CDT from Last 3 Months or Most Recently Relevant to Health Maintenance Results * Thyroid Function Gem (01/13/2023 12:00 PM SMALL ANIMAL CARETAKER) TSH, Sensitive 3.8 0.3 - 4.2 mIU/L 01/13/2023 1:11 PM SMALL ANIMAL CARETAKER DTL Blood (Blood, Venous) 01/13/2023 12:00 PM SMALL ANIMAL CARETAKER 01/13/2023 12:38 PM SMALL ANIMAL CARETAKER Elizabeth Angel M.D. LAB BLOOD ADD-O N Performing Organization Address [facility] Co de Phone Number [facility] [address] [place] [address], [facility] [address] [place] [address] * Hemoglobin A1c (01/13/2023 12:00 PM SMALL ANIMAL CARETAKER) [facility] Hemoglobin A1c, B 5.4 4.0 - 5.6 % 01/13/2023 12:57 PM SMALL ANIMAL CARETAKER DTL Blood (Blood, Venous) 01/13/2023 12:00 PM SMALL ANIMAL CARETAKER 01/13/2023 12:25 PM SMALL ANIMAL CARETAKER Elizabeth Angel M.D. LAB BLOOD ADD-O N Performing Organization Address [facility] de Phone Number [facility] [address] [place] [address], [facility] [address] [place] [address] * MM screening mammo BI-Outside Mammogram (12/21/2022 1:00 PM CDT) Narrative IIMS - 01/10/2023 9:59 PM SMALL ANIMAL CARETAKER This order has been created and auto-finalized to support the import of outside images. If available, original interpretation can be found on the Media Tab in Chart Review, in Document Viewer, or as an image in QREADS. If a re-interpretation or overread is required please follow defined workflow. ?? Provider Not In System IMG BI PROCEDURES Performing Organization Address City/[facility]/ZIP Co de Phone Number IIIN NA * Cologuard (11/01/2016 5:43 AM CDT) Cologuard Negative [facility] Comment: Test ? Result ?Flag ??Unit ??RefValue Cologuard Result ? Negative ?Not Applicable A negative result indicates a lower likelihood that colorectal cancer (CRC) or advanced adenoma (pre-cancer) is present. Periodic colorectal cancer screening is recommended at an interval, and with a method appropriate for the patient. Test Type: Composite algorithmic analysis of stool DNA-biomarkers with hemoglobin immunoassay. ?? Quantitative values of individual biomarkers are not reportable and are not associated with individual biomarker result reference ranges. Precautions and Limitations: Cologuard is intended for colorectal cancer screening of adults of either sex, 50 years or older, who are at typical average-risk for colorectal cancer. A negative Cologuard test result does not guarantee the absence of colorectal cancer or advanced adenoma (pre-cancer). Patients with a negative Cologuard test result should be advised to continue participating in a colorectal cancer screening program. Cologuard may produce a positive result, even though a colonoscopy may not find colorectal cancer or precancerous polyps. The performance of Cologuard has been established in a cross sectional study (i.e., single point in time). Performance has not been evaluated in adults who have been previously tested with Cologuard or in patients less than 50 years of age. Cologuard has been approved for use by the [place] FDA. Cologuard performance data in a 10,000 patient pivotal study using colonoscopy as the reference method can be accessed at the following location: [email or web address]/results. Additional description of the Cologuard test process, warnings and precautions can be found at [email or web address]. Rx Only. 11/01/2016 5:43 AM CDT 11/01/2016 5:43 AM CDT Radha Parra M.D. LAB BODY FLUIDS AND STOOLS ORDERABLES [facility] [address] [place] [address], [facility] from Last 3 Months or Most Recently Relevant to Health Maintenance Administered Medications
--- OUTSIDE RECORDS SUMMARY | 2023-09-26 10:49 | XMS_ITS | Clinical Summary ---
Author Organization [facility] Address [address] [place] [address] Care Team Providers Care Mac Developer Name Role Phone Unavailable Primary Care Provider Unavailabl e Source Comments Patient records contain information from all sites at [facility]. For routine questions regarding patient records, call [phone] during business hours, M-F 8:00 AM - 5:00 PM Central Time. Record requests for emergency care only can be directed to [phone] at any time.[facility] Allergies Active Allergy Reactions Criticality Noted Date [...] 675 each by mouth daily. 12/12/2017 Active [id number] SH OIL ORAL Take 1 capsule by [...] 08/07/2021 Td (Adult), adsorbed 10/05/2005 Tdap 04/10/2015,02/04/2007 Family History Medical History Relation Name Comments Alcohol abuse Brother Gregory Garnett Diabetes Brother Gregory Garnett Hypertension Brother Gregory Garnett Kidney disease Brother Gregory Garnett Obesity Brother Gregory Garnett Sleep apnea Brother Gregory Garnett Alcohol abuse Father Stephan Garnett Depression Father Stephan Garnett Lung cancer Father Stephan Garnett Tuberculosis Maternal Grandmother Brittany Avila Alcohol abuse Mother Samanta Garnett Depression Mother Samanta Garnett Diabetes Mother Samanta Garnett Hypertension Mother Samanta Garnett Other cancer Mother Samanta Garnett Cervical cancer, successful treatment Thyroid disease Mother Samanta Garnett Relation Name Status Comments Brother Gregory Garnett Father Stephan Garnett Maternal Grandmother Brittany Avila Mother Samanta Garnett Social History Tobacco Use Types Packs/Day Years [...] 10/07/2021 How often do you attend chur or judaism services? Never 10/07/2021 Do you belong to any clubs o r organizations such as scientology groups, unions, fraternal or [...] Answer Date Recorded PHQ-2 Score 0 01/13/2023 [facility] - Occupational Stress [...] money to buy more. Never true 01/12/20 Within the past 12 months, t he [...] Comments Blood Pressure 158/86 01/19/2023 3:28 PM DOPER Average of 5 Pulse 64 01/19/2023 3:28 PM DOPER Temperature - - Respiratory Rate 16 01/13/2017 8:39 AM DOPER Oxygen Saturation 95% 01/19/2023 1:1 8 PM DOPER Inhaled Oxygen Concentration - - Weight 59.1 kg (130 lb 4.7 oz) 01/14/20 9:13 AM DOPER Height 153.6 cm (5' 0.47) 01/13/2023 9 :13 AM DOPER Body Mass Index 25.05 01/13/2023 9:13 AM DOPER Plan of Treatment Health Maintenance Due Date Last Done Comments CT Colonography 1950 Colonoscopy 1950 FIT 1950 Hepatitis C Screening 1950 Hepatitis A Vaccines (2 of 2 - Risk 2-dose series) 03/15/2007 09/12/2006 Hepatitis B Vaccines (3 of 3 - 19+ 3-dose series) 03/15/2007 01/09/2007, 09/12/2006, 09/12/2006 Zoster Vaccines (3 of 3) 05/18/2022 03/23/2022, 02/04 Depression Screening (Annual PHQ-2) 03/07/2023 Fall Risk Screen (Annual) 03/07/2023 COVID-19 Vaccine (8 - 2022-2 4 season) 2023 12/11/2022, 12/06/2021, 08/07/2021, Additional history exists Influenza Vaccine (#1) 2023 Cologuard 12/11/2023 12/10/2020, 11/01/2016 Colorectal Cancer Screening 12/11/2023 Mammogram 12/22/2023 12/21/2022, 12/05, 12/10/2021, Additional history exists Thyroid Stimulating Hormone (TSH) test for thyroid function 01/14/2024 01/13/2023, 10/01/2016 DTaP,Tdap,and Td Vaccines (3 - Td or Tdap) 04/10/2025 04/10/2015, 02/04/2007, 10/05/2005 Fasting Glucose for Diabetes Screening 01/13/2026 01/13/2023, 01/13/2023, 01/13/2021, Additional history exists Pneumococcal vaccine (65+ years) Completed 08/07/2021, 07/02/2016, 06/18/2016, Additional history exists RSV vaccine - (32-3 6 weeks) or 60+ years Completed 12/11/2022 Medical Devices Implanted Type Area Clinical Associate Device Identifier Shelf Expiration Date Model / Serial / Lot Trimed-Plate Ulnar Dorsal 5 Hole - [id number] Implanted:Qty: 1 on 04/25/2009 Hardware e.g. pins/screws/ rods TriMed Inc Description:Device Manufactu rer - [employer] Device Status Text - [id number]. Trimed-Screw Juliano 3.2 X 14mm - Garza [id number] Implanted:Qty: 1 on 04/25/2009 Hardware e.g. pins/screws/ rods [employer] Description:Device Manufactu rer - Trimed Inc.. Device Status Text - [id number]. Trimed-Screw Cortical Lp 2.3 X 12 - Garza [id number] Implanted:Qty: 2 on 04/25/2009 Hardware e.g. pins/screws/ rods [employer] Description:Device Manufactu rer - Trimed Inc.. Device Status Text - [id number]. Trimed K-Wire .045 - Garza [id number] Implanted:Qty: 6 on 04/25/2009 Hardware e.g. pins/screws/ rods [employer] Description:Device Manufactu rer - Trimed Inc.. Device Status Text - HARDWARE-90132. Trimed-Screw Volar Peg Unthread 14mm - Garza [id number] Implanted:Qty: 1 on 04/25/2009 Hardware e.g. pins/screws/ rods [employer] Description:Device Manufactu rer - Trimed Inc.. Device Status Text - [id number]. Trimed-Screw Volar Peg Thrded 14mm - Garza [id number] Implanted:Qty: 1 on 04/25/2009 Hardware e.g. pins/screws/ rods [employer] Description:Device Manufactu rer - Trimed Inc.. Device Status Text - [id number]. Trimed-Screw Volar Peg Unthread 18mm - Garza [id number] Implanted:Qty: 2 on 04/25/2009 Hardware e.g. pins/screws/ rods [employer] Description:Device Manufactu rer - Trimed Inc.. Device Status Text - [id number]. Trimed-Plate Volar Peg Rt 3ho 6peg - Garza [id number] Implanted:Qty: 1 on 04/25/2009 Hardware e.g. pins/screws/ rods [employer] Description:Device Manufactu rer - Trimed Inc.. Device Status Text - HARDWARE-95863. Trimed-Screw Volar Peg Unthread 20mm - Garza [id number] Implanted:Qty: 1 on 04/25/2009 Hardware e.g. pins/screws/ rods [employer] Description:Device Manufactu rer - Trimed Inc.. Device Status Text - [id number]. Trimed-Screw Juliano 3.2 X 12mm - Garza [id number] Implanted:Qty: 1 on 04/25/2009 Hardware e.g. pins/screws/ rods [employer] Description:Device Manufactu rer - Trimed Inc.. Device Status Text - [id number]. K-Wire-Ss 4 Smooth .062 - Garza [id number] Implanted:Qty: 1 on 04/25/2009 Hardware e.g. pins/screws/ rods [place] Description:Device Manufactu rer - Thong Gordon.. Device [...] Hardware. K-Wire 1.25mm X 150mm - Garza [id number] Implanted:Qty: 1 on 11/30/2016 Hardware e.g. pins/screws/ rods Depuy Synthes Description:Device Manufactu rer - Synthes. Device Status Text - [id number]. Kwire Ss 4 .035 - Garza [id number] Implanted:Qty: 1 on 11/30/2016 Hardware e.g. pins/screws/ rods Thong Description:Device Manufactu rer - Thong Gordon.. Device Status Text - [id number]. Block Olga. Phonoform [facility] Rt - Garza [id number] Implanted:Qty: 1 on 11/10/2016 Misc Prosthesis Other/Legacy - See Implant Description Medtronic Description:Device Manufactu rer - [employer] Inc. Body Location - Other. Right. Device Status Text - [facility] [id number]. Procedures Procedure Name Priority Date/Time Associated Diagnosis Comments HEMOGLOBIN A1C, B Routine 01/13/2023 12: 00 PM DOPER Peripheral Nerve Disorder THYROID FUNCTION CASCADE, S Routine 01/13/2023 12:00 PM DOPER Peripheral Nerve Disorder OUTSIDE MG MAMMOGRAM Routine 12/21/2022 1:00 PM CDT COLOGUARD Routine 11/01/2016 5:43 AM CDT from Last 3 Months or Most Recently Relevant to Health Maintenance Results * Thyroid Function Kirby (01/13/2023 12:00 PM DOPER) TSH, Sensitive 3.8 0.3 - 4.2 mIU/L 01/13/2023 1:11 PM DOPER DTL Blood (Blood, Venous) 01/13/2023 12:00 PM DOPER 01/13/2023 12:38 PM DOPER Elizabeth Angel M.D. LAB BLOOD ADD-O N [facility] [address] [place] [address], [facility] [address] [place] [address] * Hemoglobin A1c (01/13/2023 12:00 PM DOPER) Hemoglobin A1c, B 5.4 4.0 - 5.6 % 01/13/2023 12:57 PM DOPER DTL Blood (Blood, Venous) 01/13/2023 12:00 PM DOPER 01/13/2023 12:25 PM DOPER Elizabeth Angel M.D. LAB BLOOD ADD-O N [facility] [address] [place] [address], [facility] [address] [place] [address] * MM screening mammo BI-Outside Mammogram (12/21/2022 1:00 PM CDT) Narrative IIMS - 01/10/2023 9:59 PM DOPER This order has been created and auto-finalized to support the import of outside images. If available, original interpretation can be found on the Media Tab in Chart Review, in Document Viewer, or as an image in QREADS. If a re-interpretation or overread is required please follow defined workflow. ?? Provider Not In System IMG BI PROCEDURES IIMS NA * Cologuard (11/01/2016 5:43 AM CDT) Cologuard Negative [facility] Comment: Test ? Result ?Flag ??Unit ??RefValue [...] can be accessed at the following location: [email or web address]. Additional description of the Cologuard test process, warnings and precautions can be found at [email or web address]. Rx Only. 11/01/2016 5:43 AM CDT 11/01/2016 5:43 AM CDT Radha Parra M.D. LAB BODY FLUIDS AND STOOLS ORDERABLES Performing Organization Address City/State/[facility] Co de Phone Number [facility] [address] [id number], [facility] from Last 3 Months or Most Recently Relevant to Health Maintenance
--- OUTSIDE RECORDS SUMMARY | 2023-09-26 10:49 | XMS_ITS | Clinical Summary ---
Author Organization [facility] Address [place], [place] [address] Care Team Providers Care Conservation Policy Analyst Name Role Phone Salma Whitley MD Primary Care Provider [phone] Allergies No known active allergies Medications Medication Sig Dispensed Refills Start Date End Date Status acetaminophen (TYLENOL) 325 mg tablet Take 2 tablets by mouth every 4 hours if needed. Max acetaminophen dose: 4000mg in 24 hrs. 0 04/13/2013 Active melatonin 3 mg tablet Take 2 tablets by mouth at bedtime. 0 03/17/2015 Active LACTOBACILLUS ACIDOPHILUS (PROBIOTIC ORAL) Take by mouth once daily. Active levothyroxine (SYNTHROID) 100 mcg tablet Take 100 mcg by mouth once daily. 03/06/2017 Active ondansetron (ZOFRAN) 4 mg tablet PRN 11/10/2016 Active diphenhydrAMINE (BENADRYL) 25 mg capsule Take 25 mg by mouth at bedtime if needed. Active albuterol (PROAIR RESPICLICK) 90 mcg/actuation INHALER Inhale by mouth every 4 hours. Active albuterol HFA 90 mcg/actuation inhaler Inhale 2 Puffs by mouth every 4 hours if needed. Active durable medical equipment (DME)Indications:Ch ronic pain of right knee,Patellar instability of right knee DonJoy Lateral J knee brace for patellar support, Right, Medium [id number] Length of Use: 99 months 0 08/21/2020 Active fluticasone (50 mcg per actuation) nasal solution (FLONASE) once daily. 06/11/2021 Active MAGNESIUM ORAL Take by mouth. Active glucosamine-chondro itin 500-400 mg Take by mouth. Activ e budesonide (PULMICORT RESPULES) 0.5 mg/2 mL neb suspension Inhale 0.5 mg into affected nostril(s). 11/17/2021 Active gabapentin (NEURONTIN) 300 mg capsuleIndications: Cervical radiculopathy Take 1 Capsule (300 mg) by mouth at bedtime. 30 Capsule 3 11/19/2021 Active doxycycline (VIBRAMYCIN) 100 mg tabletIndications:C ough, unspecified type Take 1 Tablet (100 mg) by mouth two times daily. 20 Tablet 01/29/2022 Active predniSONE (DELTASONE) 20 mg tabletIndications:A sthma with acute exacerbation, unspecified asthma severity, unspecified whether persistent Take 2 Tablets (40 mg) by mouth once daily with a meal. 10 Tablet 01/29/2022 Active amLODIPine (NORVASC) 5 mg tablet Take 5 mg by mouth. 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 05/02/2013 Cervical spine degeneration 04/13/2013 Cervical radicular pain 04/13/2013 DDD (degenerative disc disease), cervical 2013 Immunizations Name Administration Dates Next Due Pneumococcal conj 13-Valent (Prevnar 13) 017 Social History Tobacco Use Types Packs/Day Years Used Date Smoking Tobacco: Never Smokeless Tobacco: Never Tobacco Cessation:Counseling Given: Yes Alcohol Use Standard Drinks/Week Comments Yes 0 (1 standard drink = 0.6 oz pur e alcohol) occas, wine Social Connections Answer Date Recorded Frequency of Communication with Friends and Fami ly Not on file 03/07/2021 Financial Resource Strain Answer Date R ecorded Difficulty of Paying Living Expenses Not on file 03/07/2021 Difficulty of Paying Living Expenses Not on file 03/07/2021 Sex and Gender Information Value Date Recorded Sex Assigned at Not on file Gender Identity Not on file Sexual Orientation Not on file Obstetrics History Last Filed Vital Signs Vital Sign Reading Time Taken Comments Blood Pressure 179/74 04/08/2023 7:51 AM FACEPIECE LINE SUPERVISOR Pulse 59 04/08/2023 7:50 AM FACEPIECE LINE SUPERVISOR Temperature 36.8 ??C (98.2 ??F) 04/04/2023 8:49 AM CS T Respiratory Rate 19 01/29/2022 4:54 PM FACEPIECE LINE SUPERVISOR Oxygen Saturation 100% 04/08/2023 7:50 AM FACEPIECE LINE SUPERVISOR Inhaled Oxygen Concentration - - Weight 51.7 kg (114 lb) 10/03/2018 6:16 AM CDT Height 154.9 cm (5' 0.98) 10/03/2018 6:16 AM CD T Body Mass Index 21.55 10/03/2018 6:16 AM CDT Plan of Treatment Health Maintenance Due Date Last Done Comments Tdap 1961 Depression screening for age 12+ 1962 BMI (ht and wt on same day) for age 18+ 1968 Hepatitis C screening for ag e 18-79 1968 Tetanus booster 1970 Colonoscopy through age 75 08/17/1995 Lipids for age 45-75 08/17/1995 Mammogram for age 45-75 08/17/1995 Zoster (shingles) series for age 50+ (1 of 2) 2000 DEXA/DXA scan for age 65+ 08/17/2015 Medicare Wellness for age 65+ 08/17/2015 Pneumococcal series for age 65+ (2 of 2 - PPSV23 or PCV20) 06/18/2017 06/18/2016 COVID-19 vaccine series ( season) 2023 12/11/2022, 12/06/2021, 08/07/2021, Additional history exists Influenza for age 65+ 11/06/2023 Medical Devices Implanted Type Area Ending Machine Operator Device Identifier Shelf Expiration Date Model / Serial / Lot [id number] .[id number] Implanted:Qty: 1 on 05/02/2013 at [facility] Explanted:at [facility] (Quantity not on file) Spine Musculoskeletal Transplant 01/02/2015 [id number] / [id number] / Description:DBX PUTTY 0.5CC [id number] 0bone Cerv 6mm 4deg W/Plug [[id number]] Implanted:Qty: 1 on 05/02/2013 at [facility] Spine [employer] Spine 12/04/2017 [id number]# / [id number] / Plate Cerv Ant 12mm One Level - [id number] Implanted:Qty: 1 on 05/02/2013 at [facility] N/A: Spine [employer] Spine [id number]# / / Screw 4.58y19vs Slf Tppng Va - [id number] Implanted:Qty: 1 on 05/02/2013 at [facility] N/A: Spine Thong Spine [id number]# / / Screw 4.0x14mm Slf Drilling Va - [id number] Implanted:Qty: 3 on 05/02/2013 at [facility] N/A: Spine [employer] Spine [id number]# / / Screw Bone 2.5x16mm Mini Headed - [id number] Implanted:Qty: 1 on 10/03/2018 by Venkata Cameron DPM at [facility] Left: Foot [employer] [id number]# / / Screw Bone 2.5x18mm Mini Headed - [id number] Implanted:Qty: 1 on 10/03/2018 by Venkata Cameron DPM at [facility] Left: Foot Thong Orthopaedics [id number]# / / K-Wire 3.0mm H[place]ckley Non-Thrd - [id number] Implanted:Qty: 1 on 10/03/2018 by Venkata Cameron DPM at [facility] Left: Foot Thong Orthopaedics [id number]# / / Explanted Type Area Ending Machine Operator Device Identifier Shelf Expiration Date Model / Serial / Lot K-Wire 2.5mm Hinckley Non-Thrd - [id number] Explanted:Qty: 2 on 10/03/2018 by Venkata Cameron DPM at [facility] Left: Foot [employer] [id number] / / Advance Directives * Full Code (Latest Code Status on File) Date Activated Date Inactivated Comments 10/03/2018 5:45 AM 10/03/2018 6:35 AM * Full Code Date Activated Date Inactivated Comments 05/02/2013 11:57 AM 05/03/2013 1:29 PM * Full Code Date Activated Date Inactivated Comments 05/02/2013 11:51 AM 05/02/2013 11:57 AM Care Teams Conservation Policy Analyst Relationship Specialty Start Date End Date Salma Whitley MD [address] [place] [address] PCP - General Internal Medicine 04/30/13
--- OUTSIDE RECORDS SUMMARY | 2023-09-26 10:49 | XMS_ITS | Continuity of Care Document ---
Author Organization [facility] Address [address] [place] [address] Phone Care Team Providers Care Social Services Coordinator Name Role Phone Anupam Rich MD Unavailable Unavailable Allergies, Adverse Reactions, Alerts Substance Reaction Status Criticality azithromycin Active No Information Medications Medication Instructions Dosage Effective Dates (start - stop) Status Comments LEVOTHYROXINE SODIUM (unknown strength) Not Available - Active GABAPENTIN (unknown strength) Not Available - Active TYLENOL (unknown strength) Not Available - Active Procedures Procedure Date Office/Outpatient Visit,Est, Mod 2013 X-Ray Exam Of Neck Spine2-3 Views Postop Followup Visit X-Ray Exam Of Neck Spine2-3 Views Neck Spine Fuse & Removal Addl 14 Insert Spine Fix Dev, Ant, 2-3 Seg Allograft, Spine Surg, Structural Pa Neck Spine Fuse & Removal Addl Pa Assist Insert Spine Fix Dev, Ant, 2-3 Seg Office/Outpatient Visit,Est, Mod 2013 Office/Outpatient Visit,New, Mod 2013 Advance Directives Directive Yes / No Effective Date File Name No Information Encounters Encounter Description Practice Location Reason(s) For Visit Diagnoses Date Provider Providers Copied on Encounter [facility], [address], [place], [place], [id number], [place] tel:[phone] [facility] No Information 6 Layla Bo. [facility], [address], [facility] [address], [place], [place], [id number], [place]. tel:[phone] Office/Outpa tient Visit,Est, Mod Z [facility], [address], [place], [address], [place] tel:[phone] IVAN Janey Turner Cervicalgia 4 Mehbod Amir. [facility], [address] [place] [address] [address], [place], [place], [id number], [place]. tel:[phone] Referring Provider: [facility] Cuello, [facility] [address], [place], [address]. tel:[phone] Z [facility], [address] [place], [place] [address], [place], [place], [facility], [place] tel:[phone] JOE Turner No Information 4 Mehbod Amir. [facility] [place], [address] [place] [address] [address], [place], [place], [id number], [place]. tel:[phone] Referring Provider: Carlos Cuello, [facility] [address], [place], [address]. tel:[phone] Z [facility], [address] [place], [place] [address], [place], [address], [place] tel:[phone] IVAN Janey Turner ARTHRODESIS STATUS 4 Mehbod Amir. [facility] [place], [address] [place] [address] [address], [place], [place], [id number], [place]. tel:[phone] Z [facility], [address] [place], [place] [address], [place], [address], [place] tel:[phone] [facility] No Information 4 Mehbod Amir. [facility] [place], [address] [place] [address] [address], [place], [place], [id number], [place]. tel:[phone] Referring Provider: Carlos Cuello, [facility] [address], [place], [address]. tel:[phone] Office/Outpa tient Visit,Est, Mod Z [facility], [address] [facility] [address], [place], [place], [facility], tel:[phone] [facility] CERVICALGIA Apr-2 4-201 4 Mehbod Amir. [facility], [address], [place], [place], [id number], . tel:[phone] Referring Provider: Carlos Cuello, [facility], [place], [address]. tel:[phone] Office/Outpa tient Visit,New, Mod Z [facility], [address] [place], [place] [address] [address], [place], [place], [facility], tel:[phone] IVAN - Yue No Information 0 4 Transfeldt Ensor. [facility] [place], [address] [place] [address], [address], [id number], . tel:[phone] Referring Provider: Carlos Cuello, [facility] [address] [facility], [place], [address]. tel:[phone] Family History Family Member Type Diagnosis Age At Onset No Information Payers Payer name Insurance type Covered republican ID Authoriza tion(s) No Information Social History Type Description Quantity Date Captured Comments Sex Female Smoking Status No Information Chief Complaint And Reason For Visit No Information Reason For Referral Reason For Referral No Information Plan Of Treatment Date Type Action Status Future Order: Radiology Order AP Lateral Cervical (APlatcerv), Ordered on: Ordered Future Order: Radiology Order AP Lateral Cervical (APlatcerv), Ordered on: Ordered History Of Present Illness Encounter Date Complaint History Of Prese nt Illness No Information Functional Status Date Functional Assessmen t No Information Instructions Date Instruction Additional Infor mation No Information Assessments Type Assessment Date No Information Patient Care Teams Name Effective Dates (start - stop) Status Members No Information
--- OUTSIDE RECORDS SUMMARY | 2023-09-26 10:49 | XMS_ITS ---
Author Organization [facility] Address [address] [place] [address] Care Team Providers Care Physician Assistant Name Role Phone Unavailable Unavailable Unavailable Surgery Details Not on file Complications Check Surgery Details section. Procedure Estimated Blood Loss Check Surgery Details section. Procedure Findings Check Surgery Details section. Procedure Specimens Taken Check Surgery Details section.
== END 2023-09-26 10:46 | disposition home or self-care (01) ==
PROVIDERS: PCP Internal Medicine; Visit Provider Internal Medicine
DX: I10 Essential (primary) hypertension (principal)
CPT/HCPCS: 80048

== ENCOUNTER 2024-02-04 09:45 | Emergency (ER) | payer MEDICARE, BC, SELFPAY ==
[2024-02-04 09:49] VITALS: BP 171/67; PULSE 72; RESP 18; TEMP 36.2; O2SAT 98; BMI 22.3
--- NOTE | 2024-02-04 09:55 | ED_ITS ---
HPI - Chest Pain General Time Seen by Provider: 09:55 Date Seen: 02/04/24 Chief Complaint: Chest Pain Stated Complaint: having chest pain for last half hour Time Seen by Provider: 02/04/24 09:49 Source: patient, RN notes reviewed and old records reviewed Mode of arrival: ambulatory Limitations: no limitations History of Present Illness HPI narrative: 73-year-old female with history of reflux, hypertension, sleep apnea who presents today with chest pain which started about 30 minutes prior to coming the emergency department. She describes pinpoint tenderness of the left chest which is constant worse with breathing. Denies cough, shortness of breath, radiation of the pain into the neck although says it does going to the left arm occasionally, no nausea or vomiting. Has not taken anything for her pain. No recent travel. No fever. Related Data Home Medications ?Medication ?Instructions ?Recorded ?Confirmed magnesium 1 tab PO DAILY 07/13/22 12/13/23 fluticasone propionate 50 2 spray intranasal QDAY PRN 05/24/23 12/13/23 mcg/actuation nasal spray,suspension (Flonase Allergy Relief) cholecalciferol (vitamin D3) 10 10 mcg PO QDAY 12/13/23 12/13/23 mcg (400 unit) capsule gabapentin 300 mg capsule 300 mg PO QHS PRN 12/13/23 pantoprazole 40 mg tablet,delayed 40 mg PO DAILY 12/13/23 12/13/23 release sodium chloride 3 % for ml inhalation 12/13/23 12/13/23 nebulization Previous Rx's ?Medication ?Instructions ?Recorded albuterol sulfate 90 mcg/actuation 2 puff inhalation Q6H PRN 04/20/22 aerosol inhaler shortness of breath or wheezing #8.5 grams celecoxib 200 mg capsule (Celebrex) 200 mg PO QDAY PRN arthritic 02/15/23 flares #90 caps valsartan 160 mg tablet 160 mg PO QDAY #90 tabs 09/26/23 levothyroxine 100 mcg tablet 100 mcg PO DAILY #90 tabs 01/31/24 Allergies Allergy/AdvReac Type Severity Reaction Status Date / Time No Known Drug Allergies Allergy Verified 12/13/23 15:03 [facility] Medical History History of peptic ulcer (2017) ?Z87.11 - Personal history of peptic ulcer disease (ICD-10) History of fracture of ankle (04/06/07) ?Z87.81 - Personal history of (healed) traumatic fracture (ICD-10) Surgical History S/P hardware removal (09/28/07) ?Z98.890 - Other specified postprocedural states (ICD-10) S/P ORIF (open reduction internal fixation) fracture (04/06/07) ?Z98.890 - Other specified postprocedural states (ICD-10) ?Z87.81 - Personal history of (healed) traumatic fracture (ICD-10) History of thyroplasty (2016) ?Z98.890 - Other specified postprocedural states (ICD-10) History of tubal ligation (04/13/06) ?Z98.51 - Tubal ligation status (ICD-10) History of sinus surgery (2007) ?Z98.890 - Other specified postprocedural states (ICD-10) History of appendectomy (04/13/06) ?Z90.49 - Acquired absence of other specified parts of digestive tract (ICD- 10) Hx of cervical spine surgery (2013) ?Z98.890 - Other specified postprocedural states (ICD-10) Social History (Updated 05/24/23 @ 13:10 by Carlene Murray ~ [facility]) What is your current living situation?: I presently have a place to live Problems where you live: pests, such as bugs, ants, or mice In the past 12 months, utilities in danger of being shut off: no In the past 12 mos, have been you worried that your food would run out before you had money to buy more?: never true In the past 12 mos, the food you bought just didn't last and you didn't have money to buy more?: never true Smoking Status: Never smoker Non-prescribed substance use: denies use How often does anyone, including family, friends and others, physically hurt you : never How often does anyone, including family, friends and others, insult or talk down to you: never How often does anyone, including family, friends and others, threaten you with harm: never How often does anyone, including family, friends and others, scream or curse at you: never service: No Health Related Social Needs: Inadequate housing (Z59.1) Exam Narrative Exam Narrative: General: Well-developed and well-nourished, no acute distress Head: Atraumatic and normocephalic Eyes: Pupils are equal reactive, extraocular motions intact, conjunctiva clear ENT: External nose and ears are normal, posterior pharynx without erythema or exudate Neck: No midline cervical tenderness, full spontaneous range of motion the neck, trachea midline, no adenopathy Heart: Regular rate and rhythm no murmurs or thrills Lungs: Clear to auscultation bilaterally without wheezes or crackles Abdomen: Soft, nontender, nondistended with active bowel sounds Musculoskeletal: No tenderness, deformity, or edema Neurologic: Awake, alert, and oriented x3, no gross focal neurologic deficits, cranial nerves intact as tested Psych: Mood and affect are appropriate Skin: No rashes Const Vital Signs, click to edit/add: Vital Signs - 24 hr 02/04/24 09:49 Temperature 97.1 F L Pulse Rate [Pulse Oximeter] 72 Respiratory Rate 18 Blood Pressure [Left Upper Arm] 171/67 H Pulse Oximetry 98 Oxygen Delivery Method Room Air Course Course ED Course: Patient seen and examined, reviewed most recent primary care visit from December 12 when patient was seen because of some leg cramps at night, that time rec ommended increased fluids in the evening along with some electrolytes, continued usual medications which at that time included losartan, pantoprazole, magnesium, gabapentin, Synthroid, Celebrex, and Flonase as well as albuterol. Patient presents today with left-sided chest pain. She has point pain of the left mid chest, worse with breathing. On exam here, finally stable, no focal findings on exam, pain is not reproducible. Initial EKG is reassuring. History is low suspicion for acute coronary disease, labs are ordered including troponin. Symptoms are more pleuritic in nature, no tachycardia, hypoxia, shortness of breath, cough so although patient cannot PERC out 2 days age, clinical likelihood of pulmonary embolism is low and will not perform D-dimer or CT PE study today unless condition changes. EKG independently interpreted by me performed at 10:00 a.m. demonstrates sinus rhythm rate 72, nonspecific ST changes, no acute ischemic changes, SC 170, QTC 440, QRS 86. Compared to prior of May 2023, no acute changes are seen. Reevaluation(s) Time of Reevaluation #1: 10:52 Reevaluation #1: Labs ordered in panel interpreted by me with negative troponin. Time of Reevaluation #2: 11:21 Reevaluation #2: Chest x-ray independently interpreted by me negative for acute findings. Labs intermittently interpreted by me with negative BNP, normal basic panel. Patient is pain-free at this time. Will repeat troponin at 2:00 a.m. and this is unchanged, patient be discharged. Symptoms are atypical for acute coronary syndrome or cardiac cause of pain, musculoskeletal more likely Time of Reevaluation #3: 12:24 Reevaluation #3: Repeat troponin is 0. Patient is stable for discharge. Vital Signs Vital signs: Initial Vital Signs Temperature 97.1 F L 02/04/24 09:49 Temperature Source Temporal Artery Scan 02/04/24 09:49 Pulse Rate 72 02/04/24 09:49 Respiratory Rate 18 02/04/24 09:49 Blood Pressure 171/67 H 02/04/24 09:49 Blood Pressure Mean 101 02/04/24 09:49 Pulse Oximetry 98 02/04/24 09:49 Oxygen Delivery Method Room Air 02/04/24 09:49 Vital Signs Temperature 97.1 F L 02/04/24 09:49 Pulse Rate 72 02/04/24 09:49 Respiratory Rate 18 02/04/24 09:49 Blood Pressure 171/67 H 02/04/24 09:49 Pulse Oximetry 98 02/04/24 09:49 Oxygen Delivery Method Room Air 02/04/24 09:49 Temperature 97.1 F L 02/04/24 09:49 Pulse Rate 72 02/04/24 09:49 Respiratory Rate 18 02/04/24 09:49 Blood Pressure 171/67 H 02/04/24 09:49 Pulse Oximetry 98 02/04/24 09:49 Oxygen Delivery Method Room Air 02/04/24 09:49 Medications Administered Medications: Discontinued Medications Generic Name Dose Route Start Last Admin Trade Name Freq PRN Reason Stop Dose Admin Acetaminophen 1,000 mg 02/04/24 10:06 02/04/24 10:13 Acetaminophen 500 Mg Tablet PO 02/04/24 10:07 1,000 mg ONCE ONE Administration MDM - Chest Pain Lab Data Labs: Lab Results 02/04/24 02/04/24 Range/Units 10:06 10:20 Sodium 136 (135-149) mmol/L Potassium 4.2 (3.6-5.1) mmol/L Chloride 104 (96-114) mmol/L Carbon Dioxide 27 (20-32) mmol/L Anion Gap 5 L (7-15) mEq/L BUN 16 (7-30) mg/dL Creatinine 0.7 (0.5-1.5) mg/dL Estimated Creat Clear 39.63 Estimated GFR 91 ml/min Glucose 91 (60-115) mg/dL Calcium 9.6 (8.4-10.6) mg/dL Magnesium 2.2 (1.5-2.6) mg/dL NT-Pro-B Natriuret Pep 205 pg/mL POC Troponin I 0.00 L (0.01-0.04) ng/ml Discharge Plan Discharge Clinical Impression: Atypical chest pain Patient Disposition: Home, Self-Care Condition: Stable Instructions: Noncardiac Chest Pain (ED) Activity Level: No Restrictions Prescriptions: No Action magnesium 1 tab PO DAILY fluticasone propionate [Flonase Allergy Relief] 50 mcg/actuation spray,suspension 2 spray intranasal QDAY PRN Rx Instructions: administer into each nostril albuterol sulfate 90 mcg/actuation HFA aerosol inhaler 2 puff inhalation Q6H PRN (Reason: shortness of breath or wheezing) Qty: 8.5 5RF valsartan 160 mg tablet 160 mg PO QDAY Qty: 90 3RF pantoprazole 40 mg tablet,delayed release (DR/EC) 40 mg PO DAILY gabapentin 300 mg capsule 300 mg PO QHS PRN sodium chloride 3 % solution for nebulization inhalation cholecalciferol (vitamin D3) 10 mcg (400 unit) capsule 10 mcg PO QDAY celecoxib [Celebrex] 200 mg capsule 200 mg PO QDAY PRN (Reason: arthritic flares) Qty: 90 1RF levothyroxine 100 mcg tablet 100 mcg PO DAILY Qty: 90 3RF Follow Up/Referrals: Salma Whitley MD [Primary Care Provider] - Stand Alone Forms: [facility] Info Instructions
--- NOTE | 2024-02-04 10:06 | CRLHL7_ITS ---
For Patients: As a result of the Cures Act, medical imaging exams and procedure reports are released immediately into your electronic medical record. You may view this report before your referring provider. If you have questions, please contact your health care provider. INDICATION: Left chest pain. TECHNIQUE: Chest 2 view(s) COMPARISON: Chest radiograph dated 12/02/2023. FINDINGS: Cardiomediastinal silhouette and pulmonary vasculature are normal. No focal consolidation. No layering pleural effusion. No pneumothorax. Multilevel degenerative changes of the visualized spine. ACDF hardware noted. IMPRESSION: No focal consolidation. Dictated by Ricardo Blevins MD @ 02/04/2024 11:58:18 AM (Electronically Signed)
[2024-02-04] MEDS: ACETAMINOPHEN 500 MG TABLET 1000 MG PO (10:13)
--- OUTSIDE RECORDS SUMMARY | 2024-02-04 10:22 | XMS_ITS ---
Author Organization [facility] Address [address] [place] [address] Care Team Providers Care Concrete Pouring Supervisor Name Role Phone Unavailable Unavailable Unavailable Surgery Details Not on file Complications Check Surgery Details section. Procedure Estimated Blood Loss Check Surgery Details section. Procedure Findings Check Surgery Details section. Procedure Specimens Taken Check Surgery Details section.
--- OUTSIDE RECORDS SUMMARY | 2024-02-04 10:22 | XMS_ITS | Clinical Summary ---
Author Organization [facility] Address [place], [place] [address] Care Team Providers Care Net Making Supervisor Name Role Phone Salma Whitley MD Primary Care Provider [phone] Allergies No known active allergies Medications Medication [...] 04/13/2013 DDD (degenerative disc disease), cervical 2013 Encounters Date Type Department Care Team Description 12/23/2023 11:30 AM CDT - 12/23/2023 11:59 PM CDT Hospital Encounter [facility] [address] [place] [address] Encounter for other screening for malignant neoplasm of breast 12/23/2023 Travel from Last 3 Months Immunizations Name Administration Dates Next Due Pneumococcal conj 13-Valent (Prevnar 13) 017 Family History Medical History Relation Name Comments Cancer-breast No Family History Social History Tobacco Use Types Packs/Day Years Used Date Smoking Tobacco: Never Smokeless Tobacco: Never Tobacco Cessation:Counseling Given: Yes Alcohol Use Standard Drinks/Week Comments Yes 0 (1 standard drink = 0.6 oz pur e alcohol) occas, wine Financial Resource Strain Answer Date R ecorded [...] Comments Blood Pressure 179/74 04/08/2023 7:51 AM PERSONAL SUPPORT WORKER Pulse 59 04/08/2023 7:50 AM PERSONAL SUPPORT WORKER Temperature 36.8 C (98.2 F) 04/04/2023 8:49 AM PERSONAL SUPPORT WORKER Respiratory Rate 19 01/29/2022 4:54 PM PERSONAL SUPPORT WORKER Oxygen Saturation 100% 04/08/2023 7:50 AM PERSONAL SUPPORT WORKER Inhaled Oxygen Concentration - - Weight 51.7 kg (114 lb) 10/03/2018 6:16 AM CDT Height 154.9 cm (5' 0.98) 10/03/2018 6:16 AM CD T Body Mass Index 21.55 10/03/2018 6:16 AM CDT Plan of Treatment Upcoming Encounters Date Type Department Care Team (Late st Contact Info) Description 03/22/2024 11:00 AM PERSONAL SUPPORT WORKER Office Visit [facility] [address] [place] [address] Carlos Terrazas MD [address] [place] [address] Health Maintenance Due Date Last Done Comments Tdap 1961 Depression screening for age 12+ 1962 BMI (ht and wt on same day) for age 18+ 1968 Hepatitis C screening for ag e 18-79 1968 Tetanus booster 1970 Colonoscopy through age 75 08/17/1995 Lipids for age 45-75 08/17/1995 Zoster (shingles) series for age 50+ (1 of 2) 2000 DEXA/DXA scan for age 65+ 08/17/2015 Medicare Wellness for age 65+ 08/17/2015 Pneumococcal series for age 65+ (2 of 2 - PPSV23 or PCV20) 06/18/2017 06/18/2016 COVID-19 vaccine series ( season) 2023 12/11/2022, 12/06/2021, 08/07/2021, Additional history exists Influenza for age 65+ 11/06/2023 Mammogram for age 45-75 12/22/2024 12/23/2023 Medical Devices Implanted Type Area Portfolio Administrator Device Identifier Shelf Expiration Date Model / Serial / Lot [id number] Implanted:Qty: 1 on 05/02/2013 at [facility] Explanted:at [facility] (Quantity not on file) Spine Musculoskeletal Transplant 01/02/2015 [id number] / [id number] / Description:DBX PUTTY 0.5CC [id number] 0bone Cerv 6mm 4deg W/Plug [[id number]] Implanted:Qty: 1 on 05/02/2013 at [facility] Spine Thong Spine 12/04/2017 [id number] / [id number] / Plate Cerv Ant 12mm One Level - [id number] Implanted:Qty: 1 on 05/02/2013 at [facility] N/A: Spine Thong Spine [id number] / / Screw 4.62o02ah Slf Tppng Va - [id number] Implanted:Qty: 1 on 05/02/2013 at [facility] N/A: Spine [place] Spine [id number] / / Screw 4.0x14mm Slf Drilling Va - [id number] Implanted:Qty: 3 on 05/02/2013 at [facility] N/A: Spine Thong Spine [id number] / / Screw Bone 2.5x16mm Mini Headed - [id number] Implanted:Qty: 1 on 10/03/2018 by Venkata Cameron DPM at [facility] Left: Foot Thong Orthopaedics [id number] / / Screw Bone 2.5x18mm Mini Headed - [id number] Implanted:Qty: 1 on 10/03/2018 by Venkata Cameron DPM at [facility] Left: Foot [place] [employer] [id number] / / K-Wire 3.0mm [place] Non-Thrd - [id number] Implanted:Qty: 1 on 10/03/2018 by Venkata Cameron DPM at [facility] Left: Foot [place] [employer] [id number] / / Explanted Type Area Portfolio Administrator Device Identifier Shelf Expiration Date Model / Serial / Lot K-Wire 2.5mm [place] Non-Thrd - [id number] Explanted:Qty: 2 on 10/03/2018 by Venkata Cameron DPM at [facility] Left: Foot [place] [employer] [id number] / / Procedures Procedure Name Priority Date/Time Associated Diagnosis Comments XR MAMMO JAIR BILAT SCREEN Routine 12/23/2023 11:48 AM CDT Encounter for other screening for malignant neoplasm of breast from Last 3 Months Results * XR MAMMO JAIR BILAT SCREEN (12/23/2023 11:48 AM CDT) Anatomical Region Laterality Modality BREASTS, Breast Left, Breast Right Bilateral Mammography Impressions 12/23/2023 2:34 PM CDT There is no radiographic evidence for malignancy. Recommend annual mammograms. MAMMOGRAM ASSESSMENT: ACR 1 Negative PATIENTS: You will also receive a letter with your examination results in an easy to read format. If you have questions about your results, please contact your referring provider. Narrative 12/23/2023 2:34 PM CDT For Patients: As a result of the Cures Act, medical imaging exams and procedure reports are released immediately into your electronic medical record. You may view this report before your referring provider. If you have questions, please contact your health care provider. XR MAMMO JAIR BILAT SCREEN [[id number]] CLINICAL HISTORY: This is an asymptomatic 73 y.o. patient. INDICATION FOR EXAM: Mammogram Screening. TECHNIQUE: CC & MLO views were obtained. This study was evaluated with the assistance of Computer-Aided Detection. Breast Tomosynthesis was used in interpretation. COMPARISON FILM: Yes 12/21/22 Outside Facility FINDINGS: There are scattered areas of fibroglandular density. There are no dominant masses, suspicious micro calcifications or areas of architectural distortion. Salma Whitley MD MAMMO from Last 3 Months Advance Directives * Full Code (Latest Code Status on File) Date Activated Date Inactivated Comments 10/03/2018 5:45 AM 10/03/2018 6:35 AM * Full Code Date Activated Date Inactivated Comments 05/02/2013 11:57 AM 05/03/2013 1:29 PM * Full Code Date Activated Date Inactivated Comments 05/02/2013 11:51 AM 05/02/2013 11:57 AM Care Teams Net Making Supervisor Relationship Specialty Start Date End Date Salma Whitley MD [address] [place] [address] PCP - General Internal Medicine 04/30/13
--- OUTSIDE RECORDS SUMMARY | 2024-02-04 10:22 | XMS_ITS | Referral Summary ---
Author Organization [facility] Address [address] [place] [address] Care Team Providers Care Contract Consultant Name Role Phone Unavailable Primary Care Provider Unavailabl e Source Comments Patient records contain information from all sites at [facility]. For routine questions regarding patient records, call [phone] during business hours, M-F 8:00 AM - 5:00 PM Central Time. Record requests for emergency care only can be directed to [phone] at any time.[facility] Allergies Active Allergy Reactions Criticality Noted Date Comments Pollen Extracts Other (see comments) Medium 12/17/2016 Chronic Rhinitis Medications melatonin 3 mg tablet Take 2 tablets by mouth at bedtime. 6 Active levothyroxine (SYNTHROID, LEVOTHROID) 100 mcg tablet Take 100 mcg by mouth daily. 7 Active glucosamine sulf dipotassium chloride-chondr oitin 500-400 mg per capsule Take 1 capsule by mouth daily. Active fluticasone propionate (FLONASE) 50 mcg/actuation nasal spray daily. 2 Active fluticasone propion-salmete roL (AIRDUO RESPICLICK) 232-14 mcg/actuation inhaler Inhale every 12 (twelve) hours. 8 Active diphenhydrAMINE (BENADRYL) 25 mg capsule Take 25 mg by mouth as needed. Active cyanocobalamin, vitamin B-12, 1,000 mcg tablet extended release Take 1,000 mcg by mouth daily. Active albuterol 90 mcg/actuation inhaler Inhale 2 puffs as needed. Active acetaminophen (TYLENOL) 325 mg tablet Take 650 mg by mouth as needed. 4 Active gabapentin (NEURONTIN) 300 mg capsule Take 300 mg by mouth at bedtime. Active cholecalciferol (D3-5000) 125 mcg (5,000 Unit) capsule Take 125 mcg by mouth daily. 8 Active FLUTICASONE PROPIONATE NASAL Administer 2 sprays into nostril(s) as needed (Rhinintis). 3 Active UNABLE TO FIND Take 675 each by mouth daily. Jujube Fruit 8 Active MAGNESIUM MALATE, BULK, MISC Take 675 each by mouth daily. 8 Active [id number] A-FISH OIL ORAL Take 1 capsule by mouth daily. Active TURMERIC ORAL Take 720 mg by mouth daily. 8 Active albuterol 2.5 mg /3 mL nebulizer solution Inhale 3 mL (2.5 mg total) by nebulization 4 (four) times a day as needed for wheezing or shortness of breath. 75 mL 5 3 Active amLODIPine (NORVASC) 5 mg tabletIndicatio ns:Hypertension Essential Primary Take 1 tablet (5 mg total) by mouth daily. 30 tablet 3 Active pantoprazole (PROTONIX) 40 mg EC tabletIndicatio ns:Gastroesopha geal Reflux Disease Without Esophagitis Take 1 tablet (40 mg total) by mouth every morning before breakfast. 30 tablet 2 3 Active Active Problems Problem Noted Date Diagnosed [...] often do you attend chur ch or adventism services? Never 10/07/2021 Do you belong to any clubs o r organizations such as jewish groups, unions, fraternal or athletic groups, or [...] Answer Date Recorded PHQ-2 Score 0 01/13/2023 [facility] - Occupational Stress [...] living? No 01/11/2023 Nutrition Answer Date Recorded On average, how many serving s of [...] your living situation today? I have a [facility] place to live 01/11/2023 Education Answer Date Recorded What is the highest level of school you have completed or the highest degree you have received? Bachelor's degree (e.g., BA, AB, BS) 10/07/2021 Comments No Sex and Gender Information Value Date Recorded Sex Assigned at Female 06/26/2021 11:13 AM CDT Legal Sex Female 5:23 AM PAYROLL HUMAN RESOURCES ASSISTANT Gender Identity Female 06/26/2021 11:13 AM CDT Sexual Orientation Straight 06/26/2021 11 :13 AM CDT Last Filed Vital Signs Vital Sign Reading Time Taken Comments Blood Pressure 158/86 01/19/2023 3:28 PM PAYROLL HUMAN RESOURCES ASSISTANT Average of 5 Pulse 64 01/19/2023 3:28 PM PAYROLL HUMAN RESOURCES ASSISTANT Temperature - - Respiratory Rate 16 01/13/2017 8:39 AM PAYROLL HUMAN RESOURCES ASSISTANT Oxygen Saturation 95% 01/19/2023 1:1 8 PM PAYROLL HUMAN RESOURCES ASSISTANT Inhaled Oxygen Concentration - - Weight 59.1 kg (130 lb 4.7 oz) 01/14/20 9:13 AM PAYROLL HUMAN RESOURCES ASSISTANT Height 153.6 cm (5' 0.47) 01/13/2023 9 :13 AM PAYROLL HUMAN RESOURCES ASSISTANT Body Mass Index 25.05 01/13/2023 9:13 AM PAYROLL HUMAN RESOURCES ASSISTANT Plan of Treatment Not on file Medical Devices Implanted Type Area Blood Bank Attendant Device Identifier Shelf Expiration Date Model / Serial / Lot Trimed-Plate Ulnar Dorsal 5 Hole - Garza [id number] Implanted:Qty: 1 on 04/25/2009 Hardware e.g. pins/screws/ rods [employer] Description:Device Manufactu rer - Trimed Inc.. Device Status Text - [id number]. Trimed-Screw Juliano 3.2 X 14mm - Garza [id number] Implanted:Qty: 1 on 04/25/2009 Hardware e.g. pins/screws/ rods [employer] Description:Device Manufactu rer - Trimed Inc.. Device Status Text - HARDWARE-250177. Trimed-Screw Cortical Lp 2.3 X 12 - Garza [id number] Implanted:Qty: 2 on 04/25/2009 Hardware e.g. pins/screws/ rods [employer] Description:Device Manufactu rer - Trimed Inc.. Device Status Text - HARDWARE-510925. Trimed K-Wire .045 - Garza [id number] Implanted:Qty: 6 on 04/25/2009 Hardware e.g. pins/screws/ rods [employer] Description:Device Manufactu rer - Trimed Inc.. Device Status Text - HARDWARE-33663. Trimed-Screw Volar Peg Unthread 14mm - Garza [id number] Implanted:Qty: 1 on 04/25/2009 Hardware e.g. pins/screws/ rods [employer] Description:Device Manufactu rer - Trimed Inc.. Device Status Text - HARDWARE-424653. Trimed-Screw Volar Peg Thrded 14mm - Garza [id number] Implanted:Qty: 1 on 04/25/2009 Hardware e.g. pins/screws/ rods [employer] Description:Device Manufactu rer - Trimed Inc.. Device Status Text - HARDWARE-342004. Trimed-Screw Volar Peg Unthread 18mm - Garza [id number] Implanted:Qty: 2 on 04/25/2009 Hardware e.g. pins/screws/ rods [employer] Description:Device Manufactu rer - Trimed Inc.. Device Status Text - HARDWARE-[id number]. Trimed-Plate Volar Peg Rt 3ho 6peg - Garza [id number] Implanted:Qty: 1 on 04/25/2009 Hardware e.g. pins/screws/ rods [employer] Description:Device Manufactu rer - Trimed Inc.. Device Status Text - HARDWARE-12216. Trimed-Screw Volar Peg Unthread 20mm - Garza [id number] Implanted:Qty: 1 on 04/25/2009 Hardware e.g. pins/screws/ rods [employer] Description:Device Manufactu rer - Trimed Inc.. Device Status Text - HARDWARE-622797. Trimed-Screw Juliano 3.2 X 12mm - Garza [id number] Implanted:Qty: 1 on 04/25/2009 Hardware e.g. pins/screws/ rods [employer] Description:Device Manufactu rer - Trimed Inc.. Device Status Text - HARDWARE-962471. K-Wire-Ss 4 Smooth .062 - Garza [id number] Implanted:Qty: 1 on 04/25/2009 Hardware e.g. pins/screws/ rods Thong Description:Device Manufactu rer - [place] Gordon.. Device Status Text - HARDWARE-871. Conversions [...] Hardware. K-Wire 1.25mm X 150mm - Garza [id number] Implanted:Qty: 1 on 11/30/2016 Hardware e.g. pins/screws/ rods Depuy Synthes Description:Device Manufactu rer - Synthes. Device Status Text - HARDWARE-72622. Kwire Ss 4 .035 - Garza [id number] Implanted:Qty: 1 on 11/30/2016 Hardware e.g. pins/screws/ rods Thong Description:Device Manufactu rer - Thong Gordon.. Device Status Text - HARDWARE-457585. Block Olga. Phonoform [facility] Rt - Garza [id number] Implanted:Qty: 1 on 11/10/2016 Misc Prosthesis Other/Legacy - See Implant Description Medtronic Description:Device Manufactu rer - [employer] Inc. Body Location - Other. Right. Device Status Text - [id number]. Procedures Procedure Name Priority Date/Time Associated Diagnosis Comments HEMOGLOBIN A1C, B Routine 01/13/2023 12: 00 PM PAYROLL HUMAN RESOURCES ASSISTANT Peripheral Nerve Disorder THYROID FUNCTION CASCADE, S Routine 01/13/2023 12:00 PM PAYROLL HUMAN RESOURCES ASSISTANT Peripheral Nerve Disorder OUTSIDE MG MAMMOGRAM Routine 12/21/2022 1:00 PM CDT COLOGUARD Routine 11/01/2016 5:43 AM CDT from Last 3 Months or Most Recently Relevant to Health Maintenance Results * Thyroid Function Mobile (01/13/2023 12:00 PM PAYROLL HUMAN RESOURCES ASSISTANT) Pathologist [facility] TSH, Sensitive 3.8 0.3 - 4.2 mIU/L 01/13/2023 1:11 PM PAYROLL HUMAN RESOURCES ASSISTANT DT Blood (Blood, Venous) 01/13/2023 12:00 PM PAYROLL HUMAN RESOURCES ASSISTANT 01/13/2023 12:38 PM PAYROLL HUMAN RESOURCES ASSISTANT Elizabeth Angel M.D. LAB BLOOD ADD-ON Final Result Performing Organization Address [facility] Co de Phone Number [facility] [address] [place] [address], [facility] [address] [place] [address] * Hemoglobin A1c (01/13/2023 12:00 PM PAYROLL HUMAN RESOURCES ASSISTANT) [facility] Hemoglobin A1c, B 5.4 4.0 - 5.6 % 01/13/2023 12:57 PM PAYROLL HUMAN RESOURCES ASSISTANT [facility] Blood (Blood, Venous) 01/13/2023 12:00 PM PAYROLL HUMAN RESOURCES ASSISTANT 01/13/2023 12:25 PM PAYROLL HUMAN RESOURCES ASSISTANT Elizabeth Angel M.D. LAB BLOOD ADD-ON Final Result Performing Organization Address [facility] de Phone Number [facility] [address] [place] [address], [facility] [address] [place] [address] * MM screening mammo BI-Outside Mammogram (12/21/2022 1:00 PM CDT) Narrative IIMS - 01/10/2023 9:59 PM PAYROLL HUMAN RESOURCES ASSISTANT This order has been created and auto-finalized to support the import of outside images. If available, original interpretation can be found on the Media Tab in Chart Review, in Document Viewer, or as an image in QREADS. If a re-interpretation or overread is required please follow defined workflow. us Provider Not In System IMG BI PROCEDURES Final R esult Performing Organization Address City/[facility] Co de Phone Number IIMS NA * Cologuard (11/01/2016 5:43 AM CDT) Cologuard Negative [facility] Comment: Test Result Flag Unit RefValue Cologuard Result Negative Not Applicable A negative result indicates a lower likelihood that colorectal cancer (CRC) or advanced adenoma (pre-cancer) is present. Periodic colorectal cancer screening is recommended at an interval, and with a method appropriate for the patient. Test Type: Composite algorithmic analysis of stool DNA-biomarkers with hemoglobin immunoassay. Quantitative values of individual biomarkers are not [...] can be accessed at the following location: [email or web address]. Additional description of the Cologuard test process, warnings and precautions can be found at [email or web address]. Rx Only. 11/01/2016 5:43 AM CDT 11/01/2016 5:43 AM CDT us Radha Parra M.D. LAB BODY FLUIDS AND STOOLS O RDERABLES Final Result [facility] [address] [place] [address], [facility] from Last 3 Months or Most Recently Relevant to Health Maintenance Administered Medications Insurance MEDICARE [facility] HUMAN
--- OUTSIDE RECORDS SUMMARY | 2024-02-04 10:22 | XMS_ITS | Clinical Summary ---
Author Organization [facility] Address [address] [place] [address] Care Team Providers Care Customs Guard Name Role Phone Unavailable Primary Care Provider Unavailabl e Source Comments Patient records contain information from all sites at [facility]. For routine questions regarding patient records, call [phone] during business hours, M-F 8:00 AM - 5:00 PM Central Time. Record requests for emergency care only can be directed to [phone] at any time.[facility] Allergies Active Allergy Reactions Criticality [...] 675 each by mouth daily. 8 Active [id number] A-FISH OIL ORAL Take 1 capsule by [...] Garnett Diabetes Brother Gregory Garnett Hypertension Brother Grgeory Garnett Kidney disease Brother Gregory Garnett Obesity [...] How often do you attend chur or anabaptism services? Never 10/07/2021 Do you belong to any clubs o r organizations such as sabianist groups, unions, fraternal or [...] Answer Date Recorded PHQ-2 Score 0 01/13/2023 [facility] - [...] your living situation today? I have a [employer] place to live 01/11/2023 Education Answer Date Recorded What is the highest level of school you have completed or the highest degree you have received? Bachelor's degree (e.g., BA, AB, BS) 10/07/2021 Comments No Sex and Gender Information Value Date Recorded Sex Assigned at Female 06/26/2021 11:13 AM CDT Legal Sex Female 5:23 AM SHOT HOLE SHOOTER Gender Identity Female 06/26/2021 11:13 AM CDT Sexual Orientation Straight 06/26/2021 11 :13 AM CDT Last Filed Vital Signs Vital Sign Reading Time Taken Comments Blood Pressure 158/86 01/19/2023 3:28 PM SHOT HOLE SHOOTER Average of 5 Pulse 64 01/19/2023 3:28 PM SHOT HOLE SHOOTER Temperature - - Respiratory Rate 16 01/13/2017 8:39 AM SHOT HOLE SHOOTER Oxygen Saturation 95% 01/19/2023 1:1 8 PM SHOT HOLE SHOOTER Inhaled Oxygen Concentration - - Weight 59.1 kg (130 lb 4.7 oz) 01/14/20 9:13 AM SHOT HOLE SHOOTER Height 153.6 cm (5' 0.47) 01/13/2023 9 :13 AM SHOT HOLE SHOOTER Body Mass Index 25.05 01/13/2023 9:13 AM SHOT HOLE SHOOTER Plan of Treatment Health Maintenance Due Date Last Done Comments CT Colonography 1950 Colonoscopy 1950 FIT 1950 Hepatitis C Screening 1950 Hepatitis A Vaccines (2 of 2 - Risk 2-dose series) 03/15/2007 09/12/2006 Hepatitis B Vaccines (3 of 3 - 19+ 3-dose series) 03/15/2007 01/09/2007, 09/12/2006, 09/12/2006 Depression Screening (Annual PHQ-2) 03/07/2023 Fall Risk Screen (Annual) 03/07/2023 Office Visit for Blood Pressure Check / Re-check 04/21/2023 01/19/2023 COVID-19 Vaccine ( season) 2023 12/11/2022, 12/06/2021, 08/07/2021, Additional [...] 06/18/2016, Additional history exists RSV vaccine - (32-36 weeks) or 60+ years Completed 12/11/2022 Zoster Vaccines Completed 07/27/2023, 03/07, 02/15/2011 IPV Vaccines Aged Out No longer eligi ble based on patient's age to complete this topic Medical Devices Implanted Type Area Speech And Hearing Clinic Director Device Identifier Shelf Expiration Date Model / Serial / Lot Trimed-Plate Ulnar Dorsal 5 Hole - Garza [id number] Implanted:Qty: 1 on 04/25/2009 Hardware e.g. pins/screws/ rods [employer] Description:Device Manufactu rer - Trimed Inc.. Device Status Text - HARDWARE-[id number]. Trimed-Screw Juliano 3.2 X 14mm - Garza [id number] Implanted:Qty: 1 on 04/25/2009 Hardware e.g. pins/screws/ rods [employer] Description:Device Manufactu rer - Trimed Inc.. Device Status Text - HARDWARE-107310. Trimed-Screw Cortical Lp 2.3 X 12 - Garza [id number] Implanted:Qty: 2 on 04/25/2009 Hardware e.g. pins/screws/ rods [employer] Description:Device Manufactu rer - Trimed Inc.. Device Status Text - HARDWARE-689481. Trimed K-Wire .045 - Garza [id number] Implanted:Qty: 6 on 04/25/2009 Hardware e.g. pins/screws/ rods [employer] Description:Device Manufactu rer - Trimed Inc.. Device Status Text - HARDWARE-61131. Trimed-Screw Volar Peg Unthread 14mm - Garza [id number] Implanted:Qty: 1 on 04/25/2009 Hardware e.g. pins/screws/ rods [employer] Description:Device Manufactu rer - Trimed Inc.. Device Status Text - HARDWARE-628264. Trimed-Screw Volar Peg Thrded 14mm - Garza [id number] Implanted:Qty: 1 on 04/25/2009 Hardware e.g. pins/screws/ rods [employer] Description:Device Manufactu rer - Trimed Inc.. Device Status Text - HARDWARE-694946. Trimed-Screw Volar Peg Unthread 18mm - Garza [id number] Implanted:Qty: 2 on 04/25/2009 Hardware e.g. pins/screws/ rods [employer] Description:Device Manufactu rer - Trimed Inc.. Device Status Text - HARDWARE-487553. Trimed-Plate Volar Peg Rt 3ho 6peg - Garza [id number] Implanted:Qty: 1 on 04/25/2009 Hardware e.g. pins/screws/ rods [employer] Description:Device Manufactu rer - Trimed Inc.. Device Status Text - HARDWARE-58931. Trimed-Screw Volar Peg Unthread 20mm - Garza [id number] Implanted:Qty: 1 on 04/25/2009 Hardware e.g. pins/screws/ rods [employer] Description:Device Manufactu rer - Trimed Inc.. Device Status Text - HARDWARE-618552. Trimed-Screw Juliano 3.2 X 12mm - Garza [id number] Implanted:Qty: 1 on 04/25/2009 Hardware e.g. pins/screws/ rods [employer] Description:Device Manufactu rer - Trimed Inc.. Device Status Text - HARDWARE-579811. K-Wire-Ss 4 Smooth .062 - Garza [id number] Implanted:Qty: 1 on 04/25/2009 Hardware e.g. pins/screws/ rods Thong Description:Device Manufactu rer - [place] Gordon.. Device Status Text - HARDWARE-871. Conversions [...] Hardware. K-Wire 1.25mm X 150mm - Garza [id number] Implanted:Qty: 1 on 11/30/2016 Hardware e.g. pins/screws/ rods Depuy Synthes Description:Device Manufactu rer - Synthes. Device Status Text - HARDWARE-44674. Kwire Ss 4 .035 - Garza [id number] Implanted:Qty: 1 on 11/30/2016 Hardware e.g. pins/screws/ rods [place] Description:Device Manufactu rer - Thong Gordon.. Device Status Text - HARDWARE-435281. Block Olga. Phonoform [facility] Rt - Garza [id number] Implanted:Qty: 1 on 11/10/2016 Mis Prosthesis Other/Legacy - See Implant Description Medtronic Description:Device Manufactu rer - [employer]. Body Location - Other. Right. Device Status Text - [facility] [id number]. Procedures Procedure Name Priority Date/Time Associated Diagnosis Comments HEMOGLOBIN A1C, B Routine 01/13/2023 12: 00 PM SHOT HOLE SHOOTER Peripheral Nerve Disorder THYROID FUNCTION CASCADE, S Routine 01/13/2023 12:00 PM SHOT HOLE SHOOTER Peripheral Nerve Disorder OUTSIDE MG MAMMOGRAM Routine 12/21/2022 1:00 PM CDT COLOGUARD Routine 11/01/2016 5:43 AM CDT from Last 3 Months or Most Recently Relevant to Health Maintenance Results * Thyroid Function [place] (01/13/2023 12:00 PM SHOT HOLE SHOOTER) TSH, Sensitive 3.8 0.3 - 4.2 mIU/L 01/13/2023 1:11 PM SHOT HOLE SHOOTER DTL Blood (Blood, Venous) 01/13/2023 12:00 PM SHOT HOLE SHOOTER 01/13/2023 12:38 PM SHOT HOLE SHOOTER Elizabeth Angel M.D. LAB BLOOD ADD-ON Final Result Performing Organization Address City/[facility]/ZIP Co de Phone Number [facility] [address] [place] [address], [facility] [place] [address] [place] [address] * Hemoglobin A1c (01/13/2023 12:00 PM SHOT HOLE SHOOTER) Hemoglobin A1c, B 5.4 4.0 - 5.6 % 01/13/2023 12:57 PM SHOT HOLE SHOOTER DTL Blood (Blood, Venous) 01/13/2023 12:00 PM SHOT HOLE SHOOTER 01/13/2023 12:25 PM SHOT HOLE SHOOTER Elizabeth Angel M.D. LAB BLOOD ADD-ON Final Result [facility] [address] [place] [address], [facility] [place] [address] [place] [address] * MM screening mammo BI-Outside Mammogram (12/21/2022 1:00 PM CDT) Narrative JANETTE - 01/10/2023 9:59 PM SHOT HOLE SHOOTER This order has been created and auto-finalized to support the import of outside images. If available, original interpretation can be found on the Media Tab in Chart Review, in Document Viewer, or as an image in QREADS. If a re-interpretation or overread is required please follow defined workflow. us Provider Not In System IMG BI PROCEDURES Final R esult JANETTE NA * Cologuard (11/01/2016 5:43 AM CDT) Cologuard Negative [facility] Comment: Test Result Flag Unit RefValue [...] can be accessed at the following location: [email or web address]. Additional description of the Cologuard test process, warnings and precautions can be found at [email or web address]. Rx Only. 11/01/2016 5:43 AM CDT 11/01/2016 5:43 AM CDT Radha Parra M.D. LAB BODY FLUIDS AND STOOLS O RDERABLES Final Result Performing Organization Address City/State/[facility] Co de Phone Number [facility] [address] [place] [id number], [facility] from Last 3 Months or Most Recently Relevant to Health Maintenance Insurance MEDICARE [facility]
[2024-02-04 10:48] LABS: Chloride* 104 mmol/L (96-114); Sodium* 136 mmol/L (135-149)
[2024-02-04 10:49] LABS: Potassium* 4.2 mmol/L (3.6-5.1)
[2024-02-04 10:51] LABS: Anion Gap 5 mEq/L (7-15); Carbon Dioxide* 27 mmol/L (20-32); Creatinine* 0.7 mg/dL (0.5-1.5); Est. Creatinine Clearance* 39.63; Estimated Glomerular Filt Rate 91 ml/min
[2024-02-04 10:52] LABS: Blood Urea Nitrogen* 16 mg/dL (7-30); Calcium* 9.6 mg/dL (8.4-10.6); Glucose* 91 mg/dL (60-115); Magnesium* 2.2 mg/dL (1.5-2.6)
[2024-02-04 11:02] LABS: NT Pro B Type NatriureticPept* 205 pg/mL
== END 2024-02-04 12:42 | disposition home or self-care (01) ==
PROVIDERS: Emergency Provider Family Medicine; PCP Internal Medicine
DX: R07.89 Other chest pain (principal)
CPT/HCPCS: 36415; 71046; 80048; 83735; 83880; 84484; 93005; 99284; 99285; A9270

== ENCOUNTER 2024-07-27 14:04 | Emergency (ER) | payer MEDICARE, BC, SELFPAY ==
--- OUTSIDE RECORDS SUMMARY | 2024-07-27 14:06 | XMS_ITS | Clinical Summary ---
Author Organization [facility] Address [address] [place] [address] Care Team Providers Care Cashier Office Name Role Phone Unavailable Primary Care Provider Unavailabl e Source Comments Patient records contain information from all sites at [facility]. For routine questions regarding patient records, call [phone] during business hours, M-F 8:00 AM - 5:00 PM Central Time. Record requests for emergency care only can be directed to [phone] at any time.[facility] Allergies Active Allergy Reactions Criticality Noted [...] 675 each by mouth daily. 8 Active [id number] A-FISH OIL ORAL Take 1 capsule by [...] NOS 04/14/2017 Pneumonia Bronchiolitis Obliterans Organizing Immunizations Immunization Administration Dates Next Due HZV (ZOSTAVAX) 02/15/2011 [...] How often do you attend chur or yarsani services? Never 10/07/2021 Do you belong to any clubs o r organizations such as anglican groups, unions, fraternal or [...] Answer Date Recorded PHQ-2 Score 0 01/13/2023 [facility] of Occupat ional Health - Occupational Stress [...] your living situation today? I have a [facility] place to live 01/11/2023 Education Answer Date Recorded What is the highest level of school you have completed or the highest degree you have received? Bachelor's degree (e.g., BA, AB, BS) 10/07/2021 Comments No Sex and Gender Information Value Date Recorded Sex Assigned at Female 06/26/2021 11:13 AM CDT Legal Sex Female 5:23 AM MEDICAL REFERRAL COORDINATOR Gender Identity Female 06/26/2021 11:13 AM CDT Sexual Orientation Straight 06/26/2021 11 :13 AM CDT Last Filed Vital Signs Vital Sign Reading Time Taken Comments Blood Pressure 158/86 01/19/2023 3:28 PM MEDICAL REFERRAL COORDINATOR Average of 5 Pulse 64 01/19/2023 3:28 PM MEDICAL REFERRAL COORDINATOR Temperature - - Respiratory Rate 16 01/13/2017 8:39 AM MEDICAL REFERRAL COORDINATOR Oxygen Saturation 95% 01/19/2023 1:1 8 PM MEDICAL REFERRAL COORDINATOR Inhaled Oxygen Concentration - - Weight 59.1 kg (130 lb 4.7 oz) 01/14/20 9:13 AM MEDICAL REFERRAL COORDINATOR Height 153.6 cm (5' 0.47) 01/13/2023 9 :13 AM MEDICAL REFERRAL COORDINATOR Body Mass Index 25.05 01/13/2023 9:13 AM MEDICAL REFERRAL COORDINATOR Plan of Treatment Health Maintenance Due Date Last Done Comments CT Colonography 1950 Colonoscopy 1950 FIT 1950 Hepatitis C Screening 1950 Hepatitis A Vaccines (2 of 2 - Risk 2-dose series) 03/15/2007 09/12/2006 Hepatitis B Vaccines (3 of 3 - 19+ 3-dose series) 03/15/2007 01/09/2007, 09/12/2006, 09/12/2006 Office Visit for Blood Pressure Check / Re-check 04/21/2023 01/19/2023 COVID-19 Vaccine ( season) 2023 12/11/2022, 12/06/2021, 08/07/2021, Additional history exists Cologuard 12/05/2023 12/04/2020, 11/01/2016 Colorectal Cancer Screening 12/05/2023 Influenza Vaccine (#1) 2023 Mammogram 12/22/2023 12/21/2022, 12/05, 12/10/2021, Additional history exists Thyroid Stimulating Hormone (TSH) test for thyroid function 01/14/2024 01/13/2023, 10/01/2016 Depression Screening (Annual PHQ-2) 03/07/2024 Fall Risk Screen (Annual) 03/07/2024 DTaP,Tdap,and Td Vaccines (3 - Td or Tdap) 04/10/2025 04/10/2015, 02/04/2007, 10/05/2005 Fasting Glucose for Diabetes Screening 01/13/2026 01/13/2023, 01/13/2023, 01/13/2021, Additional history exists Pneumococcal vaccine (50+ years) Completed 08/07/2021, 07/02/2016, 06/18/2016, Additional history exists RSV vaccine - (32-36 weeks) or 60+ years Completed 12/11/2022 Zoster Vaccines Completed 07/27/2023, 03/07, 02/15/2011 IPV Vaccines Aged Out No longer eligi ble based on patient's age to complete this topic Medical Devices Implanted Type Area Foster Care Therapist Device Identifier Shelf Expiration Date Model / Serial / Lot Trimed-Plate Ulnar Dorsal 5 Hole - Garza [id number] Implanted:Qty: 1 on 04/25/2009 Hardware e.g. pins/screws/ rods [employer] Description:Device Manufactu rer - [employer] Device Status Text - [id number]. Trimed-Screw Juliano 3.2 X 14mm - Garza [id number] Implanted:Qty: 1 on 04/25/2009 Hardware e.g. pins/screws/ rods [employer] Description:Device Manufactu rer - [employer].. Device Status Text - HARDWARE-[id number]. Trimed-Screw Cortical Lp 2.3 X 12 - Garza [id number] Implanted:Qty: 2 on 04/25/2009 Hardware e.g. pins/screws/ rods [employer] Description:Device Manufactu rer - [employer].. Device Status Text - HARDWARE-[id number]. Trimed K-Wire .045 - Garza [id number] Implanted:Qty: 6 on 04/25/2009 Hardware e.g. pins/screws/ rods [employer] Description:Device Manufactu rer - [employer].. Device Status Text - HARDWARE-73251. Trimed-Screw Volar Peg Unthread 14mm - Garza [id number] Implanted:Qty: 1 on 04/25/2009 Hardware e.g. pins/screws/ rods [employer] Description:Device Manufactu rer - [employer].. Device Status Text - HARDWARE-007273. Trimed-Screw Volar Peg Thrded 14mm - Garza [id number] Implanted:Qty: 1 on 04/25/2009 Hardware e.g. pins/screws/ rods [employer] Description:Device Manufactu rer - [employer].. Device Status Text - HARDWARE-133097. Trimed-Screw Volar Peg Unthread 18mm - Garza [id number] Implanted:Qty: 2 on 04/25/2009 Hardware e.g. pins/screws/ rods [employer] Description:Device Manufactu rer - [employer].. Device Status Text - HARDWARE-[id number]. Trimed-Plate Volar Peg Rt 3ho 6peg - Garza [id number] Implanted:Qty: 1 on 04/25/2009 Hardware e.g. pins/screws/ rods [employer] Description:Device Manufactu rer - [employer].. Device Status Text - HARDWARE-70272. Trimed-Screw Volar Peg Unthread 20mm - Garza [id number] Implanted:Qty: 1 on 04/25/2009 Hardware e.g. pins/screws/ rods [employer] Description:Device Manufactu rer - [employer].. Device Status Text - [id number]. Trimed-Screw Juliano 3.2 X 12mm - Garza [id number] Implanted:Qty: 1 on 04/25/2009 Hardware e.g. pins/screws/ rods [employer] Description:Device Manufactu rer - [employer].. Device Status Text - HARDWARE-[id number]. K-Wire-Ss 4 Smooth .062 - Garza [id number] Implanted:Qty: 1 on 04/25/2009 Hardware e.g. pins/screws/ rods Thong Description:Device Manufactu rer - [employer].. Device Status Text - HARDWARE-871. Conversions [...] Hardware. K-Wire 1.25mm X 150mm - Garza [id number] Implanted:Qty: 1 on 11/30/2016 Hardware e.g. pins/screws/ rods [employer] Description:Device Manufactu rer - [employer]. Device Status Text - HARDWARE-89924. Kwire Ss 4 .035 - Garza [id number] Implanted:Qty: 1 on 11/30/2016 Hardware e.g. pins/screws/ rods [place] Description:Device Manufactu rer - [employer].. Device Status Text - [id number]. Block Olga. Phonoform [facility] Rt - Garza [id number] Implanted:Qty: 1 on 11/10/2016 Mis Prosthesis Other/Legacy - See Implant Description Medtronic Description:Device Manufactu rer - [employer] Body Location - Other. Right. Device Status Text - [facility]-[id number]. Procedures Procedure Name Priority Date/Time Associated Diagnosis Comments HEMOGLOBIN A1C, B Routine 01/13/2023 12: 00 PM MEDICAL REFERRAL COORDINATOR Peripheral Nerve Disorder THYROID FUNCTION CASCADE, S Routine 01/13/2023 12:00 PM MEDICAL REFERRAL COORDINATOR Peripheral Nerve Disorder OUTSIDE MG MAMMOGRAM Routine 12/21/2022 1:00 PM CDT COLOGUARD Routine 11/01/2016 5:43 AM CDT from Last 3 Months or Most Recently Relevant to Health Maintenance Results * Thyroid Function Freedom (01/13/2023 12:00 PM MEDICAL REFERRAL COORDINATOR) TSH, Sensitive 3.8 0.3 - 4.2 mIU/L 01/13/2023 1:11 PM MEDICAL REFERRAL COORDINATOR DTL Blood (Blood, Venous) 01/13/2023 12:00 PM MEDICAL REFERRAL COORDINATOR 01/13/2023 12:38 PM MEDICAL REFERRAL COORDINATOR Elizabeth Angel M.D. LAB BLOOD ADD-ON Final Result Performing Organization Address City/[facility]/ZIP Co de Phone Number [facility] [place] [address] [place] [address], [facility] [place] [address] [place] [address] * Hemoglobin A1c (01/13/2023 12:00 PM MEDICAL REFERRAL COORDINATOR) Hemoglobin A1c, B 5.4 4.0 - 5.6 % 01/13/2023 12:57 PM MEDICAL REFERRAL COORDINATOR DTL Blood (Blood, Venous) 01/13/2023 12:00 PM MEDICAL REFERRAL COORDINATOR 01/13/2023 12:25 PM MEDICAL REFERRAL COORDINATOR Elizabeth Angel M.D. LAB BLOOD ADD-ON Final Result [facility] [place] [address] [place] [address], [facility] [place] [address] [place] [address] * MM screening mammo BI-Outside Mammogram (12/21/2022 1:00 PM CDT) Narrative JANETTE - 01/10/2023 9:59 PM MEDICAL REFERRAL COORDINATOR This order has been created and auto-finalized [...] Cologuard (11/01/2016 5:43 AM CDT) Cologuard Negative [facility] Comment: Test Result Flag Unit RefValue Cologuard [...] can be accessed at the following location: [email or web address]. Additional description of the Cologuard test process, warnings and precautions can be found at [email or web address]. Rx Only. 11/01/2016 5:43 AM CDT 11/01/2016 5:43 AM CDT Radha Parra M.D. LAB BODY FLUIDS AND STOOLS O RDERABLES Final Result Performing Organization Address City/State/[facility] Co de Phone Number [facility] [place] [address] [place] [phone], [facility] from Last 3 Months or Most Recently Relevant to Health Maintenance Insurance MEDICARE [facility]
--- OUTSIDE RECORDS SUMMARY | 2024-07-27 14:06 | XMS_ITS | Clinical Summary ---
Author Organization [facility] Address [address] [place] [id number] Care Team Providers Care Electromatic Typist Name Role Phone Salma Whitley MD Primary Care Provider [phone] Allergies No known active allergies Medications acetaminophen (TYLENOL) 325 mg tablet Take 2 tablets by mouth every 4 hours if needed. Max acetaminophen dose: 4000mg in 24 hrs. 0 04/13/19 14 Active melatonin 3 mg tablet Take 2 tablets by mouth at bedtime. 0 03/17/19 16 Active LACTOBACILLUS ACIDOPHILUS (PROBIOTIC ORAL) Take by mouth once daily. Active levothyroxine (SYNTHROID) 100 mcg tablet Take 100 mcg by mouth once daily. 03/06/20 17 Active ondansetron (ZOFRAN) 4 mg tablet PRN 11/11/19 17 Active diphenhydrAMINE (BENADRYL) 25 mg capsule Take 25 mg by mouth at bedtime if needed. Active albuterol (PROAIR RESPICLICK) 90 mcg/actuation INHALER Inhale by mouth every 4 hours. Active albuterol HFA 90 mcg/actuation inhaler Inhale 2 Puffs by mouth every 4 hours if needed. Active durable medical equipment (DME)Indications: Chronic pain of right knee,Patellar instability of right knee DonJoy Lateral J knee brace for patellar support, Right, Medium [id number] Length of Use: 99 months 0 08/22/19 21 Active fluticasone (50 mcg per actuation) nasal solution (FLONASE) once daily. 06/12/19 22 Active MAGNESIUM ORAL Take by mouth. Active glucosamine-chond roitin 500-400 mg Take by mouth. Active budesonide (PULMICORT RESPULES) 0.5 mg/2 mL neb suspension Inhale 0.5 mg into affected nostril(s). 11/18/19 Active gabapentin (NEURONTIN) 300 mg capsuleIndication s:Cervical radiculopathy Take 1 Capsule (300 mg) by mouth at bedtime. 30 Capsule 3 11/20/19 22 Active doxycycline (VIBRAMYCIN) 100 mg tabletIndications :Cough, unspecified type Take 1 Tablet (100 mg) by mouth two times daily. 20 Tablet 01/30/20 Active amLODIPine (NORVASC) 5 mg tablet Take 5 mg by mouth. 01/20/20 23 Active inhalational spacing device (Vortex Holding Chamber)Indicatio ns:Cough, unspecified type For home use. 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 28 Capsule 06/21/19 25 Active valsartan 160 mg tablet Take 160 mg by mouth once daily. Active pantoprazole 20 mg tablet Take 20 mg by mouth once daily. Active predniSONE (DELTASONE) 20 mg tabletIndications :Asthma with acute exacerbation, unspecified asthma severity, unspecified whether persistent (HC) Take 2 Tablets (40 mg) by mouth once daily with a meal. 10 Tablet 01/30/20 22 025 Discontin ued(*Med complete/ Regimen complete/ Level of care change) fluticasone furoate-vilantero L (Breo Ellipta) 200-25 mcg/dose inhalation powdererIndicatio ns:Cough, unspecified type Inhale 1 Puff by mouth once daily. 60 Each 5 06/19/19 25 025 Discontin ued(*Medi cation adjustmen t) Active Problems Problem Noted Date Diagnosed Date [...] Encounters Date Type Department Care Team Description 07/09/2024 12:15 PM CDT Office Visit [facility] [address] [place] [phone] Qi Henson MD Consult (Abnormal CT) 07/09/2024 Travel 07/04/2024 Travel 07/03/2024 Telephone [facility] [address] [place] [address] Isidro Pina MD Results 06/25/2024 Telephone [facility] [address] [place] [address] Isidro Pina MD Results 06/21/2024 Telephone [facility] [address] [place] [phone] Pulmonary, Ulsc Appointment Request 06/20/2024 Telephone [facility] [address] [place] [address] Isidro Pina MD Medication Management 06/19/2024 Telephone [facility] [address] [place] [address] Isidro Pina MD Screening (TB/Cough) 06/18/2024 2:00 PM CDT Ancillary Procedure [facility] [address] [place] [address] 06/18/2024 1:30 PM CDT Ancillary Procedure [facility] [address] [place] [address] 06/18/2024 10:40 AM CDT [facility] [address] [facility] [address] Isidro Pina MD Allergies (RECURRENT RHINOSINUSITIS (referred by Salma Whitley [facility])) 06/18/2024 Travel 05/29/2024 Telephone [facility] [address] [place] [address] Isidro Pina MD Referral from Last 3 Months Immunizations Immunization Administration Dates Next Due Pneumococcal conj 13-Valent [...] Paying Living Expenses Not on file 03/07/2021 Comments No Sex and Gender Information Value Date Recorded Sex Assigned at Not on file Legal Sex Female 5:41 AM [employer] Gender Identity Not on file Sexual Orientation Not on file Obstetrics History Last Filed Vital Signs Vital Sign Reading Time Taken Comments Blood Pressure 122/74 07/09/2024 12:12 PM CDT Pulse 76 07/09/2024 12:12 PM CDT Temperature 36.6 C (97.8 F) 06/18/2024 11:03 AM CDT Respiratory Rate 16 07/09/2024 12:12 PM CDT Oxygen Saturation 97% 07/09/2024 12:12 PM CDT Inhaled Oxygen Concentration - - Weight 53.5 kg (118 lb) 07/09/2024 12:12 PM CDT Height 154.9 cm (5' 1) 07/09/2024 12:12 PM CDT Body Mass Index 22.3 07/09/2024 12:12 PM CDT Plan of Treatment Health Maintenance Due Date Last Done Comments Tdap 1961 Depression screening for age 12+ 1962 Hepatitis C screening for age 18-79 1968 Tetanus booster 1970 Colonoscopy through age 75 08/17/1995 Lipids for age 45-75 08/17/1995 Zoster (shingles) series for age 50+ (1 of 2) 2000 DEXA/DXA scan for age 65+ 08/17/2015 Medicare Wellness for age 65+ 08/17/2015 Pneumococcal series for age 50+ (2 of 2 - PPSV23) 06/18/2017 06/18/2016 Influenza Vaccine (Season Ended) 2024 Mammogram for age 45-75 12/22/2024 12/23/2023 BMI (ht and wt on same day) for age 18+ 07/09/2025 07/09/2024 RSV vaccine for adults or (1 - 1-dose 75+ series) 2025 COVID-19 vaccine series Completed 05/19/19, 12/13/2023, 12/11/2022, Additional history exists Hepatitis B series for 19+ Aged Out N o longer eligible based on patient's age to complete this topic Medical Devices Implanted Type Area Director Of Medical Review Device Identifier Shelf Expiration Date Model / Serial / Lot [id number] Implanted:Qty: 1 on 05/02/2013 at [facility] Explanted:at [facility] (Quantity not on file) Spine Musculoskeletal Transplant 01/02/2015 [id number] / [id number] / Description:DBX PUTTY 0.5CC [id number] 0bone Cerv 6mm 4deg W/Plug [[id number]] Implanted:Qty: 1 on 05/02/2013 at [facility] Spine [employer] 12/04/2017 [id number] / [id number] / Plate Cerv Ant 12mm One Level - [id number] Implanted:Qty: 1 on 05/02/2013 at [facility] N/A: Spine [employer] [place] [employer] [id number] / / Screw 4.73o73wz Slf Tppng Va - [id number] Implanted:Qty: 1 on 05/02/2013 at [facility] N/A: Spine [place] [employer] [id number] / / Screw 4.0x14mm Slf Drilling Va - [id number] Implanted:Qty: 3 on 05/02/2013 at [facility] N/A: Spine [place] [employer] [id number] / / Screw Bone 2.5x16mm Mini Headed - [id number] Implanted:Qty: 1 on 10/03/2018 by Venkata Cameron DPM at [facility] Left: Foot [employer] [id number] / / Screw Bone 2.5x18mm Mini Headed - [id number] Implanted:Qty: 1 on 10/03/2018 by Venkata Cameron DPM at [facility] Left: Foot [employer] [id number]# / / K-Wire 3.0mm [place] Non-Thrd - [id number] Implanted:Qty: 1 on 10/03/2018 by Venkata Cameron DPM at [facility] Left: Foot [employer] [id number]# / / Explanted Type Area Director Of Medical Review Device Identifier Shelf Expiration Date Model / Serial / Lot K-Wire 2.5mm [place] Non-Thrd - [id number] Explanted:Qty: 2 on 10/03/2018 by Venkata Cameron DPM at [facility] Left: Foot [employer] [id number] / / Procedures Procedure Name Priority Date/Time Associated Diagnosis Comments CT CHEST WO BRIANA 06/18/2024 12:42 PM CDT Chronic sinusitis, unspecified location CT SINUS WO BRIANA 06/18/2024 12:42 PM CDT Chronic sinusitis, unspecified location IMMUNOGLOBULINS,IGG/A /M Routine 06/18/2024 12:17 PM CDT Chronic sinusitis, unspecified location CBC WITH AUTO DIFFERENTIAL Routine 06/18/2024 12:16 PM CDT Chronic sinusitis, unspecified location PNEUMOCOCCAL AB (23 SEROTYPE) Routine 06/18/2024 12:16 PM CDT Chronic sinusitis, unspecified location XR MAMMO JAIR BILAT SCREEN Routine 12/23/2023 11:48 AM CDT Encounter for other screening for malignant neoplasm of breast from Last 3 Months or Most Recently Relevant to Health Maintenance Results * CT CHEST WO (06/18/2024 12:42 PM CDT) Anatomical Region Laterality Modality CHEST, THORAX, HEART Computed To mography 06/18/2024 11:1 4 PM CDT Impressions 06/18/2024 11:14 PM CDT Very mild findings compatible with infectious/inflammatory bronchiolitis within the right lung. Please note that all CT scans at this facility use dose modulation, iterative reconstruction, and/or weight-based dosing when appropriate to reduce radiation dose to as low as reasonably achievable. Dictated by Wilber Edmondson MD @ 06/18/2024 11:14:14 PM (Electronically Signed) Narrative 06/18/2024 11:14 PM CDT For Patients: As a result of the Cures Act, medical imaging exams and procedure reports are released immediately into your electronic medical record. You may view this report before your referring provider. If you have questions, please contact your health care provider. INDICATION: Chronic sinusitis and persistent cough. TECHNIQUE: CT chest without contrast. COMPARISON: None. FINDINGS: Lungs and pleura: Small foci of mucous plugging within the posterior basal segment of the right lower lobe. Minimal bronchial wall thickening. Tiny clustered tree-in-bud nodules within the peripheral right upper lobe (9/53). No consolidation or suspicious nodule. No pleural effusions, pleural thickening, or pneumothorax. Heart and vasculature: Heart size is normal. Thoracic aorta and pulmonary artery are normal in caliber. Lymph nodes/mediastinum: No mediastinal, hilar, or axillary adenopathy. Chest wall: No masses. Upper abdomen: No acute or significant findings. Bones: Old left-sided rib fractures. Anterior cervical fusion hardware. No acute findings. Procedure Note Wilber Edmondson MD - 06/18/2024 For Patients: As a result of the Cures Act, medical imagingexams and procedure reports are released immediately into your electronicmedical record. You may view this report before your referring provider.If you have questions, please contact your health care provider. INDICATION: Chronic sinusitis and persistent cough. TECHNIQUE: CT chest without contrast. COMPARISON: None. FINDINGS: Lungs and pleura: Small foci of mucous plugging within the posterior basalsegment of the right lower lobe. Minimal bronchial wall thickening. Tinyclustered tree-in-bud nodules within the peripheral right upper lobe(9/53). No consolidation or suspicious nodule. No pleural effusions,pleural thickening, or pneumothorax. Heart and vasculature: Heart size is normal. Thoracic aorta and pulmonaryartery are normal in caliber. Lymph nodes/mediastinum: No mediastinal, hilar, or axillary adenopathy. Chest wall: No masses. Upper abdomen: No acute or significant findings. Bones: Old left-sided rib fractures. Anterior cervical fusion hardware. Noacute findings. IMPRESSION: Very mild findings compatible with infectious/inflammatory bronchiolitiswithin the right lung. Please note that all CT scans at this facility use dose modulation,iterative reconstruction, and/or weight-based dosing when appropriate toreduce radiation dose to as low as reasonably achievable. Dictated by Wilber Edmondson MD @ 06/18/2024 11:14:14 PM (Electronically Signed) Isidro Pina MD CT Final Resu lt * CT SINUS WO (06/18/2024 12:42 PM CDT) Anatomical Region Laterality Modality SINUS Computed Tomogra phy 06/18/2024 1:12 PM CDT Impressions 06/18/2024 1:12 PM CDT 1. Postsurgical changes of medial maxillary antrostomy/uncinectomy and inferior ethmoidectomy. 2. Pansinus mucosal inflammatory changes as detailed. 3. Small air-fluid levels in the left maxillary and left sphenoid sinus. 4. Opacification of the bilateral anterior ethmoid air cells, bilateral frontal recesses, and left sphenoethmoidal recess. Please note that all CT scans at this facility use dose modulation, iterative reconstruction, and/or weight-based dosing when appropriate to reduce radiation dose to as low as reasonably achievable. Dictated by Jennifer Parker MD @ 06/18/2024 1:12:44 PM (Electronically Signed) Narrative 06/18/2024 1:12 PM CDT For Patients: As a result of the 21st Century Cures Act, medical imaging exams and procedure reports are released immediately into your electronic medical record. You may view this report before your referring provider. If you have questions, please contact your health care provider. Indication: Chronic sinusitis Technique: Noncontrast CT of the paranasal sinuses. Coronal and sagittal reformats. Bone and soft tissue algorithms. Comparison: None Findings: Frontal sinuses: Hypoplastic right frontal sinus. Minimal right and moderate left frontal sinus mucosal thickening with bilateral frontal recess opacification. Ethmoid air cells: Bilateral anterior air cell opacification and mild posterior air cell mucosal thickening, status post inferior ethmoidectomy. Sphenoid sinuses: Tafh-fu-piwtpcot circumferential mucosal thickening and air- fluid level, left sphenoid sinus with opacified sphenoethmoidal recess. Minimal circumferential mucosal thickening with internal bubbly secretions, right sphenoid sinus with clear sphenoethmoidal recess. Maxillary sinuses: Moderate/moderately severe lobulated bilateral maxillary sinus mucosal thickening with small left-sided air-fluid level. Medial maxillary antrostomy/uncinectomy changes, patent bilaterally. Nasal cavity: The nasal septum is relatively midline. Mild diffuse mucosal thickening, with lfnk-vhaxndo-xebb-right olfactory cleft opacification. Osseous structures: No suspicious osseous lesions. No periapical tooth lucencies. No mastoid or middle ear opacification. Procedure Note Jennifer Parker, DO - 06/18/2024 For Patients: As a result of the Century Cures Act, medical imagingexams and procedure reports are released immediately into your electronicmedical record. You may view this report before your referring provider.If you have questions, please contact your health care provider. Indication: Chronic sinusitis Technique: Noncontrast CT of the paranasal sinuses. Coronal and sagittal reformats.Bone and soft tissue algorithms. Comparison: None Findings: Frontal sinuses: Hypoplastic right frontal sinus. Minimal right andmoderate left frontal sinus mucosal thickening with bilateral frontalrecess opacification. Ethmoid air cells: Bilateral anterior air cell opacification and mildposterior air cell mucosal thickening, status post inferiorethmoidectomy. Sphenoid sinuses: Uufr-tf-jtftdmvl circumferential mucosal thickening andair- fluid level, left sphenoid sinus with opacified sphenoethmoidalrecess. Minimal circumferential mucosal thickening with internal bubblysecretions, right sphenoid sinus with clear sphenoethmoidal recess. Maxillary sinuses: Moderate/moderately severe lobulated bilateralmaxillary sinus mucosal thickening with small left-sided air-fluid level.Medial maxillary antrostomy/uncinectomy changes, patent bilaterally. Nasal cavity: The nasal septum is relatively midline. Mild diffuse mucosalthickening, with jvho-ykdihwo-wrbb-right olfactory cleft opacification. Osseous structures: No suspicious osseous lesions. No periapical toothlucencies. No mastoid or middle ear opacification. IMPRESSION: 1. Postsurgical changes of medial maxillary antrostomy/uncinectomy andinferior ethmoidectomy. 2. Pansinus mucosal inflammatory changes as detailed. 3. Small air-fluid levels in the left maxillary and left sphenoid sinus. 4. Opacification of the bilateral anterior ethmoid air cells, bilateralfrontal recesses, and left sphenoethmoidal recess. Please note that all CT scans at this facility use dose modulation,iterative reconstruction, and/or weight-based dosing when appropriate toreduce radiation dose to as low as reasonably achievable. Dictated by Jennifer Parker MD @ 06/18/2024 1:12:44 PM (Electronically Signed) Isidro Pina MD CT Final Resu lt * IMMUNOGLOBULINS,IGG/A/M (06/18/2024 12:17 PM CDT) IMMUNOGLOBULIN A 185 70 - 320 mg/dL [facility] IMMUNOGLOBULIN G 1,231 600 - 1,540 mg/dL [facility] IMMUNOGLOBULIN M 121 50 - 300 mg/dL [facility] Blood BLOOD SPECIMEN / Unknown 06/18/2024 12:17 PM CDT 06/18/2024 12:18 PM CDT Isidro Pina MD CHEMISTRY Final Resu lt [employer] [facility] [address] [place] [address], [place] [phone] [facility] [address] [place] [address] * PNEUMOCOCCAL AB (23 SEROTYPE) (06/18/2024 12:16 PM CDT) Pathologist [facility] SEROTYPE 1 (1) 0.7 [facility], SEROTYPE 2 (2) 0.5 [facility], SEROTYPE 3 (3) 0.8 [facility], SEROTYPE 4 (4) 1.5 [facility], SEROTYPE 5 (5) 4.7 [facility], SEROTYPE 8 (8) 7.4 [facility], SEROTYPE 9 (9N) 3.1 [facility], SEROTYPE 12 (12F) 10.7 [facility], SEROTYPE 14 (14) 54.[address] [facility], SEROTYPE 17 (17F) 2.2 [facility], SEROTYPE 19 (19F) 4.3 [facility], SEROTYPE 20 (20) 18.[address] [facility], SEROTYPE 22 (22F) 1.2 [facility], SEROTYPE 23 (23F) 1.7 [facility], SEROTYPE 26 (6B) <0.[address] [facility], SEROTYPE 34 (10A) 7.2 [facility], SEROTYPE 43 (11A) 4.1 [facility], SEROTYPE 51 (7F) 1.[address] [facility], SEROTYPE 54 (15B) 0.8 [facility], SEROTYPE 54 (18C) 6.0 [facility], SEROTYPE 57 (19A) 5.6 [facility], SEROTYPE 68 (9V) 6.[address] [facility], SEROTYPE 70 (33F) 9.7 [facility], Comment: Serologic correlates of protection against pneumococcal disease have not been rigorously established for all patient populations. Published data and expert consensus (including WHO) suggest protection from invasive disease usually occurs at levels >or =0.3-0.50 mcg/mL for healthy children receiving pneumococcal conjugate vaccines. Higher titers may be necessary to protect from non-invasive infection (e.g., pneumonia, otitis, sinusitis). Expert opinion suggests that a cut-off of >= 1.3 mcg/mL may be a more relevant value to assess antibody responses after pneumococcal polysaccharide vaccines or for immunocompromised patients. In addition to antibody quantity, protection also depends on antibody avidity and opsonophagocytic activity. Some experts consider that post-vaccination (4-6 weeks) IgG seroconversion and/or 2- to 4-fold rise in IgG titers for >50% to 70% of vaccine serotypes demonstrates a normal post-vaccine serologic response. Persons with high initial serotype-specific titers may have less robust responses. [facility] uses a multi-analyte immunodetection (MAID) method. The method employs the [employer] flow cytometric system which measures multiple analytes simultaneously. The FDA standard reference serum 89-S is used as the calibration standard. Results are reported in mcg/mL. This assay detects all of the 23 of the serotypes in the 23-valent polysaccharide vaccine and 12 of the 13 serotypes in the 13-valent conjugate vaccine. This test was developed and its analytical performance characteristics have been determined by [facility]. It has not been cleared or approved by FDA. This assay has been validated pursuant to the CLIA regulations and used for clinical purposes. For additional information, please refer to http://[email or web address]/faq/MOZ656 (This link is being provided for informational/ educational purposes only.) Blood BLOOD SPECIMEN / Unknown 06/18/2024 12:16 PM CDT 06/18/2024 12:17 PM CDT us Isidro Pina MD SEND OUTS Final Resu lt [facility] [address] [place] [address], [facility] [address] [place] [address] * (ABNORMAL) CBC AND DIFFERENTIAL (06/18/2024 12:16 PM CDT) WHITE BLOOD CELL COUNT 7.1 3.8 - 10.8 Thousand/u L [facility] RED BLOOD CELL COUNT 4.15 3.80 - 5.10 Million/uL [facility] HEMOGLOBIN 12.6 11.7 - 15.5 g/dL [facility] HEMATOCRIT 39.0 35.0 - 45.0 % [facility] MCV 94.0 80.0 - 100.0 fL [facility] MCH 30.4 27.0 - 33.0 pg [facility] MCHC 32.3 32.0 - 36.0 g/dL [facility] Comment: For adults, a slight decrease in the calculated MCHC value (in the range of 30 to 32 g/dL) is most likely not clinically significant; however, it should be interpreted with caution in correlation with other red cell parameters and the patient's clinical condition. RDW 12.0 11.0 - 15.0 % [facility] PLATELET COUNT 403(H) 140 - 400 Thousand/u L [facility] MPV 9.8 7.5 - 12.5 fL [facility] ABSOLUTE NEUTROPHILS 4,310 1,500 - 7,800 cells/uL [facility] ABSOLUTE LYMPHOCYTES 1,924 850 - 3,900 cells/uL [facility] ABSOLUTE MONOCYTES 462 200 - 950 cells/uL [facility] ABSOLUTE EOSINOPHILS 355 15 - 500 cells/uL [facility] ABSOLUTE BASOPHILS 50 0 - 200 cells/uL [facility] NEUTROPHILS 60.7 % [facility] LYMPHOCYTES 27.1 % [facility] MONOCYTES 6.5 % [facility] EOSINOPHILS 5.0 % [facility] BASOPHILS 0.7 % [facility] Blood BLOOD SPECIMEN / Unknown 06/18/2024 12:16 PM CDT 06/18/2024 12:17 PM CDT us Isidro Pina MD HEMATOLOGY Final Resu lt [facility] [address] [place] [address], [facility] [address] [place] [address] * XR MAMMO JAIR BILAT SCREEN (12/23/2023 [...] For Patients: As a result of the 21st Century Cures Act, medical imaging exams and procedure reports are released immediately into your electronic medical record. You may view this report before your referring provider. If you have questions, please contact your health care provider. XR MAMMO JAIR BILAT SCREEN [[id number]] CLINICAL HISTORY: This is an asymptomatic 73 [...] micro calcifications or areas of architectural distortion. us Salma Whitley MD MAMMO Final Resu lt from Last 3 Months or Most Recently Relevant to Health Maintenance Insurance [place] [facility] [address] MEDICARE PART A HB ONLY MEDICARE PART B HB ONLY [employer] [place] BLUE MR PB ONLY [employer] [place] BLUE HB ONLY Advance Directives * Full Code (Latest Code Status on File) Date Activated Date Inactivated Comments 10/03/2018 5:45 AM 10/03/2018 6:35 AM * Full Code Date Activated Date Inactivated Comments 05/02/2013 11:57 AM 05/03/2013 1:29 PM * Full Code Date Activated Date Inactivated Comments 05/02/2013 11:51 AM 05/02/2013 11:57 AM Care Teams Electromatic Typist Relationship Specialty Start Date End Date Salma Whitley MD [address] [place] [id number] PCP - General Internal Medicine 04/30/13
[2024-07-27 14:08] VITALS: BP 152/74; PULSE 71; RESP 20; TEMP 36.1; O2SAT 95; BMI 22.3
--- NOTE | 2024-07-27 14:13 | PC.NURSE ---
pt states she has albuterol inhaler at home which she used at 1000. Also has a nebulizer but no medications.
--- NOTE | 2024-07-27 14:48 | CRLHL7_ITS ---
For Patients: As a result of the Cures Act, medical imaging exams and procedure reports are released immediately into your electronic medical record. You may view this report before your referring provider. If you have questions, please contact your health care provider. INDICATION: Shortness of breath, wheezing. TECHNIQUE: Chest 1 view. COMPARISON: February 04, 2024. FINDINGS: Cardiovascular and mediastinum: Cardiomediastinal silhouette is prominent, similar to prior. Calcific atherosclerosis of the aorta. Lungs and pleural spaces: Lungs are clear. No evidence of pleural effusion. No pneumothorax identified. Bones and soft tissues: Unremarkable. IMPRESSION: No acute cardiopulmonary process identified. No significant interval change. Dictated by Neeru Guzman MD @ 07/27/2024 3:16:29 PM (Electronically Signed)
--- NOTE | 2024-07-27 14:57 | ED.GENADULT ---
HPI - General Adult General Date Seen: 07/27/24 Chief complaint: Shortness of Breath/Dyspnea Stated complaint: Trouble breathing Time Seen by Provider: 07/27/24 14:22 History of Present Illness HPI narrative: Patient is a 73-year-old woman here for shortness of breath. She has a fairly long history of chronic cough, wheezing, a diagnosis of asthma and sinus disease. She says that since March she has been having more more difficulty with dyspnea on exertion. She is generally fairly active but notes that her ability to walk long distances has been significantly curtailed. She was not able to mow the lawn today because of such significant dyspnea on exertion and when she tried to go on her normal 5-7 mi walk yesterday she was only able to walk about a quarter of a mi before she had to stop. She does say that her chest gets tight with exertion although she does not have pain or heaviness. She has had a fairly extensive pulmonary workup including a chest CT within the past month or so. She has had a prior stress test but it was a number of years ago. She has also had an echo but that is also been number of years ago. She does not have any prior history of coronary artery disease or congestive heart failure. She does not note any lower extremity swelling or pain, no recent travel or immobility. She does say that she is having trouble with cough at night that keeps her up. She also mentions as an aside that today she has a left temporal headache, she has been having problems with headaches in the front which she attributes to sinus symptoms, but the temporal headache is new. She does have some pain with moving her jaw. She has not had fevers or a change in her chronic cough aside from this nighttime cough. She did try her albuterol inhaler today but it did not help significantly. 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 #90 caps valsartan 160 mg tablet 160 mg PO QDAY #90 tabs 09/26/23 levothyroxine 100 mcg tablet 100 mcg PO DAILY #90 tabs 01/31/24 acyclovir 400 mg tablet 400 mg PO TID #30 tabs 05/28/24 albuterol sulfate 90 mcg/actuation 2 puff inhalation Q6H PRN 05/28/24 aerosol inhaler shortness of breath or wheezing #8.5 grams pantoprazole 40 mg tablet,delayed 40 mg PO DAILY #90 tabs 05/28/24 release prednisone 20 mg tablet 10 - 40 mg (0.5 - 2 x 20 mg) PO 05/28/24 DAILY #18 tabs albuterol sulfate 2.5 mg/3 mL 2.5 mg (3 mL) inhalation Q6H #75 mL 07/27/24 (0.083 %) solution for nebulization Allergies Allergy/AdvReac Type Severity Reaction Status Date / Time No Known Drug Allergies Allergy Verified 05/28/24 14:04 Review of Systems Status of ROS: Reports: 10 or more systems reviewed and unremarkable except as noted in History and below PFSH [facility] Medical History History of peptic ulcer (2017) ?Z87.11 - Personal history of peptic ulcer disease (ICD-10) History of fracture of ankle (04/06/07) ?Z87.81 - Personal history of (healed) traumatic fracture (ICD-10) Surgical History S/P hardware removal (09/28/07) ?Z98.890 - Other specified postprocedural states (ICD-10) S/P ORIF (open reduction internal fixation) fracture (04/06/07) ?Z98.890 - Other specified postprocedural states (ICD-10) ?Z87.81 - Personal history of (healed) traumatic fracture (ICD-10) History of thyroplasty (2016) ?Z98.890 - Other specified postprocedural states (ICD-10) History of tubal ligation (04/13/06) ?Z98.51 - Tubal ligation status (ICD-10) History of sinus surgery (2007) ?Z98.890 - Other specified postprocedural states (ICD-10) History of appendectomy (04/13/06) ?Z90.49 - Acquired absence of other specified parts of digestive tract (ICD-10) Hx of cervical spine surgery (2013) ?Z98.890 - Other specified postprocedural states (ICD-10) Social History What is your current living situation?: I presently have a place to live Problems where you live: pests, such as bugs, ants, or mice In the past 12 months, utilities in danger of being shut off: no In past 12 months, lack of transportation kept you from medical appts, meetings, work, or getting things needed for daily living: no In the past 12 mos, have been you worried that your food would run out before you had money to buy more?: never true In the past 12 mos, the food you bought just didn't last and you didn't have money to buy more?: never true Smoking Status: Never smoker Do you use any of these nicotine containing products: None Second hand tobacco smoke exposure: No How often do you have a drink containing alcohol: never How often do you have six or more drinks on one occasion: Never AUDIT-C Alcohol total score: 0 Non-prescribed substance use: denies use How often does anyone, including family, friends and others, physically hurt you: never How often does anyone, including family, friends and others, insult or talk down to you: never How often does anyone, including family, friends and others, threaten you with harm: never How often does anyone, including family, friends and others, scream or curse at you: never service: No Health Related Social Needs: Inadequate housing (Z59.1) Exam Narrative: Exam Narrative: Vital signs reviewed In general, alert, nontoxic Head: Normocephalic, atraumatic. Eyes: Sclera clear. Pupils equal and reactive. ENT: Mucous membranes moist. Neck: Supple without adenopathy. Heart: Regular rate and rhythm without murmur. Lungs: Scattered wheezes bilaterally, no significant increased work of breathing. Abdomen: Soft, nontender to palpation. Extremities: Well perfused, pulses intact. No significant edema. Neurologic: Alert, conversant. Speech fluent, face symmetric. Moves all extremities equally. Skin: Warm, dry well perfused. Affect: Normal. Const: Vital Signs, click to edit/add: Vital Signs - 24 hr 07/27/24 14:08 07/27/24 15:23 07/27/24 16:02 Temperature 97.0 F L Pulse Rate [Pulse Oximeter] 71 66 81 Respiratory Rate 20 18 20 Blood Pressure [Ri ght Upper Arm] 152/74 H 155/72 H 163/89 H Pulse Oximetry 95 99 95 Oxygen Delivery Me thod Room Air Room Air Room Air Course Course ED Course: EKG here is notable for sinus rhythm, ventricular rate 65, no acute ST segment changes, unremarkable T-waves, corrected QT of 409 milliseconds. She presents with acute on chronic dyspnea, symptoms have been getting worse for about 6 months now, but she does note over the past couple of days perhaps more acute worsening. I think she needs to have an outpatient stress test at a minimum, diagnostic considerations here today would be to evaluate for acute coronary syndrome or unstable angina, congestive heart failure, pulmonary embolism, pleural effusion, pneumonia, anemia, metabolic derangement or other contributing factors. Chest x-ray by my review is unremarkable, radiology report is reviewed and also found to be unchanged from previous. She has a hemoglobin of 11.8 which is essentially stable. Her D-dimer is less than 0.27. Sodium is low 125 this does appear to be relatively new for her at least compared 2023. Chloride is low as well. Other electrolytes are normal and her LFTs are unremarkable, CRP is 0.7, sed rate is still pending but presumably will be normal. Unclear what this temporal headache represents, does seem to have some jaw discomfort so perhaps it is related more to TMJ, in the absence of elevated inflammatory markers I do not think that needs further emergent evaluation. Her BNP is 247, there is no evidence of pulmonary edema on chest x-ray. Point of care troponin is 0.01. Our purposes today I think a single troponin is adequate as her symptoms have been gradually worsening. She had a DuoNeb, better she is ambulatory after her neb with O2 sats in the 90-92% range. Plan at this point would be to have her follow up with primary care, outpatient stress test, we can try her on some prednisone to see if that helps with her bronchospasm. She is eager to get going as she has plans this evening. I ordered an outpatient stress test with primary care follow-up. Reasons to return reviewed. Vital Signs Vital signs: Initial Vital Signs Temperature 97.0 F L 07/27/24 14:08 Temperature Source Temporal Artery Scan 07/27/24 14:08 Pulse Rate 71 07/27/24 14:08 Pulse Rhythm Regular 07/27/24 14:08 Respiratory Rate 20 07/27/24 14:08 Blood Pressure 152/74 H 07/27/24 14:08 Blood Pressure Mean 100 07/27/24 14:08 Blood Pressure Position Supine 07/27/24 14:08 Pulse Oximetry 95 07/27/24 14:08 Oxygen Delivery Method Room Air 07/27/24 14:08 Vital Signs Temperature 97.0 F L 07/27/24 14:08 Pulse Rate 71 07/27/24 14:08 Respiratory Rate 20 07/27/24 14:08 Blood Pressure 152/74 H 07/27/24 14:08 Pulse Oximetry 95 07/27/24 14:08 Oxygen Delivery Method Room Air 07/27/24 14:08 Temperature 97.0 F L 07/27/24 14:08 Pulse Rate 81 07/27/24 16:02 Respiratory Rate 20 07/27/24 16:02 Blood Pressure 163/89 H 07/27/24 16:02 Pulse Oximetry 95 07/27/24 16:02 Oxygen Delivery Method Room Air 07/27/24 16:02 Medications Administered Medications: Discontinued Medications Generic Name Dose Route Start Last Admin Trade Name Freq PRN Reason Stop Dose Admin Albuterol/Ipratropium 1 neb 07/27/24 14:47 07/27/24 15:08 Iprat-Albut 0.5-2.5 Mg/3 Ml Neb IH 07/27/24 14:48 1 neb ONCE ONE Administration Sodium Chloride 1,000 mls @ 1,000 mls/hr 07/27/24 15:45 07/27/24 15:52 0.9 % Sodium Chloride 1000 Ml IV 07/27/24 16:44 1,000 mls/hr .Q1H WENDIE Administration Medical Decision Making Lab Data Labs: Lab Results 07/27/24 07/27/24 Range/Units 15:00 15:05 WBC 8.18 (4.50-11.00) K/uL RBC 3.85 L (4.00-5.20) m/uL Hgb 11.8 L (12.0-16.0) gm/dL Hct 35.1 (33.0-51.0) % MCV 91 (80-100) fL MCH 31 (26-34) pg MCHC 34 (32-36) gm/dL RDW Coeff of Letty 12.0 (11.5-15.5) % Plt Count 385 (140-440) K/uL Neut % (Auto) 59.5 (42.0-72.0) % Lymph % (Auto) 16.1 L (20-44) % [place] % (Auto) 10.0 (0.0-11.0) % Eos % (Auto) 12.5 H (0.0-7.0) % Baso % (Auto) 1.0 (0.0-3.0) % Neut # (Auto) 4.87 (1.7-7.0) K/uL Lymph # (Auto) 1.30 (0.90-2.90) K/uL [place] # (Auto) 0.80 (0.00-0.90) K/UL Eos # (Auto) 1.00 H (0.00-0.50) K/uL Baso # (Auto) 0.08 (0.00-0.30) K/uL Abs Immat Gran (auto) 0.07 (0.00-0.30) K/uL Imm/Tot Granulo (auto) 0.9 % ESR 23 H (2-20) mm/hr D-Dimer Quant (PE/DVT) < 0.27 (0.00-0.50) ug/ml Sodium 125 L (135-149) mmol/L Potassium 4.8 (3.6-5.1) mmol/L Chloride 88 L (96-114) mmol/L Carbon Dioxide 31 (20-32) mmol/L Anion Gap 6 L (7-15) mEq/L BUN 11 (7-30) mg/dL Creatinine 0.8 (0.5-1.5) mg/dL Estimated Creat Clear 37.81 Estimated GFR 78 ml/min Glucose 101 (60-115) mg/dL Calcium 9.5 (8.4-10.6) mg/dL Total Bilirubin 0.3 (0.1-1.5) mg/dL Direct Bilirubin 0.3 (0.0-0.5) mg/dL AST 40 H (12-35) U/L ALT 28 (4-35) U/L Alkaline Phosphatase 68 (40-150) U/L C-Reactive Protein 0.7 (0.5-1.0) mg/dL NT-Pro-B Natriuret Pep 247 (See Note) pg/mL Total Protein 7.7 (6.0-8.3) g/dL Albumin 4.4 (3.3-5.0) g/dL POC Troponin I 0.01 (0.01-0.04) ng/ml Discharge Plan Discharge Clinical Impression: SEALS (dyspnea on exertion), Diffuse wheezing, Hyponatremia Patient Disposition: Home, Self-Care Condition: Improved Instructions: Hyponatremia (ED), Dyspnea (ED) Additional Instructions: Your labs today are overall reassuring, your EKG is normal. Your sodium is a little low today, and I would recommend that you restrict how much water you drink over the next week or so, limiting it to about 1200 mL a day. You can also add extra salt to her food, or you can get salt tablets at the drugstore to help raise your salt levels. Should be followed up with your primary doctor to make sure your sodium levels are returning to normal. With regard your breathing, I am not finding any obvious explanation today aside from the fact that you are wheezy. I do think since you are finding it more difficult to do usual activities that you should have another stress test. We will order this for you and you will need to follow-up with Dr. Whitley afterwards to go over the results. If at any time you have severe persistent shortness of breath, significant chest pain, fevers, fainting, or other acute worsening, return to the emergency department. I have also prescribed some prednisone to see if that helps improve your wheezing. Prescriptions: New albuterol sulfate 2.5 mg /3 mL (0.083 %) solution for nebulization 2.5 mg inhalation Q6H Qty: 75 2RF No Action magnesium 1 tab PO DAILY fluticasone propionate [Flonase Allergy Relief] 50 mcg/actuation spray,suspension 2 spray intranasal QDAY PRN Rx Instructions: administer into each nostril albuterol sulfate 90 mcg/actuation HFA aerosol inhaler 2 puff inhalation Q6H PRN (Reason: shortness of breath or wheezing) Qty: 8.5 12RF acyclovir 400 mg tablet 400 mg PO TID Qty: 30 5RF pantoprazole 40 mg tablet,delayed release (DR/EC) 40 mg PO DAILY Qty: 90 3RF prednisone 20 mg tablet 10 - 40 mg PO DAILY Qty: 18 0RF Rx Instructions: 40 MG PO DAILY FOR 5 DAYS, THEN 20 MG PO DAILY FOR 5 DAYS, THEN 10 MG PO DAILY FOR 5 DAYS. valsartan 160 mg tablet 160 mg PO QDAY Qty: 90 3RF gabapentin 300 mg capsule 300 mg PO QHS PRN sodium chloride 3 % solution for nebulization inhalation cholecalciferol (vitamin D3) 10 mcg (400 unit) capsule 10 mcg PO QDAY celecoxib [Celebrex] 200 mg capsule 200 mg PO QDAY PRN (Reason: arthritic flares) Qty: 90 1RF levothyroxine 100 mcg tablet 100 mcg PO DAILY Qty: 90 3RF Follow Up/Referrals: Salma Whitley MD [Primary Care Provider, Internal Medicine] Stand Alone Forms: [email or web address] Info Instructions
[2024-07-27] MEDS: IPRAT-ALBUT 0.5-2.5 MG/3 ML NEB 1 NEB IH (15:08)
[2024-07-27 15:12] LABS: Basophils Absolute Auto 0.08 K/uL (0.00-0.30); Eosinophils Percent Auto 12.5 % (0.0-7.0); Hematocrit 35.1 % (33.0-51.0); Hemoglobin* 11.8 gm/dL (12.0-16.0); Immature Granulocytes Abs Auto 0.07 K/uL (0.00-0.30); Immature Granulocytes Pct Auto 0.9 %; Lymphocytes Percent Auto 16.1 % (20-44); Mean Corpuscular HGB Conc 34 gm/dL (32-36); Mean Corpuscular Hemoglobin 31 pg (26-34); Mean Corpuscular Volume 91 fL (80-100); Neutrophils Absolute Auto 4.87 K/uL (1.7-7.0); Neutrophils Percent Auto 59.5 % (42.0-72.0); Platelet Count* 385 K/uL (140-440); Red Blood Count 3.85 m/uL (4.00-5.20); White Blood Count* 8.18 K/uL (4.50-11.00)
[2024-07-27 15:14] LABS: Slide Review Reflex No
[2024-07-27 15:18] LABS: Troponin, Point-of-Care* 0.01 ng/ml (0.01-0.04)
[2024-07-27 15:23] VITALS: BP 155/72; PULSE 66; RESP 18; O2SAT 99
[2024-07-27 15:26] LABS: Albumin* 4.4 g/dL (3.3-5.0); Chloride* 88 mmol/L (96-114); Potassium* 4.8 mmol/L (3.6-5.1); Sodium* 125 mmol/L (135-149)
[2024-07-27 15:29] LABS: Blood Urea Nitrogen* 11 mg/dL (7-30); Creatinine* 0.8 mg/dL (0.5-1.5); Est. Creatinine Clearance* 37.81; Estimated Glomerular Filt Rate 78 ml/min
[2024-07-27 15:30] LABS: Alanine Aminotransferase* 28 U/L (4-35); Alkaline Phosphatase* 68 U/L (40-150); Anion Gap 6 mEq/L (7-15); Aspartate Amino Transferase* 40 U/L (12-35); Bilirubin Direct* 0.3 mg/dL (0.0-0.5); Bilirubin Total* 0.3 mg/dL (0.1-1.5); Calcium* 9.5 mg/dL (8.4-10.6); Carbon Dioxide* 31 mmol/L (20-32); Glucose* 101 mg/dL (60-115); Total Protein* 7.7 g/dL (6.0-8.3)
[2024-07-27 15:32] LABS: C Reactive Protein* 0.7 mg/dL (0.5-1.0)
[2024-07-27 15:34] LABS: D Dimer Quantitative* < 0.27 ug/ml (0.00-0.50)
[2024-07-27 15:43] LABS: NT Pro B Type NatriureticPept* 247 pg/mL (See Note)
[2024-07-27] MEDS: 0.9 % SODIUM CHLORIDE 1000 ml 1,000 ML IV (15:52)
[2024-07-27 16:02] VITALS: BP 163/89; PULSE 81; RESP 20; O2SAT 95
[2024-07-27 16:35] LABS: Erythrocyte SedimentationRate* 23 mm/hr (2-20)
== END 2024-07-27 16:46 | disposition home or self-care (01) ==
PROVIDERS: Emergency Provider Emergency Medicine; PCP Internal Medicine
DX: R06.09 Other forms of dyspnea (principal); R06.2 Wheezing; E87.1 Hypo-osmolality and hyponatremia
CPT/HCPCS: 36415; 71045; 80048; 80076; 83880; 84484; 85025; 85379; 85651; 86140; 93005; 99284; J7030

== ENCOUNTER 2024-08-01 13:58 | Outpatient (CLI) | payer MEDICARE, BC, SELFPAY ==
[2024-08-04 00:20] LABS: ANCA IFA Pattern None Detected (None Detected); ANCA IFA Titer <1:20 (<1:20); Myeloperoxidase (MPO) Ab, IgG 1 AU/mL (0-19); Serine Proteinase 3 Ab IgG 0 AU/mL (0-19)
[2024-08-05 13:02] LABS: Immunoglobulin E 84 kU/L (<=214)
== END 2024-08-01 13:59 | disposition home or self-care (01) ==
LOC: NPINS 14:00
PROVIDERS: PCP Internal Medicine; Visit Provider Otolaryngology
DX: J32.8 Other chronic sinusitis (principal); R05.9 Cough, unspecified; J33.9 Nasal polyp, unspecified; R09.82 Postnasal drip; E87.1 Hypo-osmolality and hyponatremia; R06.09 Other forms of dyspnea
CPT/HCPCS: 82785; 83036; 83516

== ENCOUNTER 2024-10-29 12:53 | Emergency (ER) | payer MEDICARE, BC, SELFPAY ==
--- OUTSIDE RECORDS SUMMARY | 2024-10-29 12:55 | XMS_ITS | Clinical Summary ---
Author Organization [facility] Address [address] [place] [address] Care Team Providers Care Charge Account Clerk Name Role Phone Elsewhere, Pcp Primary Care Provider Unavailabl e Source Comments Patient records contain information from all sites at [facility]. For routine questions regarding patient records, call [phone] during business hours, M-F 8:00 AM - 5:00 PM Central Time. Record requests for emergency care only can be directed to [phone] at any time.[facility] Allergies Active Allergy Reactions Criticality Noted [...] 675 each by mouth daily. 8 Active [id number] A-FISH OIL ORAL Take 1 capsule by [...] before breakfast. 30 tablet 2 3 Active cefdinir (Omnicef) 300 mg capsule Take 300 mg by mouth 2 (two) times a day. 5 Active Arnuity Ellipta 100 mcg/actuation diskus inhaler 1 puff daily. 5 Active doxycycline monohydrate (Avidoxy) 100 mg tablet Take 100 mg by mouth 2 (two) times a day before morning and evening meals. Active valsartan (Diovan) 160 mg tablet Take 160 mg by mouth daily. Active albuterol 2.5 mg /3 mL nebulizer solutionIndicat ions:Shortness Of Breath,Wheezing Inhale 3 mL (2.5 mg total) by nebulization every 6 (six) hours as needed for wheezing for up to 10 days. 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 Shortness Of Breath (Primary Dx); Wheezing; Eosinophilia Unspecified Discharge Disposition: Home or Self Care from Last 3 Months Immunizations Immunization Administration Dates Next Due HZV [...] by your partner or ex-partner? No 10/07/2021 Hunger Vital Sign Answer Date Recorded Within [...] things needed for daily living? No 01/11/2023 Housing Stability Answer Date Recorded What is your living situation today? I have a [facility] place to live 01/11/2023 Education Answer Date Recorded What is the highest level of school you have completed or the highest degree you have received? Bachelor's degree (e.g., BA, AB, BS) 10/07/2021 Comments No Sex and Gender Information Value Date Recorded Sex Assigned at Female 06/26/2021 11:13 AM CDT Legal Sex Female 5:23 AM TOOL GRINDING TECHNICIAN Gender Identity Female 06/26/2021 11:13 AM CDT Sexual Orientation Straight 06/26/2021 11 :13 AM CDT Last Filed Vital Signs Vital Sign Reading Time Taken Comments Blood Pressure 146/71 07/30/2024 8:00 AM CDT Pulse 63 07/30/2024 8:00 AM CDT Temperature 36.2 C (97.2 F) 07/30/2024 7:22 AM CDT Respiratory Rate 16 07/30/2024 8:15 AM CDT Oxygen Saturation 95% 07/30/2024 8:15 AM CDT Inhaled Oxygen Concentration - - Weight 53.5 kg (117 lb 15.1 oz) 07/30/2024 7:23 AM CDT Height 153.6 cm (5' 0.47) 01/13/2023 9:13 AM CS T Body Mass Index 22.68 01/13/2023 9:13 AM TOOL GRINDING TECHNICIAN Plan of Treatment Health Maintenance Due Date Last Done Comments CT Colonography 1950 Colonoscopy 1950 FIT 1950 Hepatitis C Screening 1950 Hepatitis B Vaccines (3 of 3 - 19+ 3-dose series) 03/15/2007 01/09/2007, 09/12/2006, 09/12/2006 Zoster Vaccines (3 of 3) 05/18/2022 03/23/2022, 02/04 COVID-19 Vaccine (8 - 2024-25 season) 2023 12/11/2022, 12/06/2021, 08/07/2021, Additional history exists Thyroid Stimulating Hormone (TSH) test for thyroid function 01/14/2024 01/13/2023, 10/01/2016 Depression Screening (Annual PHQ-2) 03/07/2024 Fall Risk Screen (Annual) 03/07/2024 Influenza Vaccine (#1) 2024 Mammogram 12/22/2024 12/23/2023, 12/05, 12/21/2022, Additional history exists DTaP,Tdap,and Td Vaccines (3 - Td or Tdap) 04/10/2025 04/10/2015, 02/04/2007, 10/05/2005 Creatinine Level (Kidney Function Test) 07/30/2025 07/30/2024, 01/13/2023, 01/13/2021, Additional history exists Potassium Level 07/30/2025 07/30/2024, 11/0 11/2022, 01/13/2021, Additional history exists Sodium Level 07/30/2025 07/30/2024, 11/0 11/2022, 01/13/2021, Additional history exists Cologuard 12/08/2026 12/09/2023, 11/01/2016 Colorectal Cancer Screening 12/08/2026 Fasting Glucose for Diabetes Screening 07/31/2027 07/30/2024, 01/13/2023, 01/13/2023, Additional history exists Pneumococcal vaccine (50+ years) Completed 08/07/2021, 07/02/2016, 06/18/2016, Additional history exists RSV vaccine - (32-36 weeks) or 60+ years Completed 12/11/2022 IPV Vaccines Aged Out No longer eligi ble based on patient's age to complete this topic Medical Devices Implanted Type Area Dot Compliance Coordinator Device Identifier Shelf Expiration Date Model / Serial / Lot Trimed-Plate Ulnar Dorsal 5 Hole - Garza [id number] Implanted:Qty: 1 on 04/25/2009 Hardware e.g. pins/screws/ rods [employer]Med Inc Description:Device Manufactu rer - [employer].. Device Status Text - [id number]. Trimed-Screw Juliano 3.2 X 14mm - Garza [id number] Implanted:Qty: 1 on 04/25/2009 Hardware e.g. pins/screws/ rods [employer] Description:Device Manufactu rer - Trimed Inc.. Device Status Text - HARDWARE-560886. Trimed-Screw Cortical Lp 2.3 X 12 - Garza [id number] Implanted:Qty: 2 on 04/25/2009 Hardware e.g. pins/screws/ rods [employer] Description:Device Manufactu rer - Trimed Inc.. Device Status Text - HARDWARE-715819. Trimed K-Wire .045 - Garza [id number] Implanted:Qty: 6 on 04/25/2009 Hardware e.g. pins/screws/ rods [employer] Description:Device Manufactu rer - Trimed Inc.. Device Status Text - HARDWARE-17208. Trimed-Screw Volar Peg Unthread 14mm - Garza [id number] Implanted:Qty: 1 on 04/25/2009 Hardware e.g. pins/screws/ rods [employer] Description:Device Manufactu rer - Trimed Inc.. Device Status Text - HARDWARE-165450. Trimed-Screw Volar Peg Thrded 14mm - Garza [id number] Implanted:Qty: 1 on 04/25/2009 Hardware e.g. pins/screws/ rods [employer] Description:Device Manufactu rer - Trimed Inc.. Device Status Text - HARDWARE-813800. Trimed-Screw Volar Peg Unthread 18mm - Garza [id number] Implanted:Qty: 2 on 04/25/2009 Hardware e.g. pins/screws/ rods [employer] Description:Device Manufactu rer - Trimed Inc.. Device Status Text - HARDWARE-000271. Trimed-Plate Volar Peg Rt 3ho 6peg - Garza [id number] Implanted:Qty: 1 on 04/25/2009 Hardware e.g. pins/screws/ rods [employer] Description:Device Manufactu rer - Trimed Inc.. Device Status Text - HARDWARE-45596. Trimed-Screw Volar Peg Unthread 20mm - Garza [id number] Implanted:Qty: 1 on 04/25/2009 Hardware e.g. pins/screws/ rods [employer] Description:Device Manufactu rer - Trimed Inc.. Device Status Text - HARDWARE-800097. Trimed-Screw Juliano 3.2 X 12mm - Garza [id number] Implanted:Qty: 1 on 04/25/2009 Hardware e.g. pins/screws/ rods [employer] Description:Device Manufactu rer - Trimed Inc.. Device Status Text - HARDWARE-946822. K-Wire-Ss 4 Smooth .062 - Garza [id number] Implanted:Qty: 1 on 04/25/2009 Hardware e.g. pins/screws/ rods [employer]ott Description:Device Manufactu rer - [employer]ott Gordon.. Device Status Text - HARDWARE-871. Conversions [...] Hardware. K-Wire 1.25mm X 150mm - Garza [id number] Implanted:Qty: 1 on 11/30/2016 Hardware e.g. pins/screws/ rods [employer]ynthes Description:Device Manufactu rer - Synthes. Device Status Text - HARDWARE-83870. Kwire Ss 4 .035 - Garza [id number] Implanted:Qty: 1 on 11/30/2016 Hardware e.g. pins/screws/ rods [employer] Description:Device Manufactu rer - Thong Gordon.. Device Status Text - HARDWARE-246735. Block Olga. Phonoform [facility] - Garza [id number] Implanted:Qty: 1 on 11/10/2016 [facility] Other/Legacy - See Implant Description Medtronic Description:Device Manufactu rer - [email or web address]. Body Location - Other. Right. Device Status Text - [facility] [place] [id number]. Procedures Procedure Name Priority Date/Time Associated Diagnosis Comments C-REACTIVE PROTEIN (CRP), S/P STAT 07/30/2024 8:22 AM CDT BASIC METABOLIC PANEL, S/P STAT 07/30/2024 8:22 AM CDT CBC WITH DIFFERENTIAL, B STAT 07/30/2024 8:22 AM CDT DX CHEST AP OR PA AND LATERAL 2 VIEWS RAD - Semiurgent (Fast; most ED patients; some inpatients) 07/30/2024 8:12 AM CDT THYROID FUNCTION CASCADE, S Routine 01/13/2023 12:00 PM TOOL GRINDING TECHNICIAN Peripheral Nerve Disorder OUTSIDE MG MAMMOGRAM Routine 12/21/2022 1:00 PM CDT COLOGUARD Routine 11/01/2016 5:43 AM CDT from Last 3 Months or Most Recently Relevant to Health Maintenance Results * (ABNORMAL) CBC with Differential, Blood (07/30/2024 8:22 AM CDT) Hemoglobin 11.6 11.6 - 15.0 g/dL 07/30/2024 8:26 AM CDT CNFL Hematocrit 35.0(L) 35.5 - 44.9 % 07/30/2024 8:26 AM CDT CNFL Erythrocytes 3.83(L) 3.92 - 5.13 x10(12)/L 07/30/2024 8:26 AM CDT CNFL MCV 91.4 78.2 - 97.9 fL 07/30/2024 8:26 AM CDT CNFL RBC Distrib Width 12.2 12.2 - 16.1 % 07/30/2024 8:26 AM CDT CNFL Platelet Count 294 157 - 371 x10(9)/L 07/30/2024 8:26 AM CDT CNFL Leukocytes 6.0 3.4 - 9.6 x10(9)/L 07/30/2024 8:26 AM CDT CNFL Neutrophils 3.45 1.56 - 6.45 x10(9)/L 07/30/2024 8:26 AM CDT CNFL Lymphocytes 0.82(L) 0.95 - 3.07 x10(9)/L 07/30/2024 8:26 AM CDT CNFL Monocytes 0.74 0.26 - 0.81 x10(9)/L 07/30/2024 8:26 AM CDT CNFL Eosinophils 0.92(H) 0.03 - 0.48 x10(9)/L 07/30/2024 8:26 AM CDT CNFL Basophils 0.06 0.01 - 0.08 x10(9)/L 07/30/2024 8:26 AM CDT CNFL Blood (Blood, Venous) 07/30/2024 8:22 AM CDT 07/30/2024 8:24 AM CDT us Fiona Tse APRN, C.N.P. LAB BLOOD [place] [address], [place] [address] * (ABNORMAL) CRP (C-Reactive Protein) (07/30/2024 8:22 AM CDT) C-Reactive Protein (CRP), P 8.6(H) <5.0 mg/L 07/30/2024 8:42 AM CDT CNFL Blood (Blood, Venous) 07/30/2024 8:22 AM CDT 07/30/2024 8:24 AM CDT us Fiona Tse APRN, C.N.P. LAB BLOOD ADD-O N Final Result [facility] [address] [place] [id number], [facility] [place] [address] * (ABNORMAL) Basic Metabolic Panel (07/30/2024 8:22 AM CDT) Potassium, P 4.5 3.6 - 5.2 mmol/L 07/30/2024 8:42 AM CDT CNFL Sodium, P 133(L) 135 - 145 mmol/L 07/30/2024 8:42 AM CDT CNFL Chloride, P 100 98 - 107 mmol/L 07/30/2024 8:42 AM CDT CNFL Bicarbonate, P 26 22 - 29 mmol/L 07/30/2024 8:42 AM CDT CNFL Anion Gap, P 7 7 - 15 07/30/2024 8:42 AM CDT CNFL BUN (Blood Urea Nitrogen), P 10 6 - 21 mg/dL 07/30/2024 8:42 AM CDT CNFL Creatinine 0.80 0.59 - 1.04 mg/dL 07/30/2024 8:42 AM CDT CNFL Estimated GFR (eGFR) 78 >=60 mL/min/BSA 07/30/2024 8:42 AM CDT CNFL Comment: Estimated GFR calculated using the 2020 CKD_EPI creatinine equation. Calcium, Total, P 9.2 8.8 - 10.2 mg/dL 07/30/2024 8:42 AM CDT CNFL Glucose, P 86 70 - 140 mg/dL 07/30/2024 8:42 AM CDT CNFL Blood (Blood, Venous) 07/30/2024 8:22 AM CDT 07/30/2024 8:24 AM CDT us Fiona Tse APRN, C.N.P. LAB BLOOD ADD-O N Final Result [facility] [address] [place] [id number], [facility] CNFL [facility] in [address] [address] * DX Chest AP or PA and Lateral 2 Views (07/30/2024 8:12 AM CDT) Anatomical Region Laterality Modality Chest, Thoracic RST LOS, Tho racic ARZ LOS, Thoracic FLA LOS N/A Digital Radiography Impressions 07/30/2024 8:17 AM CDT Correlation with several prior studies, most recently radiographs 10/07/2016; CT of the chest 01/14/2023. Cardiac size and mediastinal contours are stable. No pneumothorax or pleural effusion. No pneumonic consolidation. Degenerative changes within the spine. Prior ACDF. Narrative 07/30/2024 8:17 AM CDT EXAM: DX CHEST AP OR PA AND LATERAL 2 VIEWS Procedure Note Maciej Mancilla M.D. - 07/30/2024 EXAM: DX CHEST AP OR PA AND LATERAL 2 VIEWS IMPRESSION: Correlation with several prior studies, most recently radiographs10/07/2016; CT of the chest 01/14/2023. Cardiac size and mediastinalcontours are stable. No pneumothorax or pleural effusion. No pneumonicconsolidation. Degenerative changes within the spine. Prior ACDF. us Fiona Tse APRN, C.N.P. IMG DIAGNOSTIC IMAGING PROCEDURES Final Result * Thyroid Function [place] (01/13/2023 12:00 PM TOOL GRINDING TECHNICIAN) TSH, Sensitive 3.8 0.3 - 4.2 mIU/L 01/13/2023 1:11 PM TOOL GRINDING TECHNICIAN DTL Blood (Blood, Venous) 01/13/2023 12:00 PM TOOL GRINDING TECHNICIAN 01/13/2023 12:38 PM TOOL GRINDING TECHNICIAN Elizabeth Angel M.D. LAB BLOOD ADD-ON Final Result [facility] [address] [place] [address], [facility] DTL [facility] [address] [place] [address] * MM screening mammo BI-Outside Mammogram (12/21/2022 1:00 PM CDT) Narrative [facility] - 01/10/2023 9:59 PM TOOL GRINDING TECHNICIAN This order has been created and auto-finalized to support the import of outside images. If available, original interpretation can be found on the Media Tab in Chart Review, in Document Viewer, or as an image in QREADS. If a re-interpretation or overread is required please follow defined workflow. us Provider Not In System IMG BI PROCEDURES Final R esult [facility] NA * Cologuard (11/01/2016 5:43 AM CDT) Cologuard Negative [facility] Comment: Test Result Flag Unit RefValue [...] can be accessed at the following location: [email or web address]. Additional description of the Cologuard test process, warnings and precautions can be found at [email or web address]. Rx Only. 11/01/2016 5:43 AM CDT 11/01/2016 5:43 AM CDT Radha Parra M.D. LAB BODY FLUIDS AND STOOLS O RDERABLES Final Result [facility] [address] [place] [address], [facility] from Last 3 Months or Most Recently Relevant to Health Maintenance Insurance MEDIC[place] [address] Care Teams Charge Account Clerk Relationship Specialty Start Date End Date Elsewhere, Pcp PCP - General Internal Medicine 07/30/24
--- OUTSIDE RECORDS SUMMARY | 2024-10-29 12:55 | XMS_ITS | Clinical Summary ---
Author Organization [facility] Address [address] [place] [id number] Care Team Providers Care Waiter/Waitress Third Class Name Role Phone Salma Whitley MD Primary Care Provider [phone] Allergies No known active allergies Medications acetaminophen [...] Inhale 0.5 mg into affected nostril(s). 11/18/19 22 Active gabapentin (NEURONTIN) 300 mg capsuleIndication s:Cervical radiculopathy Take 1 Capsule (300 mg) by mouth at bedtime. 30 Capsule 3 11/20/19 22 Active doxycycline (VIBRAMYCIN) 100 mg tabletIndications :Cough, unspecified type Take 1 Tablet (100 mg) by mouth two times daily. 20 Tablet 01/30/20 22 Active amLODIPine (NORVASC) 5 mg tablet Take 5 mg by mouth. 01/20/20 23 Active inhalational spacing device (Vortex Holding Chamber)Indicatio ns:Cough, unspecified type For home use. 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 30 Each 11 06/21/19 25 Active albuterol HFA 90 mcg/actuation [...] 20 mg by mouth once daily. 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 Gender Identity Not on file Sexual Orientation [...] Health Maintenance Due Date Last Done Comments Tetanus booster 1961 Depression screening for age 12+ 1962 Hepatitis C screening for age 18-79 1968 Lipids for age 45-75 08/17/1995 Zoster (shingles) series for age 50+ (1 of 2) 2000 DEXA/DXA scan for age 65+ 08/17/2015 Medicare Wellness for age 65+ 08/17/2015 Pneumococcal series for age 50+ (2 of 2 - PPSV23) 06/18/2017 06/18/2016 Influenza Vaccine (#1) 2024 Mammogram for age 45-75 12/22/2024 12/23/2023 BMI (ht and wt on same day) for age 18+ 07/09/2025 07/09/2024 RSV vaccine for adults or (1 - 1-dose 75+ series) 2025 Fecal testing sDNA-FIT (Cologuard) for age 45-75 12/08/2026 12/09/2023, 12/04/2020 COVID-19 vaccine series Completed 05/19/19, 12/13/2023, 12/11/2022, Additional history exists Hepatitis B series for 19+ Aged Out N o longer eligible based on patient's age to complete this topic Medical Devices Implanted Type Area Microfilm Camera Operator Device Identifier Shelf Expiration Date Model / Serial / Lot [id number] .[id number] Implanted:Qty: 1 on 05/02/2013 at [facility] Explanted:at [facility] (Quantity not on file) [employer] 01/02/2015 [id number] / [id number] / Description:DBX PUTTY 0.5CC [id number] 0bone Cerv 6mm 4deg W/Plug [[id number]] Implanted:Qty: 1 on 05/02/2013 at [facility] Spine [employer] Spine 12/04/2017 [id number] / [id number] / Plate Cerv Ant 12mm One Level - [id number] Implanted:Qty: 1 on 05/02/2013 at [facility] N/A: Spine Thong Spine [id number] / / Screw 4.85u46za Slf Tppng Va - [id number] Implanted:Qty: 1 on 05/02/2013 at [facility] N/A: Spine Thong Spine [id number] / / Screw 4.0x14mm Slf Drilling Va - [id number] Implanted:Qty: 3 on 05/02/2013 at [facility] N/A: Spine Thong Spine [id number] / / Screw Bone 2.5x16mm Mini Headed - [id number] Implanted:Qty: 1 on 10/03/2018 by Venkata Cameron DPM at [facility] Left: Foot Thong [employer]opaed[employer] [id number] / / Screw Bone 2.5x18mm Mini Headed - [id number] Implanted:Qty: 1 on 10/03/2018 by Venkata Cameron DPM at [facility] Left: Foot [employer] [id number] / / K-Wire 3.0mm [place] Non-Thrd - [id number] Implanted:Qty: 1 on 10/03/2018 by Venkata Cameron DPM at [facility] Left: Foot [employer] [id number] / / Explanted Type Area Microfilm Camera Operator Device Identifier Shelf Expiration Date Model / Serial / Lot K-Wire 2.5mm [place] Non-Thrd - [id number] Explanted:Qty: 2 on 10/03/2018 by Venkata Cameron DPM at [facility] Left: Foot [employer] [id number] / / Procedures Procedure Name Priority Date/Time Associated Diagnosis Comments XR MAMMO JAIR BILAT SCREEN Routine 12/23/2023 11:48 AM CDT Encounter for other screening for malignant neoplasm of breast from Last 3 Months or Most Recently Relevant to Health Maintenance Results * XR MAMMO JAIR BILAT SCREEN [...] care provider. XR MAMMO JAIR BILAT SCREEN [[id number]] CLINICAL HISTORY: This is an asymptomatic 73 [...] Recently Relevant to Health Maintenance Insurance [facility] [place] [place] [address] MEDICARE PART A HB ONLY MEDICARE PART B HB ONLY [employer] [place] [place] PB ONLY [employer] [place] [place] HB ONLY Advance Directives * Full Code (Latest Code Status on File) Date Activated Date Inactivated Comments 10/03/2018 5:45 AM 10/03/2018 6:35 AM * Full Code Date Activated Date Inactivated Comments 05/02/2013 11:57 AM 05/03/2013 1:29 PM * Full Code Date Activated Date Inactivated Comments 05/02/2013 11:51 AM 05/02/2013 11:57 AM Care Teams Waiter/Waitress Third Class Relationship Specialty Start Date End Date Salma Whitley MD [address] [place] [id number] PCP - General Internal Medicine 04/30/13
[2024-10-29 12:56] VITALS: BP 152/74; PULSE 67; TEMP 36.3; O2SAT 95; BMI 20.6
--- NOTE | 2024-10-29 14:50 | ED.GENADULT ---
HPI - General Adult General Date Seen: 10/29/24 Chief complaint: Shortness of Breath/Dyspnea Stated complaint: trouble breathing Time Seen by Provider: 10/29/24 14:31 History of Present Illness HPI narrative: 74-year-old female with a past medical history listed including GERD, hypertension, osteoarthritis, sleep apnea, hypothyroidism, chronic Per medical record: In ER 07/27/2024 for shortness of breath. According to that note she had a chronic cough and had been having more dyspnea on exertion for few months. She had had pulmonary workup including a chest CT. Also had had a stress test a couple of years ago and an echo couple of years ago. No history of coronary disease.... Chest x-ray was normal. Hemoglobin mildly low at 11.8. Normal D-dimer. hyponatremia with a sodium of 125. She was given a DuoNeb in improved. In the ER 02/04/2024 for chest pain. Rule out with serial troponins. In ER 05/17/2023 for chills, headache, body aches. Chest x-ray showed a left lower lobe pneumonia. Treated with Rocephin and cefdinir, Azithromycin. She does have trouble with a chronic cough and chronic sinusitis. She has been working with multiple specialists for this including her primary care provider, ENT, Allergy, pulmonology. She is on multiple meds including albuterol inhalers and nebulizers p.r.n., Flonase nasal spray, gentamicin nasal spray, saline nebulizers, she has a flutter valve for her lungs. Despite that she has a chronic cough. She is in the process of starting on Dupixent. However it cause 4000 LS per month and it is not covered by her insurance. She has been going through a process to get it paid for for the past few months but has so far not been able to get it covered. In that context she had a recent checkup with her doctor including a chest x-ray and some labs that were reassuring. Her chronic cough has been a little bit worse lately. She has been having more shortness of breath with exertion so called her doctor's office this morning. She feels like when she gets like this what often helps her get better is DuoNeb nebulizer. She called her doctor to see if they could give her a DuoNeb she was told to come here to the ER. She has been noting increasing chest tightness and cough lately. No known trigger. She does not have a fever. No chest pain. No hemoptysis. No swelling in her legs. She says her chronic cough is worse and what she really wants is just to get a DuoNeb. She does not really want to do further workup. 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 #90 caps levothyroxine 100 mcg tablet 100 mcg PO DAILY #90 tabs 01/31/24 albuterol sulfate 90 mcg/actuation 2 puff inhalation Q6H PRN 05/28/24 aerosol inhaler shortness of breath or wheezing #8.5 grams albuterol sulfate 2.5 mg/3 mL 2.5 mg (3 mL) inhalation Q6H #75 mL 07/27/24 (0.083 %) solution for nebulization fluticasone propionate 50 2 spray intranasal QDAY #16 grams 09/06/24 mcg/actuation nasal spray,suspension (Flonase Allergy Relief) albuterol sulfate 90 mcg/actuation 2 puff inhalation Q6H PRN 10/18/24 aerosol inhaler shortness of breath or wheezing #8.5 grams nebulizers (Altera Nebulizer #1 ea 10/25/24 System) ipratropium 0.5 mg-albuterol 3 mg 3 ml inhalation Q6H PRN #90 mL 10/29/24 (2.5 mg base)/3 mL nebulization soln prednisone 20 mg tablet 40 mg (2 x 20 mg) PO DAILY #10 tabs 10/29/24 valsartan 160 mg tablet 160 mg PO QDAY #90 tabs 10/29/24 Allergies Allergy/AdvReac Type Severity Reaction Status Date / Time No Known Drug Allergies Allergy Verified 10/29/24 13:07 [facility] Medical History History of peptic ulcer (2017) ?Z87.11 - Personal history of peptic ulcer disease (ICD-10) History of fracture of ankle (04/06/07) ?Z87.81 - Personal history of (healed) traumatic fracture (ICD-10) Surgical History S/P hardware removal (09/28/07) ?Z98.890 - Other specified postprocedural states (ICD-10) S/P ORIF (open reduction internal fixation) fracture (04/06/07) ?Z98.890 - Other specified postprocedural states (ICD-10) ?Z87.81 - Personal history of (healed) traumatic fracture (ICD-10) History of thyroplasty (2016) ?Z98.890 - Other specified postprocedural states (ICD-10) History of tubal ligation (04/13/06) ?Z98.51 - Tubal ligation status (ICD-10) History of sinus surgery (2007) ?Z98.890 - Other specified postprocedural states (ICD-10) History of appendectomy (04/13/06) ?Z90.49 - Acquired absence of other specified parts of digestive tract (ICD-10) Hx of cervical spine surgery (2013) ?Z98.890 - Other specified postprocedural states (ICD-10) Social History What is your current living situation?: I presently have a place to live Problems where you live: pests, such as bugs, ants, or mice In the past 12 months, utilities in danger of being shut off: no In past 12 months, lack of transportation kept you from medical appts, meetings, work, or getting things needed for daily living: no In the past 12 mos, have been you worried that your food would run out before you had money to buy more?: never true In the past 12 mos, the food you bought just didn't last and you didn't have money to buy more?: never true Smoking Status: Never smoker Do you use any of these nicotine containing products: None Second hand tobacco smoke exposure: No How often do you have a drink containing alcohol: never How often do you have six or more drinks on one occasion: Never AUDIT-C Alcohol total score: 0 Non-prescribed substance use: denies use How often does anyone, including family, friends and others, physically hurt you: never How often does anyone, including family, friends and others, insult or talk down to you: never How often does anyone, including family, friends and others, threaten you with harm: never How often does anyone, including family, friends and others, scream or curse at you: never service: No Health Related Social Needs: Inadequate housing (Z59.1) Exam Narrative: Exam Narrative: Constitutional: Appears well-developed and well-nourished. Alert. Conversant. Non toxic. HENT: Head: Atraumatic. Nose: Nose normal. Mouth/Throat: Oral mucosa is clear and moist. no trismus. Pharynx normal. Tonsils symmetric. No tonsillar enlargement, erythema, or exudate. Eyes: Conjunctivae normal. EOM normal. Pupils equal, round, and reactive to light. No scleral icterus. Neck: Normal range of motion. Neck supple. No tracheal deviation present. Cardiovascular: Normal rate, regular rhythm. No gallop. No friction rub. No murmur heard. Symmetric radial artery pulses Pulmonary/Chest: Effort normal. No stridor. No respiratory distress. Bilateral wheezes and rhonchi. No focal consolidation or rales. No tenderness. Abdominal: Soft.No distension. No mass. No tenderness. No rebound. No guarding. Musculoskeletal: RUE: Normal range of motion. No tenderness. No deformity LUE: Normal range of motion. No tenderness. No deformity RLE: Normal range of motion. No edema. No tenderness. No deformity LLE: Normal range of motion. No edema. No tenderness. No deformity Neurological: Alert and oriented to person, place, and time. Normal strength. CN II-VII intact. No sensory deficit. GCS eye subscore is 4. GCS verbal subscore is 5. GCS motor subscore is 6. Normal coordination Skin: Skin is warm and dry. No rash noted. No pallor. Normal capillary refill. Psychiatric: Normal mood. Normal affect. Const: Vital Signs, click to edit/add: Vital Signs - 24 hr 10/29/24 12:56 Temperature 97.4 F L Pulse Rate [Pulse Oximeter] 67 Blood Pressure [Ri ght Upper Arm] 152/74 H Pulse Oximetry 95 Oxygen Delivery Me thod Room Air Course Course ED Course: Recheck-after 1st DuoNeb lung sounds are slightly improved but still fairly tight and wheezy throughout. Reevaluation(s) Reevaluation #1: Recheck-after 2nd DuoNeb lungs are substantially improved. Still minimal wheezing but much better aeration. Vital Signs Vital signs: Initial Vital Signs Temperature 97.4 F L 10/29/24 12:56 Temperature Source Temporal Artery Scan 10/29/24 12:56 Pulse Rate 67 10/29/24 12:56 Blood Pressure 152/74 H 10/29/24 12:56 Blood Pressure Mean 100 10/29/24 12:56 Blood Pressure Position Sitting 10/29/24 12:56 Pulse Oximetry 95 10/29/24 12:56 Oxygen Delivery Method Room Air 10/29/24 12:56 Vital Signs Temperature 97.4 F L 10/29/24 12:56 Pulse Rate 67 10/29/24 12:56 Blood Pressure 152/74 H 10/29/24 12:56 Pulse Oximetry 95 10/29/24 12:56 Oxygen Delivery Method Room Air 10/29/24 12:56 Temperature 97.4 F L 10/29/24 12:56 Pulse Rate 67 10/29/24 12:56 Blood Pressure 152/74 H 10/29/24 12:56 Pulse Oximetry 95 10/29/24 12:56 Oxygen Delivery Method Room Air 10/29/24 12:56 Medications Administered Medications: Discontinued Medications Generic Name Dose Route Start Last Admin Trade Name Freq PRN Reason Stop Dose Admin Albuterol/Ipratropium 1 [facility] 10/29/24 14:55 10/29/24 15:00 Iprat-Albut 0.5-2.5 Mg/3 Ml [facility] 10/29/24 14:56 1 neb ONCE ONE Administration Albuterol/Ipratropium 1 [facility] 10/29/24 15:35 10/29/24 15:39 Iprat-Albut 0.5-2.5 Mg/3 Ml [facility] 10/29/24 15:36 1 neb ONCE ONE Administration Albuterol/Ipratropium 1 [facility] 10/29/24 15:36 10/29/24 15:45 Iprat-Albut 0.5-2.5 Mg/3 Ml Neb 10/29/24 15:37 Not Given ONCE ONE Medical Decision Making MDM Narrative Medical decision making narrative: This patient presents for evaluation of cough and wheezing. Signs and symptoms are consistent with asthma exacerbation. A broad differential was considered including asthma, pneumonia, bronchitis, pneumothorax, viral induced wheezing, allergic phenomena, cardiac asthma, PE among others. Discussed this with the patient. At this point she does not want any further workup with chest x-ray, COVID swab, or EKG or cardiac workup. She simply wants to get a DuoNeb which has helped her in the past. We did administer 2 DuoNebs here and she had had pretty good improvement. The patient feels and sounds improved after interventions here in ED. No indication for hospitalization at this time including no hypoxia, no marked increase in respiratory rate, and there are minimal to no retractions or other signs of evolving respiratory distress. Supportive outpatient management is indicated, medications for discharge noted above. Close followup with primary care physician. Return if increased wheezing, progressive shortness of breath, develops fever greater than 102. Questions answered and patient comfortable with plan. Will give her prescription for DuoNebs that she can use as needed at home as well as are other long-term medications. Also will put her on a five-day burst of prednisone 40 mg per day. Precautions for return to the ER reviewed. Need for follow-up reviewed. Patient is pleased with her improvement Discharge Plan Discharge Clinical Impression: Asthma Patient Disposition: Home, Self-Care Condition: Stable Instructions: Asthma (DC) Additional Instructions: As we discussed, you do have quite a bit of wheezing in your lungs today. I think this goes along with your longstanding lung disease. Continue to use her regular medications. Use the additional DuoNeb nebulizer every 4-6 hours as needed. Start on the prednisone 40 mg per day for the next 5 days to help your lungs. If you have any worsening trouble breathing, chest pain, fever, worsening cough, weakness, or any problems , please return to the ER right away. Prescriptions: New prednisone 20 mg tablet 40 mg PO DAILY Qty: 10 0RF ipratropium-albuterol 0.5 mg-3 mg(2.5 mg base)/3 mL solution for nebulization 3 ml inhalation Q6H PRNQty: 90 0RF No Action magnesium 1 tab PO DAILY albuterol sulfate 90 mcg/actuation HFA aerosol inhaler 2 puff inhalation Q6H PRN (Reason: shortness of breath or wheezing) Qty: 8.5 12RF sodium chloride 3 % solution for nebulization inhalation cholecalciferol (vitamin D3) 10 mcg (400 unit) capsule 10 mcg PO QDAY albuterol sulfate 2.5 mg /3 mL (0.083 %) solution for nebulization 2.5 mg inhalation Q6H Qty: 75 2RF budesonide 1 mg/2 mL suspension for nebulization BID Rx Instructions: PATIENT USES THIS SOLUTION A NASAL LAVAGE celecoxib [Celebrex] 200 mg capsule 200 mg PO QDAY PRN (Reason: arthritic flares) Qty: 90 1RF levothyroxine 100 mcg tablet 100 mcg PO DAILY Qty: 90 3RF fluticasone propionate [Flonase Allergy Relief] 50 mcg/actuation spray,suspension 2 spray intranasal QDAY Qty: 16 0RF Rx Instructions: administer 2 sprays into each nostril as needed albuterol sulfate 90 mcg/actuation HFA aerosol inhaler 2 puff inhalation Q6H PRN (Reason: shortness of breath or wheezing) Qty: 8.5 0RF (DME) nebulizers [Altera Nebulizer System] Misc See Rx Instructions .Route Qty: 1 0RF Rx Instructions: As directed valsartan 160 mg tablet 160 mg PO QDAY Qty: 90 3RF Follow Up/Referrals: Salma Whitley MD [Primary Care Provider, Internal Medicine] [facility]
[2024-10-29] MEDS: IPRAT-ALBUT 0.5-2.5 MG/3 ML NEB 1 NEB IH ×2 (15:00→15:39)
== END 2024-10-29 16:09 | disposition home or self-care (01) ==
PROVIDERS: Emergency Provider Emergency Medicine; PCP Internal Medicine
DX: J45.909 Unspecified asthma, uncomplicated (principal)
CPT/HCPCS: 99283

== ENCOUNTER 2024-11-06 07:51 | Emergency (ER) | payer MEDICARE, BC, SELFPAY ==
--- OUTSIDE RECORDS SUMMARY | 2024-11-06 07:55 | XMS_ITS | Clinical Summary ---
Author Organization [facility] Address [address] [place] [address] Care Team Providers Care Selling Specialist Name Role Phone Elsewhere, Pcp Primary Care Provider Unavailabl e Source Comments Patient records contain information from all sites at [facility]. For routine questions regarding patient records, call [phone] during business hours, M-F 8:00 AM - 5:00 PM Central Time. Record requests for emergency care only can be directed to [phone] at any time.[facility] Allergies Active Allergy Reactions Criticality Noted Date [...] 675 each by mouth daily. 8 Active [id number] A-FISH OIL ORAL Take 1 capsule by [...] up to 10 days. 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 I have a [facility] place to live 01/11/2023 Education Answer Date Recorded What is the highest level of school you have completed or the highest degree you have received? Bachelor's degree (e.g., BA, AB, BS) 10/07/2021 Comments No Sex and Gender Information Value Date Recorded Sex Assigned at Female 06/26/2021 11:13 AM CDT Legal Sex Female 5:23 AM [employer] Gender Identity Female 06/26/2021 11:13 AM CDT [...] Body Mass Index 22.68 01/13/2023 9:13 AM [employer] Plan of Treatment Health Maintenance Due Date Last Done Comments CT Colonography 1950 Colonoscopy 1950 FIT 1950 Hepatitis C Screening 1950 Hepatitis B Vaccines (3 of 3 - 19+ 3-dose series) 03/15/2007 01/09/2007, 09/12/2006, 09/12/2006 Zoster Vaccines (3 of 3) 05/18/2022 03/23/2022, 02/04 COVID-19 Vaccine ( season) 2023 12/11/2022, 12/06/2021, [...] Additional history exists Potassium Level 07/30/2025 07/30/2024, 11/2022, 01/13/2021, Additional history exists Sodium Level 07/30/2025 07/30/2024, 11/2022, 01/13/2021, Additional history exists Cologuard 12/08/2026 [...] this topic Medical Devices Implanted Type Area Roofing Tile Sorter Device Identifier Shelf Expiration Date Model / Serial / Lot Trimed-Plate Ulnar Dorsal 5 Hole - Garza [id number] Implanted:Qty: 1 on 04/25/2009 Hardware e.g. pins/screws/ rods [employer] Description:Device Manufactu rer - Tr[employer] Inc.. Device Status Text - [id number]. Trimed-Screw Juliano 3.2 X 14mm - Garza [id number] Implanted:Qty: 1 on 04/25/2009 Hardware e.g. pins/screws/ rods [employer] Description:Device Manufactu rer - [employer].. Device Status Text - [id number]. Trimed-Screw Cortical Lp 2.3 X 12 - Garza [id number] Implanted:Qty: 2 on 04/25/2009 Hardware e.g. pins/screws/ rods [employer] Description:Device Manufactu rer - [employer].. Device Status Text - [id number]. Trimed K-Wire .045 - Garza [id number] Implanted:Qty: 6 on 04/25/2009 Hardware e.g. pins/screws/ rods [employer] Description:Device Manufactu rer - [employer].. Device Status Text - HARDWARE-03345. Trimed-Screw Volar Peg Unthread 14mm - Garza [id number] Implanted:Qty: 1 on 04/25/2009 Hardware e.g. pins/screws/ rods [employer] Description:Device Manufactu rer - [employer].. Device Status Text - [id number]. Trimed-Screw Volar Peg Thrded 14mm - Garza [id number] Implanted:Qty: 1 on 04/25/2009 Hardware e.g. pins/screws/ rods [employer] Description:Device Manufactu rer - [employer].. Device Status Text - [id number]. Trimed-Screw Volar Peg Unthread 18mm - Garza [id number] Implanted:Qty: 2 on 04/25/2009 Hardware e.g. pins/screws/ rods [employer] Description:Device Manufactu rer - [employer].. Device Status Text - [id number]. Trimed-Plate Volar Peg Rt 3ho 6peg - Garza [id number] Implanted:Qty: 1 on 04/25/2009 Hardware e.g. pins/screws/ rods [employer] Description:Device Manufactu rer - Tr[employer].. Device Status Text - HARDWARE-[id number]. Trimed-Screw Volar Peg Unthread 20mm - Garza [id number] Implanted:Qty: 1 on 04/25/2009 Hardware e.g. pins/screws/ rods [employer] Description:Device Manufactu rer - Tr[employer].. Device Status Text - [id number]. Trimed-Screw Juliano 3.2 X 12mm - Garza [id number] Implanted:Qty: 1 on 04/25/2009 Hardware e.g. pins/screws/ rods [employer] Description:Device Manufactu rer - Tr[employer].. Device Status Text - [id number]. K-Wire-Ss 4 Smooth .062 - Garza [id number] Implanted:Qty: 1 on 04/25/2009 Hardware e.g. pins/screws/ rods [place] Description:Device Manufactu rer - Thong Gordon.. Device [...] Hardware. K-Wire 1.25mm X 150mm - Garza [id number] Implanted:Qty: 1 on 11/30/2016 Hardware e.g. pins/screws/ rods [employer]ynthes Description:Device Manufactu rer - Synthes. Device Status Text - [id number]. Kwire Ss 4 .035 - Garza [id number] Implanted:Qty: 1 on 11/30/2016 Hardware e.g. pins/screws/ rods Thong Description:Device Manufactu rer - Thong Gordon.. Device Status Text - [id number]. Block Olga. Phonoform [facility] Rt - Garza [id number] Implanted:Qty: 1 on 11/10/2016 Misc Prosthesis Other/Legacy - See Implant Description Medtronic Description:Device Manufactu rer - [email or web address]. Body Location - Other. Right. Device Status Text - MISC [id number]. Procedures Procedure Name Priority Date/Time Associated Diagnosis Comments BASIC METABOLIC PANEL, S/P STAT 07/30/2024 8:22 AM CDT THYROID FUNCTION CASCADE, S Routine 01/13/2023 12:00 PM [employer] Peripheral Nerve Disorder OUTSIDE MG MAMMOGRAM Routine 12/21/2022 1:00 PM CDT COLOGUARD Routine 11/01/2016 5:43 AM CDT from Last 3 Months or Most Recently Relevant to Health Maintenance Results * (ABNORMAL) Basic Metabolic Panel (07/30/2024 8:22 [...] C.N.P. LAB BLOOD ADD-O N Final Result [facility] [address] [place] [id number], [facility] [address] [address] * Thyroid Function [place] (01/13/2023 12:00 PM [employer]CH[employer]IC) TSH, Sensitive 3.8 0.3 - 4.2 mIU/L 01/13/2023 1:11 PM [employer]IC DTL Blood (Blood, Venous) 01/13/2023 12:00 PM [employer]IC 01/13/2023 12:38 PM [employer]IC Elizabeth Angel M.D. LAB BLOOD ADD-ON Final Result Performing Organization Address City/[facility] Co de Phone Number [facility] [address] [place] [address], [place] DTL [facility] [address] [place] [address] * MM screening mammo BI-Outside Mammogram (12/21/2022 1:00 PM CDT) Narrative [facility] - 01/10/2023 9:59 PM [employer]CH[employer]IC This order has been created and auto-finalized to support the import of outside images. If available, original interpretation can be found on the Media Tab in Chart Review, in Document Viewer, or as an image in QREADS. If a re-interpretation or overread is required please follow defined workflow. Provider Not In System IMG BI PROCEDURES Final R esult Performing Organization Address [facility] Co de Phone Number [facility] NA * Cologuard (11/01/2016 5:43 AM CDT) Cologuard Negative [facility] Comment: Test Result Flag Unit RefValue Cologuard [...] can be accessed at the following location: [email or web address]. Additional description of the Cologuard test process, warnings and precautions can be found at [email or web address]. Rx Only. 11/01/2016 5:43 AM CDT 11/01/2016 5:43 AM CDT Radha Parra M.D. LAB BODY FLUIDS AND STOOLS O RDERABLES Final Result [facility] [address] [place], [place] [address] from Last 3 Months or Most Recently Relevant to Health Maintenance Insurance [place] [id number] [facility] Care Teams Selling Specialist Relationship Specialty Start Date End Date Elsewhere, Pcp PCP - General Internal Medicine 07/30/24
--- OUTSIDE RECORDS SUMMARY | 2024-11-06 07:55 | XMS_ITS | Clinical Summary ---
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 Gender Identity Not on file Sexual Orientation [...] this topic Medical Devices Implanted Type Area License Clerk Device Identifier Shelf Expiration Date Model / Serial / Lot [id number] Implanted:Qty: 1 on 05/02/2013 at [facility] Explanted:at [facility] (Quantity not on file) [facility] 01/02/2015 [id number] / [id number] / Description:DBX PUTTY 0.5CC [id number] 0bone Cerv 6mm 4deg W/Plug [[id number]] Implanted:Qty: 1 on 05/02/2013 at [facility] Spine Thong Spine 12/04/2017 [id number]# / [id number] / Plate Cerv Ant 12mm One Level - [id number] Implanted:Qty: 1 on 05/02/2013 at [facility] N/A: Spine Thong Spine [id number] / / Screw 4.84a04zl Slf [employer] [place] - [id number] Implanted:Qty: 1 on 05/02/2013 at [facility] N/A: Spine Thong Spine [id number] / / Screw 4.0x14mm [employer]illing [employer] - [id number] Implanted:Qty: 3 on 05/02/2013 at [facility] N/A: Spine Thong Spine [id number]# / / Screw Bone 2.5x16mm Mini Headed - [id number] Implanted:Qty: 1 on 10/03/2018 by Venkata Cameron DPM at [facility] Left: Foot [employer]ong Orthopaedics [id number] / / Screw Bone 2.5x18mm Mini Headed - [id number] Implanted:Qty: 1 on 10/03/2018 by Venkata Cameron DPM at [facility] Left: Foot Thong Orthopaedics [id number] / / K-Wire 3.0mm Thong Non-Thrd - [id number] Implanted:Qty: 1 on 10/03/2018 by Venkata Cameron DPM at [facility] Left: Foot Thong Orthopaedics [id number] / / Explanted Type Area License Clerk Device Identifier Shelf Expiration Date Model / Serial / Lot K-Wire 2.5mm [place] Non-Thrd - [id number] Explanted:Qty: 2 on 10/03/2018 by Venkata Cameron DPM at [facility] Left: Foot [place] Orthopaedics [id number] / / Procedures Procedure Name Priority Date/Time [...] care provider. XR MAMMO JAIR BILAT SCREEN [[id number]] CLINICAL HISTORY: This is an asymptomatic 73 [...] Recently Relevant to Health Maintenance Insurance [facility] [place] [id number] MEDICARE PART A HB ONLY MEDICARE PART B HB ONLY [place] BLUE MR PB ONLY [place] BLUE HB ONLY Advance Directives * Full Code (Latest Code Status on File) Date Activated Date Inactivated Comments 10/03/2018 5:45 AM 10/03/2018 6:35 AM * Full Code Date Activated Date Inactivated Comments 05/02/2013 11:57 AM 05/03/2013 1:29 PM * Full Code Date Activated Date Inactivated Comments 05/02/2013 11:51 AM 05/02/2013 11:57 AM Care Teams Sergeant Missile Crewman Relationship Specialty Start Date End Date Salma Whitley MD [address] [place] [id number] PCP - General Internal Medicine 04/30/13
[2024-11-06 08:00] VITALS: BP 193/71; PULSE 64; RESP 16; TEMP 36.2; O2SAT 95; BMI 21.5
--- NOTE | 2024-11-06 08:23 | ED.GENADULT ---
HPI - General Adult General Chief complaint: GI Bleed Stated complaint: possible GI bleeding Time Seen by Provider: 11/06/24 08:06 Source: patient Mode of arrival: ambulatory Limitations: no limitations History of Present Illness HPI narrative: 74-year-old female presenting today with very dark brown stools going on day 3. She states that she had a history of GI bleed in 2016 when she was found to have a duodenal ulcer periods she states she has is exhibiting the same symptoms of dark, tarry Stools and this morning she felt lightheaded when she stood up. She denies chest pain or shortness of breath. She states that she just finished a course of prednisone 40 mg daily for 5 days or chronic sinusitis. She had another course of steroids, a Medrol Dosepak in August. She denies taking any blood thinners. Denies NSAID use. 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 #90 caps levothyroxine 100 mcg tablet 100 mcg PO DAILY #90 tabs 01/31/24 albuterol sulfate 90 mcg/actuation 2 puff inhalation Q6H PRN 05/28/24 aerosol inhaler shortness of breath or wheezing #8.5 grams albuterol sulfate 2.5 mg/3 mL 2.5 mg (3 mL) inhalation Q6H #75 mL 07/27/24 (0.083 %) solution for nebulization fluticasone propionate 50 2 spray intranasal QDAY #16 grams 09/06/24 mcg/actuation nasal spray,suspension (Flonase Allergy Relief) albuterol sulfate 90 mcg/actuation 2 puff inhalation Q6H PRN 10/18/24 aerosol inhaler shortness of breath or wheezing #8.5 grams nebulizers (Altera Nebulizer #1 ea 08/21/25 System) ipratropium 0.5 mg-albuterol 3 mg 3 ml inhalation Q6H PRN #90 mL 10/29/24 (2.5 mg base)/3 mL nebulization soln prednisone 20 mg tablet 40 mg (2 x 20 mg) PO DAILY #10 tabs 10/29/24 valsartan 160 mg tablet 160 mg PO QDAY #90 tabs 10/29/24 Allergies Allergy/AdvReac Type Severity Reaction Status Date / Time No Known Drug Allergies Allergy Verified 10/29/24 13:07 Review of Systems Status of ROS: Reports: 10 or more systems reviewed and unremarkable except as noted in History and below [facility] Medical History History of peptic ulcer (2016) ?Z87.11 - Personal history of peptic ulcer disease (ICD-10) History of fracture of ankle (04/06/07) ?Z87.81 - Personal history of (healed) traumatic fracture (ICD-10) Surgical History S/P hardware removal (09/28/07) ?Z98.890 - Other specified postprocedural states (ICD-10) S/P ORIF (open reduction internal fixation) fracture (04/06/07) ?Z98.890 - Other specified postprocedural states (ICD-10) ?Z87.81 - Personal history of (healed) traumatic fracture (ICD-10) History of thyroplasty (2016) ?Z98.890 - Other specified postprocedural states (ICD-10) History of tubal ligation (04/13/06) ?Z98.51 - Tubal ligation status (ICD-10) History of sinus surgery (2007) ?Z98.890 - Other specified postprocedural states (ICD-10) History of appendectomy (04/13/06) ?Z90.49 - Acquired absence of other specified parts of digestive tract (ICD-10) Hx of cervical spine surgery (2013) ?Z98.890 - Other specified postprocedural states (ICD-10) Social History What is your current living situation?: I presently have a place to live Problems where you live: pests, such as bugs, ants, or mice In the past 12 months, utilities in danger of being shut off: no In past 12 months, lack of transportation kept you from medical appts, meetings, work, or getting things needed for daily living: no In the past 12 mos, have been you worried that your food would run out before you had money to buy more?: never true In the past 12 mos, the food you bought just didn't last and you didn't have money to buy more?: never true Smoking Status: Never smoker Do you use any of these nicotine containing products: None Second hand tobacco smoke exposure: No How often do you have a drink containing alcohol: never How often do you have six or more drinks on one occasion: Never AUDIT-C Alcohol total score: 0 Non-prescribed substance use: denies use How often does anyone, including family, friends and others, physically hurt you: never How often does anyone, including family, friends and others, insult or talk down to you: never How often does anyone, including family, friends and others, threaten you with harm: never How often does anyone, including family, friends and others, scream or curse at you: never service: No Health Related Social Needs: Inadequate housing (Z59.1) Exam Narrative: Exam Narrative: Well-nourished well-developed patient in no acute distress. Alert and oriented. Answers questions appropriately. Mood and affect are appropriate. Thoughts are goal oriented and rational. No tangential or magical thinking noted. Patient speaks in full sentences without needing to catch her breath. Does not appear pale. HEENT: Normocephalic atraumatic. Pupils are equally round reactive to light. Extraocular muscles are intact. Conjunctivae are moist without any icterus noted, not pale. Moist mucous membranes. Cardiovascular: Heart is regular rate and rhythm S1 and S2 are present without any murmurs. Lungs: Very mild expiratory wheezing bilaterally. Abdomen: Soft and nontender nondistended with normal bowel sounds. No guarding or rebound. Extremities: Bilateral lower extremities are without edema. Skin: Well perfused without any obvious rashes. Const: Vital Signs, click to edit/add: Vital Signs - 24 hr 11/06/24 08:00 11/06/24 08:42 11/06/24 09:52 Temperature 97.1 F L Pulse Rate [Pulse Oximeter] 64 Pulse Rate [orthos tatic lying] 59 L Pulse Rate [orthos tatic sitting] 62 Pulse Rate [orthos tatic standing] 63 Respiratory Rate 16 Blood Pressure [Ri ght Upper Arm] 193/71 H Blood Pressure [or thostatic lying Ri ght Arm] 180/81 H 150/83 H Blood Pressure [or thostatic sitting] 168/80 H 172/78 H Blood Pressure [or thostatic standing ] 138/95 H 178/81 H Pulse Oximetry 95 Oxygen Delivery Me thod Room Air Course Course ED Course: Patient had a bowel movement while she was here, it was very malodorous but dark brown in color, not black and tarry. Patient did have evidence of orthostatic hypotension with a 20 point drop in her systolic blood pressure when she went from sitting to standing. Pulse remained the same. Because of this we did go ahead and start 1 L of normal saline over an hour. EKG, read by me, shows normal sinus rhythm with a pulse of 62. She has normal QRS, QTC and CO intervals. Stool occult blood came back negative. Normal lactate. CBC is unremarkable, hemoglobin 12.5, hematocrit 38.3. Sodium is low at 130, she does have a history of hyponatremia with a sodium of 125 in July of this year. Normal LFTs, normal CRP, normal troponin. UA is normal. After receiving fluids patient still had evidence of orthostatic hypotension with her systolic blood pressure going from 172-150 upon standing. This did result in some mild dizziness but her dizziness does resolve quicker she states. And in general she does feel better. Vital Signs Vital signs: Initial Vital Signs Temperature 97.1 F L 11/06/24 08:00 Temperature Source Temporal Artery Scan 11/06/24 08:00 Pulse Rate 64 11/06/24 08:00 Pulse Rhythm Regular 11/06/24 08:00 Respiratory Rate 16 11/06/24 08:00 Blood Pressure 193/71 H 11/06/24 08:00 Blood Pressure Mean 111 H 11/06/24 08:00 Blood Pressure Position Sitting 11/06/24 08:00 Pulse Oximetry 95 11/06/24 08:00 Oxygen Delivery Method Room Air 11/06/24 08:00 Vital Signs Temperature 97.1 F L 11/06/24 08:00 Pulse Rate 64 11/06/24 08:00 Respiratory Rate 16 11/06/24 08:00 Blood Pressure 193/71 H 11/06/24 08:00 Pulse Oximetry 95 11/06/24 08:00 Oxygen Delivery Method Room Air 11/06/24 08:00 Temperature 97.1 F L 11/06/24 08:00 Pulse Rate 59 L 11/06/24 08:42 Respiratory Rate 16 11/06/24 08:00 Blood Pressure 150/83 H 11/06/24 09:52 Pulse Oximetry 95 11/06/24 08:00 Oxygen Delivery Method Room Air 11/06/24 08:00 Medications Administered Medications: Discontinued Medications Generic Name Dose Route Start Last Admin Trade Name Freq PRN Reason Stop Dose Admin Sodium Chloride 1,000 mls @ 1,000 mls/hr 11/06/24 08:45 11/06/24 09:39 0.9 % Sodium Chloride 1000 Ml IV 11/06/24 09:44 Infused .Q1H WENDIE Infusion Pantoprazole Sodium 80 mg 11/06/24 08:06 11/06/24 08:37 Pantoprazole Sodium 40 Mg Inj IVP 11/06/24 08:07 80 mg ONCE ONE Administration Medical Decision Making MDM Narrative Medical decision making narrative: 74-year-old female with concerns about GI bleed. No evidence of GI bleed found today. Upon further conversation patient states that she did recently start taking ferrous sulfate. We discussed that would be a bad idea for her to start Prilosec for a month and if stools become darker were she feels more lightheaded she should return to the ED. She will follow-up with her primary care provider to discuss blood pressure and in the meantime she will make sure to move slowly, stand up slowly etcetera. Patient feels comfortable with this plan had no other questions. Lab Data Lab results reviewed: Yes I reviewed the patient's lab results Labs: Lab Results 11/06/24 11/06/24 11/06/24 Range/Units 08:10 08:29 09:40 WBC 8.45 (4.50-11.00) K/uL RBC 4.22 (4.00-5.20) m/uL Hgb 12.5 (12.0-16.0) gm/dL Hct 38.3 (33.0-51.0) % MCV 91 (80-100) fL MCH 30 (26-34) pg MCHC 33 (32-36) gm/dL RDW Coeff of Letty 13.9 (11.5-15.5) % Plt Count 321 (140-440) K/uL Neut % (Auto) 66.5 (42.0-72.0) % Lymph % (Auto) 18.1 L (20-44) % Crane % (Auto) 9.6 (0.0-11.0) % Eos % (Auto) 4.9 (0.0-7.0) % Baso % (Auto) 0.8 (0.0-3.0) % Neut # (Auto) 5.62 (1.7-7.0) K/uL Lymph # (Auto) 1.50 (0.90-2.90) K/uL Crane # (Auto) 0.80 (0.00-0.90) K/UL Eos # (Auto) 0.41 (0.00-0.50) K/uL Baso # (Auto) 0.07 (0.00-0.30) K/uL Abs Immat Gran (auto) 0.01 (0.00-0.30) K/uL Imm/Tot Granulo (auto) 0.1 % Sodium 130 L (135-149) mmol/L Potassium 4.7 (3.6-5.1) mmol/L Chloride 96 (96-114) mmol/L Carbon Dioxide 31 (20-32) mmol/L Anion Gap 3 L (7-15) mEq/L BUN 15 (7-30) mg/dL Creatinine 0.8 (0.5-1.5) mg/dL Estimated Creat Clear 37.24 Estimated GFR 77 ml/min Glucose 90 (60-115) mg/dL Lactate 0.9 (0.5-1.9) mmol/L Calcium 9.2 (8.4-10.6) mg/dL Total Bilirubin 0.3 (0.1-1.5) mg/dL Direct Bilirubin 0.0 (0.0-0.5) mg/dL AST 29 (12-35) U/L ALT 22 (4-35) U/L Alkaline Phosphatase 63 (40-150) U/L Troponin I < 0.01 (0.01-0.04) ng/mL C-Reactive Protein < 0.5 L (0.5-1.0) mg/dL Total Protein 7.0 (6.0-8.3) g/dL Albumin 4.0 (3.3-5.0) g/dL Urine Color Yellow (Yellow) Urine Appearance Clear (Clear) Urine pH 7.5 (5.0-8.5) Ur Specific [place] 1.015 (1.000-1.030) Urine Protein Negative (Negative) Urine Glucose (UA) Negative (Negative) Urine Ketones Negative (Negative) Urine Blood Negative (Negative) Urine Nitrite Negative (Negative) Urine Bilirubin Negative (Negative) Urine Urobilinogen 0.2 (0.2-1.0) Ur Leukocyte Esterase Negative (Negative) Urine RBC 0-2 (0-2) Urine WBC 0-2 (0-5) Ur Squamous Epith Cells None (None-Few) Urine Bacteria None (None) Stool Occult Blood Negative (Negative) ECG Data Attestation: I personally reviewed and interpreted this ECG as follows: Discharge Plan Discharge Clinical Impression: Light-headed, Orthostatic hypotension, Hyponatremia Patient Disposition: Home, Self-Care Condition: Stable Additional Instructions: Because your concern of a GI bleed in your history of GI bleeding would not be a bad idea for you to start taking an [id number] omeprazole for a month-just 1 tab daily. No evidence of GI bleed was found in today's examination. Do recommend you follow-up with your primary care provider this week to discuss her blood pressure. Make sure to move slowly, stands up slowly. If you feel like you are getting worse, you should return to the emergency department. Make sure you are staying well hydrated eating nutritious meals. Lastly, I recommend that you have your thyroid levels checked if they have not been checked in the last 3 months. Prescriptions: No Action magnesium 1 tab PO DAILY albuterol sulfate 90 mcg/actuation HFA aerosol inhaler 2 puff inhalation Q6H PRN (Reason: shortness of breath or wheezing) Qty: 8.5 12RF sodium chloride 3 % solution for nebulization inhalation cholecalciferol (vitamin D3) 10 mcg (400 unit) capsule 10 mcg PO QDAY albuterol sulfate 2.5 mg /3 mL (0.083 %) solution for nebulization 2.5 mg inhalation Q6H Qty: 75 2RF budesonide 1 mg/2 mL suspension for nebulization BID Rx Instructions: PATIENT USES THIS SOLUTION A NASAL LAVAGE prednisone 20 mg tablet 40 mg PO DAILY Qty: 10 0RF ipratropium-albuterol 0.5 mg-3 mg(2.5 mg base)/3 mL solution for nebulization 3 ml inhalation Q6H PRNQty: 90 0RF celecoxib [Celebrex] 200 mg capsule 200 mg PO QDAY PRN (Reason: arthritic flares) Qty: 90 1RF levothyroxine 100 mcg tablet 100 mcg PO DAILY Qty: 90 3RF fluticasone propionate [Flonase Allergy Relief] 50 mcg/actuation spray,suspension 2 spray intranasal QDAY Qty: 16 0RF Rx Instructions: administer 2 sprays into each nostril as needed albuterol sulfate 90 mcg/actuation HFA aerosol inhaler 2 puff inhalation Q6H PRN (Reason: shortness of breath or wheezing) Qty: 8.5 0RF (DME) nebulizers [Altera Nebulizer System] Misc See Rx Instructions .Route Qty: 1 0RF Rx Instructions: As directed valsartan 160 mg tablet 160 mg PO QDAY Qty: 90 3RF Follow Up/Referrals: Salma Whitley MD [Primary Care Provider, Internal Medicine] [facility] Info Inst[facility]
[2024-11-06 08:27] LABS: Fecal Occult Blood* Negative (Negative)
[2024-11-06 08:33] LABS: Lactate* 0.9 mmol/L (0.5-1.9)
[2024-11-06 08:36] LABS: Hematocrit 38.3 % (33.0-51.0); Hemoglobin* 12.5 gm/dL (12.0-16.0); Immature Granulocytes Abs Auto 0.01 K/uL (0.00-0.30); Immature Granulocytes Pct Auto 0.1 %; Mean Corpuscular HGB Conc 33 gm/dL (32-36); Mean Corpuscular Hemoglobin 30 pg (26-34); Mean Corpuscular Volume 91 fL (80-100); RDW Coefficient of Variation % 13.9 % (11.5-15.5); Red Blood Count 4.22 m/uL (4.00-5.20); White Blood Count* 8.45 K/uL (4.50-11.00)
[2024-11-06] MEDS: PANTOPRAZOLE SODIUM 40 MG INJ 80 MG IVP (08:37)
[2024-11-06 08:40] LABS: Lymphocytes Absolute Auto 1.50 K/uL (0.90-2.90)
[2024-11-06 08:41] LABS: Slide Review Reflex No
[2024-11-06 08:42] VITALS: BP 138/95; BP 168/80; BP 180/81; PULSE 59; PULSE 62; PULSE 63
[2024-11-06 08:56] LABS: Albumin* 4.0 g/dL (3.3-5.0); Chloride* 96 mmol/L (96-114); Potassium* 4.7 mmol/L (3.6-5.1); Sodium* 130 mmol/L (135-149)
[2024-11-06 08:59] LABS: Alanine Aminotransferase* 22 U/L (4-35); Alkaline Phosphatase* 63 U/L (40-150); Anion Gap 3 mEq/L (7-15); Aspartate Amino Transferase* 29 U/L (12-35); Bilirubin Direct* 0.0 mg/dL (0.0-0.5); Bilirubin Total* 0.3 mg/dL (0.1-1.5); Blood Urea Nitrogen* 15 mg/dL (7-30); Calcium* 9.2 mg/dL (8.4-10.6); Carbon Dioxide* 31 mmol/L (20-32); Creatinine* 0.8 mg/dL (0.5-1.5); Est. Creatinine Clearance* 37.24; Estimated Glomerular Filt Rate 77 ml/min; Glucose* 90 mg/dL (60-115); Total Protein* 7.0 g/dL (6.0-8.3)
[2024-11-06 09:50] LABS: Appearance Urine Clear (Clear)
[2024-11-06 09:52] VITALS: BP 150/83; BP 172/78; BP 178/81
== END 2024-11-06 10:59 | disposition home or self-care (01) ==
PROVIDERS: Emergency Provider Family Medicine; PCP Internal Medicine
DX: J18.9 Pneumonia, unspecified organism (principal); R07.9 Chest pain, unspecified; R50.9 Fever, unspecified; R09.02 Hypoxemia
CPT/HCPCS: 36415; 80048; 80076; 81001; 82270; 83605; 84484; 85025; 86140; 87086; 93005; 96374; 99284; 99285; 99291; J2470; J7030

== ENCOUNTER 2024-11-08 10:04 | Outpatient (CLI) | payer MEDICARE, BC, SELFPAY | END 2024-11-08 10:05 | disposition home or self-care (01) | PROVIDERS: PCP Internal Medicine; Visit Provider Internal Medicine | DX: E03.9 Hypothyroidism, unspecified (principal); R42 Dizziness and giddiness; Z23 Encounter for immunization | CPT/HCPCS: 82728; 84439; 84443 ==

== ENCOUNTER 2024-11-27 19:41 | Inpatient (IN) | payer MEDICARE, BC, SELFPAY ==
--- OUTSIDE RECORDS SUMMARY | 2020-12-08 10:47 | XMS_ITS | Continuity of Care Document ---
Author Organization [facility] Address [address] [address] [place] [address] Phone Care Team Providers Care Cable Ferry Operator Name Role Phone Tello Tran MD Unavailable Unavailable Advance Directives Directive Yes / No Effective Date File Name No Information Encounters Encounter Description Practice Location Reason(s) For Visit Diagnoses Date Provider Providers Copied on Encounter [facility], [address] [address], [place], [place], [id number], [place] tel:[phone] [facility] No Information Chelsea Javed. [address] [facility], [facility] [[email or web address] [address], [place], [place], [id number], [place]. tel:[phone] Family History Family Member Type Diagnosis Age At Onset No Information Payers Payer name Insurance type Covered green party ID Authoriza tion(s) No Information Social History Type Description Quantity Date Captured Comments Sex Unknown Smoking Status No Information Chief Complaint And Reason For Visit No Information Reason For Referral Reason For Referral No Information History Of Present Illness Encounter Date Complaint History Of Prese nt Illness No Information Functional Status Date Functional Assessmen t No Information Instructions Date Instruction Additional Infor mation No Information Assessments Type Assessment Date No Information Patient Care Teams Name Effective Dates (start - stop) Status Members No Information
--- OUTSIDE RECORDS SUMMARY | 2020-12-08 10:47 | XMS_ITS | Continuity of Care Document ---
Author Organization [facility] Address [address] [address] [place] [address] Phone Care Team Providers Care Horse Race Timer Name Role Phone Tello Tran MD Unavailable Unavailable Advance Directives Directive Yes / No Effective Date File Name No Information Encounters Encounter Description Practice Location Reason(s) For Visit Diagnoses Date Provider Providers Copied on Encounter [facility], [address] [address], [place], [place], [id number], [place] tel:[phone] [facility] No Information Chelsea Javed. [address] [facility], [facility] [address], [place], [place], [id number], [place]. tel:[phone] Family History Family Member Type Diagnosis Age [...]
[2024-11-27] VITALS (10 sets, daily range): BP systolic 139–202; BP diastolic 63–108; PULSE 65–84; RESP 14–28; TEMP 37.1–38.1; O2SAT 85–95; BMI 20.4
--- OUTSIDE RECORDS SUMMARY | 2024-11-27 19:43 | XMS_ITS | Clinical Summary ---
Author Organization [facility] Address [address] [place] [address] Care Team Providers Care Resource Teacher Name Role Phone Salma Whitley MD Primary Care Provider +1- [phone] Allergies No known active allergies Medications acetaminophen [...] on file Legal Sex Female 5:41 AM CHIEF OF STAFF DOCTOR Gender Identity Not on file Sexual Orientation [...] 07/09/2024 12:12 PM CDT Plan of Treatment Upcoming Encounters Date Type Department Care Team (Late st Contact Info) Description 12/24/2024 2:20 PM CDT Appointment [address] [address] Health Maintenance Due Date Last Done Comments Tetanus booster 1961 Depression screening for age 12+ 1962 Hepatitis C screening for age 18-79 1968 Lipids for age 45-75 08/17/1995 Zoster (shingles) series for age 50+ (1 of 2) 2000 DEXA/DXA scan for age 65+ 08/17/2015 Medicare Wellness for age 65+ 08/17/2015 Pneumococcal series for age 50+ (2 of 2 - PCV20 or PCV21) 06/18/2017 06/18/2016 Influenza Vaccine (#1) 2024 Mammogram [...] this topic Medical Devices Implanted Type Area Oracle Database Architect Device Identifier Shelf Expiration Date Model / Serial / Lot [id number] Implanted:Qty: 1 on 05/02/2013 at [facility] Explanted:at [facility] (Quantity not on file) [facility] [facility] [facility] 01/02/2015 [id number] / [id number] / Description:DBX PUTTY 0.5CC [id number] 0bone Cerv 6mm 4deg W/Plug [[id number]] Implanted:Qty: 1 on 05/02/2013 at [facility] Spine Thong Spine 12/04/2017 [id number] / [id number] / Plate Cerv Ant 12mm One Level - [id number] Implanted:Qty: 1 on 05/02/2013 at [facility] N/A: Spine [place] Spine [id number]# / / Screw 4.35a85sf Slf Tppng Va - [id number] Implanted:Qty: 1 on 05/02/2013 at [facility] N/A: Spine Thong Spine [id number]# / / Screw 4.0x14mm [employer]illing [place] - [id number] Implanted:Qty: 3 on 05/02/2013 at [facility] N/A: Spine Thong Spine [id number] / / Screw Bone 2.5x16mm Mini Headed - [id number] Implanted:Qty: 1 on 10/03/2018 by Venkata Cameron DPM at [facility] Left: Foot [place] [employer] [id number] / / Screw Bone 2.5x18mm Mini Headed - [id number] Implanted:Qty: 1 on 10/03/2018 by Venkata Cmaeron DPM at [facility] Left: Foot Thong Orthopaedics [id number] / / K-Wire 3.0mm Thong Non-Thrd - [id number] Implanted:Qty: 1 on 10/03/2018 by Venkata Cameron DPM at [facility] Left: Foot Thong Orthopaedics [id number] / / Explanted Type Area Oracle Database Architect Device Identifier Shelf Expiration Date Model / Serial / Lot K-Wire 2.5mm [place] Non-Thrd - [id number] Explanted:Qty: 2 on 10/03/2018 by Venkata Cameron DPM at [facility] Left: Foot [place] [employer] [id number]# / / Procedures Procedure Name Priority Date/Time [...] care provider. XR MAMMO JAIR BILAT SCREEN [[id number]] CLINICAL HISTORY: This is an asymptomatic 73 [...] of architectural distortion. Salma Whitley MD MAMMO Final Resu lt from Last 3 Months or Most Recently Relevant to Health Maintenance Insurance MEDICARE PART A HB ONLY MEDICARE PART B HB ONLY [employer] [place] [place] BLUE MR PB ONLY [place] [place] BLUE HB ONLY Advance Directives * Full Code (Latest Code Status on File) Date Activated Date Inactivated Comments 10/03/2018 5:45 AM 10/03/2018 6:35 AM * Full Code Date Activated Date Inactivated Comments 05/02/2013 11:57 AM 05/03/2013 1:29 PM * Full Code Date Activated Date Inactivated Comments 05/02/2013 11:51 AM 05/02/2013 11:57 AM Care Teams Resource Teacher Relationship Specialty Start Date End Date Salma Whitley MD [address] [place] [id number] PCP - General Internal Medicine 04/30/13
--- OUTSIDE RECORDS SUMMARY | 2024-11-27 19:43 | XMS_ITS | Clinical Summary ---
Author Organization [facility] Address [address] [place] [address] Care Team Providers Care Mac Operator Name Role Phone Elsewhere, Pcp Primary Care Provider Unavailabl e Source Comments Patient records contain information from all sites at [facility]. For routine questions regarding patient records, call [phone] during business hours, M-F 8:00 AM - 5:00 PM Central Time. Record requests for emergency care only can be directed to [phone] at any time.[facility] Allergies Active Allergy Reactions Criticality [...] 675 each by mouth daily. 8 Active [id number] A-FISH OIL ORAL Take 1 capsule by [...] AM CDT Legal Sex Female 5:23 AM ETHNOLOGY TEACHER Gender Identity Female 06/26/2021 11:13 AM CDT [...] Body Mass Index 22.68 01/13/2023 9:13 AM ETHNOLOGY TEACHER Plan of Treatment Health Maintenance Due Date Last Done Comments CT Colonography 1950 Colonoscopy 1950 FIT 1950 Hepatitis C Screening 1950 Hepatitis B Vaccines (3 of 3 - 19+ 3-dose series) 03/15/2007 01/09/2007, 09/12/2006, 09/12/2006 Zoster Vaccines (3 of 3) 05/18/2022 03/23/2022, 02/04 Thyroid Stimulating Hormone (TSH) test for thyroid function 01/14/2024 01/13/2023, 10/01/2016 Depression Screening (Annual PHQ-2) 03/07/2024 Fall Risk Screen (Annual) 03/07/2024 COVID-19 Vaccine ( season) 2024 12/11/2022, 12/06/2021, 08/07/2021, Additional history exists Influenza Vaccine (#1) 2024 Mammogram 12/22/2024 12/23/2023, [...] this topic Medical Devices Implanted Type Area Export Manager Device Identifier Shelf Expiration Date Model / Serial / Lot Trimed-Plate Ulnar Dorsal 5 Hole - Garza [id number] Implanted:Qty: 1 on 04/25/2009 Hardware e.g. pins/screws/ rods [employer] Description:Device Manufactu rer - [employer].. Device Status Text - [id number]. Trimed-Screw Juliano 3.2 X 14mm - Garza [id number] Implanted:Qty: 1 on 04/25/2009 Hardware e.g. pins/screws/ rods [employer] Description:Device Manufactu rer - [employer].. Device Status Text - [id number]. Trimed-Screw Cortical Lp 2.3 X 12 - Garza [id number] Implanted:Qty: 2 on 04/25/2009 Hardware e.g. pins/screws/ rods [employer] Description:Device Manufactu rer - Tr[employer] Inc.. Device Status Text - [id number]. Trimed K-Wire .045 - Garza [id number] Implanted:Qty: 6 on 04/25/2009 Hardware e.g. pins/screws/ rods [employer] Description:Device Manufactu rer - Tr[employer].. Device Status Text - [id number]. Trimed-Screw Volar Peg Unthread 14mm - Garza [id number] Implanted:Qty: 1 on 04/25/2009 Hardware e.g. pins/screws/ rods [employer] Description:Device Manufactu rer - Tr[employer].. Device Status Text - [id number]. Trimed-Screw Volar Peg Thrded 14mm - Garza [id number] Implanted:Qty: 1 on 04/25/2009 Hardware e.g. pins/screws/ rods [employer] Description:Device Manufactu rer - [employer].. Device Status Text - [id number]. Trimed-Screw Volar Peg Unthread 18mm - Garza [id number] Implanted:Qty: 2 on 04/25/2009 Hardware e.g. pins/screws/ rods [employer] Description:Device Manufactu rer - Tr[employer].. Device Status Text - [id number]. Trimed-Plate Volar Peg Rt 3ho 6peg - Garza [id number] Implanted:Qty: 1 on 04/25/2009 Hardware e.g. pins/screws/ rods [employer] Description:Device Manufactu rer - Trimed Inc.. Device Status Text - [id number]. Trimed-Screw Volar Peg Unthread 20mm - Garza [id number] Implanted:Qty: 1 on 04/25/2009 Hardware e.g. pins/screws/ rods [employer] Description:Device Manufactu rer - Tr[employer].. Device Status Text - [id number]. Trimed-Screw Juliano 3.2 X 12mm - Garza [id number] Implanted:Qty: 1 on 04/25/2009 Hardware e.g. pins/screws/ rods [employer] Description:Device Manufactu rer - Tr[employer]ed [employer].. Device Status Text - [id number]. K-Wire-Ss 4 Smooth .062 - Garza [id number] Implanted:Qty: 1 on 04/25/2009 Hardware e.g. pins/screws/ rods Thong Description:Device Manufactu rer - [place] [employer].. Device Status Text - HARDWARE-871. Conversions [...] Hardware. K-Wire 1.25mm X 150mm - Garza [id number] Implanted:Qty: 1 on 11/30/2016 Hardware e.g. pins/screws/ rods [employer]ynthes Description:Device Manufactu rer - Synthes. Device Status Text - [id number]. Kwire Ss 4 .035 - Garza [id number] Implanted:Qty: 1 on 11/30/2016 Hardware e.g. pins/screws/ rods Thong Description:Device Manufactu rer - Thong Gordon.. Device Status Text - [id number]. Block Olga. Phonoform [facility] Rt - Garza [id number] Implanted:Qty: 1 on 11/10/2016 Misc Prosthesis Other/Legacy - See Implant Description Medtronic Description:Device Manufactu rer - [employer]. Body Location - Other. Right. Device Status Text - MISC [id number]. Procedures Procedure Name Priority Date/Time Associated Diagnosis Comments BASIC METABOLIC PANEL, S/P STAT 07/30/2024 8:22 AM CDT THYROID FUNCTION CASCADE, S Routine 01/13/2023 12:00 PM ETHNOLOGY TEACHER Peripheral Nerve Disorder OUTSIDE MG MAMMOGRAM Routine [...] C.N.P. LAB BLOOD ADD-O N Final Result [facility] [address] [place] [id number], [facility] in [address] [address] * Thyroid Function Bastian (01/13/2023 12:00 PM ETHNOLOGY TEACHER) TSH, Sensitive 3.8 0.3 - 4.2 mIU/L 01/13/2023 1:11 PM ETHNOLOGY TEACHER DTL Blood (Blood, Venous) 01/13/2023 12:00 PM ETHNOLOGY TEACHER 01/13/2023 12:38 PM ETHNOLOGY TEACHER Elizabeth Angel M.D. LAB BLOOD ADD-ON Final Result Performing Organization Address City/[facility] Co de Phone Number [facility] [address] [place] [address], [place] DTL [facility] [address] [place] [address] * MM screening mammo BI-Outside Mammogram (12/21/2022 1:00 PM CDT) Narrative [facility] - 01/10/2023 9:59 PM ETHNOLOGY TEACHER This order has been created and auto-finalized to support the import of outside images. If available, original interpretation can be found on the Media Tab in Chart Review, in Document Viewer, or as an image in QREADS. If a re-interpretation or overread is required please follow defined workflow. Provider Not In System IMG BI PROCEDURES Final R esult Performing Organization Address [facility] Co de Phone Number [facility] NA * Cologuard (11/01/2016 5:43 AM CDT) Cologuard Negative [facility] Comment: Test Result Flag Unit RefValue Cologuard [...] can be accessed at the following location: [email or web address]. Additional description of the Cologuard test process, warnings and precautions can be found at [email or web address]. Rx Only. 11/01/2016 5:43 AM CDT 11/01/2016 5:43 AM CDT Radha Parra M.D. LAB BODY FLUIDS AND STOOLS O RDERABLES Final Result [facility] [address], [place] [address] from Last 3 Months or Most Recently Relevant to Health Maintenance Insurance GISELLE Murcia [id number] MEDICARE [facility] Care Teams Mac Operator Relationship Specialty Start Date End Date Elsewhere, Pcp PCP - General Internal Medicine 07/30/24
[2024-11-27 20:05] LABS: Troponin, Point-of-Care* 0.00 ng/ml (0.01-0.04)
--- NOTE | 2024-11-27 20:06 | ED.CHESTPAIN ---
HPI - Chest Pain General Chief Complaint: Chest Pain Stated Complaint: Possible heart attack Time Seen by Provider: 11/27/24 20:06 Source: patient Mode of arrival: ambulatory History of Present Illness HPI narrative: Brittany is a 74-year-old female with a past medical history of hypertension, MARLO, GERD, chronic rhinosinusitis, chronic upper cough syndrome on Dupixent every 2 weeks who presents to the emergency department for evaluation of chest pain. Patient reports that she developed some chest pain this evening around 7:25 p.m. 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 Patient reports the pain was located in her left upper chest as well as underneath her left breast. Patient describes the pain as a sharp pain that was worse with breathing and states that it hurts when she breeze which then leads to some shortness of breath. Patient does report history of chronic sinusitis as well as chronic cough syndrome but does report some worsening cough over the past 2 weeks. Patient states she did recently get treated with azithromycin approximately 2 weeks ago. Patient denies any abdominal pain, nausea, vomiting, diarrhea, no lower extremity edema or calf tenderness. No other complaints. Related Data Home Medications ?Medication ?Instructions ?Recorded ?Confirmed magnesium 1 tab PO DAILY 07/13/22 11/08/24 cholecalciferol (vitamin D3) 10 10 mcg PO QDAY 12/13/23 11/08/24 mcg (400 unit) capsule sodium chloride 3 % for ml inhalation 12/13/23 11/08/24 nebulization budesonide 1 mg/2 mL suspension mg BID 10/29/24 11/08/24 for nebulization pantoprazole 40 mg tablet,delayed 40 mg PO QDAY PRN 11/08/24 11/08/24 release Previous Rx's ?Medication ?Instructions ?Recorded celecoxib 200 mg capsule (Celebrex) 200 mg PO QDAY PRN arthritic 02/15/23 flares #90 caps levothyroxine 100 mcg tablet 100 mcg PO DAILY #90 tabs 01/31/24 albuterol sulfate 2.5 mg/3 mL 2.5 mg (3 mL) inhalation Q6H #75 mL 07/27/24 (0.083 %) solution for nebulization fluticasone propionate 50 2 spray intranasal QDAY #16 grams 09/06/24 mcg/actuation nasal spray,suspension (Flonase Allergy Relief) albuterol sulfate 90 mcg/actuation 2 puff inhalation Q6H PRN 10/18/24 aerosol inhaler shortness of breath or wheezing #8.5 grams nebulizers (Altera Nebulizer #1 ea 10/25/24 System) ipratropium 0.5 mg-albuterol 3 mg 3 ml inhalation Q6H PRN #90 mL 10/29/24 (2.5 mg base)/3 mL nebulization soln prednisone 20 mg tablet 40 mg (2 x 20 mg) PO DAILY #10 tabs 10/29/24 valsartan 160 mg tablet 160 mg PO QDAY #90 tabs 10/29/24 Allergies Allergy/AdvReac Type Severity Reaction Status Date / Time No Known Drug Allergies Allergy Verified 11/27/24 19:57 [facility] Medical History (Updated 11/27/24 @ 22:28 by Isidro Santoro MD) Lumbar facet arthropathy (03/17/15) ?M47.816 - Spondylosis without myelopathy or radiculopathy, lumbar region (ICD-10) GI bleed due to NSAIDs (06/10/17) ?K92.2 - Gastrointestinal hemorrhage, unspecified (ICD-10) ?T39.395A - Adverse effect of other nonsteroidal anti-inflammatory drugs [NSAID], initial encounter (ICD-10) DDD (degenerative disc disease), cervical (04/13/13) ?M50.30 - Other cervical disc degeneration, unspecified cervical region (ICD-10) Cervical radicular pain (04/13/13) ?M54.12 - Radiculopathy, cervical region (ICD-10) Adjustment disorder with mixed anxiety and depressed mood (08/06/13) ?F43.23 - Adjustment disorder with mixed anxiety and depressed mood (ICD-10) Other specified interstitial pulmonary diseases (01/23/15) ?J84.89 - Other specified interstitial pulmonary diseases (ICD-10) Anosmia (01/23/15) ?R43.0 - Anosmia (ICD-10) History of peptic ulcer (2016) ?Z87.11 - Personal history of peptic ulcer disease (ICD-10) History of fracture of ankle (04/06/07) ?Z87.81 - Personal history of (healed) traumatic fracture (ICD-10) Surgical History S/P hardware removal (09/28/07) ?Z98.890 - Other specified postprocedural states (ICD-10) S/P ORIF (open reduction internal fixation) fracture (04/06/07) ?Z98.890 - Other specified postprocedural states (ICD-10) ?Z87.81 - Personal history of (healed) traumatic fracture (ICD-10) History of thyroplasty (2016) ?Z98.890 - Other specified postprocedural states (ICD-10) History of tubal ligation (04/13/06) ?Z98.51 - Tubal ligation status (ICD-10) History of sinus surgery (2007) ?Z98.890 - Other specified postprocedural states (ICD-10) History of appendectomy (04/13/06) ?Z90.49 - Acquired absence of other specified parts of digestive tract (ICD-10) Hx of cervical spine surgery (2013) ?Z98.890 - Other specified postprocedural states (ICD-10) Social History (Updated 11/27/24 @ 22:17 by Isidro Santoro MD) Narrative: She lives alone in [place]. Her daughter Harmony from [place] is healthcare power of master control supervisor. Code status is full. She has never smoked. She has never lived with a smoker. She rarely drinks alcohol. She walks 5 miles every day and does yoga every day. What is your current living situation?: I presently have a place to live Problems where you live: pests, such as bugs, ants, or mice In the past 12 months, utilities in danger of being shut off: no In past 12 months, lack of transportation kept you from medical appts, meetings, work, or getting things needed for daily living: no In the past 12 mos, have been you worried that your food would run out before you had money to buy more?: never true In the past 12 mos, the food you bought just didn't last and you didn't have money to buy more?: never true Smoking Status: Never smoker Do you use any of these nicotine containing products: None Second hand tobacco smoke exposure: No How often do you have a drink containing alcohol: never How often do you have six or more drinks on one occasion: Never AUDIT-C Alcohol total score: 0 Non-prescribed substance use: denies use How often does anyone, including family, friends and others, physically hurt you: never How often does anyone, including family, friends and others, insult or talk down to you: sometimes How often does anyone, including family, friends and others, threaten you with harm: never How often does anyone, including family, friends and others, scream or curse at you: sometimes service: No Health Related Social Needs: Inadequate housing (Z59.1) and Other personal risk factors, not elsewhere classified (Z91.89) Exam Narrative Exam Narrative: General: Febrile, in mild distress secondary to pain, chills HEENT: Normocephalic, atraumatic, conjunctiva normal. MMM Neck: non-tender, supple Cardio: regular rate. regular rhythm Resp: Increased work of breathing, no respiratory distress, lungs with few crackles left greater than right, no wheezing Chest/Back: no visual signs of trauma, no midline tenderness, no CVA tenderness Abdomen: soft, non distension, no tenderness, no peritoneal signs Neuro: alert and fully oriented. CN II-XII grossly intact. Grossly normal strength and sensation in all extremities. MSK: no deformities. Normal range of motion, no lower extremity or calf tenderness Integumentary/Skin: no rash visualized, normal color Psych: normal affect, normal behavior Const Vital Signs, click to edit/add: Vital Signs - 24 hr 11/27/24 19:57 11/27/24 20:00 11/27/24 20:21 Temperature 100.5 F H Pulse Rate 79 80 Pulse Rate [Pulse Oximeter] 84 Respiratory Rate 24 28 H 27 H Blood Pressure Blood Pressure [Right Upper Arm] 202/108 H Pulse Oximetry 94 89 85 L Oxygen Delivery Method Room Air Oxygen Flow Rate 11/27/24 20:32 11/27/24 21:00 11/27/24 21:06 Temperature Pulse Rate 72 70 Pulse Rate [Pulse Oximeter] Respiratory Rate 14 25 H Blood Pressure 152/72 H Blood Pressure [Right Upper Arm] Pulse Oximetry 90 90 88 Oxygen Delivery Method Nasal Cannula Oxygen Flow Rate 4 11/27/24 21:16 11/27/24 21:30 Temperature 98.8 F Pulse Rate Pulse Rate [Pulse Oximeter] Respiratory Rate Blood Pressure Blood Pressure [Right Upper Arm] 144/73 H Pulse Oximetry Oxygen Delivery Method Oxygen Flow Rate Course Vital Signs Vital signs: Initial Vital Signs Temperature 100.5 F H 11/27/24 19:57 Temperature Source Temporal Artery Scan 11/27/24 19:57 Pulse Rate 84 11/27/24 19:57 Respiratory Rate 24 11/27/24 19:57 Blood Pressure 202/108 H 11/27/24 19:57 Blood Pressure Mean 139 H 11/27/24 19:57 Pulse Oximetry 94 11/27/24 19:57 Oxygen Delivery Method Room Air 11/27/24 19:57 Vital Signs Temperature 100.5 F H 11/27/24 19:57 Pulse Rate 84 11/27/24 19:57 Respiratory Rate 24 11/27/24 19:57 Blood Pressure 202/108 H 11/27/24 19:57 Pulse Oximetry 94 11/27/24 19:57 Oxygen Delivery Method Room Air 11/27/24 19:57 Temperature 98.8 F 11/27/24 21:16 Pulse Rate 70 11/27/24 21:00 Respiratory Rate 25 H 11/27/24 21:00 Blood Pressure 144/73 H 11/27/24 21:30 Pulse Oximetry 88 11/27/24 21:06 Oxygen Delivery Method Nasal Cannula 11/27/24 21:06 Oxygen Flow Rate 4 11/27/24 21:06 Medications Administered Medications: Generic Name Dose Route Start Last Admin Trade Name Freq PRN Reason Stop Dose Admin Albuterol/Ipratropium 1 neb 11/27/24 22:11 11/27/24 22:51 Iprat-Albut 0.5-2.5 Mg/3 Ml Neb IH 1 neb Q6H WENDIE Administration Enoxaparin Sodium 30 mg 11/27/24 22:20 11/27/24 22:51 Enoxaparin 30 Mg/0.3ml Inj SUBCUT 30 mg HS WENDIE Administration Ceftriaxone Sodium 1 gm/ 100 mls @ 200 mls/hr 11/27/24 21:00 11/27/24 22:02 Sodium Chloride IVPB Infused Q24H WENDIE Infusion Discontinued Medications Generic Name Dose Route Start Last Admin Trade Name Freq PRN Reason Stop Dose Admin Acetaminophen 1,000 mg 11/27/24 20:55 11/27/24 21:16 Acetaminophen 500 Mg Tablet PO 11/27/24 20:56 1,000 mg ONCE ONE Administration Azithromycin 500 mg 11/27/24 20:59 11/27/24 21:15 Azithromycin 250 Mg Tablet PO 11/27/24 21:00 500 mg ONCE ONE Administration Sodium Chloride 1,000 mls @ 500 mls/hr 11/27/24 21:15 11/27/24 21:52 0.9 % Sodium Chloride 1000 Ml IV 11/27/24 23:14 Not Given .Q2H WENDIE MDM - Chest Pain MDM Narrative Medical decision making narrative: Brittany is a 74-year-old female with a past medical history of hypertension, MARLO, GERD, chronic rhinosinusitis, chronic upper cough syndrome on Dupixent every 2 weeks who presents to the emergency department for evaluation of chest pain. Upon arrival patient is nontoxic appearing, febrile 100 point free, in distress. Upon arrival patient initially hypertensive with blood pressure 202/108, heart rate 84, temperature 100.5? and oxygen 94% on room air. Differential diagnosis includes but is not limited to ACS versus viral illness versus pneumonia versus bronchitis versus chronic sinusitis/cough versus pleural effusion versus atypical chest pain among others. Upon arrival EKG, comprehensive labs performed. I reviewed EKG which demonstrates normal sinus rhythm with a ventricular rate of 82 beats per minute, left axis deviation, QTC 420, no acute ischemic change. Comprehensive labs remarkable for leukocytosis with white blood cell count of 14.7, hemoglobin 13.2, sodium 129, chloride 94, potassium 4.1, normal creatinine, negative troponin, viral testing negative for COVID/flu/RSV. I personally reviewed interpreted chest x-ray which demonstrates left lower lobe patchy consolidation. On re-evaluation patient had improvement of blood pressure 152/72, heart rate 71, however patient remains hypoxic with oxygen saturations 89-90%. Patient was placed on oxygen, will be treated with IV antibiotics, Tylenol for fever, and plan on admission for acute hypoxic respiratory failure in the setting of fever, leukocytosis, left lower lobe pneumonia. I discussed patient management with hospice who agrees with admission. Patient understands and agrees with the plan. Medical Records Data Attestation: I reviewed the patient's medical records. Lab Data Attestation: I reviewed the patient's lab results. Labs: Lab Results 11/27/24 11/27/24 Range/Units 19:53 20:03 WBC 14.70 H (4.50-11.00) K/uL RBC 4.34 (4.00-5.20) m/uL Hgb 13.2 (12.0-16.0) gm/dL Hct 39.7 (33.0-51.0) % MCV 92 (80-100) fL MCH 30 (26-34) pg MCHC 33 (32-36) gm/dL RDW Coeff of Letty 14.1 (11.5-15.5) % Plt Count 382 (140-440) K/uL Neut % (Auto) 78.1 H (42.0-72.0) % Lymph % (Auto) 14.4 L (20-44) % Stearns % (Auto) 3.9 (0.0-11.0) % Eos % (Auto) 3.2 (0.0-7.0) % Baso % (Auto) 0.3 (0.0-3.0) % Neut # (Auto) 11.50 H (1.7-7.0) K/uL Lymph # (Auto) 2.10 (0.90-2.90) K/uL Stearns # (Auto) 0.60 (0.00-0.90) K/UL Eos # (Auto) 0.50 (0.00-0.50) K/uL Baso # (Auto) 0.00 (0.00-0.30) K/uL Abs Immat Gran (auto) 0.00 (0.00-0.30) K/uL Imm/Tot Granulo (auto) 0.1 % Sodium 129 L (135-149) mmol/L Potassium 4.1 (3.6-5.1) mmol/L Chloride 94 L (96-114) mmol/L Carbon Dioxide 28 (20-32) mmol/L Anion Gap 7 (7-15) mEq/L BUN 17 (7-30) mg/dL Creatinine 0.7 (0.5-1.5) mg/dL Estimated Creat Clear 37.24 Estimated GFR 91 ml/min Glucose 107 (60-115) mg/dL Lactate 1.4 (0.5-1.9) mmol/L Calcium 9.6 (8.4-10.6) mg/dL Total Bilirubin 0.3 (0.1-1.5) mg/dL Direct Bilirubin 0.1 (0.0-0.5) mg/dL AST 58 H (12-35) U/L ALT 35 (4-35) U/L Alkaline Phosphatase 92 (40-150) U/L Troponin I < 0.01 (0.01-0.04) ng/mL Total Protein 8.1 (6.0-8.3) g/dL Albumin 4.7 (3.3-5.0) g/dL Lipase 148 (23-300) U/L SARS-CoV-2 (PCR) Negative SARS-CoV-2 (Negative) Influenza Type A (PCR) Negative PCR FLU A (Negative) Influenza Type B (PCR) Negative PCR FLU B (Negative) RSV (PCR) Negative PCR RSV (Negative) POC Troponin I 0.00 L (0.01-0.04) ng/ml Imaging Data Chest x-ray: Attestation: I have reviewed the pertinent imaging results. Radiologist's impression: FINDINGS: Cardiovascular and mediastinum: Heart size is normal. Unremarkable mediastinum. Lungs and pleural spaces: Hyperexpansion of the lungs with flattening of the diaphragm compatible with COPD. Left lower lobe patchy consolidation. No pleural effusion or pneumothorax. Bones and soft tissues: No significant findings. Cervical spine hardware. IMPRESSION: 1. Left lower lobe patchy consolidation compatible with aspiration and/or pneumonia. Recommend radiographic follow-up in 6-8 weeks to document resolution/improvement and rule out underlying mass. 2. Sequela of COPD. Critical Care Time Critical Care Time Critical Care Time: Yes Attestation: The patient required my highest level preparedness to intervene emergently and I personally spent this critical care time directly and personally managing the patient. This critical care time included: Obtaining a history; Examining the patient; Pulse oximetry; Ordering and reviewing of studies; Arranging urgent treatment with development of a management plan; Evaluation of patients response to treatment; Frequent reassessment discussions with other providers. This critical care time was performed to assess and manage the high probability of imminent life-threatening deterioration that could result in multiorgan failure. It was exclusive of separate billable procedures and treating other patients and teaching time. Total Critical Care Time in Minutes: 35 Discharge Plan Discharge Clinical Impression: Pneumonia, Chest pain, Hypoxia, Fever Condition: Stable
--- NOTE | 2024-11-27 20:09 | CRLHL7_ITS ---
For Patients: As a result of the Century Cures Act, medical imaging exams and procedure reports are released immediately into your electronic medical record. You may view this report before your referring provider. If you have questions, please contact your health care provider. INDICATION: Chest pain. TECHNIQUE: Chest 2 views. COMPARISON: Chest radiograph on July 27, 2024 FINDINGS: Cardiovascular and mediastinum: Heart size is normal. Unremarkable mediastinum. Lungs and pleural spaces: Hyperexpansion of the lungs with flattening of the diaphragm compatible with COPD. Left lower lobe patchy consolidation. No pleural effusion or pneumothorax. Bones and soft tissues: No significant findings. Cervical spine hardware. IMPRESSION: 1. Left lower lobe patchy consolidation compatible with aspiration and/or pneumonia. Recommend radiographic follow-up in 6-8 weeks to document resolution/improvement and rule out underlying mass. 2. Sequela of COPD. Dictated by Sebastián Ignacio MD @ 11/27/2024 8:47:45 PM (Electronically Signed)
[2024-11-27 20:10] LABS: Lactate* 1.4 mmol/L (0.5-1.9)
[2024-11-27 20:11] LABS: Hematocrit* 39.7 % (33.0-51.0); Hemoglobin* 13.2 gm/dL (12.0-16.0); Immature Granulocytes Abs Auto 0.00 K/uL (0.00-0.30); Immature Granulocytes Pct Auto 0.1 %; Lymphocytes Absolute Auto 2.10 K/uL (0.90-2.90); Mean Corpuscular HGB Conc 33 gm/dL (32-36); Mean Corpuscular Hemoglobin 30 pg (26-34); Mean Corpuscular Volume 92 fL (80-100); RDW Coefficient of Variation % 14.1 % (11.5-15.5); Red Blood Count* 4.34 m/uL (4.00-5.20); Slide Review Reflex No; White Blood Count* 14.70 K/uL (4.50-11.00)
[2024-11-27 20:25] LABS: Albumin* 4.7 g/dL (3.3-5.0); Chloride* 94 mmol/L (96-114); Potassium* 4.1 mmol/L (3.6-5.1); Sodium* 129 mmol/L (135-149)
[2024-11-27 20:27] LABS: Alanine Aminotransferase* 35 U/L (4-35); Aspartate Amino Transferase* 58 U/L (12-35)
[2024-11-27 20:28] LABS: Alkaline Phosphatase* 92 U/L (40-150); Bilirubin Direct* 0.1 mg/dL (0.0-0.5); Bilirubin Total* 0.3 mg/dL (0.1-1.5); Blood Urea Nitrogen* 17 mg/dL (7-30); Creatinine* 0.7 mg/dL (0.5-1.5); Est. Creatinine Clearance* 37.24; Estimated Glomerular Filt Rate 91 ml/min; Total Protein* 8.1 g/dL (6.0-8.3)
[2024-11-27 20:29] LABS: Anion Gap 7 mEq/L (7-15); Calcium* 9.6 mg/dL (8.4-10.6); Carbon Dioxide* 28 mmol/L (20-32); Glucose* 107 mg/dL (60-115)
[2024-11-27 20:49] LABS: PCR FLU A Negative PCR FLU A (Negative); PCR FLU B Negative PCR FLU B (Negative); PCR RSV Negative PCR RSV (Negative); SARS PCR* Negative SARS-CoV-2 (Negative)
[2024-11-27] MEDS: AZITHROMYCIN 250 MG TABLET 500 MG PO (21:15)
[2024-11-27] MEDS: ACETAMINOPHEN 500 MG TABLET 1000 MG PO (21:16)
[2024-11-27] MEDS: cefTRIAXone 1 GM in 0.9 % SODIUM CHLORIDE Mini-bag 100 ML IVPB (21:23)
--- NOTE | 2024-11-27 22:02 | P.IMHP_ITS ---
Assessment and Plan Assessment and plan (1) Pneumonia: Problem comment: Community-acquired pneumonia involving the left lower lobe likely the cause of fever/chills, cough, hypoxia. Radiologist recommends outpatient follow-up in 6- 8 weeks to document resolution Status: Acute (2) Hypoxic respiratory failure: Problem comment: Due to pneumonia Status: Acute (3) Chest pain: Problem comment: Pleuritic chest pain due to pneumonia Status: Acute (4) Asthma: Problem comment: Since 2007. Dxed Asthma 10/18. [place] later said no asthma. In 2017 [place] said she has asthma and should use inhalers. She has been using albuterol nebs and DuoNebs and finds them helpful. Positive methacholine challenge at [facility] 2018. Unclear with [facility] pulmonology note 01/27 if she is currently felt to have asthma. On this admission she does not have obvious signs and symptoms of asthma. 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 Sees ENT at [facility] in past. Using budesonide and gentamicin nasal rinses twice a day and now on Dupixent. Status: Chronic (6) Obstructive sleep apnea treated with continuous positive airway pressure (CPAP): Problem comment: Moderate MARLO by sleep study 04/2011, on CPAP (in past used mandible device, saw Dr. Francois in past) Status: Chronic Plan 74-year-old female with chronic and multiple respiratory diseases outlined above now presenting with pneumonia and hypoxia. She is admitted to the hospital for oxygen and antibiotics and monitoring of respiratory status. Total Time Spent Total Time Spent: Total time spent today is 80 minutes in reviewing outside records, coordination of care, discussion with patient about ongoing evaluation and management of current respiratory illness. Hospitalist- H&P: [facility] History of Present Illness Date Seen: 11/27/24 Chief complaint: Possible heart attack Narrative: Brittany Larry is a 74 year old female with a history of chronic rhinosinusitis and possible asthma admitted with abrupt onset of chills and pleuritic left chest pain starting at 7:25 p.m. this evening. Because she had fairly severe chest pain she came to the emergency department. The chest pain was below her left breast but radiated to her left shoulder. It was made worse by coughing or deep breathing. She did have a raspy cough that developed as well. She had a normal temperature at home but a fever in the emergency department. She has chronic respiratory problems. For years she has had problems with chronic cough. She has been diagnosed at [facility] in the past with asthma and then told by [facility] she did not have asthma. She did have a positive methacholine challenge test. She also has chronic gastroesophageal reflux. She has been treated for asthma at as well as chronic rhinosinusitis on a chronic basis. She does find her albuterol and DuoNeb treatments help her coughing and breathing quite a bit. She was diagnosed with cryptogenic organizing pneumonia at [facility] in 2015. This was done on a bronchoscopy biopsy. She reports that this is apparently resolved. She has had multiple treatments for her chronic rhinosinusitis this year including several courses of prednisone. She was recently started on Dupixent as well. She takes a gentamicin saline mix and uses as a nasal rinse twice a day after she takes budesonide with saline nasal rinse twice a day. Allergy testing x3 has been negative. She has been told that her chronic cough is probably related to her chronic sinus disease. She has had previous sinus surgery she has sinus polyps. She has obstructive sleep apnea. She also has a partial vocal cord paralysis dating back about a decade to cervical spine surgery. Review of Systems Narrative: She reports that prior to tonight she was in her usual state of health though still having her chronic cough. Medical Decision Making Medical Decision Making Has patient completed a Health Care Directive: Yes [facility] Medical History (Updated 11/27/24 @ 22:28 by Isidro Santoro MD) Lumbar facet arthropathy (03/17/15) ?M47.816 - Spondylosis without myelopathy or radiculopathy, lumbar region (ICD-10) GI bleed due to NSAIDs (06/10/17) ?K92.2 - Gastrointestinal hemorrhage, unspecified (ICD-10) ?T39.395A - Adverse effect of other nonsteroidal anti-inflammatory drugs [NSAID], initial encounter (ICD-10) DDD (degenerative disc disease), cervical (04/13/13) ?M50.30 - Other cervical disc degeneration, unspecified cervical region (ICD- 10) Cervical radicular pain (04/13/13) ?M54.12 - Radiculopathy, cervical region (ICD-10) Adjustment disorder with mixed anxiety and depressed mood (08/06/13) ?F43.23 - Adjustment disorder with mixed anxiety and depressed mood (ICD-10) Other specified interstitial pulmonary diseases (01/23/15) ?J84.89 - Other specified interstitial pulmonary diseases (ICD-10) Anosmia (01/23/15) ?R43.0 - Anosmia (ICD-10) History of peptic ulcer (2016) ?Z87.11 - Personal history of peptic ulcer disease (ICD-10) History of fracture of ankle (04/06/07) ?Z87.81 - Personal history of (healed) traumatic fracture (ICD-10) Surgical History S/P hardware removal (09/28/07) ?Z98.890 - Other specified postprocedural states (ICD-10) S/P ORIF (open reduction internal fixation) fracture (04/06/07) ?Z98.890 - Other specified postprocedural states (ICD-10) ?Z87.81 - Personal history of (healed) traumatic fracture (ICD-10) History of thyroplasty (2016) ?Z98.890 - Other specified postprocedural states (ICD-10) History of tubal ligation (04/13/06) ?Z98.51 - Tubal ligation status (ICD-10) History of sinus surgery (2007) ?Z98.890 - Other specified postprocedural states (ICD-10) History of appendectomy (04/13/06) ?Z90.49 - Acquired absence of other specified parts of digestive tract (ICD- 10) Hx of cervical spine surgery (2013) ?Z98.890 - Other specified postprocedural states (ICD-10) Social History (Updated 11/27/24 @ 22:17 by Isidro Santoro MD) Narrative: She lives alone in [place]. Her daughter Harmony from [place] is healthcare power of workers compensation defense attorney. Code status is full. She has never smoked. She has never lived with a smoker. She rarely drinks alcohol. She walks 5 miles every day and does yoga every day. What is your current living situation?: I presently have a place to live Problems where you live: pests, such as bugs, ants, or mice In the past 12 months, utilities in danger of being shut off: no In past 12 months, lack of transportation kept you from medical appts, meetings, work, or getting things needed for daily living: no In the past 12 mos, have been you worried that your food would run out before you had money to buy more?: never true In the past 12 mos, the food you bought just didn't last and you didn't have money to buy more?: never true Smoking Status: Never smoker Do you use any of these nicotine containing products: None Second hand tobacco smoke exposure: No How often do you have a drink containing alcohol: never How often do you have six or more drinks on one occasion: Never AUDIT-C Alcohol total score: 0 Non-prescribed substance use: denies use How often does anyone, including family, friends and others, physically hurt you : never How often does anyone, including family, friends and others, insult or talk down to you: sometimes How often does anyone, including family, friends and others, threaten you with harm: never How often does anyone, including family, friends and others, scream or curse at you: sometimes service: No Health Related Social Needs: Inadequate housing (Z59.1) and Other personal risk factors, not elsewhere classified (Z91.89) Meds Home Medications and Allergies Home Medications ?Medication ?Instructions ?Recorded ?Confirmed ?Type magnesium 1 tab PO DAILY 07/13/2206/29 History celecoxib 200 mg capsule (Celebrex) 200 mg PO QDAY PRN arthritic 02/15/23 11/08/24 Rx flares #90 caps cholecalciferol (vitamin D3) 10 10 mcg PO QDAY 4 11/08/24 History mcg (400 unit) capsule sodium chloride 3 % for ml inhalation 12/13/2311/08 History nebulization levothyroxine 100 mcg tablet 100 mcg PO DAILY #90 tabs 01/31/24 11/08/24 Rx albuterol sulfate 2.5 mg/3 mL 2.5 mg (3 mL) inhalation Q6H #75 mL 07/27/24 11/08/24 Rx (0.083 %) solution for nebulization fluticasone propionate 50 2 spray intranasal QDAY #16 grams 09/06/24 11/08/24 Rx mcg/actuation nasal spray,suspension (Flonase Allergy Relief) albuterol sulfate 90 mcg/actuation 2 puff inhalation Q 6H PRN 10/18/24 11/08/24 Rx aerosol inhaler shortness of breath or wheez ing #8.5 grams nebulizers (Altera Nebulizer #1 ea 10/25/24 11/08/24 R x System) budesonide 1 mg/2 mL suspension mg BID 10/29/24 History for nebulization ipratropium 0.5 mg-albuterol 3 mg 3 ml inhalation Q6H PRN #90 mL 10/29/24 11/08/24 Rx (2.5 mg base)/3 mL nebulization soln prednisone 20 mg tablet 40 mg (2 x 20 mg) PO DAILY # 10 tabs 10/29/24 11/08/24 Rx valsartan 160 mg tablet 160 mg PO QDAY #90 tabs 10/0611/08/24 Rx pantoprazole 40 mg tablet,delayed 40 mg PO QDAY PRN 11/08/24 History release Home Medication Comments: Budesonide and gentamicin mixed with saline are both given as nasal rinses twice a day Allergies Allergy/AdvReac Type Severity Reaction Status Date / Time No Known Drug Allergies Allergy Verified 11/27/24 19:57 Exam Narrative: Exam Narrative: She is alert and appears in no distress breathing oxygen via nasal cannula. Eyes normal. Oropharynx normal. Neck is supple without mass or adenopathy. Respirations are clear to auscultation except for a few fine basilar crackles more on the left than the right. Breath sounds are diminished but no wheezing noted. No consolidation. Cardiovascular: S1, S2, 1-2/6 systolic murmur heard best at the left lower sternal border. No gallop or rub. Abdomen is soft without tenderness or mass. Extremities with intact pulses no edema good strength in all 4 extremities. Good capillary refill. No rash. Const: Vital Signs, click to edit/add: Vital Signs - 24 hr 11/27/24 19:57 11/27/24 20:00 11/27/24 20:21 Temperature 100.5 F H Pulse Rate 79 80 Pulse Rate [Pulse Oximeter] 84 Respiratory Rate 24 28 H 27 H Blood Pressure Blood Pressure [Ri ght Upper Arm] 202/108 H Pulse Oximetry 94 89 85 L Oxygen Delivery Me thod Room Air Oxygen Flow Rate 11/27/24 20:32 11/27/24 21:00 11/27/24 21:06 Temperature Pulse Rate 72 70 Pulse Rate [Pulse Oximeter] Respiratory Rate 14 25 H Blood Pressure 152/72 H Blood Pressure [Ri ght Upper Arm] Pulse Oximetry 90 90 88 Oxygen Delivery Me thod Nasal Cannula Oxygen Flow Rate 4 11/27/24 21:16 11/27/24 21:30 Temperature 98.8 F Pulse Rate Pulse Rate [Pulse Oximeter] Respiratory Rate Blood Pressure Blood Pressure [Ri ght Upper Arm] 144/73 H Pulse Oximetry Oxygen Delivery Me thod Oxygen Flow Rate Documenting provider has reviewed patient's vital signs: yes Hospitalist - H&P: Result Labs Labs: Short CBC 11/27/24 Range/Units 20:03 WBC 14.70 H (4.50-11.00) K/uL Hgb 13.2 (12.0-16.0) gm/dL Hct 39.7 (33.0-51.0) % Plt Count 382 (140-440) K/uL BMP 11/27/24 20:03 Sodium 129 L Potassium 4.1 Chloride 94 L Carbon Dioxide 28 BUN 17 Creatinine 0.7 Glucose 107 Calcium 9.6 Cardiac Enzymes 11/27/24 Range/Units 20:03 Troponin I < 0.01 (0.01-0.04) ng/mL Liver Function 11/27/24 Range/Units 20:03 Total Bilirubin 0.3 (0.1-1.5) mg/dL Direct Bilirubin 0.1 (0.0-0.5) mg/dL AST 58 H (12-35) U/L ALT 35 (4-35) U/L Alkaline Phosphatase 92 (40-150) U/L Albumin 4.7 (3.3-5.0) g/dL Imaging Chest x-ray: Radiologist's impression: INDICATION: Chest pain. TECHNIQUE: Chest 2 views. COMPARISON: Chest radiograph on July 27, 2024 FINDINGS: Cardiovascular and mediastinum: Heart size is normal. Unremarkable mediastinum. Lungs and pleural spaces: Hyperexpansion of the lungs with flattening of the diaphragm compatible with COPD. Left lower lobe patchy consolidation. No pleural effusion or pneumothorax. Bones and soft tissues: No significant findings. Cervical spine hardware. IMPRESSION: 1. Left lower lobe patchy consolidation compatible with aspiration and/or pneumonia. Recommend radiographic follow-up in 6-8 weeks to document resolution/improvement and rule out underlying mass. 2. Sequela of COPD.
[2024-11-27 22:21] LABS: Appearance Urine Clear (Clear)
[2024-11-27] MEDS: ENOXAPARIN 30 MG/0.3ML INJ SUBCUT (22:51)
[2024-11-27] MEDS: IPRAT-ALBUT 0.5-2.5 MG/3 ML NEB 1 NEB IH (22:51)
[2024-11-28 03:00] VITALS: BP 104/53; PULSE 65; RESP 16; TEMP 36.8; O2SAT 97
[2024-11-28] MEDS: ACETAMINOPHEN 325 MG TABLET 650 MG PO (03:33)
[2024-11-28] MEDS: IPRAT-ALBUT 0.5-2.5 MG/3 ML NEB 1 NEB IH (04:50)
--- NOTE | 2024-11-28 05:28 | PC.NURSE ---
End of shift report: Pt was admitted to the unit at 2210 for pneumonia. AxOx4. VSS. Afebrile. Rates pain in her left lower chest a 3-2/10, stating that her coughing makes it worse. Pt has a chronic cough. Pt was on 1L of O2?to maintain sats above 90%, since 0300 pt was able to maintain O2 sats on RA. Pt has MARLO and utilizes a CPAP at home. Pt is ind in room, call light within reach. ?
[2024-11-28] MEDS: LEVOTHYROXINE 100 MCG TABLET PO (05:38)
[2024-11-28 06:27] LABS: Hematocrit* 33.5 % (33.0-51.0); Hemoglobin* 11.5 gm/dL (12.0-16.0); Immature Granulocytes Pct Auto 0.3 %; Lymphocytes Absolute Auto 1.20 K/uL (0.90-2.90); Mean Corpuscular HGB Conc 34 gm/dL (32-36); Mean Corpuscular Hemoglobin 31 pg (26-34); Mean Corpuscular Volume 90 fL (80-100); RDW Coefficient of Variation % 14.2 % (11.5-15.5); Red Blood Count* 3.73 m/uL (4.00-5.20); White Blood Count* 15.56 K/uL (4.50-11.00)
[2024-11-28 06:31] LABS: Immature Granulocytes Abs Auto 0.00 K/uL (0.00-0.30); Slide Review Reflex No
[2024-11-28 06:40] LABS: Chloride* 95 mmol/L (96-114); Potassium* 3.8 mmol/L (3.6-5.1); Sodium* 128 mmol/L (135-149)
[2024-11-28 06:43] LABS: Blood Urea Nitrogen* 13 mg/dL (7-30); Creatinine* 0.6 mg/dL (0.5-1.5); Est. Creatinine Clearance* 37.24; Estimated Glomerular Filt Rate 94 ml/min
[2024-11-28 06:44] LABS: Anion Gap 5 mEq/L (7-15); Calcium* 8.8 mg/dL (8.4-10.6); Carbon Dioxide* 28 mmol/L (20-32); Glucose* 113 mg/dL (60-115)
[2024-11-28 08:20] VITALS: BP 106/53; PULSE 65; RESP 16; TEMP 36.6; O2SAT 97
[2024-11-28] MEDS: SODIUM CHLORIDE 0.9 % (FLUSH) 10 ML SYRINGE 5 ML IVF (08:57)
[2024-11-28] MEDS: cefTRIAXone 1 GM in 0.9 % SODIUM CHLORIDE Mini-bag 100 ML IVPB (08:57)
[2024-11-28] MEDS: VALSARTAN 80 MG TABLET PO (08:58)
[2024-11-28] MEDS: DOXYCYCLINE HYCLATE 100 MG PO (08:58)
[2024-11-28] MEDS: ONDANSETRON 2 MG/ML inj 4 MG IVP (10:08)
--- NOTE | 2024-11-28 10:57 | P.DS_ITS ---
DS: Providers Provider Date Seen: 11/28/24 Date of admission: 11/27/24 22:11 Primary care physician: Salma Whitley MD Admitting Clinician: Isidro Santoro MD Consults: 11/27/24 22:11 Consult to Respiratory Therapy [CONS] Routine Comment: Reason(s) for RT Consult:: Consult Attending Physician on discharge: FANTA Robledo[facility] Date of Discharge: 11/28/24 DS: Diagnosis Discharge Diagnosis (1) Pneumonia: Status: Acute Problem details: Community-acquired pneumonia involving the left lower lobe likely the cause of fever/chills, cough, hypoxia. Admitted for IV antibiotics, started on oral doxycycline as well. BC x2 pending. Patient requesting to be discharged home the following morning as she is not sleeping well. Understands risks including potential bounce back. Last fever less than 24 hours ago. BC x2 pending. Understands to continue oral doxycycline. Has received 2 doses IV ceftriaxone. Will continue use of home nebulizers as well as aerobika. Understands to return to the clinic or ED if new or worsening symptoms or persisting fever. Discussed that we will call her if her blood cultures return positive. Radiologist recommends outpatient follow-up for repeat radiographs in 6-8 weeks to document resolution. (2) Hypoxic respiratory failure: Status: Resolved Problem details: Due to pneumonia. Resolved overnight, no longer requiring supplemental oxygen. (3) Chest pain: Status: Resolved Problem details: Pleuritic chest pain due to pneumonia. Resolved. Troponin unremarkable. EKG NSR, rather unremarkable. (4) Asthma: Status: Chronic Problem details: Since 2007. Dxed Asthma 10/18. [place] later said no asthma. In 2017 [place] said she has asthma and should use inhalers. She has been using albuterol nebs and DuoNebs and finds them helpful. Positive methacholine challenge at [facility] 2018. Unclear with [facility] pulmonology note 01/27 if she is currently felt to have asthma. On this admission she does not have obvious signs and symptoms of asthma. Will forego prednisone at this time, patient in agreement. 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 Sees ENT at [facility] in past. Using budesonide and gentamicin nasal rinses twice a day and now on Dupixent. (6) Obstructive sleep apnea treated with continuous positive airway pressure (CPAP): Status: Chronic Problem details: Moderate MARLO by sleep study 04/2011, on CPAP (in past used mandible device, saw Dr. Francois in past) DS: Summary Hospital Course Hospital Course: Course of care and details as noted above. Presented to ED assuming she had a pneumonia, concerned with left-sided chest pain associated with this episode. Chest pain has resolved. Proxy is resolved. Patient requesting to discharge home on oral antibiotics. Has received 2 doses IV ceftriaxone. Will continue with oral doxycycline, home nebulizers, aerobika. Blood cultures pending at time of discharge. Mild hyponatremia, near baseline. Status at Discharge Functional status at discharge: independent ambulation Overall status at discharge: patient is back to baseline Time Spent with Patient Time attestation: Total time spent providing and/or coordinating discharge services: Time spent: Greater than 30 minutes Exam Narrative: Exam Narrative: PHYSICAL EXAM General: Pleasant, conversant, NAD Cardiovascular: RRR Pulmonary: No dyspnea, mild rhonchi, cleared with coughing. No wheezing Neurological: Alert, answering questions appropriately Skin: Warm, dry. Const: Vital Signs, click to edit/add: Vital Signs - 24 hr 11/27/24 19:57 11/27/24 20:00 11/27/24 20:21 Temperature 100.5 F H Pulse Rate 79 80 Pulse Rate [Left P ulse Oximeter] Pulse Rate [Left R adial] Pulse Rate [Pulse Oximeter] 84 Respiratory Rate 24 28 H 27 H Blood Pressure Blood Pressure [Ri ght Arm] Blood Pressure [Ri ght Upper Arm] 202/108 H Pulse Oximetry 94 89 85 L Oxygen Delivery Me thod Room Air Oxygen Flow Rate 11/27/24 20:32 11/27/24 21:00 11/27/24 21:06 Temperature Pulse Rate 72 70 Pulse Rate [Left P ulse Oximeter] Pulse Rate [Left R adial] Pulse Rate [Pulse Oximeter] Respiratory Rate 14 25 H Blood Pressure 152/72 H Blood Pressure [Ri ght Arm] Blood Pressure [Ri ght Upper Arm] Pulse Oximetry 90 90 88 Oxygen Delivery Me thod Nasal Cannula Oxygen Flow Rate 4 11/27/24 21:16 11/27/24 21:30 11/27/24 22:10 Temperature 98.8 F 98.9 F Pulse Rate Pulse Rate [Left P ulse Oximeter] 65 Pulse Rate [Left R adial] Pulse Rate [Pulse Oximeter] Respiratory Rate 18 Blood Pressure Blood Pressure [Ri ght Arm] 139/63 Blood Pressure [Ri ght Upper Arm] 144/73 H Pulse Oximetry 95 Oxygen Delivery Me thod Nasal Cannula Oxygen Flow Rate 1 11/27/24 22:10 11/27/24 23:00 11/27/24 23:00 Temperature 98.9 F Pulse Rate Pulse Rate [Left P ulse Oximeter] 65 Pulse Rate [Left R adial] Pulse Rate [Pulse Oximeter] Respiratory Rate 18 20 18 Blood Pressure Blood Pressure [Ri ght Arm] 139/63 Blood Pressure [Ri ght Upper Arm] Pulse Oximetry 95 95 95 Oxygen Delivery Me thod Nasal Cannula Nasal Cannula Nasal Cannula Oxygen Flow Rate 1 1 1 11/28/24 03:00 11/28/24 08:20 11/28/24 08:20 Temperature 98.2 F 97.9 F Pulse Rate Pulse Rate [Left P ulse Oximeter] 65 Pulse Rate [Left R adial] 65 Pulse Rate [Pulse Oximeter] Respiratory Rate 16 16 16 Blood Pressure Blood Pressure [Ri ght Arm] 104/53 L 106/53 L Blood Pressure [Ri ght Upper Arm] Pulse Oximetry 97 97 97 Oxygen Delivery Me thod Room Air Room Air Room Air Oxygen Flow Rate DS: Data Data Completed and Pending Pending studies at discharge: BC x2 Labs on day of discharge: Labs from last 24 hours 11/28/24 11/27/24 11/27/24 06:00 22:12 20:03 WBC 15.56 H 14.70 H RBC 3.73 L 4.34 Hgb 11.5 L 13.2 Hct 33.5 39.7 MCV 90 92 MCH 31 30 MCHC 34 33 RDW Coeff of Letty 14.2 14.1 Plt Count 269 382 Neut % (Auto) 87.4 H 78.1 H Lymph % (Auto) 7.7 L 14.4 L [place] % (Auto) 4.2 3.9 Eos % (Auto) 0.3 3.2 Baso % (Auto) 0.1 0.3 Neut # (Auto) 13.60 H 11.50 H Lymph # (Auto) 1.20 2.10 [place] # (Auto) 0.70 0.60 Eos # (Auto) 0.00 0.50 Baso # (Auto) 0.00 0.00 Abs Immat Gran (auto) 0.00 0.00 Imm/Tot Granulo (auto) 0.3 0.1 Sodium 128 L 129 L Potassium 3.8 4.1 Chloride 95 L 94 L Carbon Dioxide 28 28 Anion Gap 5 L 7 BUN 13 17 Creatinine 0.6 0.7 Estimated Creat Clear 37.24 37.24 Estimated GFR 94 91 Glucose 113 107 Lactate 1.4 Calcium 8.8 9.6 Total Bilirubin 0.3 Direct Bilirubin 0.1 AST 58 H ALT 35 Alkaline Phosphatase 92 Troponin I < 0.01 Total Protein 8.1 Albumin 4.7 Lipase 148 Urine Color Yellow Urine Appearance Clear Urine pH 7.5 Ur Specific [place] 1.020 Urine Protein Negative Urine Glucose (UA) Negative Urine Ketones Negative Urine Blood 1+ A Urine Nitrite Negative Urine Bilirubin Negative Urine Urobilinogen 0.2 Ur Leukocyte Esterase Negative Urine RBC 0-2 Urine WBC 0-2 Ur Squamous Epith Cells Few Urine Bacteria None SARS-CoV-2 (PCR) Negative SARS-CoV-2 Influenza Type A (PCR) Negative PCR FLU A Influenza Type B (PCR) Negative PCR FLU B RSV (PCR) Negative PCR RSV POC Troponin I 11/27/24 19:53 WBC RBC Hgb Hct MCV MCH MCHC RDW Coeff of Letty Plt Count Neut % (Auto) Lymph % (Auto) [place] % (Auto) Eos % (Auto) Baso % (Auto) Neut # (Auto) Lymph # (Auto) [place] # (Auto) Eos # (Auto) Baso # (Auto) Abs Immat Gran (auto) Imm/Tot Granulo (auto) Sodium Potassium Chloride Carbon Dioxide Anion Gap BUN Creatinine Estimated Creat Clear Estimated GFR Glucose Lactate Calcium Total Bilirubin Direct Bilirubin AST ALT Alkaline Phosphatase Troponin I Total Protein Albumin Lipase Urine Color Urine Appearance Urine pH Ur Specific [place] Urine Protein Urine Glucose (UA) Urine Ketones Urine Blood Urine Nitrite Urine Bilirubin Urine Urobilinogen Ur Leukocyte Esterase Urine RBC Urine WBC Ur Squamous Epith Cells Urine Bacteria SARS-CoV-2 (PCR) Influenza Type A (PCR) Influenza Type B (PCR) RSV (PCR) POC Troponin I 0.00 L Imaging Chest x-ray: Attestation: I have reviewed the pertinent imaging results. Radiologist's impression: Cardiovascular and mediastinum: Heart size is normal. Unremarkable mediastinum. Lungs and pleural spaces: Hyperexpansion of the lungs with flattening of the diaphragm compatible with COPD. Left lower lobe patchy consolidation. No pleural effusion or pneumothorax. Bones and soft tissues: No significant findings. Cervical spine hardware. IMPRESSION: 1. Left lower lobe patchy consolidation compatible with aspiration and/or pneumonia. Recommend radiographic follow-up in 6-8 weeks to document resolution/improvement and rule out underlying mass. 2. Sequela of COPD. Discharge Plan Discharge Disposition: Home, Self-Care Date of Admission: 11/27/24 22:11 Attending Provider on Discharge: Rukhsana Horn Primary Care Provider: Salma Whitley Condition: Stable Anticipated Discharge Date/Time: 11/28/24 10:47 Discharge Medications: New doxycycline hyclate 100 mg Tablet 100 mg PO BID Qty: 14 0RF Continued magnesium 1 tab PO DAILY pantoprazole 40 mg tablet,delayed release (DR/EC) 40 mg PO DAILY PRN sodium chloride 3 % solution for nebulization 4 ml inhalation cholecalciferol (vitamin D3) 10 mcg (400 unit) capsule 10 mcg PO DAILY celecoxib [Celebrex] 200 mg capsule 200 mg PO DAILY PRN (Reason: arthritic flares) albuterol sulfate 2.5 mg /3 mL (0.083 %) solution for nebulization 2.5 mg inhalation Q6H PRN fluticasone propionate [Flonase Allergy Relief] 50 mcg/actuation spray,suspension 2 spray intranasal DAILY PRN Rx Instructions: administer 2 sprays into each nostril as needed valsartan 160 mg tablet 80 mg PO DAILY budesonide 1 mg/2 mL suspension for nebulization 1 mg irrigation BID Rx Instructions: PATIENT USES THIS SOLUTION A NASAL LAVAGE ipratropium-albuterol 0.5 mg-3 mg(2.5 mg base)/3 mL solution for nebulization 3 ml inhalation Q6H PRNQty: 90 0RF levothyroxine 100 mcg tablet 100 mcg PO DAILY Qty: 90 3RF albuterol sulfate 90 mcg/actuation HFA aerosol inhaler 2 puff inhalation Q6H PRN (Reason: shortness of breath or wheezing) Qty: 8.5 0RF (DME) nebulizers [Altera Nebulizer System] Misc See Rx Instructions .Route Qty: 1 0RF Rx Instructions: As directed Discharge Orders: Discharge Order (Routine); Ordered 11/28/24 Ordered By: Rukhsana Horn Patient Education: Doxycycline (By mouth), Pneumonia (DC) Additional Instructions: Pneumonia: Doxycycline b.i.d. x7 days Continue to use your DuoNebs and aerobika Follow-up for re-evaluation at the clinic or return to the ED if new or worse irina symptoms, persisting or worsening fever. Blood cultures are pending. We will call you if they are positive. Radiology has recommended a repeat chest x-ray in 6-8 weeks. Activity Level: Activity as Tolerated Discharge Diet: Regular Follow Up Appointments: Salma Whitley MD [Primary Care Provider, Internal Medicine] Referral Note: Post hospital follow-up 6 weeks (PCP will need to order a repeat CXR at that time) Forms: Patient Belongings, [facility] Info Instructions
--- NOTE | 2024-11-28 11:56 | RESP.RT ---
Pt seen for consult. Pulmonary effort normal RA SPO2 95% BBS clear, decreased in bases. Pt has 2 aerobikas from other medical appointments. Pt with excellent understanding of use, and nebulizer use. She is going to contact her DME for a new electric neb machine. Informed pt her primary may need to write a new prescription for it. she has a plan in place to contact her.
== END 2024-11-28 13:03 | disposition home or self-care (01) | DRG 193 ==
LOC: ED 21:13 → MEDSURG 22:04
PROVIDERS: Admitting Provider Family Medicine; Emergency Provider Emergency Medicine; PCP Internal Medicine; Visit Provider Family Medicine
DX: J18.9 Pneumonia, unspecified organism (principal); J96.01 Acute respiratory failure with hypoxia; Z59.19 Other inadequate housing; J32.8 Other chronic sinusitis; G47.33 Obstructive sleep apnea (adult) (pediatric); J45.909 Unspecified asthma, uncomplicated; Z99.89 Dependence on other enabling machines and devices; I10 Essential (primary) hypertension
CPT/HCPCS: 36415; 71046; 80048; 80076; 81001; 83605; 83690; 84484; 85025; 87040; 87631; 93005; 94761; 99285; 99291; A9270; J0696; J1650; J2405

== ENCOUNTER 2024-12-14 16:23 | Emergency (ER) | payer MEDICARE, BC, SELFPAY ==
[2024-12-14] VITALS (10 sets, daily range): BP systolic 123; BP diastolic 71; PULSE 82–86; RESP 18; TEMP 37.6–37.7; O2SAT 93–98; BMI 21.0
--- OUTSIDE RECORDS SUMMARY | 2024-12-14 16:26 | XMS_ITS | Clinical Summary ---
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 Explanted:at [facility] (Quantity not on file) [employer] 01/02/2015 [id number] / [id number] / Description:DBX PUTTY 0.5CC [id number] 0bone Cerv 6mm 4deg W/Plug [[id number]] Implanted:Qty: 1 on 05/02/[address] [facility] Spine Thong Spine 12/04/2017 [id number] / [id number] / Plate Cerv Ant 12mm One Level - [id number] Implanted:Qty: 1 on 05/02/[address] [facility] N/A: Spine Thong Spine [id number] / / Screw 4.18h00su Slf Tppng Va - [id number] Implanted:Qty: 1 on 05/02/[address] [facility] N/A: Spine Thong Spine [id number] / / Screw 4.0x14mm [employer]illing Va - [id number] Implanted:Qty: 3 on 05/02/[address] [facility] N/A: Spine Thong Spine [id number] / / Screw Bone 2.5x16mm Mini Headed - [id number] Implanted:Qty: 1 on 10/03/2018 by Venkata Cameron DPM at [facility] Left: Foot Thong [employer]ed[employer] [id number] / / Screw Bone 2.5x18mm Mini Headed - [id number] Implanted:Qty: 1 on 10/03/2018 by Venkata Cameron DPM at [facility] Left: Foot [place] [employer] [id number] / / K-Wire 3.0mm [place] Non-Thrd - [id number] Implanted:Qty: 1 on 10/03/2018 by Venkata Cameron DPM at [facility] Left: Foot Thong [employer]ed[employer] [id number] / / Explanted Type Area Dimension Specification Inspector Device Identifier Shelf Expiration Date Model / Serial / Lot K-Wire 2.5mm Thong Non-Thrd - [id number] Explanted:Qty: 2 on 10/03/2018 by Venkata Cameron DPM at [facility] Left: Foot Thong [employer]opaed[employer] [id number] / / Procedures Procedure Name Priority Date/Time [...] care provider. XR MAMMO JAIR BILAT SCREEN [[id number]] CLINICAL HISTORY: This is an asymptomatic 73 [...] MEDICARE PART B HB ONLY BLUE CROSS [employer] BLUE MR PB ONLY BLUE [employer]OSS [employer] BLUE HB ONLY Advance Directives * Full Code (Latest Code Status on File) Date Activated Date Inactivated Comments 10/03/2018 5:45 AM 10/03/2018 6:35 AM * Full Code Date Activated Date Inactivated Comments 05/02/2013 11:57 AM 05/03/2013 1:29 PM * Full Code Date Activated Date Inactivated Comments 05/02/2013 11:51 AM 05/02/2013 11:57 AM Care Teams Investigator Internal Affairs Relationship Specialty Start Date End Date Salma Whitley MD [address] [place] [id number] PCP - General Internal Medicine 04/30/13
--- NOTE | 2024-12-14 16:48 | ED.GENADULT ---
HPI - General Adult General Chief complaint: Weakness Stated complaint: has a cold Time Seen by Provider: 12/14/24 16:24 History of Present Illness HPI narrative: Patient presents to the emergency department complaining of increased fatigue. Patient states this has been going on since last night. Recent admission for pneumonia. Now also complaining of chills and ear pain. 74-year-old woman presenting to the emergency department with concern of some cough, light chills and fatigue. Not really short of breath. Was discharged from this facility 2 weeks ago with a diagnosis of community-acquired pneumonia and hypoxic respiratory failure. Received ceftriaxone and completed outpatient course of doxycycline. She did have back pain related similar to this pneumonia. Unclear whether not has a diagnosis of asthma but does have albuterol and DuoNebs at home. Has not needed them more frequently. Does have chronic rhinitis sinusitis and more recent Dupixent for polyps. Has daily food desonide and gentamicin nasal rinses. Has a paralyzed vocal cord she says when I inquire regarding laryngitic sounding voice. Started feeling a little unwell yesterday again and then to today more chills but nothing like what she had experienced before. Says she typically gets chilled with pneumonia. No measured fever. She is having some discomfort in the left ear. Sounds like she has chronic facial congestion. 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 Related Data Home Medications ?Medication ?Instructions ?Recorded ?Confirmed magnesium 1 tab PO DAILY 07/13/22 12/14/24 cholecalciferol (vitamin D3) 10 10 mcg PO DAILY 12/13/23 12/14/24 mcg (400 unit) capsule sodium chloride 3 % for 4 ml inhalation 12/13/23 11/08/24 nebulization budesonide 1 mg/2 mL suspension 1 mg irrigation BID 10/29/24 12/14/24 for nebulization pantoprazole 40 mg tablet,delayed 40 mg PO DAILY PRN 11/08/24 12/14/24 release albuterol sulfate 2.5 mg/3 mL 2.5 mg inhalation Q6H PRN 11/28/24 12/14/24 (0.083 %) solution for nebulization celecoxib 200 mg capsule (Celebrex) 200 mg PO DAILY PRN arthritic 11/28/24 12/14/24 flares fluticasone propionate 50 2 spray intranasal DAILY PRN 11/28/24 12/14/24 mcg/actuation nasal spray,suspension (Flonase Allergy Relief) valsartan 160 mg tablet 80 mg PO DAILY 11/28/24 12/14/24 Previous Rx's ?Medication ?Instructions ?Recorded albuterol sulfate 90 mcg/actuation 2 puff inhalation Q6H PRN 10/18/24 aerosol inhaler shortness of breath or wheezing #8.5 grams nebulizers ([employer] Nebulizer #1 ea 10/25/24 System) ipratropium 0.5 mg-albuterol 3 mg 3 ml inhalation Q6H PRN #90 mL 10/29/24 (2.5 mg base)/3 mL nebulization soln doxycycline hyclate 100 mg tablet 100 mg PO BID #14 tabs 11/28/24 ondansetron 4 mg disintegrating 4 mg PO Q8-12H PRN nausea and 11/29/24 tablet vomiting #20 tabs levothyroxine 125 mcg tablet 125 mcg PO QDAY #90 tabs 12/07/24 amoxicillin 875 mg-potassium 1 tab PO BID 12 days #24 tabs 12/14/24 clavulanate 125 mg tablet prednisone 20 mg tablet 40 mg (2 x 20 mg) PO DAILY 5 days 12/14/24 #10 tabs Allergies Allergy/AdvReac Type Severity Reaction Status Date / Time No Known Drug Allergies Allergy Verified 12/14/24 16:30 Review of Systems Status of ROS: Reports: 6 or more systems reviewed and unremarkable except as noted in History and below [facility] Medical History History of peptic ulcer (2017) ?Z87.11 - Personal history of peptic ulcer disease (ICD-10) History of fracture of ankle (04/06/07) ?Z87.81 - Personal history of (healed) traumatic fracture (ICD-10) Surgical History S/P hardware removal (09/28/07) ?Z98.890 - Other specified postprocedural states (ICD-10) S/P ORIF (open reduction internal fixation) fracture (04/06/07) ?Z98.890 - Other specified postprocedural states (ICD-10) ?Z87.81 - Personal history of (healed) traumatic fracture (ICD-10) History of thyroplasty (2016) ?Z98.890 - Other specified postprocedural states (ICD-10) History of tubal ligation (04/13/06) ?Z98.51 - Tubal ligation status (ICD-10) History of sinus surgery (2007) ?Z98.890 - Other specified postprocedural states (ICD-10) History of appendectomy (04/13/06) ?Z90.49 - Acquired absence of other specified parts of digestive tract (ICD-10) Hx of cervical spine surgery (2013) ?Z98.890 - Other specified postprocedural states (ICD-10) Social History Narrative: She lives alone in [place]. Her daughter Harmony from [employer] is healthcare power of telemetry registered nurse. Code status is full. She has never smoked. She has never lived with a smoker. She rarely drinks alcohol. She walks 5 miles every day and does yoga every day. What is your current living situation?: I presently have a place to live Problems where you live: pests, such as bugs, ants, or mice In the past 12 months, utilities in danger of being shut off: no In past 12 months, lack of transportation kept you from medical appts, meetings, work, or getting things needed for daily living: no In the past 12 mos, have been you worried that your food would run out before you had money to buy more?: never true In the past 12 mos, the food you bought just didn't last and you didn't have money to buy more?: never true Highest level of school completed/degree received: Bachelor's degree Smoking Status: Never smoker Do you use any of these nicotine containing products: None Second hand tobacco smoke exposure: No How often do you have a drink containing alcohol: never How often do you have six or more drinks on one occasion: Never AUDIT-C Alcohol total score: 0 Non-prescribed substance use: denies use Caffeine: Yes How often does anyone, including family, friends and others, physically hurt you: never How often does anyone, including family, friends and others, insult or talk down to you: sometimes How often does anyone, including family, friends and others, threaten you with harm: never How often does anyone, including family, friends and others, scream or curse at you: sometimes service: No Health Related Social Needs: Inadequate housing (Z59.1) and Other personal risk factors, not elsewhere classified (Z91.89) Exam Narrative: Exam Narrative: Very pleasant. NAD. Breathing easily. Generally sounds slightly congested in her lungs. Some of that is also coming I think from upper airway/throat. Sounds a little there jelly care. Intermittent congested cough. Lungs are without wheeze. TMs bilaterally are clear. Neck is supple without lymphadenopathy. Oropharynx with some cobblestoning posteriorly. Mild. Heart in regular rate and rhythm. Extremities are well perfused without edema. Well-healed surgical scars at the right wrist and right ankle. This is a little sore to palpation at the right mid paraspinal back musculature. Const: Vital Signs, click to edit/add: Vital Signs - 24 hr 12/14/24 16:25 12/14/24 17:18 12/14/24 17:30 Temperature 99.8 F H Pulse Rate 83 82 Pulse Rate [Right Pulse Oximeter] 83 Respiratory Rate 18 Blood Pressure [Ri ght Upper Arm] 123/71 Pulse Oximetry 96 97 95 Oxygen Delivery Me thod Room Air 12/14/24 17:46 12/14/24 18:00 12/14/24 18:15 Temperature Pulse Rate 86 82 82 Pulse Rate [Right Pulse Oximeter] Respiratory Rate Blood Pressure [Ri ght Upper Arm] Pulse Oximetry 94 95 94 Oxygen Delivery Me thod 12/14/24 18:30 12/14/24 18:45 12/14/24 19:00 Temperature Pulse Rate 85 86 82 Pulse Rate [Right Pulse Oximeter] Respiratory Rate Blood Pressure [Ri ght Upper Arm] Pulse Oximetry 98 95 93 Oxygen Delivery Me thod 12/14/24 19:27 Temperature 99.6 F Pulse Rate Pulse Rate [Right Pulse Oximeter] Respiratory Rate Blood Pressure [Ri ght Upper Arm] Pulse Oximetry Oxygen Delivery Me thod Documenting provider has reviewed patient's vital signs: yes Course Vital Signs Vital signs: Initial Vital Signs Temperature 99.8 F H 12/14/24 16:25 Temperature Source Temporal Artery Scan 12/14/24 16:25 Pulse Rate 83 12/14/24 16:25 Pulse Rhythm Regular 12/14/24 16:25 Pulse Strength 3+ Normal 12/14/24 16:25 Respiratory Rate 18 12/14/24 16:25 Blood Pressure 123/71 12/14/24 16:25 Blood Pressure Mean 88 12/14/24 16:25 Blood Pressure Position Sitting 12/14/24 16:25 Pulse Oximetry 96 12/14/24 16:25 Oxygen Delivery Method Room Air 12/14/24 16:25 Vital Signs Temperature 99.8 F H 12/14/24 16:25 Pulse Rate 83 12/14/24 16:25 Respiratory Rate 18 12/14/24 16:25 Blood Pressure 123/71 12/14/24 16:25 Pulse Oximetry 96 12/14/24 16:25 Oxygen Delivery Method Room Air 12/14/24 16:25 Temperature 99.6 F 12/14/24 19:27 Pulse Rate 82 12/14/24 19:00 Respiratory Rate 18 12/14/24 16:25 Blood Pressure 123/71 12/14/24 16:25 Pulse Oximetry 93 12/14/24 19:00 Oxygen Delivery Method Room Air 12/14/24 16:25 Medications Administered Medications: Discontinued Medications Generic Name Dose Route Start Last Admin Trade Name Freq PRN Reason Stop Dose Admin Amoxicillin/Clavulanate Potassium 875 mg 12/14/24 20:19 12/14/24 20:24 Amoxicillin/Clavulanate 875 Mg/125 Mg Tablet PO 12/14/24 20:20 875 mg ONCE ONE Administration Prednisone 60 mg 12/14/24 20:19 12/14/24 20:25 Prednisone 20 Mg Tablet PO 12/14/24 20:20 60 mg ONCE ONE Administration Medical Decision Making [facility] Narrative Medical decision making narrative: Vitals are overall I think reassuring. Will check chest x-ray for recurrence/resolution of pneumonia. Check standard labs. Does not feel she needs any respiratory intervention otherwise at this time. Screen for COVID and RSV. No history of heart failure. Could have recurrence of pneumonia or sinus infection. COVID? UTI? Two-view chest x-ray independently reviewed by me does show some clearing of this infiltrative process in the left lower lung. White count returns elevated at 17.2. This is actually an increase from prior. CRP also little elevated 2.7. COVID influenza and RSV screening are negative. On reexamination appears to have more facial pain generally to palpation than appreciated on prior exam. Perhaps this is her source of suspected infection. Radiology over-read during hospitalization imaging did have question of possible aspiration appearance to this infiltrate. With notable white count and no findings other than sinus discomfort I think Augmentin would be a reasonable antibiotic choice. She does report tolerating this well in the past. With reactive pulmonary disease as well and in effort to shrink mucosal tissues, will also make available course of prednisone. I anticipated medications to be filled from [facility] but due to cost shifted scripts to her pharmacy and due to time of night we will give initial dosing of Augmentin and prednisone here in the emergency department. Remains afebrile during time in the emergency department. Stable oxygenation. See patient discharge plan for further discussion Focus on hydration. Continue your nasal rinses. It may be that you have developed a sinus infection now. You do not seem to have worsening of your respiratory symptoms. Prescribing Augmentin as we discussed and a course of prednisone from [facility]. Take the Augmentin for 12 days. Follow up early next week as you are planning Return for worsening weakness, spiking a fever, increasing persistent shortness of breath. Medical Records Medical records reviewed: Yes I reviewed the patient's medical records Lab Data Lab results reviewed: Yes I reviewed the patient's lab results Labs: Lab Results 12/14/24 12/14/24 12/14/24 Range/Units 17:21 17:22 17:32 WBC 17.21 H (4.50-11.00) K/uL RBC 3.77 L (4.00-5.20) m/uL Hgb 11.5 L (12.0-16.0) gm/dL Hct 34.5 (33.0-51.0) % MCV 92 (80-100) fL MCH 31 (26-34) pg MCHC 33 (32-36) gm/dL RDW Coeff of Letty 13.5 (11.5-15.5) % Plt Count 338 (140-440) K/uL Neut % (Auto) 87.2 H (42.0-72.0) % Lymph % (Auto) 6.9 L (20-44) % Ponce % (Auto) 4.9 (0.0-11.0) % Eos % (Auto) 0.6 (0.0-7.0) % Baso % (Auto) 0.3 (0.0-3.0) % Neut # (Auto) 15.00 H (1.7-7.0) K/uL Lymph # (Auto) 1.20 (0.90-2.90) K/uL Ponce # (Auto) 0.80 (0.00-0.90) K/UL Eos # (Auto) 0.10 (0.00-0.50) K/uL Baso # (Auto) 0.10 (0.00-0.30) K/uL Abs Immat Gran (auto) 0.00 (0.00-0.30) K/uL Imm/Tot Granulo (auto) 0.1 % Sodium 132 L (135-149) mmol/L Potassium 4.1 (3.6-5.1) mmol/L Chloride 97 (96-114) mmol/L Carbon Dioxide 30 (20-32) mmol/L Anion Gap 5 L (7-15) mEq/L BUN 13 (7-30) mg/dL Creatinine 0.7 (0.5-1.5) mg/dL Estimated Creat Clear 37.24 Estimated GFR 91 ml/min Glucose 105 (60-115) mg/dL Calcium 9.5 (8.4-10.6) mg/dL C-Reactive Protein 2.7 H (0.5-1.0) mg/dL Urine Color Yellow (Yellow) Urine Appearance Clear (Clear) Urine pH 7.5 (5.0-8.5) Ur Specific [place] 1.015 (1.000-1.030) Urine Protein Negative (Negative) Urine Glucose (UA) Negative (Negative) Urine Ketones Negative (Negative) Urine Blood Trace-intact A (Negative) Urine Nitrite Negative (Negative) Urine Bilirubin Negative (Negative) Urine Urobilinogen 0.2 (0.2-1.0) Ur Leukocyte Esterase Negative (Negative) Urine RBC 0-2 (0-2) Urine WBC 0-2 (0-5) Ur Squamous Epith Cells Few (None-Few) Urine Bacteria None (None) SARS-CoV-2 (PCR) Negative SARS-CoV-2 (Negative) Influenza Type A (PCR) Negative PCR FLU A (Negative) Influenza Type B (PCR) Negative PCR FLU B (Negative) RSV (PCR) Negative PCR RSV (Negative) Discharge Plan Discharge Clinical Impression: Sinus infection, Facial pain Patient Disposition: Home, Self-Care Condition: Improved Additional Instructions: Focus on hydration. Continue your nasal rinses. It may be that you have developed a sinus infection now. You do not seem to have worsening of your respiratory symptoms. Prescribing Augmentin as we discussed and a course of prednisone from [facility]. Take the Augmentin for 12 days. Follow up early next week as you are planning Return for worsening weakness, spiking a fever, increasing persistent shortness of breath. Prescriptions: New amoxicillin-pot clavulanate 875-125 mg tablet 1 tab PO BID 12 Days Qty: 24 0RF prednisone 20 mg tablet 40 mg PO DAILY 5 Days Qty: 10 0RF No Action magnesium 1 tab PO DAILY pantoprazole 40 mg tablet,delayed release (DR/EC) 40 mg PO DAILY PRN sodium chloride 3 % solution for nebulization 4 ml inhalation cholecalciferol (vitamin D3) 10 mcg (400 unit) capsule 10 mcg PO DAILY celecoxib [Celebrex] 200 mg capsule 200 mg PO DAILY PRN (Reason: arthritic flares) albuterol sulfate 2.5 mg /3 mL (0.083 %) solution for nebulization 2.5 mg inhalation Q6H PRN fluticasone propionate [Flonase Allergy Relief] 50 mcg/actuation spray,suspension 2 spray intranasal DAILY PRN Rx Instructions: administer 2 sprays into each nostril as needed valsartan 160 mg tablet 80 mg PO DAILY doxycycline hyclate 100 mg Tablet 100 mg PO BID Qty: 14 0RF budesonide 1 mg/2 mL suspension for nebulization 1 mg irrigation BID Rx Instructions: PATIENT USES THIS SOLUTION A NASAL LAVAGE ipratropium-albuterol 0.5 mg-3 mg(2.5 mg base)/3 mL solution for nebulization 3 ml inhalation Q6H PRNQty: 90 0RF albuterol sulfate 90 mcg/actuation HFA aerosol inhaler 2 puff inhalation Q6H PRN (Reason: shortness of breath or wheezing) Qty: 8.5 0RF (DME) nebulizers [[employer] Nebulizer System] Misc See Rx Instructions .Route Qty: 1 0RF Rx Instructions: As directed ondansetron 4 mg tablet,disintegrating 4 mg PO Q8-12H PRN (Reason: nausea and vomiting) Qty: 20 0RF levothyroxine 125 mcg tablet 125 mcg PO QDAY Qty: 90 0RF Follow Up/Referrals: Salma Whitley MD [Primary Care Provider, Internal Medicine] Stand Alone Forms: [employer] Info Instructions
--- NOTE | 2024-12-14 17:10 | CRLHL7_ITS ---
For Patients: As a result of the Cures Act, medical imaging exams and procedure reports are released immediately into your electronic medical record. You may view this report before your referring provider. If you have questions, please contact your health care provider. INDICATION: Cough, cold. TECHNIQUE: Chest 2 views. COMPARISON: None. FINDINGS: Cardiovascular and mediastinum: Heart size and vasculature are normal in caliber and appearance. Lungs and pleural spaces: Pulmonary emphysema. Subtle left lower lobe consolidation, improved since prior study. No sign of pleural effusion. No pneumothorax. Bones and soft tissues: No significant findings. IMPRESSION: Subtle left lower lobe consolidation, improved since prior study. Dictated by Pete Caldwell MD @ 12/14/2024 6:10:41 PM (Electronically Signed)
[2024-12-14 17:26] LABS: Hematocrit* 34.5 % (33.0-51.0); Hemoglobin* 11.5 gm/dL (12.0-16.0); Immature Granulocytes Pct Auto 0.1 %; Mean Corpuscular HGB Conc 33 gm/dL (32-36); Mean Corpuscular Hemoglobin 31 pg (26-34); Mean Corpuscular Volume 92 fL (80-100); RDW Coefficient of Variation % 13.5 % (11.5-15.5); Red Blood Count* 3.77 m/uL (4.00-5.20); White Blood Count* 17.21 K/uL (4.50-11.00)
[2024-12-14 17:38] LABS: Chloride* 97 mmol/L (96-114); Potassium* 4.1 mmol/L (3.6-5.1); Sodium* 132 mmol/L (135-149)
[2024-12-14 17:39] LABS: Appearance Urine Clear (Clear)
[2024-12-14 17:41] LABS: Blood Urea Nitrogen* 13 mg/dL (7-30); Creatinine* 0.7 mg/dL (0.5-1.5); Est. Creatinine Clearance* 37.24; Estimated Glomerular Filt Rate 91 ml/min
[2024-12-14 17:42] LABS: Anion Gap 5 mEq/L (7-15); Calcium* 9.5 mg/dL (8.4-10.6); Carbon Dioxide* 30 mmol/L (20-32); Glucose* 105 mg/dL (60-115)
[2024-12-14 17:43] LABS: Immature Granulocytes Abs Auto 0.00 K/uL (0.00-0.30); Lymphocytes Absolute Auto 1.20 K/uL (0.90-2.90); Slide Review Reflex No
[2024-12-14 18:01] LABS: PCR FLU A Negative PCR FLU A (Negative); PCR FLU B Negative PCR FLU B (Negative); PCR RSV Negative PCR RSV (Negative); SARS PCR* Negative SARS-CoV-2 (Negative)
== END 2024-12-14 20:28 | disposition home or self-care (01) ==
PROVIDERS: Emergency Provider Family Medicine; PCP Internal Medicine
DX: J32.9 Chronic sinusitis, unspecified (principal); R51.9 Headache, unspecified; R05.9 Cough, unspecified; R53.83 Other fatigue
CPT/HCPCS: 36415; 71046; 80048; 81001; 85025; 86140; 87631; 94761; 99284; A9270; J7512

== ENCOUNTER 2024-12-25 15:54 | Outpatient (CLI) | payer MEDICARE, BC, SELFPAY | END 2024-12-25 15:55 | disposition home or self-care (01) | LOC: NFLDREF 15:55 | PROVIDERS: PCP Internal Medicine; Visit Provider Internal Medicine | DX: I10 Essential (primary) hypertension (principal) | CPT/HCPCS: 80048 ==